=== PATIENT | female | born 1955 | race Caucasian/White ===

== ENCOUNTER → 2016-07-07 | Outpatient (CLI) | payer BC ==
[~2016-07-07] MED LIST: ASCO10003 PO; BENZ2TAB6 PO; CALC600T9 PO; CHOL100010 PO; CLR10 PO; DENO60SO SC; FLUT0.15 NAE; LEVO75TA PO
--- NOTE | 2016-07-08 13:19 | MAMMOGRAPHY REPORT ---
BILATERAL DIGITAL SCREENING MAMMOGRAM TOMOSYNTHESIS WITH CAD: 07/07/2016 CLINICAL HISTORY: Routine screening. TECHNIQUE: Breast tomosynthesis in addition to standard 2D mammography was performed. Current study was also evaluated with a Computer Aided Detection (CAD) system. COMPARISON: Comparison is made to exams dated: 07/05/2015 mammogram, 07/03/2014 mammogram, 07/01/2013 mammogram, 06/29/2012 mammogram, 06/26/2011 mammogram, and 06/24/2010 mammogram - [facility] nter. BREAST COMPOSITION: There are scattered areas of fibroglandular density in both breasts. FINDINGS: There are mild vascular calcifications in the breasts. No suspicious mass, architectural distortion or cluster of suspicious microcalcifications is seen. IMPRESSION: ACR BI-RADS CATEGORY 1: NEGATIVE There is no mammographic evidence of malignancy. A 1 year screening mammogram is recommended. The p atient will receive written notification of the results. Approximately 10% of breast cancers are not detected with mammography. A negative mammographic repor t should not delay biopsy if a clinically suggestive mass is present. Salima Mack M.D. ay/:07/07/2016 17:17:55 Business Professor: Jesus LINN(Jose)(M), [facility] letter sent: Normal 1/2 BI-RADS Code: ACR BI-RADS Category 1: Negative
== END | disposition home or self-care (01) ==
LOC: C.MAMM 11:41
PROVIDERS: ATTEND Family Medicine
DX: Z12.31 Encounter for screening mammogram for malignant neoplasm of breast (principal)

== ENCOUNTER → 2017-07-08 | Outpatient (CLI) | payer BC ==
--- NOTE | 2017-07-08 15:13 | MAMMOGRAPHY REPORT ---
BILATERAL DIGITAL SCREENING MAMMOGRAM TOMOSYNTHESIS WITH CAD: 07/08/2017 CLINICAL HISTORY: Routine screening. Patient has no complaints. TECHNIQUE: Breast tomosynthesis in addition to standard 2D mammography was performed. Current study was also evaluated with a Computer Aided Detection (CAD) system. COMPARISON: Comparison is made to exams dated: 07/07/2016 mammogram, 07/05/2015 mammogram, 07/03/2014 m ammogram, 07/01/2013 mammogram, 06/29/2012 mammogram, and 06/26/2011 mammogram - [facility]. BREAST COMPOSITION: There are scattered areas of fibroglandular density in both breasts. FINDINGS: No suspicious masses, calcifications, or areas of architectural distortion are noted in ei ther breast. There has been no significant interval change compared to prior exams. IMPRESSION: ACR BI-RADS CATEGORY 1: NEGATIVE There is no mammographic evidence of malignancy. A 1 year screening mammogram is recommended. The pa tient will receive written notification of the results. Approximately 10% of breast cancers are not detected with mammography. A negative mammographic report should not delay biopsy if a clinically suggestive mass is present. Maricel Chen M.D. ah/:07/08/2017 12:38:16 Civil Designer: Jannie LINN(Jose)(Colleen), [facility] letter sent: Normal 1/2 BI-RADS Code: ACR BI-RADS Category 1: Negative
== END | disposition home or self-care (01) ==
LOC: C.MAMM 11:28
PROVIDERS: ATTEND Family Medicine
DX: Z12.31 Encounter for screening mammogram for malignant neoplasm of breast (principal)

== ENCOUNTER 2019-01-12 22:10 | Inpatient (IN) ==
[2019-01-12] MEDS ORDERED: METOPROLOL TARTRATE 1 MG/ML VIAL IV STA ×3 (22:36→23:32)
[2019-01-12] MEDS ORDERED: SODIUM CHLORIDE 0.9% 500 ML IV SCH (22:45)
--- NOTE | 2019-01-12 22:47 | XRay Report ---
XR chest 1V portable CLINICAL HISTORY: 63 years-old Female presenting with Chest Pain, tachycardia. TECHNIQUE: Portable upright AP view of the chest was obtained. COMPARISON: None. FINDINGS: Hilar prominence noted bilaterally. Cardiac silhouette normal in size. Diffusely coarsened lung donato ngs with prominence of interstitium. No focal opacity. No large effusion or pneumothorax. Extensive s urgical clips at the base of the neck. Degenerative changes of the thoracic spine. Osteopenia may be present. Several overlying external leads to grating image quality. Upper abdomen normal. IMPRESSION: 1. Prominence of the bilateral chiki. Underlying lymphadenopathy is not excluded though this could be vascular in etiology. Consider contrast-enhanced chest CT for further evaluation. 2. No other evidence of acute cardiopulmonary disease. Electronically signed by: Krishna Faust M.D. 01/12/2019 10:46 PM
[2019-01-12 22:51] LABS: Basophils # (auto) 0.01 K/uL (0-0.2); Basophils % (auto) 0.2 %; Eosinophils # (auto) 0.12 K/uL (0-0.5); Eosinophils % (auto) 1.9 %; Hemoglobin 13.8 g/dL (12.0-16.0); Immature Granulocytes # (auto) 0.01 K/uL (0.00-0.02); Immature Granulocytes % (auto) 0.2 %; Lymphocytes # (auto) 2.69 K/uL (1.2-3.4); Lymphocytes % (auto) 42.6 %; Mean Corpuscular Hemoglobin 30.7 pg (25-34); Mean Corpuscular Hgb Conc 34.5 g/dL (32-36); Mean Corpuscular Volume 88.9 fL (80-100); Mean Platelet Volume 9.6 fL (7.4-10.4); Monocytes # (auto) 0.46 K/uL (0.11-0.59); Monocytes % (auto) 7.3 %; Neutrophils # (auto) 3.02 K/uL (1.4-6.5); Neutrophils % (auto) 47.8 %; Platelet Count 207 K/uL (130-400); RDW Coefficient of Variation 12.7 % (11.5-14.5); RDW Standard Deviation 40.3 fL (36.4-46.3); White Blood Count 6.31 K/uL (4.8-10.8)
[2019-01-12 23:00] LABS: Partial Thromboplastin Ratio 0.9; Partial Thromboplastin Time 24.5 Seconds (21.0-31.0); Prothrombin Time 10.3 Seconds (9.0-12.0)
[2019-01-12 23:04] LABS: Alanine Aminotransferase 24 U/L (12-78); Albumin Level 4.1 gm/dl (3.4-5.0); Aspartate Aminotransferase 15 U/L (15-37); BUN Creatinine Ratio 16.6 (10-20); Blood Urea Nitrogen 10 mg/dl (7-18); Calcium 8.4 mg/dl (8.5-10.1); Carbon Dioxide 22 mmol/L (21-32); Chloride 101 mmol/L (98-107); Creatinine Clr Calc Pharmacy 80.7 ml/min; Est GFR (African American) 113.1; Est GFR (Non-African American) 97.5; Glucose 153 mg/dl (70-99); Lipase 126 U/L (73-393); Magnesium 1.9 mg/dl (1.8-2.4); Potassium 3.2 mmol/L (3.5-5.1); Sodium 133 mmol/L (136-145)
[2019-01-12 23:14] LABS: Albumin Globulin Ratio 1.3 (0.9-2); Alkaline Phosphatase 67 U/L (45-117); Bilirubin,Total 0.4 mg/dl (0.2-1); Globulin 3.2 gm/dl (2.5-4.0); Total Protein 7.3 gm/dl (6.4-8.2); Troponin I < 0.015 ng/ml (0-0.045)
[2019-01-12] MEDS ORDERED: POTASSIUM CHLORIDE 20 MEQ TABCR PO STA (23:42)
[2019-01-12] MEDS ORDERED: MAGNESIUM SULFATE / D5W 1 GM/100 ML BAG IV ONE (23:43)
[2019-01-13] MEDS ORDERED: SODIUM CHLORIDE 0.9% 250 ML IV ONE
[2019-01-13] MEDS ORDERED: METOPROLOL TARTRATE 1 MG/ML VIAL IV STA ×2 (00:35→00:47)
[2019-01-13] MEDS ORDERED: POTASSIUM CHLORIDE 20 MEQ TABCR PO STA (00:47)
[2019-01-13] MEDS ORDERED: POTASSIUM CHLORIDE 40 MEQ in SODIUM CHLORIDE 0.9% 1000ML 1,000 ML IV STA (00:48)
[2019-01-13] MEDS ORDERED: Heparin IV Standard *NO* Bolus STA (00:49)
--- NOTE | 2019-01-13 00:49 | History & Physical Report ---
Date of Service January 13, 2019 Assessment & Plan (1) Atrial fibrillation, rapid: New onset Rule out PE as precipitating factor given shortness of breath symptoms and sudden onset Hypokalemia, hypomagnesemia valvular heart disease as per records (mild [place], [place], [place], TR from 2015 PATRICE) postsurgical hypothyroidism, euthyroid as of today's TSH hx osteoporosis idiopathic torticollis on Cogentin Hyperglycemia rule out DM PCU Beta-hortencia for rate control IV Amiodarone if heart rate still uncontrolled and BP continues to drop with beta-hortencia rx IV heparin for thromboembolic prophylaxis CT chest PE study RE S OB, palpitations TTE, Cardiology consult RE new onset A. fib Replace electrolytes Check hemoglobin A1c DVT prophylaxis. Heparin Full code History of Present Illness Chief Complaint: Shortness of breath, palpitations Primary Care Provider: Iban Whaley, History obtained from patient, family, and records. Medical history significant for valvular heart disease (mild [place], [place], [place], TR from 2015 PATRICE), postsurgical hypothyroidism, osteoporosis, idiopathic torticollis on Cogentin. Last night, patient was getting ready for bed when she experienced sudden onset palpitations with shortness of breath, no actual chest pain. Denies unusual stress. Just tired the last few days, fair appetite. Patient had usual glass of wine last night. Denies unusual caffeine intake/decongestant use. No unusual fluid retention. Patient noted to be in rapid A. fib upon arrival at the ER. Cardiac rate 120-180s IV Lopressor doses given at the ER. No prior episodes of A. fib in the past. Medical History as above Surgical History : D&C, thyroidectomy, tonsillectomy, cataract surgery Family History : Atrial fibrillation, diabetes, heart disease, bipolar disorder, colon cancer Personal/Social history : Non-smoker, occasional EtOH intake, retired [employer] Allergies Allergy/AdvReac Type Severity Reaction Status Date / Time latex Allergy Unknown RASH Verified 01/12/19 23:31 erythromycin base AdvReac Unknown UPSET Verified 01/12/19 23:31 STOMACH Home Medications Home Medications Medication Instructions Recorded Confirmed Type ascorbic acid (vitamin C) 500 mg 500 mg PO DAILY tab 11/18/18 01/12/19 History tablet benztropine 1 mg tablet 0.5 - 1 mg PO DAILY tab 11/18/18 01/12/19 History calcium carbonate 600 mg calcium 600 mg PO BID tab 11/18/18 01/12/19 History (1,500 mg) tablet cholecalciferol (vitamin D3) 1,000 1,000 units PO DAILY 11/18/18 01/12/19 History unit (25 mcg) tablet levothyroxine 75 mcg tablet 75 mcg PO DAILY tab 11/18/18 01/12/19 History multivitamin 1 tab PO DAILY 11/18/18 01/12/19 History naproxen 500 mg tablet 500 mg PO BID PRN tab 11/18/18 01/12/19 History tramadol 50 mg tablet 50 mg PO Q6 PRN tab 11/18/18 01/12/19 History denosumab 60 mg/mL subcutaneous 60 mg SQ UD ml 12/13/18 01/12/19 History syringe Past Med/Surg History Medical History History of chicken pox History of colonic polyps History of osteoarthritis History of osteoporosis Surgical History S/P dilation and curettage S/P eye surgery laser surgery of right eye- lens replacement 05/1991 S/P sinus surgery 07/2015 S/P thyroidectomy 07/2008 S/P tonsillectomy 1961 S/P wisdom tooth extraction Family History Family/Other Osteoarthritis Diabetes Heart disease Hypertension Dyslipidemia Osteoporosis Thyroid disorder Colorectal cancer Social History Preferred Language: Dominican Communication Ability: Effective Form Setter/Driver Required: No Beliefs That Will Affect Care: None Current Living Situation: Spouse Other Information That Helps Us Care for You: No Feels Safe at Home: Yes Safety Concerns: Feels Safe At This Time Smoking Status: Never smoker Do You Dip or Chew Tobacco: No ; Second Hand E xposure: No ; Tobacco Cessation Education Requested by Patient: No Hx Alcohol Use: Yes Alcohol type: wine Alcohol Intake Frequency Comment: 1 drink 3-5 times a week Hx Substance Use: No Physical Activity Frequency: 3-4 Times per Week Physical Activity Frequency Comment: 30 minutes Review of Systems Review of Systems: As per HPI, all 10 systems reviewed, all other ROS negative Physical Exam Physical Exam: GENERAL: Slightly uncomfortable, slightly anxious, no respiratory distress SKIN: Normal color, warm HEENT: [place] palpebral conjunctivae, no ptosis, dry buccal mucosa NECK : Supple, no tenderness CHEST : CTA, no tenderness HEART : Irregular, systolic murmur ABDOMEN: Some distention, nontender EXTREMITIES : No LE swelling/tenderness, no other conspicuous deformities noted NEUROLOGIC : Coherent, no facial asymmetry, no other gross focality Results & Data Vital Signs (Past 12 Hours) Vital Signs Temp Pulse Resp BP Pulse Ox 01/12/19 23:39 144 H 100/66 01/12/19 23:31 153 H 19 94 01/12/19 23:30 147 H 18 100/66 94 01/12/19 23:16 151 H 22 93 01/12/19 23:15 142 H 21 107/88 94 01/12/19 23:10 152 H 105/85 01/12/19 23:00 161 H 19 105/85 95 01/12/19 22:52 155 H 19 156/138 H 96 01/12/19 22:46 132 H 17 95 01/12/19 22:45 160 H 19 96 01/12/19 22:44 96 01/12/19 22:43 152 H 140/125 H 01/12/19 22:32 185 H 19 140/125 H 95 01/12/19 22:31 189 H 18 152/126 H 95 01/12/19 22:30 180 H 17 95 01/12/19 22:26 179 H 14 01/12/19 22:21 164 H 16 112/69 96 01/12/19 22:12 36.6 C 119 H 18 136/87 96 Laboratory Results Laboratory Results WBC 6.31 K/uL (4.8-10.8) 01/12/19 22:30 RBC 4.50 M/uL (4.2-5.4) 01/12/19 22:30 Hgb 13.8 g/dL (12.0-16.0) 01/12/19 22:30 Hct 40.0 % (37-47) 01/12/19 22:30 MCV 88.9 fL (80-100) 01/12/19 22:30 MCH 30.7 pg (25-34) 01/12/19 22:30 MCHC 34.5 g/dL (32-36) 01/12/19 22:30 RDW Std Deviation 40.3 fL (36.4-46.3) 01/12/19 22: RDW Coeff of Tiffanie 12.7 % (11.5-14.5) 01/12/19: Plt Count 207 K/uL (130-400) 01/12/19 22:30 MPV 9.6 fL (7.4-10.4) 01/12/19 22: Immature Gran % (Auto) 0.2 % 01/12/19 22: Neut % (Auto) 47.8 % 01/12/19 22: Lymph % (Auto) 42.6 % 01/12/19 22:30 [place] % (Auto) 7.3 % 01/12/19: Eos % (Auto) 1.9 % 01/12/19: Baso % (Auto) 0.2 % 01/12/19: Immature Gran # (Auto) 0.01 K/uL (0.00-0.02) 01/12/19 22: Neut # (Auto) 3.02 K/uL (1.4-6.5) 01/12/19 22:30 Lymph # (Auto) 2.69 K/uL (1.2-3.4) 01/12/19 22:30 [place] # (Auto) 0.46 K/uL (0.11-0.59) 01/12/19 22:30 Eos # (Auto) 0.12 K/uL (0-0.5) 01/12/19 22: Baso # (Auto) 0.01 K/uL (0-0.2) 01/12/19 22:30 PT 10.3 Seconds (9.0-12.0) 01/12/19 22:30 INR 1.0 (0.9-1.1) 01/12/19 22:30 APTT 24.5 Seconds (21.0-31.0) 01/12/19 22: PTT Ratio 0.9 01/12/19 22:30 Sodium 133 mmol/L (136-145) L 01/12/19 22:30 Potassium 3.2 mmol/L (3.5-5.1) L 01/12/19:30 Chloride 101 mmol/L (98-107) 01/12/19 22:30 Carbon Dioxide 22 mmol/L (21-32) 01/12/19 22:30 Anion Gap 10.0 (3-11) 01/12/19 22:30 BUN 10 mg/dl (7-18) 01/12/19 22:30 Creatinine 0.59 mg/dl (0.6-1.2) L 01/12/19 22:30 Est Cr Clr Drug Dosing 80.7 ml/min 01/12/19 22:30 Est GFR ( Amer) 113.1 01/12/19 22:30 Est GFR (Non-Af Amer) 97.5 01/12/19 22:30 BUN/Creatinine Ratio 16.6 (10-20) 01/12/19 22: Glucose 153 mg/dl (70-99) H 01/12/19 22:30 Calcium 8.4 mg/dl (8.5-10.1) L 01/12/19 22: Magnesium 1.9 mg/dl (1.8-2.4) 01/12/19: Total Bilirubin 0.4 mg/dl (0.2-1) 01/12/19 22:30 AST 15 U/L (15-37) 01/12/19 22:30 ALT 24 U/L (12-78) 01/12/19 22:30 Alkaline Phosphatase 67 U/L (45-117) 01/12/19 22:30 Troponin I < 0.015 ng/ml (0-0.045) 01/12/19 22:30 Total Protein 7.3 gm/dl (6.4-8.2) 01/12/19 22: Albumin 4.1 gm/dl (3.4-5.0) 01/12/19 22:30 Globulin 3.2 gm/dl (2.5-4.0) 01/12/19 22: Albumin/Globulin Ratio 1.3 (0.9-2) 01/12/19 22: Lipase 126 U/L (73-393) 01/12/19 22:30 TSH 1.020 uIu/ml (0.300-4.500) 01/12/19 22:30 Diagnostic Findings Chest x-ray : 1. Prominence of the bilateral chiki. Underlying lymphadenopathy is not excluded though this could be vascular in etiology. Consider contrast-enhanced chest CT for further evaluation. 2. No other evidence of acute cardiopulmonary disease. EKG as per my interpretation :Rate 140, A. fib, normal axis, ST depression in inferior leads, upsloping ST depression anterolateral leads
[2019-01-13] MEDS ORDERED: CALCIUM GLUCONATE 10% 1,000 MG in SODIUM CHLORIDE 0.9% 50 ML IV STA (00:55)
[2019-01-13] MEDS ORDERED: HEPARIN SODIUM/DEXTROSE 25,000 UNITS/500 ML BAG IV SCH (01:00)
[2019-01-13] MEDS ORDERED: HEPARIN 25000 UNIT/500 ML D5W IV ONE (01:03)
[2019-01-13] MEDS ORDERED: CALCIUM GLUCONATE 10% 10 ML VIAL IV ONE (01:03)
--- NOTE | 2019-01-13 01:24 | Emergency Department Note ---
Entered by Symone Ibarra acting as a scribe for History of Present Illness General Chief complaint: Tachycardia Stated complaint: RAPID HEART BEAT, PT HAS A HEART MURMER Time Seen by Provider: 01/12/19 22:28 History of Present Illness Onset (ago): hour(s) 1 Location: chest Pain Consistency: + other (constant) Quality: + other (tachycardia) Associated symptoms: + shortness of breath; no chest pain The patient is a 63 year old female who presents to the Emergency Room with co mplaints of constant tachycardia that began 1 hour ago. She complains of a "racing heart," and shortness of breath. The patient denies any chest pain. She notes that she got her second Prolia shot 2 days ago. The patient denies any change in thyroid medication. She denies any history of A-fib. 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 Home Medications Home Medications Medication Instructions Recorded Confirmed Type ascorbic acid (vitamin C) 500 mg 500 mg PO DAILY tab 11/18/18 01/12/19 History tablet benztropine 1 mg tablet 0.5 - 1 mg PO DAILY tab 11/18/18 01/12/19 History calcium carbonate 600 mg calcium 600 mg PO BID tab 11/18/18 01/12/19 History (1,500 mg) tablet cholecalciferol (vitamin D3) 1,000 1,000 units PO DAILY 11/18/18 01/12/19 Hist ory unit (25 mcg) tablet levothyroxine 75 mcg tablet 75 mcg PO DAILY tab 11/18/18 01/12/19 History multivitamin 1 tab PO DAILY 11/18/18 01/12/19 History naproxen 500 mg tablet 500 mg PO BID PRN tab 11/18/18 01/12/19 History tramadol 50 mg tablet 50 mg PO Q6 PRN tab 11/18/18 01/12/19 History denosumab 60 mg/mL subcutaneous 60 mg SQ UD ml 12/13/18 01/12/19 History syringe Allergies Allergy/AdvReac Type Severity Reaction Status Date / Time latex Allergy Unknown RASH Verified 01/12/19 23:31 erythromycin base AdvReac Unknown UPSET Verified 01/12/19 23:31 STOMACH Past Med/Surg History Medical History History of chicken pox History of colonic polyps History of osteoarthritis History of osteoporosis Surgical History S/P dilation and curettage S/P eye surgery laser surgery of right eye- lens replacement 05/1991 S/P sinus surgery 07/2015 S/P thyroidectomy 07/2008 S/P tonsillectomy 1962 S/P wisdom tooth extraction Family History Family/Other Osteoarthritis Diabetes Heart disease Hypertension Dyslipidemia Osteoporosis Thyroid disorder Colorectal cancer Social History Preferred Language: British Communication Ability: Effective Pcb Designer Required: No Beliefs That Will Affect Care: None Current Living Situation: Spouse Other Information That Helps Us Care for You: No Feels Safe at Home: Yes Safety Concerns: Feels Safe At This Time Smoking Status: Never smoker Do You Dip or Chew Tobacco: No ; Second Hand Exposure: No ; Tobacco Cessation Education Requested by Patient: No Hx Alcohol Use: Yes Alcohol type: wine Alcohol Intake Frequency Comment: 1 drink 3-5 times a week Hx Substance Use: No Physical Activity Frequency: 3-4 Times per Week Physical Activity Frequency Comment: 30 minutes Review of Systems See HPI for pertinent positives & negatives. and A total of 10 systems reviewed and were otherwise negative Physical Exam Vital Signs Vital Signs - 24 hr 01/12/19 22:12 01/12/19 22:21 01/12/19 22:26 Temperature 36.6 C Temperature Source Oral Sepsis Recent Fever Within 48 Hours No Sepsis Action Taken by Nursing No Action Required Pulse Rate 119 H 164 H 179 H Pulse Rate from SpO2 Sensor 130 H Respiratory Rate 18 16 14 Respiratory Effort / Characteristics Non-Labored Respiratory Depth Normal Respiratory Pattern Blood Pressure 136/87 112/69 Blood Pressure Mean 103 83 Pulse Oximetry 96 96 Oxygen Delivery Method Room Air 01/12/19 22:30 01/12/19 22:31 01/12/19 22:32 Temperature Temperature Source Sepsis Recent Fever Within 48 Hours Sepsis Action Taken by Nursing Pulse Rate 180 H 189 H 185 H Pulse Rate from SpO2 Sensor 104 H 118 H 151 H Respiratory Rate 17 18 19 Respiratory Effort / Characteristics Respiratory Depth Respiratory Pattern Blood Pressure 152/126 H 140/125 H Blood Pressure Mean 134 130 Pulse Oximetry 95 95 95 Oxygen Delivery Method 01/12/19 22:37 01/12/19 22:43 01/12/19 22:44 Temperature Temperature Source Sepsis Recent Fever Within 48 Hours Sepsis Action Taken by Nursing Pulse Rate 152 H Pulse Rate from SpO2 Sensor Respiratory Rate Respiratory Effort / Characteristics Short of Breath Respiratory Depth Normal Respiratory Pattern Regular Blood Pressure 140/125 H Blood Pressure Mean Pulse Oximetry 96 Oxygen Delivery Method Room Air 01/12/19 22:45 01/12/19 22:46 01/12/19 22:52 Temperature Temperature Source Sepsis Recent Fever Within 48 Hours Sepsis Action Taken by Nursing Pulse Rate 160 H 132 H 155 H Pulse Rate from SpO2 Sensor 130 H 95 H 153 H Respiratory Rate 19 17 19 Respiratory Effort / Characteristics Respiratory Depth Respiratory Pattern Blood Pressure 156/138 H Blood Pressure Mean 82 144 Pulse Oximetry 96 95 96 Oxygen Delivery Method 01/12/19 23:00 01/12/19 23:10 01/12/19 23:15 Temperature Temperature Source Sepsis Recent Fever Within 48 Hours Sepsis Action Taken by Nursing Pulse Rate 161 H 152 H 142 H Pulse Rate from SpO2 Sensor 133 H 133 H Respiratory Rate 19 21 Respiratory Effort / Characteristics Respiratory Depth Respiratory Pattern Blood Pressure 105/85 105/85 107/88 Blood Pressure Mean 91 94 Pulse Oximetry 95 94 Oxygen Delivery Method 01/12/19 23:16 01/12/19 23:30 01/12/19 23:31 Temperature Temperature Source Sepsis Recent Fever Within 48 Hours Sepsis Action Taken by Nursing Pulse Rate 151 H 147 H 153 H Pulse Rate from SpO2 Sensor 111 H 142 H 148 H Respiratory Rate 22 18 19 Respiratory Effort / Characteristics Respiratory Depth Respiratory Pattern Blood Pressure 100/66 Blood Pressure Mean 77 Pulse Oximetry 93 94 94 Oxygen Delivery Method 01/12/19 23:39 01/12/19 23:45 01/13/19 00:00 Temperature Temperature Source Sepsis Recent Fever Within 48 Hours Sepsis Action Taken by Nursing Pulse Rate 144 H 141 H 158 H Pulse Rate from SpO2 Sensor 134 H 138 H Respiratory Rate 22 21 Respiratory Effort / Characteristics Respiratory Depth Respiratory Pattern Blood Pressure 100/66 91/70 L 113/94 Blood Pressure Mean 77 100 Pulse Oximetry 94 93 Oxygen Delivery Method 01/13/19 00:15 01/13/19 00:31 01/13/19 00:32 Temperature Temperature Source Sepsis Recent Fever Within 48 Hours Sepsis Action Taken by Nursing Pulse Rate 141 H 153 H 164 H Pulse Rate from SpO2 Sensor 134 H 123 H 133 H Respiratory Rate 19 24 20 Respiratory Effort / Characteristics Respiratory Depth Respiratory Pattern Blood Pressure 106/82 89/68 L 116/83 Blood Pressure Mean 90 75 94 Pulse Oximetry 95 94 94 Oxygen Delivery Method 01/13/19 00:45 Temperature Temperature Source Sepsis Recent Fever Within 48 Hours Sepsis Action Taken by Nursing Pulse Rate 152 H Pulse Rate from SpO2 Sensor 136 H Respiratory Rate 25 H Respiratory Effort / Characteristics Respiratory Depth Respiratory Pattern Blood Pressure 111/75 Blood Pressure Mean 87 Pulse Oximetry 93 Oxygen Delivery Method General: Non-ill appearing, slender, middle aged female in no acute distress. HEENT: Normal cephalic atraumatic. Pupils are equal round and reactive to light. Extraocular movements are intact. Oropharynx is pink with moist mucous membranes. No swelling of the mouth lips or tongue. Neck: Supple with a midline trachea. No meningeal signs or stiffness, no JVD or bruits. No Stridor. Chest: Clear to auscultation bilaterally. No wheezes or rhonchi. No increased work of breathing. Heart: Irregularly irregular rate with an atrial complex. Tachycardia consistent with A-fib. Abdomen: Soft nontender, nondistended without rebound guarding or rigidity. Extremities: No cyanosis clubbing or edema. No calf tenderness or asymmetry Spine/Back. Non tender to palpation. No CVA tenderness Skin: Good turgor without rashes. Neurologic exam: Cranial nerves two through 12 are intact. Motor and sensation are intact and symmetrical throughout. Course 2232: The patient was evaluated in room B07. A complete history and physical exam was performed. 2258: I reevaluated the patient. 2339: I reassessed the patient, and she stated that she was feeling alright. 0032: I spoke with Dr. Calvo about the patients case. He will further evaluate the patient. 0035: I reassessed the patient, and her heart rate was in the 140-150s. Administered Medications Calcium Carbonate (Os-Kenny 500) 1,250 mg PO DAILY ИВАН Stop: 02/12/19 08:59 Last Admin: 01/13/19 08:29 Dose: 1,250 mg Documented by: [id number] Heparin Sodium/Dextrose (Heparin Sodium/Dextrose) 25,000 units in 500 mls @ 20 mls/hr IV .Q24H ИВАН; Protocol Stop: 02/12/19 00:59 Last Titration: 01/13/19 08:45 Dose: 1,000 units/hr, 20 mls/hr Documented by: [id number] Cosigned by: [id number] Titration: 01/13/19 07:23 Dose: 1,000 units/hr, 20 mls/hr Documented by: [id number] Cosigned by: [id number] Admin: 01/13/19 01:19 Dose: 1,000 units/hr, 20 mls/hr Documented by: [id number] Cosigned by: [id number] Amiodarone HCl/Dextrose (Nexterone / D5w) 360 mg in 200 mls @ 16.667 mls/hr IV .Q12H ИВАН Stop: 02/12/19 09:29 Last Admin: 01/13/19 09:18 Dose: 0.5 mg/min, 16.7 mls/hr Documented by: [id number] Cosigned by: [id number] Ioversol (Optiray 320 125ml) 125 ml IV ONCE PRN PRN Reason: Interaction Checking Stop: 01/17/19 02:03 Last Admin: 01/13/19 02:05 Dose: 115 ml Documented by: [id number] Levothyroxine Sodium (Synthroid) 75 mcg PO DAILYBB ИВАН Stop: 02/12/19 06:29 Last Admin: 01/13/19 06:36 Dose: 75 mcg Documented by: [id number] Multivitamins (Multivitamin Tab) 1 tab PO DAILY ИВАН Stop: 02/12/19 08:59 Last Admin: 01/13/19 08:29 Dose: 1 tab Documented by: [id number] Vitamin D (Vitamin D3) 1,000 units PO DAILY ИВАН Stop: 02/12/19 08:59 Last Admin: 01/13/19 08:29 Dose: 1,000 units Documented by: [id number] Discontinued Medications Diltiazem HCl (Cardizem) 20 mg IV NOW STA Stop: 01/13/19 02:29 Last Admin: 01/13/19 02:43 Dose: 20 mg Documented by: [id number] Cosigned by: [id number] Diltiazem HCl (Cardizem) Confirm Administered Dose 25 mg IV .STK-MED ONE Stop: 01/13/19 02:40 Last Admin: 01/13/19 03:15 Dose: Not Given Documented by: [id number] Sodium Chloride (Nss) 500 mls @ 999 mls/hr IV .Q31M ИВАН Stop: 01/12/19 23:15 Last Infusion: 01/12/19 23:35 Dose: 0 mls/hr Documented by: [id number] Admin: 01/12/19 22:43 Dose: 999 mls/hr Documented by: [id number] Magnesium Sulfate/Dextrose (Magnesium Sulfate / D5w) 1 gm in 100 mls @ 100 mls/hr IV ONE ONE Stop: 01/13/19 00:42 Last Infusion: 01/13/19 01:05 Dose: 0 mls/hr Documented by: [id number] Admin: 01/13/19 00:03 Dose: 100 mls/hr Documented by: [id number] Sodium Chloride (Nss) 250 mls @ 999 mls/hr IV .Q16M ONE Stop: 01/13/19 00:15 Last Infusion: 01/13/19 00:20 Dose: 0 mls/hr Documented by: [id number] Admin: 01/13/19 00:03 Dose: 999 mls/hr Documented by: [id number] Potassium Chloride 40 meq/ (Sodium Chloride) 1,020 mls @ 200 mls/hr IV .Q5H6M STA Stop: 01/13/19 05:53 Last Infusion: 01/13/19 06:38 Dose: 0 mls/hr Documented by: [id number] Admin: 01/13/19 01:12 Dose: 200 mls/hr Documented by: [id number] Calcium Gluconate 1,000 mg/ (Sodium Chloride) 60 mls @ 240 mls/hr IV NOW STA Stop: 01/13/19 01:09 Last Infusion: 01/13/19 02:23 Dose: 0 mls/hr Documented by: [id number] Admin: 01/13/19 01:19 Dose: 240 mls/hr Documented by: [id number] Amiodarone HCl/Dextrose (Nexterone / D5w) 150 mg in 100 mls @ 600 mls/hr IV ONE STA Stop: 01/13/19 03:26 Last Infusion: 01/13/19 04:29 Dose: 0 mls/hr Documented by: [id number] Cosigned by: [id number] Admin: 01/13/19 03:44 Dose: 600 mls/hr Documented by: [id number] Cosigned by: [id number] Amiodarone HCl/Dextrose (Nexterone / D5w) 360 mg in 200 mls @ 33.333 mls/hr IV .Q6H ИВАН Stop: 01/13/19 09:29 Last Infusion: 01/13/19 10:03 Dose: 0 mg/min, 0 mls/hr Documented by: [id number] Cosigned by: [id number] Infusion: 01/13/19 07:23 Dose: 1 mg/min, 33.3 mls/hr Documented by: [id number] Cosigned by: [id number] Admin: 01/13/19 04:02 Dose: 1 mg/min, 33.3 mls/hr Documented by: [id number] Cosigned by: [id number] Metoprolol Tartrate (Lopressor) 3 mg IV NOW STA Stop: 01/12/19 22:37 Last Admin: 01/12/19 22:43 Dose: 3 mg Documented by: [id number] Metoprolol Tartrate (Lopressor) 3 mg IV NOW STA Stop: 01/12/19 23:02 Last Admin: 01/12/19 23:10 Dose: 3 mg Documented by: [id number] Metoprolol Tartrate (Lopressor) 3 mg IV NOW STA Stop: 01/12/19 23:33 Last Admin: 01/12/19 23:39 Dose: 3 mg Documented by: [id number] Metoprolol Tartrate (Lopressor) 3 mg IV NOW STA Stop: 01/13/19 00:36 Last Admin: 01/13/19 01:12 Dose: Not Given Documented by: [id number] Metoprolol Tartrate (Lopressor) 5 mg IV NOW STA Stop: 01/13/19 00:48 Last Admin: 01/13/19 01:09 Dose: 5 mg Documented by: [id number] Metoprolol Tartrate (Lopressor) 25 mg PO BID ИВАН Stop: 02/12/19 02:44 Last Admin: 01/13/19 08:31 Dose: Not Given Documented by: [id number] Metoprolol Tartrate (Lopressor) 25 mg PO TID ИВАН Stop: 02/12/19 02:59 Last Admin: 01/13/19 03:16 Dose: Not Given Documented by: [id number] Potassium Chloride (Klor-Con M20) 40 meq PO NOW STA Stop: 01/12/19 23:43 Last Admin: 01/13/19 00:03 Dose: 40 meq Documented by: [id number] Potassium Chloride (Klor-Con M20) 40 meq PO NOW STA Stop: 01/13/19 00:48 Last Admin: 01/13/19 01:11 Dose: 40 meq Documented by: [id number] Medical Decision Making Differential Diagnosis The differential diagnosis includes: Rapid A-fib, acute coronary syndrome, electrolyte or metabolic imbalance, thyroid disease, and infection Medical Records Attestation: I reviewed the patient's medical records. Home Medications Current Medication List: was personally reviewed by me Laboratory Data Attestation: I reviewed the patient's lab results. Result diagrams: 01/13/19 07:48 01/13/19 07:48 Lab Results 01/12/19 01/12/19 01/12/19 Range/Units 22:30 22:30 22:30 WBC 6.31 (4.8-10.8) K/uL RBC 4.50 (4.2-5.4) M/uL Hgb 13.8 (12.0-16.0) g/dL Hct 40.0 (37-47) % MCV 88.9 (80-100) fL MCH 30.7 (25-34) pg MCHC 34.5 (32-36) g/dL RDW Std Deviation 40.3 (36.4-46.3) fL RDW Coeff of Tiffanie 12.7 (11.5-14.5) % Plt Count 207 (130-400) K/uL MPV 9.6 (7.4-10.4) fL Immature Gran % (Auto) 0.2 % Neut % (Auto) 47.8 % Lymph % (Auto) 42.6 % Whitley % (Auto) 7.3 % Eos % (Auto) 1.9 % Baso % (Auto) 0.2 % Immature Gran # (Auto) 0.01 (0.00-0.02) K/uL Neut # (Auto) 3.02 (1.4-6.5) K/uL Lymph # (Auto) 2.69 (1.2-3.4) K/uL Whitley # (Auto) 0.46 (0.11-0.59) K/uL Eos # (Auto) 0.12 (0-0.5) K/uL Baso # (Auto) 0.01 (0-0.2) K/uL PT 10.3 (9.0-12.0) Seconds INR 1.0 (0.9-1.1) APTT 24.5 (21.0-31.0) Seconds PTT Ratio 0.9 Sodium 133 L (136-145) mmol/L Potassium 3.2 L (3.5-5.1) mmol/L Chloride 101 (98-107) mmol/L Carbon Dioxide 22 (21-32) mmol/L Anion Gap 10.0 (3-11) BUN 10 (7-18) mg/dl Creatinine 0.59 L (0.6-1.2) mg/dl Est Cr Clr Drug Dosing 80.7 ml/min Est GFR ( Amer) 113.1 Est GFR (Non-Af Amer) 97.5 BUN/Creatinine Ratio 16.6 (10-20) Glucose 153 H (70-99) mg/dl Calcium 8.4 L (8.5-10.1) mg/dl Magnesium 1.9 (1.8-2.4) mg/dl Total Bilirubin 0.4 (0.2-1) mg/dl AST 15 (15-37) U/L ALT 24 (12-78) U/L Alkaline Phosphatase 67 (45-117) U/L Troponin I < 0.015 (0-0.045) ng/ml Total Protein 7.3 (6.4-8.2) gm/dl Albumin 4.1 (3.4-5.0) gm/dl Globulin 3.2 (2.5-4.0) gm/dl Albumin/Globulin Ratio 1.3 (0.9-2) Lipase 126 (73-393) U/L TSH 1.020 (0.300-4.500) uIu/ml Imaging Data Radiologist's Impression: Radiology results as stated below per my review and the radiologist's interpretation: XR chest 1V portable CLINICAL HISTORY: 63 years-old Female presenting with Chest Pain, tachycardia. TECHNIQUE: Portable upright AP view of the chest was obtained. COMPARISON: None. FINDINGS: Hilar prominence noted bilaterally. Cardiac silhouette normal in size. Diffusely coarsened lung markings with prominence of interstitium. No focal opacity. No large effusion or pneumothorax. Extensive surgical clips at the base of the neck. Degenerative changes of the thoracic spine. Osteopenia may be present. Several overlying external leads to grating image quality. Upper abdomen normal. IMPRESSION: 1. Prominence of the bilateral chiki. Underlying lymphadenopathy is not excluded though this could be vascular in etiology. Consider contrast-enhanced chest CT for further evaluation. 2. No other evidence of acute cardiopulmonary disease. Electronically signed by: Krishna Faust M.D. 01/12/2019 10:46 PM ECG Data Attestation: I personally reviewed and interpreted this ECG as follows: Indication: other (tachycardia) Rate (beats per minute): 163 Rhythm: atrial fibrillation Findings: + other (ST abnormalities) Comparison ECG Date: from (08/06/16) Change: the following changes noted (A-fib has replaced normal sinus rhythm) Blood Pressure Blood Pressure Findings: Elevated blood pressure Blood Pressure Disposition: further management by hospitalist JOSEFINA Narrative This patient comes in complaining of palpitations. She the nurse came and got me to see her promptly as she was in new onset rapid A. fib. The patient was hemodynamically stable with her blood pressure. she is petite and weighs about 60 kg and normally runs a low blood pressure she says. She has no chest pain or shortness of breath. No history of similar. IV access established and she was given an IV fluid bolus. Given her size and blood pressure on the lower side, she was given Lopressor and 3 mg IV increments rather than 5 mg. She tolerated this well. Her initial pulse was very high up in the 180s and came down with Lopressor. she did very require 4 doses while in the ER for a total of 12 mg IV. Potassium is mildly low and this was repleted magnesium was also mildly low and this was repleted no elevation of her troponin she does not appear to be in heart failure. She is baseline hypothyroid due to the thyroid surgery. Despite the medication she still is on the tachycardic side in the 130s to 140s and will need to be admitted for further treatment and evaluation. Dr. Sears was consulted and saw her in the ER for these measures Impression & Plan Atrial fibrillation, rapid, Palpitations, Hypokalemia, Hypomagnesemia Critical Care Time Critical Care Time: Yes Total Critical Care Time: 45 I have personally spent greater than 45 minutes of critical care time in the direct management of this patient. This includes bedside care, interpretation of diagnostic studies, and testing, discussion with consultants, patient, and family members, and other required patient management activities. This 45 minutes is in excess of all separately billable procedures. Discharge Plan Visit Data *Final* Discharge Date/Time: 01/13/19 01:41 Chief Complaint: Tachycardia Stated Complaint: RAPID HEART BEAT, PT HAS A HEART MURMER ED Provider: Umberto Downing Discharge Problem: Atrial fibrillation, rapid, Palpitations, Hypokalemia, Hypomagnesemia Patient Disposition: Admitted As Inpatient Discharge Instructions Interventions: ED Discharge Assessment Last Done: 01/13/19 01:41 The scribe's documentation has been prepared under my direction and personally reviewed by me in its entirety. I confirm that the note above accurately reflects all work, treatment, procedures, and medical decision making performed by me.
[2019-01-13] MEDS ORDERED: OPTIRAY 320 125ml IV PRN (02:04)
[2019-01-13] MEDS ORDERED: ACETAMINOPHEN 325 MG TAB PO PRN (02:21)
[2019-01-13] MEDS ORDERED: LORazepam 0.25 MG/0.5 ML VIAL IV PRN (02:21)
[2019-01-13] MEDS ORDERED: NITROGLYCERIN SL 0.4 MG/TAB TAB SL PRN (02:21)
[2019-01-13] MEDS ORDERED: PROMETHAZINE HCL 12.5 MG in SODIUM CHLORIDE 0.9% 50 ML IV PRN (02:21)
[2019-01-13] MEDS ORDERED: TRAMADOL HCL 50 MG TABLET PO PRN (02:21)
[2019-01-13] MEDS ORDERED: dilTIAZem HCl 5 MG/ML 5 ML VIAL IV STA (02:28)
[2019-01-13] MEDS ORDERED: dilTIAZem HCl 5 MG/ML 5 ML VIAL IV ONE (02:39)
[2019-01-13] MEDS ORDERED: METOPROLOL TARTRATE 25 MG TAB PO SCH ×3 (02:45→09:00)
[2019-01-13] MEDS ORDERED: AMIODARONE IV BOLUS / DRIP IV STA (03:17)
[2019-01-13] MEDS ORDERED: AMIODARONE / D5W 150 MG/100 ML BAG IV STA (03:17)
[2019-01-13] MEDS ORDERED: AMIODARONE / D5W 360 MG/200 ML BAG IV SCH (03:30)
[2019-01-13] MEDS: LEVOTHYROXINE SODIUM 75 MCG TABLET PO SCH (06:36)
--- NOTE | 2019-01-13 07:26 | CT Scan Report ---
CT ANGIOGRAM OF THE CHEST CLINICAL HISTORY: Atypical chest pain. Dyspnea. COMPARISON STUDY: Chest x-ray dated 01/12/2019. TECHNIQUE: Following the IV administration of 115 cc of Optiray 320, CT angiogram of the chest was pe rformed from the upper abdomen to the thoracic inlet utilizing the pulmonary embolus protocol. Images are reviewed in the axial, sagittal, and coronal planes. 3-D MIPS images are created and assessed. I V contrast was administered without complication. A dose lowering technique was utilized adhering to the principles of ALARA. CT DOSE: 203.51 mGy.cm FINDINGS: Thyroid: Surgically absent. Thoracic aorta: The thoracic aorta is normal in caliber and demonstrates standard 3-vessel arch anato my. The thoracic aorta is not well opacified. Pulmonary vasculature: The pulmonary trunk is dilated, measuring up to 3.2 cm in diameter. This sugge sts pulmonary artery hypertension. There are no filling defects identified in main, lobar, or segment al pulmonary branches to suggest pulmonary embolus. Heart: The heart is enlarged and without pericardial effusion. The mitral annulus is densely calcifie d. Lungs and pleural spaces: Evaluation of the lung parenchyma is degraded by motion artifact. Biapical scarring is observed. Mild diffuse peribronchial thickening and intralobular septal thickening sugges ts congestive failure. There are trace pleural effusions with bibasilar atelectasis. There is a 5 mm right lower lobe pulmonary nodule seen on image #104. Mediastinum: There is no mediastinal lymphadenopathy. Elle: Clear. Axillae: There is no axillary lymphadenopathy. Upper abdomen: Partially visualized upper abdominal viscera is within normal limits. Skeletal structures: The skeletal structures are osteopenic. There are numerous compression deformiti es identified. These are seen involving T4, T7, T8, T10, T11, T12, and L1. No lytic or blastic bony l esions are seen. IMPRESSION: 1. There is no evidence of pulmonary embolus in the main, lobar, or segmental pulmonary arteries. 2. Cardiomegaly with evidence of congestive failure. 3. Trace pleural effusions. 4. No airspace consolidation is identified typical for pneumonia. 5. There is a 5 mm right lower lobe pulmonary nodule. This can be followed as per the Fleischner crit eria. See below. 6. There are numerous age indeterminant thoracic compression deformities as above. Please refer to below summary of Fleischner criteria recommendations for follow-up of incidental CT n odules (Shashi Denny, Guidelines for management of small pulmonary nodules detected on CT scans: A sta tement from the Fleischner Society, Radiology 237: [id number].) SOLID NODULES Solitary nodule size: <6 mm * low risk patients: no follow-up needed * high risk patients: optional CT at 12 months Solitary nodule size: 6-8 mm * low risk patients: follow-up at 6-12 months, then consider further follow-up at 18-24 months * high risk patients: initial follow-up CT at 6-12 months and then at 18-24 months if no change Solitary nodule size: >8 mm * either low or high risk patients - consider follow-up CT at 3 months, and/or CT-PET, and/or biopsy Multiple nodules size: <6 mm * low risk patients: no routine follow-up * high risk patients: optional CT at 12 months Multiple nodules size: 6-8 mm * low risk patients: follow-up at 3-6 months, then consider further follow-up at 18-24 months * high risk patients: follow-up at 3-6 months, then at 18-24 months if no change Multiple nodules size: >8 mm * low risk patients: follow-up at 3-6 months, then consider further follow-up at 18-24 months * high risk patients: follow-up at 3-6 months, then at 18-24 months if no change Note: newly detected indeterminate nodule in persons 35 years of age or older. * low risk patients: minimal or absent history of smoking and/or other known risk factors * high risk patients: history of smoking or of other known risk factors (e.g. first degree relative with lung cancer, or exposure to asbestos, radon, uranium) * if a nodule up to 8 mm is partly solid or is ground glass further follow-up is required after 24 m onths to exclude possible slow growing adenocarcinoma (MICHELE) SUBSOLID NODULES Solitary pure ground-glass nodule * nodule size <6 mm - no CT follow-up required * nodule size >=6 mm - follow-up CT at 6-12 months, then every 2 years until 5 years Solitary part-solid nodule * nodule size <6 mm - no CT follow-up required * nodule size >=6 mm - follow-up CT at 3-6 months. If unchanged, and solid component remains <6 mm, then annual follow-up for 5 years Multiple subsolid nodules * nodule size <6 mm - follow-up CT at 3-6 months, consider further follow-up at 2 and 4 years if sta ble * nodule size >=6 mm - follow-up CT at 3-6 months, subsequent management based on the most suspiciou s nodule(s) Electronically signed by: Donell Garg M.D. 01/13/2019 7:24 AM
[2019-01-13 08:03] LABS: Basophils # (auto) 0.01 K/uL (0-0.2); Basophils % (auto) 0.2 %; Eosinophils # (auto) 0.07 K/uL (0-0.5); Eosinophils % (auto) 1.4 %; Hematocrit (blood only) 38.4 % (37-47); Hemoglobin 13.2 g/dL (12.0-16.0); Lymphocytes # (auto) 2.04 K/uL (1.2-3.4); Mean Corpuscular Hemoglobin 30.8 pg (25-34); Mean Corpuscular Hgb Conc 34.4 g/dL (32-36); Mean Corpuscular Volume 89.5 fL (80-100); Mean Platelet Volume 9.5 fL (7.4-10.4); Monocytes # (auto) 0.36 K/uL (0.11-0.59); Monocytes % (auto) 7.1 %; Neutrophils # (auto) 2.62 K/uL (1.4-6.5); Neutrophils % (auto) 51.3 %; Platelet Count 209 K/uL (130-400); RDW Standard Deviation 42.9 fL (36.4-46.3); Red Blood Count 4.29 M/uL (4.2-5.4)
[2019-01-13 08:24] LABS: Partial Thromboplastin Ratio 1.7
[2019-01-13] MEDS: CHOLECALCIFEROL 1,000 UNITS TAB PO SCH (08:29)
[2019-01-13] MEDS: CALCIUM CARBONATE 1250MG TAB PO SCH (08:29)
[2019-01-13] MEDS: MULTIVITAMIN TAB PO SCH (08:29)
[2019-01-13 08:32] LABS: Partial Thromboplastin Time 46.4 Seconds (21.0-31.0)
[2019-01-13 08:38] LABS: BUN Creatinine Ratio 11.6 (10-20); Creatinine Clr Calc Pharmacy 94.9 ml/min; Est GFR (Non-African American) 104.4; Potassium 4.7 mmol/L (3.5-5.1)
[2019-01-13 08:43] LABS: Estimated Average Glucose 117 mg/dl; Hemoglobin A1C 5.7 % (4.5-5.6)
[2019-01-13] MEDS ORDERED: BENZTROPINE MESYLATE 1 MG TAB PO SCH (09:00)
[2019-01-13 09:08] LABS: T4 Free Thyroxine 1.11 ng/dl (0.8-1.6); Thyroid Stimulating Hormone 1.03 uIu/ml (0.300-4.500)
[2019-01-13] MEDS: AMIODARONE / D5W 360 MG/200 ML BAG IV SCH ×2 (09:18→21:25)
[2019-01-13] MEDS ORDERED: METOPROLOL TARTRATE 25 MG TAB PO STA (13:03)
--- NOTE | 2019-01-13 13:13 | Cardiology Consultation ---
Date of Consultation January 13, 2019 Assessment & Plan (1) Atrial fibrillation, rapid: As mentioned the patient had been in normal sinus rhythm since this morning but when she got up to walk in the halls she developed a rapid heart rate with several seconds of atrial fibrillation that was asymptomatic. At this point I will continue the amiodarone infusion and add a low-dose of metoprolol. I think the plan should be to eventually transition her to oral amiodarone. I am also going to switch her to Eliquis from heparin. She will have an echocardiogram completed this admission. History of Present Illness Attending Physician: Jet Butler MD History of Present Illness This is a pleasant 63-year-old female with a history of osteoporosis and several compression fractures of her spine. No significant cardiac history except that she had a heart murmur as a child however, multiple echocardiograms failed to show any significant valvular disease. She has no prior history of hypertension or diabetes. She is treated for hypothyroidism. Patient is a never smoked. No significant family history of heart disease or cholesterol. She was getting ready for bed last evening and had a sudden onset of rapid heart rate. She presented to the emergency department where she was found to be in atrial fibrillation with RVR. She was given multiple doses of diltiazem and metoprolol without success in controlling her heart rates. She was then started on an amiodarone infusion and early this morning she converted to normal sinus rhythm. She has been on heparin since admission. She denies chest pain or shortness of breath. She is had no dizziness or lightheadedness. She has been maintaining sinus rhythm with adequate heart rates however, she was up walking the halls and was noted on the telemetry to have had a burst of atrial fibrillation with RVR which was asymptomatic. She has no prior history of strokes or kidney disease. Allergies Allergy/AdvReac Type Severity Reaction Status Date / Time latex Allergy Unknown RASH Verified 01/12/19 23:31 erythromycin base AdvReac Unknown UPSET Verified 01/12/19 23:31 STOMACH Home Medications Home Medications Medication Instructions Recorded Confirmed Type ascorbic acid (vitamin C) 500 mg 500 mg PO DAILY tab 11/18/18 01/12/19 History tablet benztropine 1 mg tablet 0.5 - 1 mg PO DAILY tab 11/18/18 01/12/19 History calcium carbonate 600 mg calcium 600 mg PO BID tab 11/18/18 01/12/19 History (1,500 mg) tablet cholecalciferol (vitamin D3) 1,000 1,000 units PO DAILY 11/18/18 01/12/19 History unit (25 mcg) tablet levothyroxine 75 mcg tablet 75 mcg PO DAILY tab 11/18/18 01/12/19 History multivitamin 1 tab PO DAILY 11/18/18 01/12/19 History naproxen 500 mg tablet 500 mg PO BID PRN tab 11/18/18 01/12/19 History tramadol 50 mg tablet 50 mg PO Q6 PRN tab 11/18/18 01/12/19 History denosumab 60 mg/mL subcutaneous 60 mg SQ UD ml 12/13/18 01/12/19 History syringe Patient History Medical History History of chicken pox History of colonic polyps History of osteoarthritis History of osteoporosis Surgical History S/P dilation and curettage S/P eye surgery laser surgery of right eye- lens replacement 05/1991 S/P sinus surgery 07/2015 S/P thyroidectomy 07/2008 S/P tonsillectomy 1961 S/P wisdom tooth extraction Family History Family/Other Osteoarthritis Diabetes Heart disease Hypertension Dyslipidemia Osteoporosis Thyroid disorder Colorectal cancer Social History Preferred Language: Taiwanese Communication Ability: Effective Clinical Analyst Required: No Beliefs That Will Affect Care: None Current Living Situation: Spouse Other Information That Helps Us Care for You: No Feels Safe at Home: Yes Safety Concerns: Feels Safe At This Time Smoking Status: Never smoker Do You Dip or Chew Tobacco: No ; Second Hand Exposure: No ; Tobacco Cessation Education Requested by Patient: No Hx Alcohol Use: Yes Alcohol type: wine Alcohol Intake Frequency Comment: 1 drink 3-5 times a week Hx Substance Use: No Physical Activity Frequency: 3-4 Times per Week Physical Activity Frequency Comment: 30 minutes Review of Systems Review of Systems: All systems reviewed & are unremarkable except as noted in HPI & below Nothing additional. Physical Exam Physical Exam: General: no acute distress and stated age Head: normocephalic, no masses, lesions, tenderness or abnormalities Eyes: conjunctiva are pink and non-injected, sclera clear Neck: supple, no adenopathy, no bruits, normal jugular venous pulse, no hepatojugular reflux Chest: normal shape and normal respiratory effort Lungs: clear to auscultation and percussion Cardiac Exam: - regular rate & rhythm, no murmurs gallops or rubs - normal S1, normal S2 Pulses: 2(+) throughout Abdomen: abdomen soft, non-tender, no abnormal masses and no hepatosplenomegaly Musculoskeletal: no gait disturbance, no joint inflammation, no deforming arthritis Extremities: no edema and no cyanosis Neuro: grossly normal exam Results & Data Vital Signs (Past 12 Hours) Vital Signs Temp Pulse Pulse Resp BP BP Pulse Ox 01/13/19 12:31 139 H 01/13/19 12:28 144 H 01/13/19 11:05 36.8 C 125 H 18 106/87 95 01/13/19 08:16 36.9 C 115 H 20 112/86 95 01/13/19 08:00 94 H 01/13/19 05:34 103/78 01/13/19 03:47 82/62 L 01/13/19 03:13 84/54 L 01/13/19 02:02 36.8 C 132 H 20 122/80 96 01/13/19 01:30 145 H 17 100/82 01/13/19 01:15 149 H 22 84/74 L 94 01/13/19 01:09 140 H 101/69 Laboratory Results Laboratory Results - last 24 hr 01/12/19 01/12/19 01/12/19 22:30 22:30 22:30 WBC 6.31 RBC 4.50 Hgb 13.8 Hct 40.0 MCV 88.9 MCH 30.7 MCHC 34.5 RDW Std Deviation 40.3 RDW Coeff of Tiffanie 12.7 Plt Count 207 MPV 9.6 Immature Gran % (Auto) 0.2 Neut % (Auto) 47.8 Lymph % (Auto) 42.6 [place] % (Auto) 7.3 Eos % (Auto) 1.9 Baso % (Auto) 0.2 Immature Gran # (Auto) 0.01 Neut # (Auto) 3.02 Lymph # (Auto) 2.69 [place] # (Auto) 0.46 Eos # (Auto) 0.12 Baso # (Auto) 0.01 PT 10.3 INR 1.0 APTT 24.5 PTT Ratio 0.9 Sodium 133 L Potassium 3.2 L Chloride 101 Carbon Dioxide 22 Anion Gap 10.0 BUN 10 Creatinine 0.59 L Est Cr Clr Drug Dosing 80.7 Est GFR ( Amer) 113.1 Est GFR (Non-Af Amer) 97.5 BUN/Creatinine Ratio 16.6 Glucose 153 H Estimat Average Glucose Hemoglobin A1c Calcium 8.4 L Magnesium 1.9 Total Bilirubin 0.4 AST 15 ALT 24 Alkaline Phosphatase 67 Troponin I < 0.015 Total Protein 7.3 Albumin 4.1 Globulin 3.2 Albumin/Globulin Ratio 1.3 Lipase 126 TSH 1.020 Free T4 01/13/19 01/13/19 01/13/19 07:48 07:48 07:48 WBC 5.10 RBC 4.29 Hgb 13.2 Hct 38.4 MCV 89.5 MCH 30.8 MCHC 34.4 RDW Std Deviation 42.9 RDW Coeff of Tiffanie 13.0 Plt Count 209 MPV 9.5 Immature Gran % (Auto) 0.0 Neut % (Auto) 51.3 Lymph % (Auto) 40.0 [place] % (Auto) 7.1 Eos % (Auto) 1.4 Baso % (Auto) 0.2 Immature Gran # (Auto) 0.00 Neut # (Auto) 2.62 Lymph # (Auto) 2.04 [place] # (Auto) 0.36 Eos # (Auto) 0.07 Baso # (Auto) 0.01 PT INR APTT PTT Ratio Sodium 136 Potassium 4.7 D Chloride 108 H Carbon Dioxide 23 Anion Gap 5.0 BUN 6 L Creatinine 0.48 L Est Cr Clr Drug Dosing 94.9 Est GFR ( Amer) 121.0 Est GFR (Non-Af Amer) 104.4 BUN/Creatinine Ratio 11.6 Glucose 113 H Estimat Average Glucose 117 Hemoglobin A1c 5.7 H Calcium 8.0 L Magnesium Total Bilirubin AST ALT Alkaline Phosphatase Troponin I Total Protein Albumin Globulin Albumin/Globulin Ratio Lipase TSH Free T4 01/13/19 01/13/19 07:48 07:48 WBC RBC Hgb Hct MCV MCH MCHC RDW Std Deviation RDW Coeff of Tiffanie Plt Count MPV Immature Gran % (Auto) Neut % (Auto) Lymph % (Auto) [place] % (Auto) Eos % (Auto) Baso % (Auto) Immature Gran # (Auto) Neut # (Auto) Lymph # (Auto) [place] # (Auto) Eos # (Auto) Baso # (Auto) PT INR APTT 46.4 H* PTT Ratio 1.7 Sodium Potassium Chloride Carbon Dioxide Anion Gap BUN Creatinine Est Cr Clr Drug Dosing Est GFR ( Amer) Est GFR (Non-Af Amer) BUN/Creatinine Ratio Glucose Estimat Average Glucose Hemoglobin A1c Calcium Magnesium Total Bilirubin AST ALT Alkaline Phosphatase Troponin I Total Protein Albumin Globulin Albumin/Globulin Ratio Lipase TSH 1.030 Free T4 1.11 Medications Administered Current Inpatient Medications Acetaminophen (Tylenol) 650 mg PO Q4H PRN PRN Reason: Pain or Fever Stop: 02/12/19 02:20 Apixaban (Eliquis) 5 mg PO BID ИВАН Stop: 02/12/19 20:59 Ascorbic Acid (Vitamin C) 1,000 mg PO Q24H ИВАН Stop: 02/12/19 12:59 Benztropine Mesylate (Cogentin) 0.5 mg PO HS ИВАН Stop: 02/12/19 20:59 Calcium Carbonate (Os-Kenny 500) 1,250 mg PO DAILY ИВАН Stop: 02/12/19 08:59 Last Admin: 01/13/19 08:29 Dose: 1,250 mg Documented by: Lorazepam (Ativan) 0.25 mg in 0.5 mls @ 0.5 mls/min IV Q4H PRN PRN Reason: Anxiety Stop: 02/12/19 02:20 Promethazine HCl 12.5 mg/ (Sodium Chloride) 50.5 mls @ 202 mls/hr IV Q6H PRN PRN Reason: Nausea And Vomiting Stop: 02/12/19 02:20 Amiodarone HCl/Dextrose (Nexterone / D5w) 360 mg in 200 mls @ 16.667 mls/hr IV .Q12H ИВАН Stop: 02/12/19 09:29 Last Admin: 01/13/19 09:18 Dose: 0.5 mg/min, 16.7 mls/hr Documented by: Ioversol (Optiray 320 125ml) 125 ml IV ONCE PRN PRN Reason: Interaction Checking Stop: 01/17/19 02:03 Last Admin: 01/13/19 02:05 Dose: 115 ml Documented by: Levothyroxine Sodium (Synthroid) 75 mcg PO DAILYBB ИВАН Stop: 02/12/19 06:29 Last Admin: 01/13/19 06:36 Dose: 75 mcg Documented by: Metoprolol Tartrate (Lopressor) 12.5 mg PO BID ИВАН Stop: 02/12/19 20:59 Metoprolol Tartrate (Lopressor) 12.5 mg PO NOW STA Stop: 01/13/19 13:04 Multivitamins (Multivitamin Tab) 1 tab PO DAILY ИВАН Stop: 02/12/19 08:59 Last Admin: 01/13/19 08:29 Dose: 1 tab Documented by: Nitroglycerin (Nitrostat) 0.4 mg SL UD PRN PRN Reason: Chest Pain Stop: 02/12/19 02:20 Tramadol HCl (Ultram) 50 mg PO Q6 PRN PRN Reason: Pain Stop: 02/12/19 02:20 Vitamin D (Vitamin D3) 1,000 units PO DAILY ИВАН Stop: 02/12/19 08:59 Last Admin: 01/13/19 08:29 Dose: 1,000 units Documented by:
[2019-01-13] MEDS: APIXABAN 5 MG TABLET PO SCH ×2 (14:16→20:18)
[2019-01-13] MEDS: ASCORBIC ACID 500 MG TAB PO SCH (14:39)
--- NOTE | 2019-01-13 20:07 | Hospitalist Progress Note ---
Date of Service January 13, 2019 Assessment & Plan (1) Atrial fibrillation, rapid: Ct chest: no PE converted to SR continue Amiodarone drip, plan to transition to PO tomorrow Metoprolol 12.5mg po BID started Heparin converted to Eliquis appreciate Dr. 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 on Eliquis Full code Disposition anticipate d/c home when cleared by Cardiology SVC, medically stable Subjective ff up for atrial fibrillation seen resting in bed, comfortable in good spirits denies chest pain, palpitations, dyspnea, dizziness converted to SR, HR increased to 130s per Telemetry monitoring while ambulating in the room- asymptomatic no other symptoms Review of Systems Review of Systems: All systems reviewed & are unremarkable except as noted in HPI & below Physical Exam Physical Exam: General- oriented x 3, not in distress, speaks in sentences with no effort or accessory muscle use Head- atraumatic Eyes- PERRL, EOMI, anicteric ENT- oropharynx clear Neck- supple, no JVD, no adenopathy, no thyromegaly; carotids +2/2, no bruits appreciated Lungs- clear to auscultation bilaterally, no rales/wheezes Heart- normal rate, regular rhythm; no murmur, no gallop, no rub appreciated Abdomen- normal bowel sounds, nondistended, soft, nontender, no masses or hepatosplenomegaly Extremities- no pretibial edema, no calf tenderness; peripheral pulses intact Neuro- alert, oriented x 3; CN 2-12 grossly intact; motor 5/5 bilaterally;sensation 100% on all extremities; no other gross focal neurologic deficits Skin- warm & dry Results & Data Vital Signs (Past 12 Hours) Vital Signs Temp Pulse Pulse Resp BP Pulse Ox 01/13/19 16:00 57 L 01/13/19 15:39 36.5 C 62 17 111/64 96 01/13/19 12:31 139 H 01/13/19 12:28 144 H 01/13/19 11:05 36.8 C 125 H 18 106/87 95 01/13/19 08:16 36.9 C 115 H 20 112/86 95 Laboratory Results Laboratory Results - last 24 hr 01/12/19 01/12/19 01/12/19 22:30 22:30 22:30 WBC 6.31 RBC 4.50 Hgb 13.8 Hct 40.0 MCV 88.9 MCH 30.7 MCHC 34.5 RDW Std Deviation 40.3 RDW Coeff of Tiffanie 12.7 Plt Count 207 MPV 9.6 Immature Gran % (Auto) 0.2 Neut % (Auto) 47.8 Lymph % (Auto) 42.6 [place] % (Auto) 7.3 Eos % (Auto) 1.9 Baso % (Auto) 0.2 Immature Gran # (Auto) 0.01 Neut # (Auto) 3.02 Lymph # (Auto) 2.69 [place] # (Auto) 0.46 Eos # (Auto) 0.12 Baso # (Auto) 0.01 PT 10.3 INR 1.0 APTT 24.5 PTT Ratio 0.9 Sodium 133 L Potassium 3.2 L Chloride 101 Carbon Dioxide 22 Anion Gap 10.0 BUN 10 Creatinine 0.59 L Est Cr Clr Drug Dosing 80.7 Est GFR ( Amer) 113.1 Est GFR (Non-Af Amer) 97.5 BUN/Creatinine Ratio 16.6 Glucose 153 H Estimat Average Glucose Hemoglobin A1c Calcium 8.4 L Magnesium 1.9 Total Bilirubin 0.4 AST 15 ALT 24 Alkaline Phosphatase 67 Troponin I < 0.015 Total Protein 7.3 Albumin 4.1 Globulin 3.2 Albumin/Globulin Ratio 1.3 Lipase 126 TSH 1.020 Free T4 01/13/19 01/13/19 01/13/19 07:48 07:48 07:48 WBC 5.10 RBC 4.29 Hgb 13.2 Hct 38.4 MCV 89.5 MCH 30.8 MCHC 34.4 RDW Std Deviation 42.9 RDW Coeff of Tiffanie 13.0 Plt Count 209 MPV 9.5 Immature Gran % (Auto) 0.0 Neut % (Auto) 51.3 Lymph % (Auto) 40.0 [place] % (Auto) 7.1 Eos % (Auto) 1.4 Baso % (Auto) 0.2 Immature Gran # (Auto) 0.00 Neut # (Auto) 2.62 Lymph # (Auto) 2.04 [place] # (Auto) 0.36 Eos # (Auto) 0.07 Baso # (Auto) 0.01 PT INR APTT PTT Ratio Sodium 136 Potassium 4.7 D Chloride 108 H Carbon Dioxide 23 Anion Gap 5.0 BUN 6 L Creatinine 0.48 L Est Cr Clr Drug Dosing 94.9 Est GFR ( Amer) 121.0 Est GFR (Non-Af Amer) 104.4 BUN/Creatinine Ratio 11.6 Glucose 113 H Estimat Average Glucose 117 Hemoglobin A1c 5.7 H Calcium 8.0 L Magnesium Total Bilirubin AST ALT Alkaline Phosphatase Troponin I Total Protein Albumin Globulin Albumin/Globulin Ratio Lipase TSH Free T4 01/13/19 01/13/19 07:48 07:48 WBC RBC Hgb Hct MCV MCH MCHC RDW Std Deviation RDW Coeff of Tiffanie Plt Count MPV Immature Gran % (Auto) Neut % (Auto) Lymph % (Auto) [place] % (Auto) Eos % (Auto) Baso % (Auto) Immature Gran # (Auto) Neut # (Auto) Lymph # (Auto) [place] # (Auto) Eos # (Auto) Baso # (Auto) PT INR APTT 46.4 H* PTT Ratio 1.7 Sodium Potassium Chloride Carbon Dioxide Anion Gap BUN Creatinine Est Cr Clr Drug Dosing Est GFR ( Amer) Est GFR (Non-Af Amer) BUN/Creatinine Ratio Glucose Estimat Average Glucose Hemoglobin A1c Calcium Magnesium Total Bilirubin AST ALT Alkaline Phosphatase Troponin I Total Protein Albumin Globulin Albumin/Globulin Ratio Lipase TSH 1.030 Free T4 1.11
[2019-01-13] MEDS: BENZTROPINE MESYLATE 0.5 MG TAB PO SCH (20:16)
[2019-01-13] MEDS: METOPROLOL TARTRATE 25 MG TAB PO SCH (20:18)
[2019-01-14 05:47] LABS: Hematocrit (blood only) 35.7 % (37-47); Hemoglobin 12.1 g/dL (12.0-16.0); Mean Corpuscular Hgb Conc 33.9 g/dL (32-36); Mean Corpuscular Volume 88.6 fL (80-100); Mean Platelet Volume 9.3 fL (7.4-10.4); Platelet Count 183 K/uL (130-400); RDW Coefficient of Variation 12.9 % (11.5-14.5); Red Blood Count 4.03 M/uL (4.2-5.4); White Blood Count 4.74 K/uL (4.8-10.8)
[2019-01-14] MEDS: LEVOTHYROXINE SODIUM 75 MCG TABLET PO SCH (05:55)
[2019-01-14 05:57] LABS: Partial Thromboplastin Ratio 0.9; Partial Thromboplastin Time 25.1 Seconds (21.0-31.0)
[2019-01-14 06:25] LABS: Basophils # (auto) 0.01 K/uL (0-0.2); Basophils % (auto) 0.2 %; Eosinophils # (auto) 0.14 K/uL (0-0.5); Lymphocytes % (auto) 50.6 %; Monocytes # (auto) 0.32 K/uL (0.11-0.59); Monocytes % (auto) 6.8 %; Neutrophils # (auto) 1.87 K/uL (1.4-6.5); Neutrophils % (auto) 39.4 %
[2019-01-14 07:16] LABS: INR 1.1 (0.9-1.1)
[2019-01-14] MEDS: APIXABAN 5 MG TABLET PO SCH ×2 (08:21→21:14)
[2019-01-14] MEDS: METOPROLOL TARTRATE 25 MG TAB PO SCH ×2 (08:22→21:14)
[2019-01-14] MEDS: CHOLECALCIFEROL 1,000 UNITS TAB PO SCH (08:23)
[2019-01-14] MEDS: AMIODARONE 200 MG TAB PO SCH ×3 (09:02→17:00)
[2019-01-14] MEDS: CALCIUM CARBONATE 1250MG TAB PO SCH (09:59)
[2019-01-14] MEDS: MULTIVITAMIN TAB PO SCH (09:59)
[2019-01-14] MEDS: ASCORBIC ACID 500 MG TAB PO SCH (12:35)
--- NOTE | 2019-01-14 13:22 | Cardiology Progress Note ---
Date of Service January 14, 2019 Assessment & Plan (1) Atrial fibrillation, rapid: The patient is maintaining sinus rhythm with no breakthrough arrhythmias. I just started her on oral amiodarone this morning along with metoprolol. I feel she should remain on a heart monitor for an additional 24 hours and if things are well tomorrow and we can discharge her to outpatient follow-up. Subjective The patient is maintaining sinus rhythm. No breakthrough arrhythmias or no other arrhythmias on the telemetry. Review of Systems Review of Systems: All systems reviewed & are unremarkable except as noted in HPI & below Nothing additional to add. Physical Exam Physical Exam: General: no acute distress and stated age Head: normocephalic, no masses, lesions, tenderness or abnormalities Eyes: conjunctiva are pink and non-injected, sclera clear Neck: supple, no adenopathy, no bruits, normal jugular venous pulse, no hepatojugular reflux Chest: normal shape and normal respiratory effort Lungs: clear to auscultation and percussion Cardiac Exam: - regular rate & rhythm, no murmurs gallops or rubs - normal S1, normal S2 Pulses: 2(+) throughout Abdomen: abdomen soft, non-tender, no abnormal masses and no hepatosplenomegaly Musculoskeletal: no gait disturbance, no joint inflammation, no deforming arthritis Extremities: no edema and no cyanosis Neuro: grossly normal exam Results & Data Vital Signs (Past 12 Hours) Vital Signs Temp Pulse Pulse Resp BP Pulse Ox 01/14/19 11:24 36.4 C L 51 L 16 125/76 97 01/14/19 08:19 36.5 C 68 16 121/81 96 01/14/19 08:00 58 L 01/14/19 03:25 36.9 C 58 L 20 121/66 98 Laboratory Results Laboratory Results - last 24 hr 01/14/19 01/14/19 05:18 05:18 WBC 4.74 L RBC 4.03 L Hgb 12.1 Hct 35.7 L MCV 88.6 MCH 30.0 MCHC 33.9 RDW Std Deviation 42.0 RDW Coeff of Tiffanie 12.9 Plt Count 183 MPV 9.3 Immature Gran % (Auto) 0.0 Neut % (Auto) 39.4 Lymph % (Auto) 50.6 [place] % (Auto) 6.8 Eos % (Auto) 3.0 Baso % (Auto) 0.2 Immature Gran # (Auto) 0.00 Neut # (Auto) 1.87 Lymph # (Auto) 2.40 [place] # (Auto) 0.32 Eos # (Auto) 0.14 Baso # (Auto) 0.01 PT 11.0 INR 1.1 APTT 25.1 PTT Ratio 0.9 Medications Administered Current Inpatient Medications Acetaminophen (Tylenol) 650 mg PO Q4H PRN PRN Reason: Pain or Fever Stop: 02/12/19 02:20 Amiodarone HCl (Cordarone) 200 mg PO TIDM ИВАН Stop: 02/13/19 08:19 Last Admin: 01/14/19 12:34 Dose: 200 mg Documented by: Apixaban (Eliquis) 5 mg PO BID ИВАН Stop: 02/12/19 13:59 Last Admin: 01/14/19 08:21 Dose: 5 mg Documented by: Ascorbic Acid (Vitamin C) 1,000 mg PO Q24H ИВАН Stop: 02/12/19 12:59 Last Admin: 01/14/19 12:35 Dose: 1,000 mg Documented by: Benztropine Mesylate (Cogentin) 0.5 mg PO HS ИВАН Stop: 02/12/19 20:59 Last Admin: 01/13/19 20:16 Dose: 0.5 mg Documented by: Calcium Carbonate (Os-Kenny 500) 1,250 mg PO DAILY ИВАН Stop: 02/12/19 08:59 Last Admin: 01/14/19 09:59 Dose: 1,250 mg Documented by: Lorazepam (Ativan) 0.25 mg in 0.5 mls @ 0.5 mls/min IV Q4H PRN PRN Reason: Anxiety Stop: 02/12/19 02:20 Promethazine HCl 12.5 mg/ (Sodium Chloride) 50.5 mls @ 202 mls/hr IV Q6H PRN PRN Reason: Nausea And Vomiting Stop: 02/12/19 02:20 Ioversol (Optiray 320 125ml) 125 ml IV ONCE PRN PRN Reason: Interaction Checking Stop: 01/17/19 02:03 Last Admin: 01/13/19 02:05 Dose: 115 ml Documented by: Levothyroxine Sodium (Synthroid) 75 mcg PO DAILYBB [facility] Stop: 02/12/19 06:29 Last Admin: 01/14/19 05:55 Dose: 75 mcg Documented by: Metoprolol Tartrate (Lopressor) 12.5 mg PO BID [facility] Stop: 02/12/19 20:59 Last Admin: 01/14/19 08:22 Dose: 12.5 mg Documented by: Multivitamins (Multivitamin Tab) 1 tab PO DAILY ИВАН Stop: 02/12/19 08:59 Last Admin: 01/14/19 09:59 Dose: 1 tab Documented by: Nitroglycerin (Nitrostat) 0.4 mg SL UD PRN PRN Reason: Chest Pain Stop: 02/12/19 02:20 Tramadol HCl (Ultram) 50 mg PO Q6 PRN PRN Reason: Pain Stop: 02/12/19 02:20 Vitamin D (Vitamin D3) 1,000 units PO DAILY [facility] Stop: 02/12/19 08:59 Last Admin: 01/14/19 08:23 Dose: 1,000 units Documented by:
--- NOTE | 2019-01-14 17:09 | Hospitalist Progress Note ---
Date of Service January 14, 2019 Assessment & Plan (1) Atrial fibrillation, rapid: Ct chest: no PE converted to SR Transition from IV amiodarone to p.o. amiodarone 200 mg 3 times daily, tolerating so far Continued on metoprolol 12.5mg po BID Heparin converted to Eliquis, no bleeding appreciate Dr. 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 on Eliquis Full code Disposition anticipate d/c home when cleared by Cardiology SVC, medically stable Subjective Follow-up for atrial fibrillation Remains in sinus rhythm Seen resting in bed, comfortable, not in distress She feels fine overall Denies chest pain, shortness of breath, palpitations, dizziness She ambulated in the hallways today with no problems Denies bleeding No other symptoms Review of Systems Review of Systems: All systems reviewed & are unremarkable except as noted in HPI & below Physical Exam Physical Exam: General- oriented x 3, not in distress, speaks in sentences with no effort or accessory muscle use Eyes- anicteric Neck- no JVD Lungs- clear breath sounds, no crackles, no wheezing bilaterally Heart- normal rate, regular rhythm; no murmurs Abdomen- normal bowel sounds, nondistended, soft, nontender Extremities- no pretibial edema, no calf tenderness Neuro- alert, oriented x 3; no gross focal neurologic deficits Skin- warm & dry Results & Data Vital Signs (Past 12 Hours) Vital Signs Temp Pulse Pulse Resp BP Pulse Ox 01/14/19 15:12 36.5 C 70 19 129/78 98 01/14/19 14:26 61 01/14/19 11:24 36.4 C L 51 L 16 125/76 97 01/14/19 08:19 36.5 C 68 16 121/81 96 01/14/19 08:00 58 L Laboratory Results Laboratory Results - last 24 hr 01/14/19 01/14/19 05:18 05:18 WBC 4.74 L RBC 4.03 L Hgb 12.1 Hct 35.7 L MCV 88.6 MCH 30.0 MCHC 33.9 RDW Std Deviation 42.0 RDW Coeff of Tiffanie 12.9 Plt Count 183 MPV 9.3 Immature Gran % (Auto) 0.0 Neut % (Auto) 39.4 Lymph % (Auto) 50.6 [place] % (Auto) 6.8 Eos % (Auto) 3.0 Baso % (Auto) 0.2 Immature Gran # (Auto) 0.00 Neut # (Auto) 1.87 Lymph # (Auto) 2.40 [place] # (Auto) 0.32 Eos # (Auto) 0.14 Baso # (Auto) 0.01 PT 11.0 INR 1.1 APTT 25.1 PTT Ratio 0.9
[2019-01-14] MEDS: BENZTROPINE MESYLATE 0.5 MG TAB PO SCH (21:14)
[2019-01-15] MEDS: LEVOTHYROXINE SODIUM 75 MCG TABLET PO SCH (06:12)
[2019-01-15 06:46] LABS: Basophils # (auto) 0.01 K/uL (0-0.2); Basophils % (auto) 0.2 %; Eosinophils # (auto) 0.16 K/uL (0-0.5); Hematocrit (blood only) 39.6 % (37-47); Hemoglobin 13.4 g/dL (12.0-16.0); Immature Granulocytes # (auto) 0.01 K/uL (0.00-0.02); Immature Granulocytes % (auto) 0.2 %; Lymphocytes # (auto) 2.21 K/uL (1.2-3.4); Lymphocytes % (auto) 41.9 %; Mean Corpuscular Hemoglobin 29.9 pg (25-34); Mean Corpuscular Hgb Conc 33.8 g/dL (32-36); Mean Corpuscular Volume 88.4 fL (80-100); Mean Platelet Volume 9.6 fL (7.4-10.4); Monocytes # (auto) 0.43 K/uL (0.11-0.59); Monocytes % (auto) 8.1 %; Neutrophils # (auto) 2.46 K/uL (1.4-6.5); Neutrophils % (auto) 46.6 %; Platelet Count 201 K/uL (130-400); RDW Coefficient of Variation 12.7 % (11.5-14.5); RDW Standard Deviation 40.7 fL (36.4-46.3); Red Blood Count 4.48 M/uL (4.2-5.4); White Blood Count 5.28 K/uL (4.8-10.8)
[2019-01-15 06:54] LABS: Partial Thromboplastin Ratio 0.9; Partial Thromboplastin Time 25.7 Seconds (21.0-31.0)
[2019-01-15 07:24] LABS: BUN Creatinine Ratio 15.6 (10-20); Calcium 8.3 mg/dl (8.5-10.1); Creatinine Clr Calc Pharmacy 57.6 ml/min; Est GFR (African American) 92.3; Est GFR (Non-African American) 79.7; Potassium 4.4 mmol/L (3.5-5.1)
[2019-01-15] MEDS: APIXABAN 5 MG TABLET PO SCH (07:33)
[2019-01-15] MEDS: AMIODARONE 200 MG TAB PO SCH (07:33)
[2019-01-15] MEDS: CHOLECALCIFEROL 1,000 UNITS TAB PO SCH (07:33)
[2019-01-15] MEDS: METOPROLOL TARTRATE 25 MG TAB PO SCH (08:43)
--- NOTE | 2019-01-15 09:13 | Cardiology Progress Note ---
Date of Service January 15, 2019 Assessment & Plan (1) Atrial fibrillation, rapid: The patient has maintained sinus rhythm and I believe that she may be discharged home today. I decreased her amiodarone to 200 mg twice daily and she will continue that dose until she has follow-up with myself in about a week. She will also continue the metoprolol at 12.5 mg twice daily. Her heart rates have been adequate in the 50s and 60s along with an adequate blood pressure. She should continue the Eliquis. I will arrange follow-up with after discharge. Subjective The patient had an uneventful night. She has no new cardiac complaints. She is maintaining sinus rhythm. Review of Systems Review of Systems: All systems reviewed & are unremarkable except as noted in HPI & below Nothing additional Physical Exam Physical Exam: General: no acute distress and stated age Head: normocephalic, no masses, lesions, tenderness or abnormalities Eyes: conjunctiva are pink and non-injected, sclera clear Neck: supple, no adenopathy, no bruits, normal jugular venous pulse, no hepatojugular reflux Chest: normal shape and normal respiratory effort Lungs: clear to auscultation and percussion Cardiac Exam: - regular rate & rhythm, no murmurs gallops or rubs - normal S1, normal S2 Pulses: 2(+) throughout Abdomen: abdomen soft, non-tender, no abnormal masses and no hepatosplenomegaly Musculoskeletal: no gait disturbance, no joint inflammation, no deforming arthritis Extremities: no edema and no cyanosis Neuro: grossly normal exam Results & Data Vital Signs (Past 12 Hours) Vital Signs Temp Pulse Resp BP Pulse Ox 01/15/19 07:30 36.8 C 59 L 19 118/70 96 01/15/19 04:16 36.9 C 58 L 15 119/71 96 01/14/19 23:22 36.9 C 60 16 126/78 97 Laboratory Results Laboratory Results - last 24 hr 01/15/19 01/15/19 01/15/19 06:09 06:09 06:09 WBC 5.28 RBC 4.48 Hgb 13.4 Hct 39.6 MCV 88.4 MCH 29.9 MCHC 33.8 RDW Std Deviation 40.7 RDW Coeff of Tiffanie 12.7 Plt Count 201 MPV 9.6 Immature Gran % (Auto) 0.2 Neut % (Auto) 46.6 Lymph % (Auto) 41.9 Emmet % (Auto) 8.1 Eos % (Auto) 3.0 Baso % (Auto) 0.2 Immature Gran # (Auto) 0.01 Neut # (Auto) 2.46 Lymph # (Auto) 2.21 Emmet # (Auto) 0.43 Eos # (Auto) 0.16 Baso # (Auto) 0.01 APTT 25.7 PTT Ratio 0.9 Sodium 138 Potassium 4.4 Chloride 104 Carbon Dioxide 28 Anion Gap 6.0 BUN 12 D Creatinine 0.79 D Est Cr Clr Drug Dosing 57.6 Est GFR ( Amer) 92.3 Est GFR (Non-Af Amer) 79.7 BUN/Creatinine Ratio 15.6 Glucose 92 Calcium 8.3 L Medications Administered Current Inpatient Medications Acetaminophen (Tylenol) 650 mg PO Q4H PRN PRN Reason: Pain or Fever Stop: 02/12/19 02:20 Amiodarone HCl (Cordarone) 200 mg PO BIDM [facility] Stop: 02/14/19 16:59 Apixaban (Eliquis) 5 mg PO BID [facility] Stop: 02/12/19 13:59 Last Admin: 01/15/19 07:33 Dose: 5 mg Documented by: Ascorbic Acid (Vitamin C) 1,000 mg PO Q24H [facility] Stop: 02/12/19 12:59 Last Admin: 01/14/19 12:35 Dose: 1,000 mg Documented by: Benztropine Mesylate (Cogentin) 0.5 mg PO HS [facility] Stop: 02/12/19 20:59 Last Admin: 01/14/19 21:14 Dose: 0.5 mg Documented by: Calcium Carbonate (Os-Kenny 500) 1,250 mg PO DAILY [facility] Stop: 02/12/19 08:59 Last Admin: 01/14/19 09:59 Dose: 1,250 mg Documented by: Lorazepam (Ativan) 0.25 mg in 0.5 mls @ 0.5 mls/min IV Q4H PRN PRN Reason: Anxiety Stop: 02/12/19 02:20 Promethazine HCl 12.5 mg/ (Sodium Chloride) 50.5 mls @ 202 mls/hr IV Q6H PRN PRN Reason: Nausea And Vomiting Stop: 02/12/19 02:20 Ioversol (Optiray 320 125ml) 125 ml IV ONCE PRN PRN Reason: Interaction Checking Stop: 01/17/19 02:03 Last Admin: 01/13/19 02:05 Dose: 115 ml Documented by: Levothyroxine Sodium (Synthroid) 75 mcg PO DAILYBB [facility] Stop: 02/12/19 06:29 Last Admin: 01/15/19 06:12 Dose: 75 mcg Documented by: Metoprolol Tartrate (Lopressor) 12.5 mg PO BID [facility] Stop: 02/12/19 20:59 Last Admin: 01/15/19 08:43 Dose: 12.5 mg Documented by: Multivitamins (Multivitamin Tab) 1 tab PO DAILY ИВАН Stop: 02/12/19 08:59 Last Admin: 01/14/19 09:59 Dose: 1 tab Documented by: Nitroglycerin (Nitrostat) 0.4 mg SL UD PRN PRN Reason: Chest Pain Stop: 02/12/19 02:20 Tramadol HCl (Ultram) 50 mg PO Q6 PRN PRN Reason: Pain Stop: 02/12/19 02:20 Vitamin D (Vitamin D3) 1,000 units PO DAILY ИВАН Stop: 02/12/19 08:59 Last Admin: 01/15/19 07:33 Dose: 1,000 units Documented by:
[2019-01-15] MEDS: MULTIVITAMIN TAB PO SCH (09:58)
[2019-01-15] MEDS: CALCIUM CARBONATE 1250MG TAB PO SCH (09:59)
[2019-01-15] MEDS: ASCORBIC ACID 500 MG TAB PO SCH (12:45)
[2019-01-15] MEDS ORDERED: AMIODARONE 200 MG TAB PO SCH (17:00)
--- NOTE | 2019-01-16 16:59 | Hospitalist Progress Note ---
Date of Service Late entry Date of service 01/15/2019 January 16, 2019 Assessment & Plan (1) Atrial fibrillation, rapid: Ct chest: no PE converted to SR Transitioned from IV amiodarone to p.o. amiodarone 200 mg 3 times daily, tolerating well Continued on metoprolol 12.5mg po BID Heparin converted to Eliquis, no bleeding appreciate Dr. Cano's recommendations Discharge plan: Amiodarone 200 mg p.o. twice daily Toprol 12.5 mg p.o. twice daily Eliquis daily --Follow-up up with cardiology clinic as scheduled Postsurgical hypothyroidism TSH, Free T4 normal Abnormal CT Chest Findings There is a 5 mm right lower lobe pulmonary nodule. This can be followed as per the Fleischner criteria. Please refer to full CT report for Fleischner criteria. outpatient ff up hx osteoporosis on Prolia idiopathic torticollis on Cogentin Disposition DC home, follow-up with PCP as outlined in discharge instructions, follow-up with curatorial specialist as scheduled Plan of care discussed with patient and her Questions answered They are comfortable, understanding, agreeable with plan of care Subjective Follow-up for atrial fibrillation Resting in bedside chair, comfortable, not in distress in good spirits She feels fine overall Denies chest pain, palpitations, dyspnea Ambulating with no problems No bleeding States she is ready like to be discharged Review of Systems Review of Systems: All systems reviewed & are unremarkable except as noted in HPI & below Physical Exam Physical Exam: General- oriented x 3, not in distress, speaks in sentences with no effort or accessory muscle use Eyes- anicteric Neck- no JVD Lungs- clear breath sounds bilaterally Heart- normal rate, regular rhythm; no murmurs Abdomen- normal bowel sounds, nondistended, soft, no tenderness Extremities- no pretibial edema, no calf tenderness Neuro- alert, oriented x 3; no gross focal neurologic deficits Skin- warm & dry Results & Data Laboratory Results All noted and reviewed
--- NOTE | 2019-01-16 17:04 | Discharge Summary ---
Date of Service January 16, 2019 Admission HPI Per Admitting Provider History obtained from patient, family, and records. Medical history significant for valvular heart disease (mild AR, MR, MD, TR from 2015 PATRICE), postsurgical hypothyroidism, osteoporosis, idiopathic torticollis on Cogentin. Last night, patient was getting ready for bed when she experienced sudden onset palpitations with shortness of breath, no actual chest pain. Denies unusual stress. Just tired the last few days, fair appetite. Patient had usual glass of wine last night. Denies unusual caffeine intake/decongestant use. No unusual fluid retention. Patient noted to be in rapid A. fib upon arrival at the ER. Cardiac rate 120-180s IV Lopressor doses given at the ER. No prior episodes of A. fib in the past. 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 Admission Exam Per Admitting Provider GENERAL: Slightly uncomfortable, slightly anxious, no respiratory distress SKIN: Normal color, warm HEENT: Woodman palpebral conjunctivae, no ptosis, dry buccal mucosa NECK : Supple, no tenderness CHEST : CTA, no tenderness HEART : Irregular, systolic murmur ABDOMEN: Some distention, nontender EXTREMITIES : No LE swelling/tenderness, no other conspicuous deformities noted NEUROLOGIC : Coherent, no facial asymmetry, no other gross focality Principal Diagnosis Atrial fibrillation and rapid ventricular response Discharge Exam General- oriented x 3, not in distress, speaks in sentences with no effort or accessory muscle use Eyes- anicteric Neck- no JVD Lungs- clear breath sounds, no crackles, no wheezing bilaterally Heart- normal rate, regular rhythm; no murmurs Abdomen- normal bowel sounds, nondistended, soft, nontender Extremities- no pretibial edema, no calf tenderness Neuro- alert, oriented x 3; no gross focal neurologic deficits Skin- warm & dry Discharge Data Allergies Allergy/AdvReac Type Severity Reaction Status Date / Time latex Allergy Unknown RASH Verified 01/12/19 23:31 erythromycin base AdvReac Unknown UPSET Verified 01/12/19 23:31 STOMACH Consultations 01/12/19 23:36 ED Decision to Admit Stat 01/13/19 02:21 Consult Cardiology Routine Ordered Studies 01/13/19 00:48 CT angio chest PE protocol Urgent CT ANGIOGRAM OF THE CHEST CLINICAL HISTORY: Atypical chest pain. Dyspnea. COMPARISON STUDY: Chest x-ray dated 01/12/2019. TECHNIQUE: Following the IV administration of 115 cc of Optiray 320, CT angiogram of the chest was performed from the upper abdomen to the thoracic inlet utilizing the pulmonary embolus protocol. Images are reviewed in the axial, sagittal, and coronal planes. 3-D MIPS images are created and assessed. IV contrast was administered without complication. A dose lowering technique was utilized adhering to the principles of ALARA. CT DOSE: 203.51 mGy.cm FINDINGS: Thyroid: Surgically absent. Thoracic aorta: The thoracic aorta is normal in caliber and demonstrates standard 3-vessel arch anatomy. The thoracic aorta is not well opacified. Pulmonary vasculature: The pulmonary trunk is dilated, measuring up to 3.2 cm in diameter. This suggests pulmonary artery hypertension. There are no filling defects identified in main, lobar, or segmental pulmonary branches to suggest pulmonary embolus. Heart: The heart is enlarged and without pericardial effusion. The mitral annulus is densely calcified. Lungs and pleural spaces: Evaluation of the lung parenchyma is degraded by motion artifact. Biapical scarring is observed. Mild diffuse peribronchial thickening and intralobular septal thickening suggests congestive failure. There are trace pleural effusions with bibasilar atelectasis. There is a 5 mm right lower lobe pulmonary nodule seen on image #104. Mediastinum: There is no mediastinal lymphadenopathy. Elle: Clear. Axillae: There is no axillary lymphadenopathy. Upper abdomen: Partially visualized upper abdominal viscera is within normal limits. Skeletal structures: The skeletal structures are osteopenic. There are numerous compression deformities identified. These are seen involving T4, T7, T8, T10, T11, T12, and L1. No lytic or blastic bony lesions are seen. IMPRESSION: 1. There is no evidence of pulmonary embolus in the main, lobar, or segmental pulmonary arteries. 2. Cardiomegaly with evidence of congestive failure. 3. Trace pleural effusions. 4. No airspace consolidation is identified typical for pneumonia. 5. There is a 5 mm right lower lobe pulmonary nodule. This can be followed as per the Fleischner criteria. See below. 6. There are numerous age indeterminant thoracic compression deformities as above. Please refer to below summary of Fleischner criteria recommendations for follow- up of incidental CT nodules (Shashi Denny, Guidelines for management of small pulmonary nodules detected on CT scans: A statement from the Fleischner Society, Radiology 237: [phone].) SOLID NODULES Solitary nodule size: <6 mm * low risk patients: no follow-up needed * high risk patients: optional CT at 12 months Solitary nodule size: 6-8 mm * low risk patients: follow-up at 6-12 months, then consider further follow-up at 18-24 months * high risk patients: initial follow-up CT at 6-12 months and then at 18-24 months if no change Solitary nodule size: >8 mm * either low or high risk patients - consider follow-up CT at 3 months, and/or CT-PET, and/or biopsy Multiple nodules size: <6 mm * low risk patients: no routine follow-up * high risk patients: optional CT at 12 months Multiple nodules size: 6-8 mm * low risk patients: follow-up at 3-6 months, then consider further follow-up at 18-24 months * high risk patients: follow-up at 3-6 months, then at 18-24 months if no change Multiple nodules size: >8 mm * low risk patients: follow-up at 3-6 months, then consider further follow-up at 18-24 months * high risk patients: follow-up at 3-6 months, then at 18-24 months if no change Note: newly detected indeterminate nodule in persons 35 years of age or older. * low risk patients: minimal or absent history of smoking and/or other known risk factors * high risk patients: history of smoking or of other known risk factors (e.g. first degree relative with lung cancer, or exposure to asbestos, radon, uranium) * if a nodule up to 8 mm is partly solid or is ground glass further follow-up is required after 24 months to exclude possible slow growing adenocarcinoma (MICHELE) SUBSOLID NODULES Solitary pure ground-glass nodule * nodule size <6 mm - no CT follow-up required * nodule size >=6 mm - follow-up CT at 6-12 months, then every 2 years until 5 years Solitary part-solid nodule * nodule size <6 mm - no CT follow-up required * nodule size >=6 mm - follow-up CT at 3-6 months. If unchanged, and solid component remains <6 mm, then annual follow-up for 5 years Multiple subsolid nodules * nodule size <6 mm - follow-up CT at 3-6 months, consider further follow-up at 2 and 4 years if stable * nodule size >=6 mm - follow-up CT at 3-6 months, subsequent management based on the most suspicious nodule(s) Hospital Course (1) Atrial fibrillation, rapid: Echo: EF 60 to 65%, moderate mitral regurgitation, mild tricuspid regurgitation Ct chest: no PE Terminal Gauger consulted, Dr. Cano converted to SR , Transitioned from IV amiodarone to p.o. amiodarone 200 mg 3 times daily, tolerating well Continued on metoprolol 12.5mg po BID Heparin converted to Eliquis, no bleeding Discharge plan: Amiodarone 200 mg p.o. twice daily Toprol 12.5 mg p.o. twice daily Eliquis twice daily --Follow-up up with cardiology clinic as scheduled Postsurgical hypothyroidism TSH, Free T4 normal Abnormal CT Chest Findings There is a 5 mm right lower lobe pulmonary nodule. This can be followed as per the Fleischner criteria. Please refer to full CT report for Fleischner criteria. outpatient further work-up and management hx osteoporosis on Prolia idiopathic torticollis on Cogentin Disposition DC home, follow-up with PCP as outlined in discharge instructions, follow-up with radio artist as scheduled Plan of care discussed with patient and her Questions answered They are comfortable, understanding, agreeable with plan of care Total Time Total Time Spent Total Time Spent (In Minutes): 45 minutes Discharge Plan Discharge Items Patient Disposition: Home - Self-Care Reason For Visit: AFIB Discharge Diagnosis: ATRIAL FIBRILLATION Activity: Resume your previous activity Lifting: Wait until after follow-up appointment Exercise/Sports: Wait until after follow-up appointment Driving/Machine Use: NO DRIVING UNTIL RE-EVALUATED BY PRIMARY CARE PHYSICIAN Non-emergency contact: Primary Care Provider Call non-emergency contact if: you have any medication questions and you have a fever Follow-up/Referrals: Iban Whaley, [Primary Care Provider] - Diet: Heart Healthy Addtl Attending Provider Instructions: PLEASE REVIEW YOUR NEW MEDICATIONS AND FOLLOW INSTRUCTIONS CAREFULLY. BE CAREFUL WITH AMBULATING. IF YOU HAVE ANY HEAD TRAUMA, PROCEED TO THE ER IMMEDIATELY FOR URGENT EVALUATION. Follow-up with primary care physician in 1 week. The clinic will be calling you for the appointment soon. Follow-up with radio artist Dr. Cano. Their clinic will be calling you for the appointment. Pending Studies at Discharge: No Stand-Alone Forms: My [facility], Smoking Cessation Medications and DC Order Prescriptions: New Eliquis 5 mg Tablet 5 mg PO BID 30 Days Qty: 60 RF: 2 amiodarone 200 mg Tablet 200 mg PO BIDM 30 Days Qty: 60 RF: 2 metoprolol tartrate 25 mg Tablet 12.5 mg PO BID 30 Days Qty: 30 RF: 2 Continued benztropine 1 mg tablet 0.5 - 1 mg PO DAILY RF: 0 calcium carbonate 600 mg calcium (1,500 mg) tablet 600 mg PO BID RF: 0 levothyroxine 75 mcg tablet 75 mcg PO DAILY RF: 0 multivitamin 1 tab PO DAILY RF: 0 tramadol 50 mg tablet 50 mg PO Q6 PRN (Reason: Pain) RF: 0 ascorbic acid (vitamin C) 500 mg tablet 500 mg PO DAILY RF: 0 cholecalciferol (vitamin D3) 1,000 unit (25 mcg) tablet 1,000 units PO DAILY RF: 0 Prolia 60 mg/mL syringe 60 mg SQ UD RF: 0 Discontinued naproxen 500 mg tablet 500 mg PO BID PRN (Reason: Pain) RF: 0 Discharge Orders: Discharge Order (Routine); Ordered 01/15/19 Ordered By: Jet Butler Admission Data Admit Date/Time: 01/13/19 00:55 Attending Provider: Jet Butler Admit Provider: Donaldo Calvo Primary Care Provider: Iban Whaley Other Providers: Donaldo Calvo ; Janes Brannon Other Interventions: Discharge Summary Assessment (RN) Last Done: 01/15/19 12:30 DC Date/Time DO NOT enter until pt leaves facility: 01/15/19 12:52
== END 2019-01-15 12:52 | disposition home or self-care (01) | DRG 310 ==
LOC: ED 22:10 → 2E 01-13 00:55

== ENCOUNTER 2019-07-23 20:50 | Inpatient (IN) ==
[2019-07-23] MEDS ORDERED: dilTIAZem HCl 5 MG/ML 5 ML VIAL IV ONE (21:06)
[2019-07-23] MEDS ORDERED: dilTIAZem HCl 5 MG/ML 5 ML VIAL IV STA ×2 (21:06→21:11)
[2019-07-23] MEDS ORDERED: STAT IV Infusion **Titration per Protocol STA (21:07)
[2019-07-23] MEDS ORDERED: dilTIAZem HCL 125 MG in DEXTROSE 5% 100 ML IV SCH (21:15)
[2019-07-23] MEDS ORDERED: SODIUM CHLORIDE 0.9% 1000ML 1,000 ML IV SCH (21:15)
[2019-07-23] MEDS ORDERED: LORazepam 0.5 MG/1 ML VIAL IV STA (21:21)
[2019-07-23 21:26] LABS: Basophils # (auto) 0.02 K/uL (0-0.2); Basophils % (auto) 0.3 %; Eosinophils # (auto) 0.09 K/uL (0-0.5); Eosinophils % (auto) 1.3 %; Hematocrit (blood only) 42.5 % (37-47); Hemoglobin 14.7 g/dL (12.0-16.0); Immature Granulocytes # (auto) 0.01 K/uL (0.00-0.02); Immature Granulocytes % (auto) 0.1 %; Lymphocytes # (auto) 1.96 K/uL (1.2-3.4); Lymphocytes % (auto) 27.6 %; Mean Corpuscular Hemoglobin 30.3 pg (25-34); Mean Corpuscular Hgb Conc 34.6 g/dL (32-36); Mean Corpuscular Volume 87.6 fL (80-100); Mean Platelet Volume 9.9 fL (7.4-10.4); Monocytes # (auto) 0.63 K/uL (0.11-0.59); Monocytes % (auto) 8.9 %; Neutrophils # (auto) 4.39 K/uL (1.4-6.5); Neutrophils % (auto) 61.8 %; Platelet Count 235 K/uL (130-400); RDW Coefficient of Variation 12.4 % (11.5-14.5); RDW Standard Deviation 39.8 fL (36.4-46.3); Red Blood Count 4.85 M/uL (4.2-5.4)
--- NOTE | 2019-07-23 21:32 | XRay Report ---
XR chest 1V portable CLINICAL HISTORY: Atypical chest pain COMPARISON STUDY: 01/12/2019 FINDINGS: There is a persistent thoracic scoliosis. Surgical clips project over the base the neck. Th e heart is normal in size. There is no lobar consolidation. There is persistent mild interstitial thi ckening.[There are no significant pleural effusions IMPRESSION: Mild interstitial thickening, similar to the prior study. No evidence of focal pulmonary consolidation ACT 112: Negative or not required by law. Electronically signed by: Basilio Bianchi M.D. 07/23/2019 9:30 PM
[2019-07-23 21:38] LABS: Partial Thromboplastin Ratio 0.9; Partial Thromboplastin Time 25.9 Seconds (21.0-31.0); Prothrombin Time 10.9 Seconds (9.0-12.0)
[2019-07-23 21:38] LABS: iSTAT Creatinine 0.7 mg/dl (0.6-1.3); iSTAT Ionized Calcium 1.22 mmol/l (1.12-1.32); iSTAT Potassium 3.4 mmol/L (3.3-5.0)
--- NOTE | 2019-07-23 21:41 | Emergency Department Note ---
History of Present Illness General Chief complaint: Tachycardia Stated complaint: TACHYCARDIA Time Seen by Provider: 07/23/19 21:02 History of Present Illness Provider complaint: Palpitations Onset (ago): hour(s) 1 Location: chest Current Pain Intensity: 0 Associated symptoms: no chest pain, no fever/chills, no nausea/vomiting and no shortness of breath 63-year-old female presents to the emergency department for palpitations. Patient states last hour she was sitting on a deck drinking a glass of wine when she started to have severe palpitations. She denies any chest pain difficulty breathing. No syncopal episodes. Patient does states she has a history of A. fib and this feels similar. She does states she is compliant with her home dose of metoprolol extended release. She doses states that she took the metoprolol this morning as she usually does. She denies any recent travel, fevers, hemoptysis. She is not on any anticoagulation except for aspirin. Patient states in December 2018 she had to be admitted for A. fib RVR. She states they tried multiple medications on her to control her ventricular rate however none of them worked in the emergency department until she was placed on amiodarone. Home Medications Home Medications Medication Instructions Recorded Confirmed Type ascorbic acid (vitamin C) 500 mg 500 mg PO DAILY tab 11/18/18 05/18/19 History tablet benztropine 1 mg tablet 0.5 - 1 mg PO DAILY tab 11/18/18 05/18/19 History calcium carbonate 600 mg calcium 600 mg PO BID tab 11/18/18 05/18/19 History (1,500 mg) tablet cholecalciferol (vitamin D3) 25 1,000 units PO DAILY 11/18/18 05/18/19 History mcg (1,000 unit) tablet levothyroxine 75 mcg tablet 75 mcg PO DAILY tab 11/18/18 05/18/19 History multivitamin 1 tab PO DAILY 11/18/18 05/18/19 History tramadol 50 mg tablet 50 mg PO Q6 PRN tab 11/18/18 05/18/19 History denosumab 60 mg/mL subcutaneous 60 mg SQ UD ml 12/13/18 05/18/19 History syringe aspirin 81 mg tablet,delayed 81 mg PO DAILY 05/05/19 05/18/19 History release metoprolol succinate 25 mg 25 mg PO DAILY 05/05/19 05/18/19 History tablet,extended release 24 hr Allergies Allergy/AdvReac Type Severity Reaction Status Date / Time latex Allergy Unknown RASH Verified 05/18/19 08:52 erythromycin base AdvReac Unknown UPSET Verified 05/18/19 08:52 STOMACH Past Med/Surg History Social History Preferred Language: Ghanaian Communication Ability: Effective White Work Cleaner Required: No Beliefs That Will Affect Care: None Current Living Situation: Spouse Feels Safe at Home: Yes Smoking Status: Never smoker Second Hand Exposure: No ; Hx Alcohol Use: Yes Alcohol type: wine Alcohol Intake Frequency Comment: 1 drink 3-5 times a week Hx Substance Use: No Physical Activity Frequency: 3-4 Times per Week Physical Activity Frequency Comment: 30 minutes Review of Systems A total of 10 systems reviewed and were otherwise negative Physical Exam Vital Signs Vital Signs - 24 hr 07/23/19 20:59 07/23/19 21:24 07/23/19 21:27 Temperature 36.6 C Temperature Source Oral Pulse Rate 163 H Pulse Rate [Bilateral Apical] 145 H Respiratory Rate 18 20 Blood Pressure 131/84 Blood Pressure [Right Arm] 111/84 Blood Pressure Mean 99 Blood Pressure Mean [Right Arm] 93 Pulse Oximetry 96 96 96 Oxygen Delivery Method Room Air Room Air Room Air Sepsis Recent Fever Within 48 Hours No Sepsis New/Unexplained Change in Mental Status No Sepsis Action Taken by Nursing No Action Required 07/23/19 21:31 07/23/19 21:50 07/23/19 22:04 Temperature Temperature Source Pulse Rate Pulse Rate [Bilateral Apical] 126 H 121 H 130 H Respiratory Rate 20 20 20 Blood Pressure Blood Pressure [Right Arm] 117/90 90/69 L 103/75 Blood Pressure Mean Blood Pressure Mean [Right Arm] 99 76 84 Pulse Oximetry 96 96 96 Oxygen Delivery Method Room Air Room Air Sepsis Recent Fever Within 48 Hours Sepsis New/Unexplained Change in Mental Status Sepsis Action Taken by Nursing Physical Exam GENERAL: She is oriented to person, place, and time. She appears well-developed and well-nourished. She does not appear distressed. HENT: Exam performed. -Head: Normocephalic and atraumatic. -Right Ear: External ear normal. No mastoid tenderness. -Left Ear: External ear normal. No mastoid tenderness. -Mouth/Throat: The oropharynx is clear and moist. No trismus in the jaw. No dental abscesses or uvula swelling. No oropharyngeal exudate or tonsillar abscesses. EYES: Conjunctivae and EOM are normal. Pupils are equal, round, and reactive to light. Right eye exhibits no discharge. Left eye exhibits no discharge. No scleral icterus. NECK: Normal range of motion. Neck supple. No JVD present. No spinous process tenderness present. No carotid bruit present. No rigidity. No tracheal deviation and normal range of motion present. No Brudzinski's sign and no Kernig's sign noted. CV: Tachycardic rate, irregular rhythm, normal heart sounds and intact distal pulses. There is no peripheral edema. Palpable radial pulses bue. PULM/CHEST: Effort normal and breath sounds normal. No respiratory distress. No stridor. She has no wheezes. She has no rales. -Chest Wall: She exhibits no tenderness. ABD: The abdomen is soft. Bowel sounds are normal. She has no distension. No mass is present. There is no tenderness. There is no rebound, no guarding, no Granados's sign and no tenderness at McBurney's point. Rovsig negative MUSC/SKEL: Normal range of motion. There is no peripheral edema, tenderness or deformity. LYMPH: No cervical adenopathy. NEURO: She is alert and oriented to person, place, and time. She has normal strength. No cranial nerve deficit or sensory deficit. Coordination and gait normal. GCS eye subscore is 4. GCS verbal subscore is 5. GCS motor subscore is 6. Cerebellar tests wnl. SKIN: Skin is warm and dry. She is not diaphoretic. PSYCH: She has a normal mood and affect. Behavior is normal. Judgment and thought content normal. Course Course 2100: The patient was evaluated in room A10. A complete history and physical exam was performed. Patient was placed on campus monitor. Found to be in A. fib with rapid ventricular rate anywhere from 140-17s0 on the campus monitor. Patient was given 10 mg of Cardizem IV push. This decreased her rate to 140- 150s. Patient was given repeat bolus of Cardizem 15 mg which decreased her rate to 90-1 10. Patient was placed on Cardizem drip. Cardiac monitoring: An order was placed for continuous cardiac monitoring. The monitor shows a rate of 170 with atrial fibrillation rhythm EKG #1 @ 2105: Atrial fibrillation with a rate of 161. QRS [address] elevation. ST depression in lead II, aVF, V2, V3 V4 V5 V6. EMR reviewed. This is similar findings to when the patient was admitted for A. fib RVR January 12, 2018. EKG#2 @2117 status post 2 boluses of Cardizem: Atrial fib relation with rate of 103. QRS and QTc intervals within normal limits. No ST elevation. Improved ST depression of 2 aVF V2 V3 V4 V5 V6. 2142: Patient continues to be in atrial fibrillation with a stable ventricular rate on the Cardizem drip of 7.5. Heart rate currently is anywhere from 90-110 on the campus monitor. She reports no chest pain or difficulty breathing at this time. POC troponin negative. Posterior EKG done at [address] elevation ST depressions. Patient be taken for CTA of the chest rule out PE. [facility]: Patient's heart rate back up to the 130s. Patient continues to report no chest pain or difficulty breathing. Cardizem drip increased to 10. Labs and imaging within normal limits. [facility]. Administered Medications Diltiazem HCl 125 mg/ Dextrose 125 mls @ 5 mls/hr IV .Q24H [facility]; Protocol Stop: 08/22/19 21:14 Last Admin: 07/23/19 21:18 Dose: 5 mg/hr, 5 mls/hr Documented by: [id number] Cosigned by: [id number] Ioversol (Optiray 320 125ml) 89 ml IV ONCE PRN PRN Reason: Interaction Checking Stop: 07/27/19 21:57 Last Admin: 07/23/19 21:58 Dose: 89 ml Documented by: [id number] Discontinued Medications Diltiazem HCl (Cardizem) 10 mg IV NOW STA Stop: 07/23/19 21:07 Last Admin: 07/23/19 21:10 Dose: 10 mg Documented by: [id number] Cosigned by: [id number] Diltiazem HCl (Cardizem) Confirm Administered Dose 25 mg IV .STK-MED ONE Stop: 07/23/19 21:07 Last Admin: 07/23/19 21:28 Dose: Not Given Documented by: [id number] Diltiazem HCl (Cardizem) 15 mg IV NOW STA Stop: 07/23/19 21:12 Last Admin: 07/23/19 21:18 Dose: 15 mg Documented by: [id number] Cosigned by: [id number] Sodium Chloride (Nss 1000ml) 1,000 mls @ 999 mls/hr IV .Q1H1M ИВАН Stop: 07/23/19 22:15 Last Admin: 07/23/19 21:18 Dose: 999 mls/hr Documented by: [id number] Lorazepam (Ativan) 0.5 mg in 1 mls @ 1 mls/min IV NOW STA Stop: 07/23/19 21:22 Last Admin: 07/23/19 21:29 Dose: 1 mls/min Documented by: [id number] Miscellaneous () 1 ea N/A NOW STA Stop: 07/23/19 21:08 Last Admin: 07/23/19 21:23 Dose: 1 ea Documented by: [id number] Critical Care Time Critical Care Time: Yes Total Critical Care Time: 78 I have personally spent greater than 78 minutes of critical care time in the direct management of this patient. This includes bedside care, interpretation of diagnostic studies, and testing, discussion with consultants, patient, and family members, and other required patient management activities. This 78 min utes is in excess of all separately billable procedures. Medical Decision Making Laboratory Data Result diagrams: 07/23/19 21:10 07/23/19 21:10 Lab Results 07/23/19 07/23/19 07/23/19 Range/Units 21:10 21:10 21:10 WBC 7.10 (4.8-10.8) K/uL RBC 4.85 (4.2-5.4) M/uL Hgb 14.7 (12.0-16.0) g/dL POC Hgb (12.0-16.0) g/dl Hct 42.5 (37-47) % POC Hct (37-47) % MCV 87.6 (80-100) fL MCH 30.3 (25-34) pg MCHC 34.6 (32-36) g/dL RDW Std Deviation 39.8 (36.4-46.3) fL RDW Coeff of Tiffanie 12.4 (11.5-14.5) % Plt Count 235 (130-400) K/uL MPV 9.9 (7.4-10.4) fL Immature Gran % (Auto) 0.1 % Neut % (Auto) 61.8 % Lymph % (Auto) 27.6 % Darke % (Auto) 8.9 % Eos % (Auto) 1.3 % Baso % (Auto) 0.3 % Immature Gran # (Auto) 0.01 (0.00-0.02) K/uL Neut # (Auto) 4.39 (1.4-6.5) K/uL Lymph # (Auto) 1.96 (1.2-3.4) K/uL Darke # (Auto) 0.63 H (0.11-0.59) K/uL Eos # (Auto) 0.09 (0-0.5) K/uL Baso # (Auto) 0.02 (0-0.2) K/uL PT 10.9 (9.0-12.0) Seconds INR 1.0 (0.9-1.1) APTT 25.9 (21.0-31.0) Seconds PTT Ratio 0.9 POC Sodium (135-144) mmol/L Sodium 134 L (136-145) mmol/L POC Potassium (3.3-5.0) mmol/L Potassium 3.4 L (3.5-5.1) mmol/L POC Chloride (101-112) mmol/L Chloride 100 (98-107) mmol/L Carbon Dioxide 24 (21-32) mmol/L POC Total CO2 (24-31) mEq/l Anion Gap 9.0 (3-11) POC Anion Gap (16-25) mmol/L POC BUN (7-18) mg/dl BUN 19 H (7-18) mg/dl Creatinine 0.68 (0.6-1.2) mg/dl POC Creatinine (0.6-1.3) mg/dl Est Cr Clr Drug Dosing 67.0 ml/min Est GFR ( Amer) 107.9 Est GFR (Non-Af Amer) 93.1 BUN/Creatinine Ratio 28.5 H (10-20) Glucose 122 H (70-99) mg/dl POC Glucose (other) (70-99) mg/dl Calcium 9.2 (8.5-10.1) mg/dl POC Ioniz Calcium Chase (1.12-1.32) mmol/l Magnesium 1.8 (1.8-2.4) mg/dl POC Troponin I (0-0.045) ng/ml Troponin I < 0.015 (0-0.045) ng/ml Lipase 134 (73-393) U/L 07/23/19 07/23/19 Range/Units 21:23 21:25 WBC (4.8-10.8) K/uL RBC (4.2-5.4) M/uL Hgb (12.0-16.0) g/dL POC Hgb 15.0 (12.0-16.0) g/dl Hct (37-47) % POC Hct 44 (37-47) % MCV (80-100) fL MCH (25-34) pg MCHC (32-36) g/dL RDW Std Deviation (36.4-46.3) fL RDW Coeff of Tiffanie (11.5-14.5) % Plt Count (130-400) K/uL MPV (7.4-10.4) fL Immature Gran % (Auto) % Neut % (Auto) % Lymph % (Auto) % Darke % (Auto) % Eos % (Auto) % Baso % (Auto) % Immature Gran # (Auto) (0.00-0.02) K/uL Neut # (Auto) (1.4-6.5) K/uL Lymph # (Auto) (1.2-3.4) K/uL Darke # (Auto) (0.11-0.59) K/uL Eos # (Auto) (0-0.5) K/uL Baso # (Auto) (0-0.2) K/uL PT (9.0-12.0) Seconds INR (0.9-1.1) APTT (21.0-31.0) Seconds PTT Ratio POC Sodium 136 (135-144) mmol/L Sodium (136-145) mmol/L POC Potassium 3.4 (3.3-5.0) mmol/L Potassium (3.5-5.1) mmol/L POC Chloride 98 L (101-112) mmol/L Chloride (98-107) mmol/L Carbon Dioxide (21-32) mmol/L POC Total CO2 24 (24-31) mEq/l Anion Gap (3-11) POC Anion Gap 18.0 (16-25) mmol/L POC BUN 20 H (7-18) mg/dl BUN (7-18) mg/dl Creatinine (0.6-1.2) mg/dl POC Creatinine 0.7 (0.6-1.3) mg/dl Est Cr Clr Drug Dosing ml/min Est GFR ( Amer) Est GFR (Non-Af Amer) BUN/Creatinine Ratio (10-20) Glucose (70-99) mg/dl POC Glucose (other) 122 H (70-99) mg/dl Calcium (8.5-10.1) mg/dl POC Ioniz Calcium Chase 1.22 (1.12-1.32) mmol/l Magnesium (1.8-2.4) mg/dl POC Troponin I < 0.03 (0-0.045) ng/ml Troponin I (0-0.045) ng/ml Lipase (73-393) U/L Imaging Data Radiologist's Impression: XR chest 1V portable CLINICAL HISTORY: Atypical chest pain COMPARISON STUDY: 01/12/2019 FINDINGS: There is a persistent thoracic scoliosis. Surgical clips project over the base the neck. The heart is normal in size. There is no lobar consolidation. There is persistent mild interstitial thickening.[There are no significant pleural effusions IMPRESSION: Mild interstitial thickening, similar to the prior study. No evidence of focal pulmonary consolidation ACT 112: Negative or not required by law. Electronically signed by: Basilio Bianchi M.D. 07/23/2019 9:30 PM Dictated: 07/23/[id number] Transcribed: 07/23/192128 CT ANGIOGRAM OF THE CHEST CLINICAL HISTORY: Atypical chest pain. Suspected pulmonary embolism. COMPARISON STUDY: Chest x-ray dated 08/10/2019, CT scan dated 01/13/2019 TECHNIQUE: Following the IV administration of 89 mL of Optiray-320, CT angiogram of the thorax was performed from the thoracic inlet to the lung bases utilizing the pulmonary embolus protocol. Images are reviewed in the axial, sagittal, and coronal planes. IV contrast was administered without complication. MIP imaging was performed. A dose lowering technique was utilized adhering to the principles of ALARA. CT DOSE: 543.58 mGy.cm FINDINGS: No pathologically enlarged axillary mediastinal or hilar lymph nodes were visualized. The ascending thoracic aorta measures 29 mm There is persistent dilatation of the main pulmonary artery segment suggesting underlying pulmonary arterial hypertension. There are no pulmonary artery filling defects to indicate acute pulmonary embolism. No pleural effusions are visualized. There are dependent airspace opacities, likely atelectatic. There is biapical fibronodular scarring. There is mild subpleural reticulation most pronounced within the upper lobes. There is a stable solid 5 mm right lower lobe pulmonary nodule There are multiple thoracic compression fractures, similar to the preceding study IMPRESSION: 1. No evidence of acute pulmonary embolism 2. Stable solid 5 mm right lower lobe pulmonary nodule. 3. Multiple vertebral body compression fractures unchanged from the prior study 4. Stable dilatation of the main pulmonary artery consistent with pulmonary arterial hypertension 5. Stable fibronodular apical scarring 6. Dependent basilar opacities, statistically atelectatic ACT 112: Negative or not required by law. Electronically signed by: Basilio Bianchi M.D. 07/23/2019 10:09 PM Dictated: 07/23/[id number] Transcribed: 07/23/192203 ECG Data Additional Comments: EKG #1 @ 2106: Atrial fibrillation with a rate of 161. QRS [address] elevation. ST depression in lead II, aVF, V2, V3 V4 V5 V6. EMR reviewed. This is similar findings to when the patient was admitted for A. fib RVR January 12, 2018. EKG#2 @7 status post 2 boluses of Cardizem: Atrial fib relation with rate of 103. QRS and QTc intervals within normal limits. No ST elevation. Improved ST depression of 2 aVF V2 V3 V4 V5 V6. EKG#3 @ 2131 (posterior EKG): A. fib with a rate of 115. QRS and QTc intervals within normal limits. No ST elevation or ST depression. [facility] Narrative 2100: The patient was evaluated in room A10. A complete history and physical exam was performed. Patient was placed on campus monitor. Found to be in A. fib with rapid ventricular rate anywhere from 140-17s0 on the campus monitor. Patient was given 10 mg of Cardizem IV push. This decreased her rate to 140- 150s. Patient was given repeat bolus of Cardizem 15 mg which decreased her rate to 90-1 10. Patient was placed on Cardizem drip. Cardiac monitoring: An order was placed for continuous cardiac monitoring. The monitor shows a rate of 170 with atrial fibrillation rhythm EKG #1 @ 2105: Atrial fibrillation with a rate of 161. QRS [address] elevation. ST depression in lead II, aVF, V2, V3 V4 V5 V6. EMR reviewed. This is similar findings to when the patient was admitted for A. fib RVR January 12, 2018. EKG#2 @2117 status post 2 boluses of Cardizem: Atrial fib relation with rate of 103. QRS and QTc intervals within normal limits. No ST elevation. Improved ST depression of 2 aVF V2 V3 V4 V5 V6. 2142: Patient continues to be in atrial fibrillation with a stable ventricular rate on the Cardizem drip of 7.5. Heart rate currently is anywhere from 90-110 on the campus monitor. She reports no chest pain or difficulty breathing at this time. POC troponin negative. Posterior EKG done at [address] elevation ST depressions. Patient be taken for CTA of the chest rule out PE. We will plan on admitting the patient to the [facility] hospitalist team. 2217: Patient's heart rate back up to the 130s. Patient continues to report no chest pain or difficulty breathing. Cardizem drip increased to 10. Labs and imaging within normal limits. Patient will be admitted to the [facility] hospitalist team. Dr. Callahan notified. Impression & Plan Atrial fibrillation, rapid Discharge Plan Visit Data Chief Complaint: Tachycardia Stated Complaint: TACHYCARDIA ED Provider: Nathan Metcalf Discharge Problem: Atrial fibrillation, rapid Patient Disposition: Admitted As Inpatient Forms Stand Alone Forms: [facility] Prescriptions Prescriptions: No Action benztropine 1 mg tablet 0.5 - 1 mg PO DAILY RF: 0 calcium carbonate 600 mg calcium (1,500 mg) tablet 600 mg PO BID RF: 0 levothyroxine 75 mcg tablet 75 mcg PO DAILY RF: 0 multivitamin 1 tab PO DAILY RF: 0 tramadol 50 mg tablet 50 mg PO Q6 PRN (Reason: Pain) RF: 0 ascorbic acid (vitamin C) 500 mg tablet 500 mg PO DAILY RF: 0 cholecalciferol (vitamin D3) 1,000 unit (25 mcg) tablet 1,000 units PO DAILY RF: 0 Prolia 60 mg/mL syringe 60 mg SQ UD RF: 0 metoprolol succinate 25 mg tablet extended release 24 hr 25 mg PO DAILY RF: 0 aspirin [Adult Low Dose Aspirin] 81 mg tablet,delayed release (DR/EC) 81 mg PO DAILY RF: 0 Referrals Referrals: Iban Whaley DO [Primary Care Provider] -
[2019-07-23 21:44] LABS: BUN Creatinine Ratio 28.5 (10-20); Blood Urea Nitrogen 19 mg/dl (7-18); Calcium 9.2 mg/dl (8.5-10.1); Carbon Dioxide 24 mmol/L (21-32); Chloride 100 mmol/L (98-107); Est GFR (African American) 107.9; Est GFR (Non-African American) 93.1; Glucose 122 mg/dl (70-99); Lipase 134 U/L (73-393); Magnesium 1.8 mg/dl (1.8-2.4); Potassium 3.4 mmol/L (3.5-5.1); Sodium 134 mmol/L (136-145)
[2019-07-23 21:49] LABS: Troponin I < 0.015 ng/ml (0-0.045)
[2019-07-23] MEDS ORDERED: OPTIRAY 320 125ml IV PRN (21:58)
--- NOTE | 2019-07-23 22:11 | CT Scan Report ---
CT ANGIOGRAM OF THE CHEST CLINICAL HISTORY: Atypical chest pain. Suspected pulmonary embolism. COMPARISON STUDY: Chest x-ray dated 08/10/2019, CT scan dated 01/13/2019 TECHNIQUE: Following the IV administration of 89 mL of Optiray-320, CT angiogram of the thorax was pe rformed from the thoracic inlet to the lung bases utilizing the pulmonary embolus protocol. Images ar e reviewed in the axial, sagittal, and coronal planes. IV contrast was administered without complicat ion. MIP imaging was performed. A dose lowering technique was utilized adhering to the principles of ALARA. CT DOSE: 543.58 mGy.cm FINDINGS: No pathologically enlarged axillary mediastinal or hilar lymph nodes were visualized. The ascending thoracic aorta measures 29 mm There is persistent dilatation of the main pulmonary artery segment suggesting underlying pulmonary a rterial hypertension. There are no pulmonary artery filling defects to indicate acute pulmonary embol ism. No pleural effusions are visualized. There are dependent airspace opacities, likely atelectatic. There is biapical fibronodular scarring. There is mild subpleural reticulation most pronounced within the upper lobes. There is a stable solid 5 mm right lower lobe pulmonary nodule There are multiple thoracic compression fractures, similar to the preceding study IMPRESSION: 1. No evidence of acute pulmonary embolism 2. Stable solid 5 mm right lower lobe pulmonary nodule. 3. Multiple vertebral body compression fractures unchanged from the prior study 4. Stable dilatation of the main pulmonary artery consistent with pulmonary arterial hypertension 5. Stable fibronodular apical scarring 6. Dependent basilar opacities, statistically atelectatic ACT 112: Negative or not required by law. Electronically signed by: Basilio Bianchi M.D. 07/23/2019 10:09 PM
[2019-07-23] MEDS ORDERED: ASPIRIN CHEW 324 MG PO STA (22:14)
[2019-07-23] MEDS ORDERED: SODIUM CHLORIDE 0.9% 1000ML 500 ML IV ONE (23:36)
[2019-07-23] MEDS ORDERED: SODIUM CHLORIDE 0.9% 500 ML IV SCH (23:45)
[2019-07-24] MEDS ORDERED: HEPARIN 25000 UNIT/500 ML D5W IV ONE (00:56)
[2019-07-24] MEDS: HEPARIN SODIUM/DEXTROSE 25,000 UNITS/500 ML BAG IV SCH ×2 (02:30→04:05)
--- NOTE | 2019-07-24 02:36 | History and Physical Report ---
DATE OF ADMISSION: 07/23/2019 CHIEF COMPLAINT: Palpitations. HISTORY OF PRESENT ILLNESS: This 63-year-old female with past medical history significant for nontoxic multinodular goiter, postsurgical hypothyroidism, atrial fibrillation, history of mitral regurgitation, compressed thoracic vertebrae, history of torticollis, generalized osteoarthrosis, osteoporosis, depression, presents with palpitations, found to be in rapid AFib. The patient was sitting in the porch and drinking wine when she noticed palpitations and pulse seems to be irregular, and in 130s, it was not getting better and she came to the ER and found to be in rapid AFib, received couple doses of boluses of Cardizem and started on Cardizem drip and heart rate is still in 120s to 130s. Denies any chest pain. Denies shortness of breath. No nausea, no sweating, no headache, no dizziness, no cough, no fever, no chills, resting comfortably and hemodynamically stable. Denies any blurred vision, earache, no runny nose. No dysphagia, no sore throat, no abdominal pain. Normal bowel and bladder movements. Denies any hematuria or black stools or hematochezia. No swelling in the legs. No rash. No orthopnea. She ambulates and climbs steps okay. The patient was in the hospital in December with rapid AFib. At that time, she was treated with amiodarone for couple of months and Eliquis for 1 month. Eliquis was changed to aspirin as outpatient because of [id number] of 1 and also amiodarone was stopped on March 23 week because of concern of side effects and currently on Toprol-XL 25 mg daily. ALLERGIES: ERYTHROMYCIN, LATEX. PAST MEDICAL HISTORY: As mentioned above. PAST SURGICAL HISTORY: induced by D&C, colonoscopy, spinal surgery, eye surgery, thyroidectomy,complete, tonsillectomy. MEDICATIONS: The patient is on vitamin C 1000 mg p.o. daily, aspirin 81 mg p.o. daily, benztropine 0.5-1 mg p.o. at bedtime, calcium carbonate 600 mg p.o. daily, vitamin D 1000 units p.o. daily, levothyroxine 75 mcg p.o. daily, loratadine pseudoephedrine 1 tablet a.m., Toprol-XL 25 mg p.r.n., multivitamin 1 tablet p.o. at bedtime. FAMILY HISTORY: Significant for mother has arthritis, diabetes, heart disorder, hypertension, primary progressive aphasia, thyroid disorder. Father has heart disorder, colon cancer and has asthma. SOCIAL HISTORY: , lives with her . No smoking, alcohol, glass of wine few times a week. No drug use. REVIEW OF SYMPTOMS: As per HPI. Rest of review of symptoms negative. PHYSICAL EXAMINATION: GENERAL: The patient is of moderate built, not in acute distress. VITAL SIGNS: Temperature 36.6, pulse when she came in was 160s, currently in 118, blood pressure 107/65, oxygen 95% on room air. HEENT: No pallor, no icterus. Pupils equal, round, reactive to light. NECK: No neck masses. Supple. CARDIOVASCULAR: S1, S2 heard. Tachycardia, irregular rhythm. No murmurs. RESPIRATORY SYSTEM: Normal AP diameter. No accessory muscle use. No wheezing, no crackles. ABDOMEN: Soft, bowel sounds present, nontender, nondistended. CENTRAL NERVOUS SYSTEM: Alert and oriented. Extraocular movements intact. Moves extremities. Obeys commands. EXTREMITIES: No edema, no erythema. LABORATORY DATA: WBC 7.1, hemoglobin 14.7, hematocrit 42.5, platelets 235. PT 10.9, INR 1, APTT 25.9. Sodium 134, potassium 3.4, chloride 100, bicarbonate 24, BUN 19, creatinine 0.6, serum glucose 102, calcium 9.2, magnesium 1.8. Troponin I less than 0.015. Lipase 134. Chest x-ray, mild interstitial thickening, no evidence of focal pulmonary consolidation. CT of the chest, no evidence of acute pulmonary embolism, stable solid 5 mm right lower lobe pulmonary nodule, multiple vertebral body compression fractures, unchanged from the prior studies, stable dilatation of the main pulmonary artery consistent with pulmonary arterial hypertension, stable fibronodular apical scarring. EKG: AFib with rate of 161. ASSESSMENT AND PLAN: This is a 63-year-old female who presents with rapid atrial fibrillation. 1. Rapid atrial fibrillation: At home on , Toprol-XL 25 mg and aspirin 81 mg p.o. daily.Started on Cardizem drip in ER Which will be continued for now. Monitor in tele floor. Serial enzymes, echo and consult cardiology for further recommendations. Patient is ok for iv heparin for now. The patient is taking pseudoephedrine, which will be held. 2. Hypothyroidism. Continue Synthroid. 3. Lung nodule. Needs Followup. 4. Deep venous thrombosis prophylaxis, on IV heparin. 5. Disposition. Closely monitor in tele floor. Level 1 full code. MTDD
[2019-07-24] MEDS ORDERED: ONDANSETRON INJ 2 MG/ML 2 ML VIAL IV PRN (02:42)
[2019-07-24] MEDS ORDERED: Heparin IV Standard *NO* Bolus ONE (02:42)
[2019-07-24] MEDS ORDERED: ACETAMINOPHEN 325 MG TAB PO PRN (02:42)
[2019-07-24] MEDS ORDERED: NITROGLYCERIN SL 0.4 MG/TAB TAB SL PRN (02:42)
[2019-07-24] MEDS ORDERED: SODIUM CHLORIDE 0.9% 500 ML IV SCH (03:30)
[2019-07-24] MEDS ORDERED: SODIUM CHLORIDE 0.9% 500 ML IV ONE (06:56)
--- NOTE | 2019-07-24 06:56 | Hospitalist Progress Note ---
Date of Service July 24, 2019 Assessment & Plan (1) Atrial fibrillation, rapid: (2) Palpitations: (3) Hypokalemia: (4) Hypomagnesemia: Labs Checked Currently in NSR, On IV Heparin, DC later today if Cards w/u Complete ROS-No Headache, No Visual Changes, No Nausea, No Vomiting, No Fever, No Chills, No Neck Pain or Stiffness, No Chest Pain, No Palpitations, No SOB, No LARA, No Cough, No Sputum, No Wheezing, No Abdominal Pain, No Diarrhea, No Hematemesis, No Hemoptysis, No Unexpected Weight Loss, No Flank pain, No Melena, No Hematochezia, No Frequency, No Urgency, No Burning, No Hematuria, No Rashes, No Diaphoresis. Appetite is Normal Physical Exam Gen-AAO x 3, NAD, Afebrile Head-NCAT, EOMI, PERRLA, Anicteric Sclera, No Posterior Pharyngeal Erythema Neck-Supple, No JVD, No Thyromegaly, No Masses, No LAD, No Bruits Lungs-Clear to Auscultation Bilaterally, No Rales, No Rhonchi, No Wheezing, No Crepitus Chest-No S4, +S1, +S2, No S3, No Murmurs, No Rubs, No Gallops, No Ectopy Abdomen-Soft, Bowel Sounds Present, Non Tender, Non Distended, No Hepatomegaly, No Splenomegaly, No Palpable Masses, No Rebound, No Rigidity, No Guarding Musculoskeletal-Full Range of Motion Bilaterally, No CVAT Extremities-No Cyanosis, No Clubbing, No Edema Nuero-Cranial Nerves II-XII grossly intact, Motor WNL, DTRs WNL, Strength WNL, Non Focal Psych-Normal Mood Admission and Anticipated Discharge Date Admission Date: July 24, 2019 Results & Data Results & Data ([facility]) Vital Signs (Past 12 Hours) Vital Signs Temp Pulse Pulse Resp BP BP Pulse Ox 07/24/19 04:21 82/55 L 07/24/19 03:27 36.8 C 72 18 105/71 94 07/24/19 02:42 71 07/24/19 02:06 127 H 20 86/66 L 94 07/24/19 01:31 120 H 18 88/56 L 95 07/24/19 01:04 102 H 20 103/43 L 96 07/24/19 00:25 132 H 18 99/46 L 94 07/23/19 23:51 123 H 20 84/58 L 94 07/23/19 23:15 118 H 20 107/65 95 07/23/19 22:54 121 H 20 111/73 95 07/23/19 22:42 94 H 20 114/71 96 07/23/19 22:23 132 H 20 105/84 95 07/23/19 22:04 130 H 20 103/75 96 07/23/19 21:50 121 H 20 90/69 L 96 07/23/19 21:31 126 H 20 117/90 96 07/23/19 21:27 96 07/23/19 21:24 145 H 20 111/84 96 07/23/19 20:59 36.6 C 163 H 18 131/84 96
[2019-07-24] MEDS ORDERED: SODIUM CHLORIDE 0.9% 1000ML 1,000 ML IV SCH (07:00)
[2019-07-24 07:43] LABS: Partial Thromboplastin Ratio 2.1
[2019-07-24 07:46] LABS: Partial Thromboplastin Time 57.2 Seconds (21.0-31.0)
[2019-07-24] MEDS: ASCORBIC ACID 500 MG TAB PO SCH (08:27)
[2019-07-24] MEDS: CHOLECALCIFEROL 1,000 UNITS 25 MCG TAB PO SCH (08:27)
[2019-07-24 08:28] LABS: Basophils # (auto) 0.01 K/uL (0-0.2); Basophils % (auto) 0.2 %; Eosinophils # (auto) 0.12 K/uL (0-0.5); Eosinophils % (auto) 2.3 %; Hematocrit (blood only) 34.4 % (37-47); Hemoglobin 11.7 g/dL (12.0-16.0); Lymphocytes # (auto) 2.26 K/uL (1.2-3.4); Lymphocytes % (auto) 43.6 %; Mean Corpuscular Hemoglobin 30.2 pg (25-34); Mean Corpuscular Volume 88.9 fL (80-100); Mean Platelet Volume 9.5 fL (7.4-10.4); Monocytes # (auto) 0.46 K/uL (0.11-0.59); Monocytes % (auto) 8.9 %; Neutrophils # (auto) 2.33 K/uL (1.4-6.5); Platelet Count 202 K/uL (130-400); RDW Coefficient of Variation 12.8 % (11.5-14.5); RDW Standard Deviation 41.1 fL (36.4-46.3); Red Blood Count 3.87 M/uL (4.2-5.4); White Blood Count 5.18 K/uL (4.8-10.8)
[2019-07-24] MEDS: ASPIRIN 81 MG ECTAB PO SCH (08:28)
[2019-07-24] MEDS: CALCIUM 600MG + VIT D 400 IU TAB PO SCH (08:28)
[2019-07-24 08:57] LABS: BUN Creatinine Ratio 23.8 (10-20); Calcium 7.5 mg/dl (8.5-10.1); Creatinine Clr Calc Pharmacy 96.9 ml/min; Est GFR (African American) 118.6; Est GFR (Non-African American) 102.3; Magnesium 1.8 mg/dl (1.8-2.4); Potassium 3.8 mmol/L (3.5-5.1)
[2019-07-24] MEDS ORDERED: METOPROLOL SUCC 25MG EXT REL TAB PO SCH (09:00)
[2019-07-24] MEDS ORDERED: LEVOTHYROXINE SODIUM 75 MCG TABLET PO SCH (09:00)
--- NOTE | 2019-07-24 09:50 | Electrocardiogram Report ---
Test Reason : Blood Pressure : / mmHG Vent. Rate : 161 BPM Atrial Rate : 174 BPM P-R Int : 000 ms QRS Dur : 100 ms QT Int : 294 ms P-R-T Axes : 000 009 062 degrees QTc Int : 481 ms Atrial fibrillation with rapid ventricular response Incomplete right bundle branch block Abnormal ECG When compared with ECG of 14-JAN-2019 06:55, Atrial fibrillation has replaced Sinus rhythm Vent. rate has increased BY 105 BPM Confirmed by Partha Altman ([id number]) on 07/24/2019 9:50:00 AM Referred By: REFERRED SELF Confirmed By:Partha Altman
--- NOTE | 2019-07-24 09:50 | Electrocardiogram Report ---
Test Reason : Blood Pressure : / mmHG Vent. Rate : 103 BPM Atrial Rate : 100 BPM P-R Int : 000 ms QRS Dur : 094 ms QT Int : 328 ms P-R-T Axes : 000 017 047 degrees QTc Int : 429 ms Atrial fibrillation with rapid ventricular response Nonspecific ST abnormality Abnormal ECG When compared with ECG of 23-JUL-2019 21:07, (unconfirmed) Vent. rate has decreased BY 58 BPM Confirmed by Partha Altman ([id number]) on 07/24/2019 9:50:18 AM Referred By: REFERRED SELF Confirmed By:Partha Altman
--- NOTE | 2019-07-24 09:51 | Electrocardiogram Report ---
Test Reason : Blood Pressure : / mmHG Vent. Rate : 115 BPM Atrial Rate : 174 BPM P-R Int : 000 ms QRS Dur : 074 ms QT Int : 326 ms P-R-T Axes : 000 058 078 degrees QTc Int : 450 ms Atrial fibrillation with rapid ventricular response Septal infarct , age undetermined Abnormal ECG When compared with ECG of 23-JUL-2019 21:18, (unconfirmed) Septal infarct is now Present ST no longer depressed in Anterolateral leads Nonspecific T wave abnormality now evident in Anterior leads Confirmed by Partha Altman ([id number]) on 07/24/2019 9:50:54 AM Referred By: REFERRED SELF Confirmed By:Partha Altman
--- NOTE | 2019-07-24 09:53 | Electrocardiogram Report ---
Test Reason : Blood Pressure : / mmHG Vent. Rate : 058 BPM Atrial Rate : 058 BPM P-R Int : 204 ms QRS Dur : 080 ms QT Int : 468 ms P-R-T Axes : 065 050 054 degrees QTc Int : 459 ms Sinus bradycardia Otherwise normal ECG When compared with ECG of 23-JUL-2019 21:32, (unconfirmed) Sinus rhythm has replaced Atrial fibrillation Vent. rate has decreased BY 57 BPM Criteria for Septal infarct are no longer Present Nonspecific T wave abnormality no longer evident in Anterolateral leads Confirmed by Partha Altman ([id number]) on 07/24/2019 9:52:53 AM Referred By: REFERRED SELF Confirmed By:Partha Altman
--- NOTE | 2019-07-24 12:08 | Cardiology Consultation ---
Date of Consultation July 24, 2019 Assessment & Plan (1) Paroxysmal atrial fibrillation with rapid ventricular response: Patient is a 63-year-old female with paroxysmal atrial fibrillation with second episode in approximately 6-month interval. Previously been on amiodarone for antiarrhythmic therapy but discontinued due to concerns regarding side effects. Most recently has had increasing palpitations and presented to the ER this admission with atrial fibrillation with rapid response. Relatively low chads vas 2 score of 1 Discussed options of management would recommend trial of sotalol while in hospital. We will discontinue metoprolol, diltiazem, heparin, Cogentin, Zofran from medica l regimen Initiate sotalol at 40 mg twice daily with EKG to follow initial dose and in a.m. Change anticoagulation to Eliquis Maintain telemetry anticipated stay 48 to 72 hours Treatment plan discussed in detail with the patient,is agreeable History of Present Illness Reason for Consultation: Paroxysmal atrial fibrillation Requesting Physician: Dr. Iban Whaley Attending Physician: Alvarado Chavarria DO History of Present Illness Patient is a 63-year-old female referred after presenting to the emergency room in atrial fibrillation with rapid response. Her underlying cardiac issues and medical issues include 1. Paroxysmal atrial fibrillation with hospitalization December 2018 treated transiently with antiarrhythmic therapy/amiodarone 2. Chads vas 2 score of 1 3. Hypothyroidism on replacement 4. Osteoporosis. Patient notes recent symptoms of intermittent palpitations and just completed a ZIO Patch monitor assess concerns. Yesterday after a long day bicycled work outdoors drink a glass of wine noted symptoms of palpitations followed by tachypalpitations resulting in ER presentation. Patient was treated with IV diltiazem for atrial fibrillation with rapid response with conversion to sinus rhythm. Patient denies history of TIA or stroke, diabetes mellitus, cardiovascular or peripheral vascular disease. No recent fevers chills or sweats. No cough hoarseness wheeze or hemoptysis. Appetite and weight have been stable. Generally feeling well and tolerated bicycle ride without difficulty yesterday. No history of syncope or near syncope. Appetite and weight have been stable. No difficulty taking medications. No bleeding difficulties Allergies Allergy/AdvReac Type Severity Reaction Status Date / Time latex Allergy Unknown RASH Verified 07/23/19 22:32 erythromycin base AdvReac Unknown UPSET Verified 07/23/19 22:32 STOMACH Home Medications Home Medications Medication Instructions Recorded Confirmed Type benztropine 1 mg tablet 0.5 - 1 mg PO HS tab 11/18/18 07/23/19 History calcium carbonate 600 mg calcium 600 mg PO DAILY tab 11/18/18 07/23/19 History (1,500 mg) tablet cholecalciferol (vitamin D3) 25 1,000 units PO QAM 11/18/18 07/23/19 History mcg (1,000 unit) tablet aspirin 81 mg tablet,delayed 81 mg PO QAM 05/05/19 07/23/19 History release metoprolol succinate 25 mg 25 mg PO QAM 05/05/19 07/23/19 History tablet,extended release 24 hr ascorbic acid (vitamin C) [Vitamin 1,000 mg PO DAILY 07/23/19 07/23/19 History C] levothyroxine [Levoxyl] 75 mcg PO QAM 07/23/19 07/23/19 History loratadine-pseudoephedrine 1 tab PO QAM 07/23/19 07/23/19 History [Claritin-D 24 Hour] multivitamin 1 tab PO HS 07/23/19 07/23/19 History Patient History Medical History Atrial fibrillation, rapid (Acute) History of chicken pox History of colonic polyps History of osteoarthritis History of osteoporosis Hypokalemia (Acute) Hypomagnesemia (Acute) Surgical History S/P dilation and curettage S/P eye surgery laser surgery of right eye- lens replacement 05/1991 S/P sinus surgery 07/2015 S/P thyroidectomy 07/2008 S/P tonsillectomy 1961 S/P wisdom tooth extraction Family History Family/Other Osteoarthritis Diabetes Heart disease Hypertension Dyslipidemia Osteoporosis Thyroid disorder Colorectal cancer Social History Preferred Language: Vietnamese Communication Ability: Effective Auto Washer Required: No Beliefs That Will Affect Care: None Current Living Situation: Spouse Other Information That Helps Us Care for You: No Feels Safe at Home: Yes Safety Concerns: Feels Safe At This Time Smoking Status: Never smoker Do You Dip or Chew Tobacco: No ; Second Hand Expos ure: No ; Tobacco Cessation Education Requested by Patient: No Hx Alcohol Use: Yes Alcohol type: wine Alcohol Intake Frequency Comment: 1 drink 3-5 times a week Hx Substance Use: No Physical Activity Frequency: 3-4 Times per Week Physical Activity Frequency Comment: 30 minutes Review of Systems Review of Systems: All systems reviewed & are unremarkable except as noted in HPI & below Physical Exam Constitutional: WD/WN, vitals as above Eyes: PERRL, conjunctivae normal, anicteric sclerae ENMT: external ear and nose normal, oropharynx normal Neck: trachea midline, no thyromegaly Respiratory: normal respiratory effort, lungs clear to auscultation Cardiovascular: Rate/Rhythm: regular rate and regular rhythm Heart Sounds: normal S1, normal S2 and + murmur (Grade 1/6 systolic murmur at right upper [place] border); no gallop Palpation: normal PMI Vessels: normal carotid upstroke and radial pulses present; no JVD and no carotid bruit Extremities: no edema Gastrointestinal (Abdomen): normal bowel sounds, soft, nontender, no hepatosplenomegaly Musculoskeletal: no cyanosis or clubbing, extremities motor strength 5/5 Skin: no rashes, warm and dry Neurologic: PERRL, EOMI, accommodation nl, no face palsy, no dysarthria Psychiatric: A+Ox3, euthymic affect Results & Data ([facility]) Vital Signs (Past 12 Hours) Vital Signs Temp Pulse Pulse Pulse Resp BP Pulse Ox 07/24/19 11:14 36.6 C 67 19 99/65 L 95 07/24/19 08:00 62 07/24/19 07:55 36.8 C 71 19 103/68 96 07/24/19 04:21 82/55 L 07/24/19 03:27 36.8 C 72 18 105/71 94 07/24/19 02:42 71 07/24/19 02:06 127 H 20 86/66 L 94 07/24/19 01:31 120 H 18 88/56 L 95 07/24/19 01:04 102 H 20 103/43 L 96 07/24/19 00:25 132 H 18 99/46 L 94 Laboratory Results Laboratory Results - last 24 hr 07/23/19 07/23/19 07/23/19 21:10 21:10 21:10 WBC 7.10 RBC 4.85 Hgb 14.7 POC Hgb Hct 42.5 POC Hct MCV 87.6 MCH 30.3 MCHC 34.6 RDW Std Deviation 39.8 RDW Coeff of Tiffanie 12.4 Plt Count 235 MPV 9.9 Immature Gran % (Auto) 0.1 Neut % (Auto) 61.8 Lymph % (Auto) 27.6 Woods % (Auto) 8.9 Eos % (Auto) 1.3 Baso % (Auto) 0.3 Immature Gran # (Auto) 0.01 Neut # (Auto) 4.39 Lymph # (Auto) 1.96 Woods # (Auto) 0.63 H Eos # (Auto) 0.09 Baso # (Auto) 0.02 PT 10.9 INR 1.0 APTT 25.9 PTT Ratio 0.9 POC Sodium Sodium 134 L POC Potassium Potassium 3.4 L POC Chloride Chloride 100 Carbon Dioxide 24 POC Total CO2 Anion Gap 9.0 POC Anion Gap POC BUN BUN 19 H Creatinine 0.68 POC Creatinine Est Cr Clr Drug Dosing 67.0 Est GFR ( Amer) 107.9 Est GFR (Non-Af Amer) 93.1 BUN/Creatinine Ratio 28.5 H Glucose 122 H POC Glucose POC Glucose (other) Calcium 9.2 POC Ioniz Calcium Chase Magnesium 1.8 POC Troponin I Troponin I < 0.015 Lipase 134 07/23/19 07/23/19 07/24/19 21:23 21:25 02:49 WBC RBC Hgb POC Hgb 15.0 Hct POC Hct 44 MCV MCH MCHC RDW Std Deviation RDW Coeff of Tiffanie Plt Count MPV Immature Gran % (Auto) Neut % (Auto) Lymph % (Auto) Woods % (Auto) Eos % (Auto) Baso % (Auto) Immature Gran # (Auto) Neut # (Auto) Lymph # (Auto) Woods # (Auto) Eos # (Auto) Baso # (Auto) PT INR APTT PTT Ratio POC Sodium 136 Sodium POC Potassium 3.4 Potassium POC Chloride 98 L Chloride Carbon Dioxide POC Total CO2 24 Anion Gap POC Anion Gap 18.0 POC BUN 20 H BUN Creatinine POC Creatinine 0.7 Est Cr Clr Drug Dosing Est GFR ( Amer) Est GFR (Non-Af Amer) BUN/Creatinine Ratio Glucose POC Glucose POC Glucose (other) 122 H Calcium POC Ioniz Calcium Chase 1.22 Magnesium POC Troponin I < 0.03 Troponin I Cancelled Lipase 07/24/19 07/24/19 07/24/19 07:09 07:09 07:09 WBC 5.18 RBC 3.87 L Hgb 11.7 L D POC Hgb Hct 34.4 L POC Hct MCV 88.9 MCH 30.2 MCHC 34.0 RDW Std Deviation 41.1 RDW Coeff of Tiffanie 12.8 Plt Count 202 MPV 9.5 Immature Gran % (Auto) 0.0 Neut % (Auto) 45.0 Lymph % (Auto) 43.6 Woods % (Auto) 8.9 Eos % (Auto) 2.3 Baso % (Auto) 0.2 Immature Gran # (Auto) 0.00 Neut # (Auto) 2.33 Lymph # (Auto) 2.26 Woods # (Auto) 0.46 Eos # (Auto) 0.12 Baso # (Auto) 0.01 PT INR APTT 57.2 H* PTT Ratio 2.1 POC Sodium Sodium 140 POC Potassium Potassium 3.8 POC Chloride Chloride 110 H Carbon Dioxide 24 POC Total CO2 Anion Gap 6.0 POC Anion Gap POC BUN BUN 12 Creatinine 0.51 L POC Creatinine Est Cr Clr Drug Dosing 96.9 Est GFR ( Amer) 118.6 Est GFR (Non-Af Amer) 102.3 BUN/Creatinine Ratio 23.8 H Glucose 97 POC Glucose POC Glucose (other) Calcium 7.5 L D POC Ioniz Calcium Chase Magnesium 1.8 POC Troponin I Troponin I Lipase 07/24/19 07/24/19 07:37 08:26 WBC RBC Hgb POC Hgb Hct POC Hct MCV MCH MCHC RDW Std Deviation RDW Coeff of Tiffanie Plt Count MPV Immature Gran % (Auto) Neut % (Auto) Lymph % (Auto) Woods % (Auto) Eos % (Auto) Baso % (Auto) Immature Gran # (Auto) Neut # (Auto) Lymph # (Auto) Woods # (Auto) Eos # (Auto) Baso # (Auto) PT INR APTT PTT Ratio POC Sodium Sodium POC Potassium Potassium POC Chloride Chloride Carbon Dioxide POC Total CO2 Anion Gap POC Anion Gap POC BUN BUN Creatinine POC Creatinine Est Cr Clr Drug Dosing Est GFR ( Amer) Est GFR (Non-Af Amer) BUN/Creatinine Ratio Glucose POC Glucose 99 POC Glucose (other) Calcium POC Ioniz Calcium Chase Magnesium POC Troponin I Troponin I < 0.015 Lipase
[2019-07-24] MEDS: POTASSIUM CHLORIDE 10 MEQ TABCR PO SCH (13:41)
[2019-07-24] MEDS: APIXABAN 5 MG TABLET PO SCH ×2 (13:41→21:21)
[2019-07-24] MEDS: SOTALOL HCL 80 MG TAB PO SCH ×2 (13:42→21:22)
[2019-07-24] MEDS ORDERED: BENZTROPINE MESYLATE 1 MG TAB PO SCH (21:00)
[2019-07-24] MEDS: MULTIVITAMIN TAB PO SCH (21:35)
[2019-07-24] MEDS ORDERED: Nursing to Pharmacy Communication ONE (22:43)
[2019-07-25] MEDS: LEVOTHYROXINE SODIUM 75 MCG TABLET PO SCH (06:04)
[2019-07-25] MEDS: SOTALOL HCL 80 MG TAB PO SCH ×2 (07:33→21:18)
[2019-07-25] MEDS: CALCIUM 600MG + VIT D 400 IU TAB PO SCH (07:34)
[2019-07-25] MEDS: POTASSIUM CHLORIDE 10 MEQ TABCR PO SCH (07:35)
[2019-07-25] MEDS: CHOLECALCIFEROL 1,000 UNITS 25 MCG TAB PO SCH (07:35)
[2019-07-25] MEDS: ASCORBIC ACID 500 MG TAB PO SCH (07:36)
[2019-07-25] MEDS: ASPIRIN 81 MG ECTAB PO SCH (07:36)
[2019-07-25] MEDS: APIXABAN 5 MG TABLET PO SCH ×2 (07:37→21:19)
--- NOTE | 2019-07-25 08:25 | Hospitalist Progress Note ---
Date of Service July 25, 2019 Assessment & Plan (1) Atrial fibrillation, rapid: (2) Palpitations: (3) Hypokalemia: (4) Hypomagnesemia: Labs Checked Currently in NSR, Off IV Heparin, On Sotalol Load and Monitor Day 2 of 3 ROS-No Headache, No Visual Changes, No Nausea, No Vomiting, No Fever, No Chills, No Neck Pain or Stiffness, No Chest Pain, No Palpitations, No SOB, No LARA, No Cough, No Sputum, No Wheezing, No Abdominal Pain, No Diarrhea, No Hematemesis, No Hemoptysis, No Unexpected Weight Loss, No Flank pain, No Melena, No Hematochezia, No Frequency, No Urgency, No Burning, No Hematuria, No Rashes, No Diaphoresis. Appetite is Normal Physical Exam Gen-AAO x 3, NAD, Afebrile Head-NCAT, EOMI, PERRLA, Anicteric Sclera, No Posterior Pharyngeal Erythema Neck-Supple, No JVD, No Thyromegaly, No Masses, No LAD, No Bruits Lungs-Clear to Auscultation Bilaterally, No Rales, No Rhonchi, No Wheezing, No Crepitus Chest-No S4, +S1, +S2, No S3, No Murmurs, No Rubs, No Gallops, No Ectopy Abdomen-Soft, Bowel Sounds Present, Non Tender, Non Distended, No Hepatomegaly, No Splenomegaly, No Palpable Masses, No Rebound, No Rigidity, No Guarding Musculoskeletal-Full Range of Motion Bilaterally, No CVAT Extremities-No Cyanosis, No Clubbing, No Edema Nuero-Cranial Nerves II-XII grossly intact, Motor WNL, DTRs WNL, Strength WNL, Non Focal Psych-Normal Mood Admission and Anticipated Discharge Date Admission Date: July 23, 2019 Results & Data Results & Data ([facility]) Vital Signs (Past 12 Hours) Vital Signs Temp Pulse Pulse Pulse Resp BP Pulse Ox 07/25/19 07:21 36.3 C L 56 L 18 116/77 97 07/25/19 04:39 36.4 C L 54 L 18 115/76 95 07/25/19 00:00 60 07/24/19 23:27 36.5 C 55 L 17 118/78 96
--- NOTE | 2019-07-25 09:42 | Electrocardiogram Report ---
Test Reason : Blood Pressure : / mmHG Vent. Rate : 058 BPM Atrial Rate : 058 BPM P-R Int : 194 ms QRS Dur : 078 ms QT Int : 478 ms P-R-T Axes : 057 015 047 degrees QTc Int : 469 ms Sinus bradycardia Otherwise normal ECG When compared with ECG of 24-JUL-2019 06:27, No significant change was found Confirmed by Augie Webber ([id number]) on 07/25/2019 9:42:34 AM Referred By: REFERRED SELF Confirmed By:Augie Webber
--- NOTE | 2019-07-25 14:21 | Cardiology Progress Note ---
Date of Service July 25, 2019 Assessment & Plan (1) Paroxysmal atrial fibrillation with rapid ventricular response: Patient is a 63-year-old female with paroxysmal atrial fibrillation with second episode in approximately 6-month interval. Previously been on amiodarone for antiarrhythmic therapy but discontinued due to concerns regarding side effects. Most recently has had increasing palpitations and presented to the ER this admission with atrial fibrillation with rapid response. Relatively low chads vas 2 score of 1 Patient tolerating sotalol well to date. We will continue current dosing at 40 mg p.o. twice daily, anticoagulation with Eliquis. Discontinue aspirin. We will resume Cogentin at patient request 1/2 mg nightly Anticipated addtional 24 hours on telemetry Subjective Met with patient, all chart medications laboratory studies and telemetry reviewed. Patient denies any complaints overnight notes no dizziness or lightheadedness notes no tachypalpitations syncope or near syncope Tolerating sotalol to date without arrhythmia. No recurrence of atrial fibrillation EKG without QT prolongation No bleeding issues on anticoagulation with Eliquis Results & Data Vital Signs (Past 12 Hours) Vital Signs Temp Pulse Pulse Pulse Resp BP Pulse Ox 07/25/19 11:00 36.3 C L 61 16 103/70 96 07/25/19 08:00 67 07/25/19 07:21 36.3 C L 56 L 18 116/77 97 07/25/19 04:39 36.4 C L 54 L 18 115/76 95 Laboratory Results Laboratory Results - last 24 hr 07/24/19 14:57 Troponin I < 0.015 ECG Additional Comments: Vent. Rate : 058 BPM Atrial Rate : 058 BPM P-R Int : 194 ms QRS Dur : 078 ms QT Int : 478 ms P-R-T Axes : 057 015 047 degrees QTc Int : 469 ms Sinus bradycardia Otherwise normal ECG When compared with ECG of 24-JUL-2019 06:27, No significant change was found
[2019-07-25] MEDS ORDERED: BENZTROPINE MESYLATE 0.5 MG TAB PO SCH (21:00)
[2019-07-25] MEDS: MULTIVITAMIN TAB PO SCH (21:20)
[2019-07-26 04:56] VITALS: TEMP 97.3; O2SAT 96
[2019-07-26] MEDS: LEVOTHYROXINE SODIUM 75 MCG TABLET PO SCH (06:17)
[2019-07-26 06:41] LABS: Hematocrit (blood only) 37.9 % (37-47); Hemoglobin 12.8 g/dL (12.0-16.0); Mean Corpuscular Hemoglobin 30.5 pg (25-34); Mean Corpuscular Hgb Conc 33.8 g/dL (32-36); Mean Corpuscular Volume 90.5 fL (80-100); Mean Platelet Volume 9.5 fL (7.4-10.4); Platelet Count 201 K/uL (130-400); RDW Coefficient of Variation 12.5 % (11.5-14.5); RDW Standard Deviation 41.6 fL (36.4-46.3); Red Blood Count 4.19 M/uL (4.2-5.4); White Blood Count 4.19 K/uL (4.8-10.8)
--- NOTE | 2019-07-26 06:50 | Hospitalist Progress Note ---
Date of Service July 26, 2019 Assessment & Plan (1) Atrial fibrillation, rapid: (2) Palpitations: (3) Hypokalemia: (4) Hypomagnesemia: Labs Checked Currently in NSR, Some bouts of ST, Off IV Heparin, On Sotalol Load and Monitor Day 2 of 3, DC possibly today or tomorrow ROS-No Headache, No Visual Changes, No Nausea, No Vomiting, No Fever, No Chills, No Neck Pain or Stiffness, No Chest Pain, No Palpitations, No SOB, No LARA, No Cough, No Sputum, No Wheezing, No Abdominal Pain, No Diarrhea, No Hematemesis, No Hemoptysis, No Unexpected Weight Loss, No Flank pain, No Melena, No Hematochezia, No Frequency, No Urgency, No Burning, No Hematuria, No Rashes, No Diaphoresis. Appetite is Normal Physical Exam Gen-AAO x 3, NAD, Afebrile Head-NCAT, EOMI, PERRLA, Anicteric Sclera, No Posterior Pharyngeal Erythema Neck-Supple, No JVD, No Thyromegaly, No Masses, No LAD, No Bruits Lungs-Clear to Auscultation Bilaterally, No Rales, No Rhonchi, No Wheezing, No Crepitus Chest-No S4, +S1, +S2, No S3, No Murmurs, No Rubs, No Gallops, No Ectopy Abdomen-Soft, Bowel Sounds Present, Non Tender, Non Distended, No Hepatomegaly, No Splenomegaly, No Palpable Masses, No Rebound, No Rigidity, No Guarding Musculoskeletal-Full Range of Motion Bilaterally, No CVAT Extremities-No Cyanosis, No Clubbing, No Edema Nuero-Cranial Nerves II-XII grossly intact, Motor WNL, DTRs WNL, Strength WNL, Non Focal Psych-Normal Mood Admission and Anticipated Discharge Date Admission Date: July 23, 2019 Results & Data Results & Data ([facility]) Vital Signs (Past 12 Hours) Vital Signs Temp Pulse Pulse Pulse Resp BP Pulse Ox 07/26/19 04:20 36.3 C L 51 L 18 107/71 96 07/26/19 00:00 60 07/25/19 23:35 36.6 C 58 L 17 119/78 97 07/25/19 19:11 36.4 C L 69 19 120/81 99
--- NOTE | 2019-07-26 06:52 | Discharge Summary ---
Date of Service July 26, 2019 Admission HPI Per Admitting Provider 63-year-old female with past medical history significant for nontoxic multinodular goiter, postsurgical hypothyroidism, atrial fibrillation, history of mitral regurgitation, compressed thoracic vertebrae, history of torticollis, generalized osteoarthrosis, osteoporosis, depression, presents with palpitations, found to be in rapid AFib. The patient was sitting in the porch and drinking wine when she noticed palpitations and pulse seems to be irregular, and in 130s, it was not getting better and she came to the ER and found to be in rapid AFib, received couple doses of boluses of Cardizem and started on Cardizem drip and heart rate is still in 120s to 130s. Denies any chest pain. Denies shortness of breath. No nausea, no sweating, no headache, no dizziness, no cough, no fever, no chills, resting comfortably and hemodynamically stable. Denies any blurred vision, earache, no runny nose. No dysphagia, no sore throat, no abdominal pain. Normal bowel and bladder movements. Denies any hematuria or black stools or hematochezia. No swelling in the legs. No rash. No orthopnea. She ambulates and climbs steps okay. The patient was in the hospital in December with rapid AFib. At that time, she was treated with amiodarone for couple of months and Eliquis for 1 month. Eliquis was changed to aspirin as outpatient because of [id number] of 1 and also amiodarone was stopped on March 23 week because of concern of side effects and currently on Toprol-XL 25 mg daily. Admission Exam Per Admitting Provider GENERAL: The patient is of moderate built, not in acute distress. VITAL SIGNS: Temperature 36.6, pulse when she came in was 160s, currently in 118, blood pressure 107/65, oxygen 95% on room air. HEENT: No pallor, no icterus. Pupils equal, round, reactive to light. NECK: No neck masses. Supple. CARDIOVASCULAR: S1, S2 heard. Tachycardia, irregular rhythm. No murmurs. RESPIRATORY SYSTEM: Normal AP diameter. No accessory muscle use. No wheezing, no crackles. ABDOMEN: Soft, bowel sounds present, nontender, nondistended. CENTRAL NERVOUS SYSTEM: Alert and oriented. Extraocular movements intact. Moves extremities. Obeys commands. EXTREMITIES: No edema, no erythema. Principal Diagnosis (1) Atrial fibrillation, rapid: (2) Palpitations: (3) Hypokalemia: (4) Hypomagnesemia: Discharge Exam ROS-No Headache, No Visual Changes, No Nausea, No Vomiting, No Fever, No Chills, No Neck Pain or Stiffness, No Chest Pain, No Palpitations, No SOB, No LARA, No Cough, No Sputum, No Wheezing, No Abdominal Pain, No Diarrhea, No Hematemesis, No Hemoptysis, No Unexpected Weight Loss, No Flank pain, No Melena, No Hematochezia, No Frequency, No Urgency, No Burning, No Hematuria, No Rashes, No Diaphoresis. Appetite is Normal Physical Exam Gen-AAO x 3, NAD, Afebrile Head-NCAT, EOMI, PERRLA, Anicteric Sclera, No Posterior Pharyngeal Erythema Neck-Supple, No JVD, No Thyromegaly, No Masses, No LAD, No Bruits Lungs-Clear to Auscultation Bilaterally, No Rales, No Rhonchi, No Wheezing, No Crepitus Chest-No S4, +S1, +S2, No S3, No Murmurs, No Rubs, No Gallops, No Ectopy Abdomen-Soft, Bowel Sounds Present, Non Tender, Non Distended, No Hepatomegaly, No Splenomegaly, No Palpable Masses, No Rebound, No Rigidity, No Guarding Musculoskeletal-Full Range of Motion Bilaterally, No CVAT Extremities-No Cyanosis, No Clubbing, No Edema Nuero-Cranial Nerves II-XII grossly intact, Motor WNL, DTRs WNL, Strength WNL, Non Focal Psych-Normal Mood Discharge Data Allergies Allergy/AdvReac Type Severity Reaction Status Date / Time latex Allergy Unknown RASH Verified 07/23/19 22:32 erythromycin base AdvReac Unknown UPSET Verified 07/23/19 22:32 STOMACH Consultations 07/23/19 22:14 ED Decision to Admit Stat 07/24/19 02:42 Consult Case Management - Discharge Planning Routine 07/24/19 08:00 Consult Cardiology Routine Ordered Studies 07/23/19 21:11 CT angio chest PE protocol Stat Current Diagnoses Hypomagnesemia (07/23/19) Hypokalemia (07/23/19) Paroxysmal atrial fibrillation (07/23/19) Unspecified atrial fibrillation (07/23/19) Palpitations (07/23/19) Allergies latex Allergy (Unknown, Verified 07/23/19 22:32) RASH erythromycin base Adverse Reaction (Unknown, Verified 07/23/19 22:32) UPSET STOMACH Height/Weight/Isolation Height 5 ft 2 in Weight 61.6 kg Chemistry 07/24/19 07:09 Sodium 140 Potassium 3.8 Chloride 110 H Carbon Dioxide 24 Anion Gap 6.0 BUN 12 Creatinine 0.51 L Glucose 97 Hospital Course (1) Atrial fibrillation, rapid: (2) Palpitations: (3) Hypokalemia: (4) Hypomagnesemia: Labs Checked Currently in NSR, On Eliquis, On Sotalol Load and Monitor Day 2 of 3, DC possibly today or tomorrow Total Time Total Time Spent Total Time Spent (In Minutes): 45 mins Total Time Includes: Examination of the Patient, Discharge Planning, Medication Reconciliation and Communication With Other Providers Discharge Plan Discharge Items Patient Disposition: Home - Self-Care Reason For Visit: RAPID A-FIB Discharge Diagnosis: (1) Atrial fibrillation, rapid: (2) Palpitations: (3) Hypokalemia: (4) Hypomagnesemia: Condition on Discharge: Good Activity: Resume your previous activity Lifting: Gradually increase as tolerated Bathing: No limitations Sexual Activity: When tolerated Exercise/Sports: Gradually increase as tolerated Driving/Machine Use: No limitations Weightbearing: Full weightbearing Non-emergency contact: Primary Care Provider and Environmental Health Specialist Call non-emergency contact if: you have any medication questions Follow-up/Referrals: Dorian Osorio MD [Physician] - Iban Whaley DO [Primary Care Provider] - Diet: Regular Addtl Attending Provider Instructions: None Pending Studies at Discharge: No Stand-Alone Forms: My [employer], Work/School Release (Inpt), Smoking Cessation Medications and DC Order Prescriptions: New Eliquis 5 mg Tablet 5 mg PO BID Qty: 60 RF: 0 sotalol 80 mg Tablet 40 mg PO BID Qty: 60 RF: 0 potassium chloride [Klor-Con M10] 10 mEq Tablet,Er Particles/Crystals 10 meq PO DAILY Qty: 30 RF: 0 Continued benztropine 1 mg tablet 0.5 - 1 mg PO HS RF: 0 calcium carbonate 600 mg calcium (1,500 mg) tablet 600 mg PO DAILY RF: 0 cholecalciferol (vitamin D3) 1,000 unit (25 mcg) tablet 1,000 units PO QAM RF: 0 multivitamin Tablet 1 tab PO HS RF: 0 ascorbic acid (vitamin C) [Vitamin C] 1,000 mg Tablet 1,000 mg PO DAILY RF: 0 levothyroxine [Levoxyl] 75 mcg tablet 75 mcg PO QAM RF: 0 Discontinued metoprolol succinate 25 mg tablet extended release 24 hr 25 mg PO QAM RF: 0 aspirin [Adult Low Dose Aspirin] 81 mg tablet,delayed release (DR/EC) 81 mg PO QAM RF: 0 loratadine-pseudoephedrine [Claritin-D 24 Hour] 10-240 mg Tablet Extended Release 24 Hr 1 tab PO QAM RF: 0 Discharge Orders: Discharge Order (Routine); Ordered 07/26/19 Ordered By: Alvarado Romo/Other Patient Handouts: AFib Admission Data Admit Date/Time: 07/23/19 23:22 Attending Provider: Alvarado Chavarria Admit Provider: Justen Callahan Primary Care Provider: Iban Whaley Other Providers: Justen Callahan ; Pb Winslow ; Janes Brannon ; Dorian Osorio ; Moshe Lucio ; Sid Cano ; Urban Fields ; Christi Lovelace ; Becca Valdez ; Darren Vital
[2019-07-26 07:15] LABS: BUN Creatinine Ratio 21.1 (10-20); Calcium 8.3 mg/dl (8.5-10.1); Creatinine Clr Calc Pharmacy 74.2 ml/min; Est GFR (African American) 108.4; Est GFR (Non-African American) 93.5; Potassium 4.3 mmol/L (3.5-5.1)
[2019-07-26 07:34] VITALS: BP 109/62
[2019-07-26] MEDS: CALCIUM 600MG + VIT D 400 IU TAB PO SCH (08:52)
[2019-07-26] MEDS: ASCORBIC ACID 500 MG TAB PO SCH (08:52)
[2019-07-26] MEDS: SOTALOL HCL 80 MG TAB PO SCH (08:53)
[2019-07-26] MEDS: POTASSIUM CHLORIDE 10 MEQ TABCR PO SCH (08:53)
[2019-07-26] MEDS: APIXABAN 5 MG TABLET PO SCH (08:53)
[2019-07-26] MEDS: CHOLECALCIFEROL 1,000 UNITS 25 MCG TAB PO SCH (08:53)
--- NOTE | 2019-07-26 12:12 | Cardiology Progress Note ---
Date of Service July 26, 2019 Assessment & Plan (1) Paroxysmal atrial fibrillation: Patient doing well. Telemetry revealed only a short run of atrial tachycardia 3-4 beats in duration. No further atrial fibrillation with good tolerance of sotalol. No QT prolongation with sinus bradycardia at rest Discussed management in detail with the patient. Patient will be discharged on Eliquis for anticoagulation and sotalol 40 mg twice per day. Follow-up with cardiology in 2 weeks time Discussed seeking medical care should atrial fibrillation return. Other options of treatment discussed including pacemaker insertion for tachybradycardia if develops as well as referral for A. fib ablation as future considerations. All questions answered. Patient ambulatory and stable for discharge today Subjective Met with patient, all chart medications laboratory studies and telemetry reviewed. Patient denies any complaints overnight notes no dizziness or lightheadedness notes no tachypalpitations syncope or near syncope Tolerating sotalol to date without arrhythmia. No recurrence of atrial fibrillation EKG without QT prolongation No bleeding issues on anticoagulation with Eliquis Patient ambulatory in room multiple questions answered Physical Exam Constitutional: General overall appearance good Cardiovascular: Vessels: no carotid bruit Psychiatric: A+Ox3, euthymic affect Results & Data Vital Signs (Past 12 Hours) Vital Signs Temp Pulse Pulse Pulse Resp BP Pulse Ox 07/26/19 07:33 36.3 C L 60 18 109/62 96 07/26/19 07:30 59 L 07/26/19 04:20 36.3 C L 51 L 18 107/71 96
--- NOTE | 2019-07-26 12:28 | Electrocardiogram Report ---
Test Reason : Blood Pressure : / mmHG Vent. Rate : 056 BPM Atrial Rate : 056 BPM P-R Int : 174 ms QRS Dur : 090 ms QT Int : 464 ms P-R-T Axes : 054 048 061 degrees QTc Int : 447 ms Sinus bradycardia Left atrial enlargement RSR' or QR pattern in V1 suggests right ventricular conduction delay Borderline ECG When compared with ECG of 25-JUL-2019 06:34, No significant change Confirmed by Augie Webber ([id number]) on 07/26/2019 12:27:49 PM Referred By: REFERRED SELF Confirmed By:Augie Webber
[2019-07-26 12:44] VITALS: PULSE 51
== END 2019-07-26 13:36 | disposition home or self-care (01) | DRG 310 ==
LOC: ED 20:50 → 2S 07-24

== ENCOUNTER 2019-11-10 09:48 | Inpatient (IN) ==
[2019-11-10] MEDS ORDERED: PIPERACILLIN/TAZOBACTAM 4.5 GM/120 ML BAG IV ONE (10:07)
[2019-11-10] MEDS ORDERED: PIPERACILL/TAZOBAC CONSULT ACTIVE PRN ×2 (10:07→13:16)
[2019-11-10] MEDS ORDERED: SODIUM CHLORIDE 0.9% 1000ML 1,000 ML IV ONE (10:07)
--- NOTE | 2019-11-10 10:34 | Emergency Department Note ---
Impression & Plan Colonic diverticular abscess, Abdominal pain, Hyponatremia ED Provider Note NAME: JAG SALAZAR AGE: 63 SEX: F : 1955 ARRIVES VIA: Walk-In INFORMANT: Patient, ED PROVIDER(S): Marcell Marks MD Chief Complaint: DrRick referral, abnormal CAT scan HPI: Patient does reduce presents at the behest of her primary care physician and kayaking instructor Dr. Kraft and Donnie respectively after an abnormal CAT scan of the abdomen and pelvis. The patient has had some symptoms of some rectal and anal pain with associated scant bloody stools since Thursday. They had been camping. Patient was also noted to have some outpatient hyponatremia and hypochloremia. Patient denies any tick bites. The patient was started on antibiotics Cipro and Flagyl on Thursday but did have a CAT scan completed yesterday. Results today do show findings consistent with acute diverticulitis of the distal sigmoid colon with a small associated intramural abscess measuring 1.4 x 1.3 cm. No drainable abscess collections. No pneumoperitoneum. Patient does have some mild occasional discomfort in the left abdomen. Patient denies any fevers or chills, chest pains, shortness of breath or cough. Patient denies loss of taste or smell. ROS: See HPI for pertinent positives and negatives. A total of 10 systems were reviewed and otherwise negative. Past medical history: See below Surgical history: See below Social history: See below Physical Exam: GENERAL: Wearing glasses and a mask. NAD, non-toxic. EYE EXAM: Normal conjunctiva. PERRL, no anisocoria and EOM's grossly intact w/o pain. NECK: Supple, no nuchal rigidity, no adenopathy, non-tender. No signs of meningismus. LUNGS: Clear to auscultation. Normal chest wall mechanics. HEART: NSR, no MRG. ABDOMEN: Abdomen soft, mild left-sided and lower abdominal pain without peritonitis, normo-active bowel sounds, no masses, no rebound or guarding. BACK: No CVA TTP. SKIN: No rashes and no bruising. UPPER EXTREMITIES: Upper extremities are grossly normal. LOWER EXTREMITIES: Grossly normal, no edema. NEURO EXAM: A&O x3, cranial nerves II-XII grossly intact, normal speech, moves all 4 extremities on command w/o issue. Differential diagnoses: Appendicitis, ovarian cyst, ovarian torsion, ectopic , TOA, PID, infections, diverticulitis, UTI, obstruction, mesenteric ischemia, aortic pathology, inflammatory bowel disease, renal colic, PUD, pancreatitis, biliary pathology, hernia, volvulus, constipation, as well as other pathologies. Course: Patient was seen and evaluated the bedside. Full history physical exam was performed. EKG: None Imaging Studies: CT report from 11/09/2019 at 4:50 PM. Impression: Findings consistent with acute diverticulitis of distal sigmoid colon. Small adjacent free fluid. A small associated intramural abscess measuring 1.4 x 1.3 cm. No drainable abscess collections. No pneumoperitoneum. Other incidental findings as detailed above. Cardiac monitoring: An order was placed for continuous cardiac monitoring. The monitor shows a rate of 60 with sinus rhythm. MDM: Patient was seen due to concern for the possibility of diverticular abscess. Blood work was obtained along with blood cultures and IV Zosyn. Patient's blood counts reassuring. The patient does have very mild hyponatremia. Given the location and size likely not amenable to drainage and do not believe she requires a surgical consult as the patient is not peritonitic there is no evidence of abscess or pneumoperitoneum. Did speak with the on-call hospitalist service and the patient was admitted under Dr. Alvares with [facility]. Past Med/Surg History Medical History Atrial fibrillation, rapid History of chicken pox History of colonic polyps History of osteoarthritis History of osteoporosis Hypokalemia Hypomagnesemia Surgical History S/P dilation and curettage S/P eye surgery laser surgery of right eye- lens replacement 05/1991 S/P sinus surgery 07/2015 S/P thyroidectomy 07/2008 S/P tonsillectomy 1961 S/P wisdom tooth extraction Family History Family/Other Osteoarthritis Diabetes Heart disease Hypertension Dyslipidemia Osteoporosis Thyroid disorder Colorectal cancer Social History Smoking Status: Never smoker Second Hand Exposure: No; Hx Alcohol Use: Yes Alcohol type: wine Alcohol Intake Frequency Comment: 1 drink 3-5 times a week Hx Substance Use: No Preferred Language: Belarusian Communication Ability: Effective Dock Operator Required: No Beliefs That Will Affect Care: None Current Living Situation: Spouse Feels Safe at Home: Yes Physical Activity Frequency: 3-4 Times per Week Physical Activity Frequency Comment: 30 minutes Allergies Allergies Allergy/AdvReac Type Severity Reaction Status Date / Time latex Allergy Unknown RASH Verified 11/10/19 11:00 erythromycin base AdvReac Unknown UPSET Verified 11/10/19 11:00 STOMACH Home Meds Home Medications Medication Instructions Recorded Confirmed calcium carbonate 600 mg calcium 600 mg PO QDD tab 11/18/18 11/10/19 (1,500 mg) tablet cholecalciferol (vitamin D3) 25 1,000 units PO QAM 11/18/18 11/10/19 mcg (1,000 unit) tablet ascorbic acid (vitamin C) [Vitamin 1,000 mg PO QAM 07/23/19 11/10/19 C] levothyroxine [Levoxyl] 75 mcg PO QAM 07/23/19 11/10/19 multivitamin 1 tab PO HS 07/23/19 11/10/19 denosumab 60 mg/mL subcutaneous 60 mg SQ .Every 6 months ml 09/19/19 11/10/19 syringe amoxicillin-pot clavulanate 1 tab PO BID 11/10/19 11/10/19 potassium chloride [Klor-Con M10] 10 meq PO Q2D 11/10/19 11/10/19 Previous Rx's Medication Instructions Recorded apixaban [Eliquis] 5 mg PO BID #60 tab 07/26/19 sotalol 40 mg PO BID #60 tab 07/26/19 Results & Data (ED) Vital Signs Vital Signs - 24 hr 11/10/19 09:59 11/10/19 11:44 Temperature 37.1 C Temperature Source Oral Pulse Rate 72 Pulse Rate [Finger] 60 Pulse Rhythm Regular Pulse Rhythm [Finger] Regular Pulse Strength Normal Pulse Strength [Finger] Normal Respiratory Rate 16 16 Respiratory Effort / Characteristics Non-Labored Spontaneous Respiratory Depth Normal Normal Respiratory Pattern Regular Regular Blood Pressure 130/68 Blood Pressure [Right Arm] 110/54 L Blood Pressure Mean 88 Blood Pressure Mean [Right Arm] 72 Blood Pressure Position Sitting Blood Pressure Position [Right Arm] Lying Pulse Oximetry 98 97 Oxygen Delivery Method Room Air Room Air Sepsis Recent Fever Within 48 Hours No Sepsis New/Unexplained Change in Mental Status N/A Sepsis Action Taken by Nursing No Action Required Home Medications Current Medication List: was personally reviewed by me Laboratory Data Attestation: I reviewed the patient's lab results. Result diagrams: 11/10/19 10:37 11/10/19 10:37 Lab Results 11/10/19 11/10/19 11/10/19 Range/Units 10:37 10:37 10:37 WBC 6.55 (4.8-10.8) K/uL RBC 4.14 L (4.2-5.4) M/uL Hgb 12.6 (12.0-16.0) g/dL Hct 36.8 L (37-47) % MCV 88.9 (80-100) fL MCH 30.4 (25-34) pg MCHC 34.2 (32-36) g/dL RDW Std Deviation 41.6 (36.4-46.3) fL RDW Coeff of Tiffanie 12.8 (11.5-14.5) % Plt Count 235 (130-400) K/uL MPV 9.3 (7.4-10.4) fL Immature Gran % (Auto) 0.3 % Neut % (Auto) 71.0 % Lymph % (Auto) 20.8 % [place] % (Auto) 6.3 % Eos % (Auto) 1.4 % Baso % (Auto) 0.2 % Neut # (Auto) 4.66 (1.4-6.5) K/uL Lymph # (Auto) 1.36 (1.2-3.4) K/uL [place] # (Auto) 0.41 (0.11-0.59) K/uL Eos # (Auto) 0.09 (0-0.5) K/uL Baso # (Auto) 0.01 (0-0.2) K/uL Immature Gran # (Auto) 0.02 (0.00-0.02) K/uL Sodium 132 L (136-145) mmol/L Potassium 4.2 (3.5-5.1) mmol/L Chloride 99 (98-107) mmol/L Carbon Dioxide 27 (21-32) mmol/L Anion Gap 6.0 (3-11) BUN 7 (7-18) mg/dl Creatinine 0.63 (0.6-1.2) mg/dl Est Cr Clr Drug Dosing 72.3 ml/min Est GFR ( Amer) 110.6 Est GFR (Non-Af Amer) 95.5 BUN/Creatinine Ratio 11.2 (10-20) Glucose 93 (70-99) mg/dl Lactate 1.2 (0.4-2.0) mmol/L Calcium 9.3 (8.5-10.1) mg/dl Total Bilirubin 0.6 (0.2-1) mg/dl AST 13 L (15-37) U/L ALT 19 (12-78) U/L Alkaline Phosphatase 70 (45-117) U/L Total Protein 7.3 (6.4-8.2) gm/dl Albumin 3.3 L (3.4-5.0) gm/dl Globulin 4.0 (2.5-4.0) gm/dl Albumin/Globulin Ratio 0.8 L (0.9-2) Lipase 96 (73-393) U/L Administered Medications Discontinued Medications Sodium Chloride (Nss 1000ml) 1,000 mls @ 999 mls/hr IV .Q1H1M ONE Stop: 11/10/19 11:07 Last Admin: 11/10/19 11:30 Dose: 999 mls/hr Documented by: [id number] Piperacillin Sod/Tazobactam Sod (Zosyn) 4.5 gm in 120 mls @ 240 mls/hr IV NOW ONE Stop: 11/10/19 10:36 Last Admin: 11/10/19 11:42 Dose: 240 mls/hr Documented by: [id number] Discharge Plan Visit Data Chief Complaint: Abnormal Labs/Diagnostic Testing Stated Complaint: DIVERTICULTIUS, LOW SODIUM, ABD CRAMPING, ED Provider: Marcell Marks Discharge Problem: Colonic diverticular abscess, Abdominal pain, Hyponatremia Forms Stand Alone Forms: My [employer] Prescriptions Prescriptions: No Action calcium carbonate 600 mg calcium (1,500 mg) tablet 600 mg PO QDD RF: 0 cholecalciferol (vitamin D3) 1,000 unit (25 mcg) tablet 1,000 units PO QAM RF: 0 Prolia 60 mg/mL syringe 60 mg SQ .Every 6 months RF: 0 multivitamin Tablet 1 tab PO HS RF: 0 ascorbic acid (vitamin C) [Vitamin C] 1,000 mg Tablet 1,000 mg PO QAM RF: 0 levothyroxine [Levoxyl] 75 mcg tablet 75 mcg PO QAM RF: 0 Eliquis 5 mg Tablet 5 mg PO BID Qty: 60 RF: 0 sotalol 80 mg Tablet 40 mg PO BID Qty: 60 RF: 0 amoxicillin-pot clavulanate 875-125 mg tablet 1 tab PO BID RF: 0 potassium chloride [Klor-Con M10] 10 mEq tablet,ER particles/crystals 10 meq PO Q2D RF: 0 Discharge Problem: Abdominal pain Qualifiers: Abdominal location: left lower quadrant Qualified Code(s): R10.32 - Left lower quadrant pain
[2019-11-10 10:48] LABS: Basophils # (auto) 0.01 K/uL (0-0.2); Basophils % (auto) 0.2 %; Eosinophils # (auto) 0.09 K/uL (0-0.5); Eosinophils % (auto) 1.4 %; Hematocrit (blood only) 36.8 % (37-47); Hemoglobin 12.6 g/dL (12.0-16.0); Immature Granulocytes # (auto) 0.02 K/uL (0.00-0.02); Immature Granulocytes % (auto) 0.3 %; Lymphocytes # (auto) 1.36 K/uL (1.2-3.4); Lymphocytes % (auto) 20.8 %; Mean Corpuscular Hemoglobin 30.4 pg (25-34); Mean Corpuscular Hgb Conc 34.2 g/dL (32-36); Mean Corpuscular Volume 88.9 fL (80-100); Mean Platelet Volume 9.3 fL (7.4-10.4); Monocytes # (auto) 0.41 K/uL (0.11-0.59); Monocytes % (auto) 6.3 %; Neutrophils # (auto) 4.66 K/uL (1.4-6.5); Platelet Count 235 K/uL (130-400); RDW Coefficient of Variation 12.8 % (11.5-14.5); RDW Standard Deviation 41.6 fL (36.4-46.3); Red Blood Count 4.14 M/uL (4.2-5.4); White Blood Count 6.55 K/uL (4.8-10.8)
[2019-11-10 11:07] LABS: Albumin Level 3.3 gm/dl (3.4-5.0); BUN Creatinine Ratio 11.2 (10-20); Calcium 9.3 mg/dl (8.5-10.1); Creatinine Clr Calc Pharmacy 72.3 ml/min; Est GFR (African American) 110.6; Est GFR (Non-African American) 95.5; Potassium 4.2 mmol/L (3.5-5.1)
[2019-11-10 11:10] LABS: Albumin Globulin Ratio 0.8 (0.9-2); Bilirubin,Total 0.6 mg/dl (0.2-1); Total Protein 7.3 gm/dl (6.4-8.2)
[2019-11-10] MEDS ORDERED: ONDANSETRON INJ 2 MG/ML 2 ML VIAL IV PRN (13:16)
[2019-11-10] MEDS ORDERED: ACETAMINOPHEN 325 MG TAB PO PRN (13:16)
--- NOTE | 2019-11-10 13:26 | History & Physical Report ---
Date of Service November 10, 2019 Assessment & Plan (1) Colonic diverticular abscess: (2) Acute diverticulitis of intestine: This is a 63-year-old female with significant past medical history of PAF anticoagulated on Eliquis, postsurgical hypothyroidism, osteoporosis, history of compression fracture who presents to ED after being referred by PCP secondary to acute episode of diverticulitis failing outpatient oral antibiotics. CT scan of abdomen pelvis revealed acute diverticulitis of distal sigmoid colon. Small associated intramural abscess measuring 1.4 x 1.3 cm noted. Pt does not meet sepsis criteria and failed outpatient antibiotics. admit to med/surg continue IV antibiotics with Zosyn consult general surgery conservative management for now NPO w/ sips/chips and meds IVF 100 cc/hr antiemetics, APAP for mild/mod pain and IV morphine severe pain (3) Hyponatremia: Acute Hyponatremia 11/08 Na 129, today 132 Pt states she adheres to low Na diet along with excessive free water intake and has been having diarrhea Pt receiving IVF @ 100cc/hr repeat Na at 1630 (4) Paroxysmal atrial fibrillation: Rate and rhythm controlled on sotalol Continue apixaban, monitor closely for any signs of bleeding (5) Hypothyroidism: continue levothyroxine (6) DVT prophylaxis: continue eliquis disposition: admit to med/surg follow up: PCP Dr. Whaley upon discharge Pt was seen and examined in collaboration with Dr. Alvares, please see addendum History of Present Illness Chief Complaint: Referred by PCP due to Acute Diverticulitis. Primary Care Provider: Iban Whaley, This is a 63-year-old female with significant past medical history of PAF anticoagulated on Eliquis, postsurgical hypothyroidism, osteoporosis, history of compression fracture who presents to ED after being referred by PCP secondary to acute episode of diverticulitis failing outpatient oral antibiotics. Symptoms started approximately 5 days ago when she developed left lower quadrant abdominal pain. She was camping with her . Symptoms progressed to diarrhea, frequent, yellow and pink in nature and rectal pain. She states that she was having difficulty cycling due to anal pain. He has a known history of diverticulosis documented via colonoscopy but no prior history of diverticulitis. She has been tolerating oral diet but otherwise decreased appetite. Last evening she ate chicken and this morning a blueberry muffin. She denies any nausea or vomiting. She did have mild elevation in temperature at 99.2 days ago. She was seen and evaluated in clinic and underwent lab studies along with CT scan of abdomen pelvis. He was started on oral Augmentin. She has had 4 doses. Lab work revealed hyponatremia at [address] scan of abdomen pelvis revealed acute diverticulitis of distal sigmoid colon. Small associated intramural abscess measuring 1.4 x 1.3 cm noted. She was referred to ED secondary to abscess formation. She is currently comfortable and complains of left lower quadrant pain 3/10. Pain is worse with palpation or movement. Severity waxes and wanes and describes as a dull ache. She has been trying [id number] acetaminophen with mild relief. Does have history of PAF and has been compliant with her apixaban as well as sotalol. She denies any chills, sweats, lightheadedness, dizziness, chest pain, shortness of breath, cough, dysuria, increased urgency or frequency with urination, melena, hematochezia. In ED patient remained hemodynamically stable. She did not meet criteria for sepsis per current CMS guidelines. Lab work notable for sodium 132, BUN 7, creatinine 0.63, LFTs WNL, lactate 1.2, CBC generally unremarkable. She received IV Zosyn along with IVF. Allergies Allergy/AdvReac Type Severity Reaction Status Date / Time latex Allergy Unknown RASH Verified 11/10/19 11:00 erythromycin base AdvReac Unknown UPSET Verified 11/10/19 11:00 STOMACH Home Medications Home Medications Medication Instructions Recorded Confirmed Type calcium carbonate 600 mg calcium 600 mg PO QDD tab 11/18/18 11/10/19 History (1,500 mg) tablet cholecalciferol (vitamin D3) 25 1,000 units PO QAM 11/18/18 11/10/19 History mcg (1,000 unit) tablet ascorbic acid (vitamin C) [Vitamin 1,000 mg PO QAM 07/23/19 11/10/19 History C] levothyroxine [Levoxyl] 75 mcg PO QAM 07/23/19 11/10/19 History multivitamin 1 tab PO HS 07/23/19 11/10/19 History apixaban [Eliquis] 5 mg PO BID #60 tab 07/26/19 11/10/19 Rx sotalol 40 mg PO BID #60 tab 07/26/19 11/10/19 Rx denosumab 60 mg/mL subcutaneous 60 mg SQ .Every 6 months ml 09/19/19 11/10/19 History syringe amoxicillin-pot clavulanate 1 tab PO BID 11/10/19 11/10/19 History potassium chloride [Klor-Con M10] 10 meq PO Q2D 11/10/19 11/10/19 History Past Med/Surg History Medical History (Updated 11/10/19 @ 13:41 by Nubia Buckner PA-C) History of chicken pox History of colonic polyps History of osteoarthritis History of osteoporosis Hypomagnesemia Hypothyroidism Surgical History S/P dilation and curettage S/P eye surgery laser surgery of right eye- lens replacement 05/1991 S/P sinus surgery 07/2015 S/P thyroidectomy 07/2008 S/P tonsillectomy 1961 S/P wisdom tooth extraction Family History Family/Other Osteoarthritis Diabetes Heart disease Hypertension Dyslipidemia Osteoporosis Thyroid disorder Colorectal cancer Social History Smoking Status: Never smoker Second Hand Exposure: No; Hx Alcohol Use: Yes Alcohol type: wine Alcohol Intake Frequency Comment: 1 drink 3-5 times a week Hx Substance Use: No Preferred Language: Polish Communication Ability: Effective Ultrasound Specialist Required: No Beliefs That Will Affect Care: None Current Living Situation: Spouse Other Information That Helps Us Care for You: No Feels Safe at Home: Yes Safety Concerns: Feels Safe At This Time Physical Activity Frequency: 3-4 Times per Week Physical Activity Frequency Comment: 30 minutes Review of Systems Review of Systems: All systems reviewed & are unremarkable except as noted in HPI & below Physical Exam Physical Exam: Constitutional: WD/WN, F, vitals as above, NAD, sitting up in bed, pleasant, conversing easily Head: Normocephalic, Atraumatic Eyes: PERRL, conjunctivae normal, anicteric sclerae ENMT: external ear and nose normal, oropharynx normal Neck: trachea midline, no thyromegaly normal visual inspection Respiratory: normal respiratory effort, lungs clear to auscultation, no wheeze, rales, rhonchi. Normal insp/exp effort, no accessory muscle use Cardiovascular: RRR, no murmur, no edema Vessels: no JVD or carotid bruit Chest: normal inspection of chest Abdomen: normal bowel sounds, soft, + pain to palpation LLQ and suprapubic region, no guarding, rigidity, rebound, no hepatosplenomegaly Musculoskeletal: no cyanosis or clubbing, extremities motor strength 5/5 Skin: no rashes, warm and dry normal turgor Neurologic: PERRL, EOMI, accommodation nl, no face palsy, no dysarthria CN's II-XI intact bilaterally and moves all extremities Psychiatric: A+Ox3, euthymic affect Lymphatic: no cervical or axillary lymphadenopathy : deferred Results & Data Results & Data ([facility]) Vital Signs (Past 12 Hours) Vital Signs Temp Pulse Pulse Resp BP BP Pulse Ox 11/10/19 11:44 60 16 110/54 L 97 11/10/19 09:59 37.1 C 72 16 130/68 98 Laboratory Results Short CBC 11/10/19 11/10/19 Range/Units 10:37 10:37 WBC 6.55 (4.8-10.8) K/uL Hgb 12.6 (12.0-16.0) g/dL Hct 36.8 L (37-47) % Plt Count 235 (130-400) K/uL Sodium 132 L (136-145) mmol/L BMP 11/10/19 10:37 Sodium 132 L Potassium 4.2 Chloride 99 Carbon Dioxide 27 BUN 7 Creatinine 0.63 Glucose 93 Calcium 9.3 Liver Function 11/10/19 Range/Units 10:37 Total Bilirubin 0.6 (0.2-1) mg/dl AST 13 L (15-37) U/L ALT 19 (12-78) U/L Alkaline Phosphatase 70 (45-117) U/L Albumin 3.3 L (3.4-5.0) gm/dl Diagnostic Findings CT ABD/Pelvis outpt 11/08: EXAM CT ABD/PELVIS W IV AND W ORAL CONTRAST-11/09/2019 4:50 pm HISTORY Abd pain, diverticulitis suspected COMPARISON None TECHNIQUE CT abdomen and pelvis with IV and oral contrast. FINDINGS Lung bases: The heart is normal in size. There is trace pericardial effusion. There is mild bibasilar atelectasis. There are trace bilateral pleural effusions. Abdomen/pelvis: The liver is normal in size and contour. There are foci of fat sparing adjacent to the cell so form ligament. There are no liver lesions. There are no radiopaque gallstones or gallbladder wall thickening. The common bile duct is mildly dilated measuring up to 9.4 mm and tapers distally, nonspecific. The pancreas is unremarkable. There is no pancreatic ductal dilation. The spleen is normal in size. The adrenal glands are unremarkable. The kidneys enhance symmetrically. There is a small calculus in the midpole of the right kidney measuring 0.3 cm. There is mild bilateral pelvicaliectasis. 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 The bladder a is partially distended, otherwise unremarkable. There is a pessary in the vagina. Multiple periuterine collateral vessels are noted. The evaluation of the uterus is otherwise limited on this exam. The stomach is unremarkable. There is no evidence of small bowel obstruction. The appendix is unremarkable. There is scattered fluid in the colon. There are wall thickening and inflammatory changes of the distal sigmoid colon favoring acute diverticulitis. Small adjacent free fluid is noted. There is a small associated intramural abscess measuring 1.4 x 1.3 cm. There are no drainable abscess collections. There is no pneumoperitoneum. The abdominal aorta is normal in size. There are mild atherosclerotic calcifications of the abdominal aorta. There are no enlarged retroperitoneal lymph nodes. Bones: There are compression deformities of multiple thoracic and lumbar vertebral bodies, age indeterminate. The bones are mildly osteopenic. IMPRESSION IMPRESSION 1. Findings consistent with acute diverticulitis of distal sigmoid colon. Small adjacent free fluid. A small associated intramural abscess measuring 1.4 x 1.3 cm. No drainable abscess collections. No pneumoperitoneum. 2. Other incidental findings as detailed above. Medications Administered Discontinued Medications Sodium Chloride (Nss 1000ml) 1,000 mls @ 999 mls/hr IV .Q1H1M ONE Stop: 11/10/19 11:07 Last Infusion: 11/10/19 12:23 Dose: 0 mls/hr Documented by: [id number] Admin: 11/10/19 11:30 Dose: 999 mls/hr Documented by: [id number] Piperacillin Sod/Tazobactam Sod (Zosyn) 4.5 gm in 120 mls @ 240 mls/hr IV NOW ONE Stop: 11/10/19 10:36 Last Infusion: 11/10/19 12:15 Dose: 0 mls/hr Documented by: [id number] Admin: 11/10/19 11:42 Dose: 240 mls/hr Documented by: [id number] Code Status & VTE Plan Code Status Full Code VTE Prophylaxis Plan VTE Prophylaxis will be ordered: No Supervising Physician Co-Signing Physician Notes Patient seen and examined by me, care coordinated with Nubia Buckner PA-C, please refer to her note above for further detail. Pt is a 63 y/o female with history of PAF anticoagulated on Eliquis, postsurgical hypothyroidism, osteoporosis, history of compression fracture who presents to ED after being referred by PCP secondary to acute episode of diverticulitis failing outpatient oral antibiotics and hyponatremia. CT scan of abdomen pelvis revealed acute diverticulitis of distal sigmoid colon. Small associated intramural abscess measuring 1.4 x 1.3 cm noted. Patient was treated with PO antibiotics as outpatient. In addition she was currently seen in cardiology office, and it was noted that her sodium was low. Her sodium today is 132. Likely secondary to poor oral intake. In ED she received normal saline and started on IV Zosyn. Currently patient is lying in bed, in no acute distress. She is alert and oriented and answering questions appropriately. Lung sounds are clear to auscultation bilaterally without any wheezing rhonchi or crackles. Heart sounds are regular. Abdomen is soft, there is no guarding, positive bowel sounds. There is tenderness to palpation at lower abdominal quadrant more on left than right. She is able to move all 4 extremities spontaneously without difficulty. Skin is warm dry, without any rashes or lesions, there is no lower extremity yuli ma either. General surgery was notified. Patient will be admitted to the medicine service, continue IV antibiotics with Zosyn, sodium will be rechecked in 6 hours and closely monitored thereafter. At this time patient will be n.p.o. and will further discuss with general surgery. Of note patient also has pessary placed, this was exchanged in August. Per general surgery, this does not have to be removed however if this changes, gynecology needs to be contacted. Irish Alvares MD
[2019-11-10] MEDS ORDERED: MoRPHine SULFATE 4 MG/ML 1 ML CARP\\VIAL IV PRN (13:49)
[2019-11-10] MEDS: SODIUM CHLORIDE 0.9% 1000ML 1,000 ML IV SCH ×2 (13:53→23:25)
--- NOTE | 2019-11-10 13:54 | Surgery Consultation ---
Date of Consultation November 10, 2019 Assessment & Plan (1) Acute diverticulitis of intestine: pt is 63 year-old female who was admitted to hospital for acute diverticulitis, IMP: acute diverticulitis, with small abscess, Plan, no emergent surgery indication now, I agrees with conservative treatment now, NPO, IV antibiotic, Iv fluid, control pain repeat labs in am, pt agrees with the plan, i answered all questions, will F/U, thanks, Present on Admission?: Yes History of Present Illness Attending Physician: Messi Alvares MD History of Present Illness Chief Complaint: Referred by PCP due to Acute Diverticulitis. Primary Care Provider: Iban Whaley DO This is a 63-year-old female with significant past medical history of PAF anticoagulated on Eliquis, postsurgical hypothyroidism, osteoporosis, history of compression fracture who presents to ED after being referred by PCP secondary to acute episode of diverticulitis failing outpatient oral antibiotics. Symptoms started approximately 5 days ago when she developed left lower quadrant abdominal pain. She was camping with her . Symptoms progressed to diarrhea, frequent, yellow and pink in nature and rectal pain. She states that she was having difficulty cycling due to anal pain. He has a known history of diverticulosis documented via colonoscopy but no prior history of diverticulitis. She has been tolerating oral diet but otherwise decreased appetite. Last evening she ate chicken and this morning a blueberry muffin. She denies any nausea or vomiting. She did have mild elevation in temperature at 99.2 days ago. She was seen and evaluated in clinic and underwent lab studies along with CT scan of abdomen pelvis. He was started on oral Augmentin. She has had 4 doses. Lab work revealed hyponatremia at [address] scan of abdomen pelvis revealed acute diverticulitis of distal sigmoid colon. Small associated intramural abscess measuring 1.4 x 1.3 cm noted. She was referred to ED secondary to abscess formation. She is currently comfortable and complains of left lower quadrant pain 3/10. Pain is worse with palpation or movement. Severity waxes and wanes and describes as a dull ache. She has been trying [id number] acetaminophen with mild relief. Does have history of PAF and has been compliant with her apixaban as well as sotalol. She denies any chills, sweats, lightheadedness, dizziness, chest pain, shortness of breath, cough, dysuria, increased urgency or frequency with urination, melena, hematochezia. In ED patient remained hemodynamically stable. She did not meet criteria for sepsis per current CMS guidelines. Lab work notable for sodium 132, BUN 7, creatinine 0.63, LFTs WNL, lactate 1.2, CBC generally unremarkable. She received IV Zosyn along with IVF. I ( Shivam haney MD ) got a call for consult this pt, I reviewed pt's H/P , labs, and CT scan report with pt, pt has mild LLQ pain, no nausea, no vomiting, no diarrhea. Allergies Allergy/AdvReac Type Severity Reaction Status Date / Time latex Allergy Unknown RASH Verified 11/10/19 11:00 erythromycin base AdvReac Unknown UPSET Verified 11/10/19 11:00 STOMACH Home Medications Home Medications Medication Instructions Recorded Confirmed Type calcium carbonate 600 mg calcium 600 mg PO QDD tab 11/18/18 11/10/19 History (1,500 mg) tablet cholecalciferol (vitamin D3) 25 1,000 units PO QAM 11/18/18 11/10/19 History mcg (1,000 unit) tablet ascorbic acid (vitamin C) [Vitamin 1,000 mg PO QAM 07/23/19 11/10/19 History C] levothyroxine [Levoxyl] 75 mcg PO QAM 07/23/19 11/10/19 History multivitamin 1 tab PO HS 07/23/19 11/10/19 History apixaban [Eliquis] 5 mg PO BID #60 tab 07/26/19 11/10/19 Rx sotalol 40 mg PO BID #60 tab 07/26/19 11/10/19 Rx denosumab 60 mg/mL subcutaneous 60 mg SQ .Every 6 months ml 09/19/19 11/10/19 History syringe amoxicillin-pot clavulanate 1 tab PO BID 11/10/19 11/10/19 History potassium chloride [Klor-Con M10] 10 meq PO Q2D 11/10/19 11/10/19 History Past Med/Surg History Medical History (Updated 11/10/19 @ 13:35 by Nubia Buckner PA-C) History of chicken pox History of colonic polyps History of osteoarthritis History of osteoporosis Hypomagnesemia Hypothyroidism Surgical History S/P dilation and curettage S/P eye surgery laser surgery of right eye- lens replacement 05/1991 S/P sinus surgery 07/2015 S/P thyroidectomy 07/2008 S/P tonsillectomy 196 S/P wisdom tooth extraction Family History Family/Other Osteoarthritis Diabetes Heart disease Hypertension Dyslipidemia Osteoporosis Thyroid disorder Colorectal cancer Social History Smoking Status: Never smoker Second Hand Exposure: No; Hx Alcohol Use: Yes Alcohol type: wine Alcohol Intake Frequency Comment: 1 drink 3-5 times a week Hx Substance Use: No Preferred Language: Singaporean 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 Beliefs That Will Affect Care: None Current Living Situation: Spouse Other Information That Helps Us Care for You: No Feels Safe at Home: Yes Safety Concerns: Feels Safe At This Time Physical Activity Frequency: 3-4 Times per Week Physical Activity Frequency Comment: 30 minutes Review of Systems Review of Systems: All systems reviewed & are unremarkable except as noted in HPI & below Allergies Allergy/AdvReac Type Severity Reaction Status Date / Time latex Allergy Unknown RASH Verified 11/10/19 11:00 erythromycin base AdvReac Unknown UPSET Verified 11/10/19 11:00 STOMACH Home Medications Home Medications Medication Instructions Recorded Confirmed Type calcium carbonate 600 mg calcium 600 mg PO QDD tab 11/18/18 11/10/19 History (1,500 mg) tablet cholecalciferol (vitamin D3) 25 1,000 units PO QAM 11/18/18 11/10/19 History mcg (1,000 unit) tablet ascorbic acid (vitamin C) [Vitamin 1,000 mg PO QAM 07/23/19 11/10/19 History C] levothyroxine [Levoxyl] 75 mcg PO QAM 07/23/19 11/10/19 History multivitamin 1 tab PO HS 07/23/19 11/10/19 History apixaban [Eliquis] 5 mg PO BID #60 tab 07/26/19 11/10/19 Rx sotalol 40 mg PO BID #60 tab 07/26/19 11/10/19 Rx denosumab 60 mg/mL subcutaneous 60 mg SQ .Every 6 months ml 09/19/19 11/10/19 History syringe amoxicillin-pot clavulanate 1 tab PO BID 11/10/19 11/10/19 History potassium chloride [Klor-Con M10] 10 meq PO Q2D 11/10/19 11/10/19 History Patient History Medical History (Updated 11/10/19 @ 13:41 by Nubia Buckner PA-C) History of chicken pox History of colonic polyps History of osteoarthritis History of osteoporosis Hypomagnesemia Hypothyroidism Surgical History S/P dilation and curettage S/P eye surgery laser surgery of right eye- lens replacement 05/1991 S/P sinus surgery 07/2015 S/P thyroidectomy 07/2008 S/P tonsillectomy 196 S/P wisdom tooth extraction Family History Family/Other Osteoarthritis Diabetes Heart disease Hypertension Dyslipidemia Osteoporosis Thyroid disorder Colorectal cancer Social History Smoking Status: Never smoker Second Hand Exposure: No; Hx Alcohol Use: Yes Alcohol type: wine Alcohol Intake Frequency Comment: 1 drink 3-5 times a week Hx Substance Use: No Preferred Language: Singaporean 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 Beliefs That Will Affect Care: None Current Living Situation: Spouse Other Information That Helps Us Care for You: No Feels Safe at Home: Yes Safety Concerns: Feels Safe At This Time Physical Activity Frequency: 3-4 Times per Week Physical Activity Frequency Comment: 30 minutes Review of Systems Review of Systems: All systems reviewed & are unremarkable except as noted in HPI & below Constitutional: as per Subjective / HPI Eyes: as per Subjective / HPI Ear, Nose, Mouth, Throat: as per Subjective / HPI Respiratory: as per Subjective / HPI Cardiovascular: as per Subjective / HPI Additional Comments: P A-fib Gastrointestinal: as per Subjective / HPI abdominal pain Genitourinary: as per Subjective / HPI Musculoskeletal: as per Subjective / HPI Integumentary: as per Subjective / HPI Psychiatric: as per Subjective / HPI Endocrine: as per Subjective / HPI Hematologic / Lymphatic: as per Subjective / HPI Allergy / Immunological: as per Subjective / HPI Physical Exam Constitutional: WD/WN, vitals as above well developed and well nourished Eyes: PERRL, conjunctivae normal, anicteric sclerae ENMT: external ear and nose normal, oropharynx normal Neck: trachea midline, no thyromegaly Respiratory: normal respiratory effort, lungs clear to auscultation Cardiovascular: Heart Sounds: normal S1 and normal S2 Gastrointestinal (Abdomen): Percussion/Palpation: abdomen soft soft, mild tenderness at LLQ, no rebound pain, no distend, BS + Musculoskeletal: no cyanosis or clubbing, extremities motor strength 5/5 Skin: no rashes, warm and dry Neurologic: patellar DTR's 2+ bilat, sensation intact Psychiatric: Orientation: alert and oriented x 3 Results & Data ([facility]) Vital Signs (Past 12 Hours) Vital Signs Temp Pulse Pulse Resp BP BP Pulse Ox 11/10/19 13:15 36.7 C 59 L 16 106/71 98 11/10/19 11:44 60 16 110/54 L 97 11/10/19 09:59 37.1 C 72 16 130/68 98 Laboratory Results Abnormal lab results 11/10/19 11/10/19 Range/Units 10:37 10:37 RBC 4.14 L (4.2-5.4) M/uL Hct 36.8 L (37-47) % Sodium 132 L (136-145) mmol/L AST 13 L (15-37) U/L Albumin 3.3 L (3.4-5.0) gm/dl Albumin/Globulin Ratio 0.8 L (0.9-2)
[2019-11-10] MEDS: CALCIUM CARBONATE 1250MG TAB PO SCH (16:18)
[2019-11-10 17:25] LABS: BUN Creatinine Ratio 9.2 (10-20); Calcium 9.2 mg/dl (8.5-10.1); Potassium 4.1 mmol/L (3.5-5.1)
[2019-11-10] MEDS: PIPERACILLIN/TAZOBACTAM 3.375 GM in DEXTROSE 5% 100 ML IV SCH (17:55)
[2019-11-10] MEDS: APIXABAN 5 MG TABLET PO SCH (21:27)
[2019-11-10] MEDS: SOTALOL HCL 80 MG TAB PO SCH (21:27)
[2019-11-10] MEDS: MULTIVITAMIN TAB PO SCH (21:27)
[2019-11-11] MEDS: PIPERACILLIN/TAZOBACTAM 3.375 GM in DEXTROSE 5% 100 ML IV SCH ×3 (01:29→17:29)
[2019-11-11] MEDS: LEVOTHYROXINE SODIUM 75 MCG TABLET PO SCH (05:17)
[2019-11-11 06:26] LABS: Basophils # (auto) 0.01 K/uL (0-0.2); Basophils % (auto) 0.2 %; Eosinophils # (auto) 0.12 K/uL (0-0.5); Eosinophils % (auto) 2.8 %; Hematocrit (blood only) 33.4 % (37-47); Hemoglobin 11.1 g/dL (12.0-16.0); Immature Granulocytes # (auto) 0.01 K/uL (0.00-0.02); Immature Granulocytes % (auto) 0.2 %; Lymphocytes # (auto) 1.79 K/uL (1.2-3.4); Lymphocytes % (auto) 42.4 %; Mean Corpuscular Hemoglobin 30.2 pg (25-34); Mean Corpuscular Hgb Conc 33.2 g/dL (32-36); Mean Corpuscular Volume 90.8 fL (80-100); Mean Platelet Volume 8.9 fL (7.4-10.4); Monocytes # (auto) 0.34 K/uL (0.11-0.59); Monocytes % (auto) 8.1 %; Neutrophils # (auto) 1.95 K/uL (1.4-6.5); Neutrophils % (auto) 46.3 %; Platelet Count 235 K/uL (130-400); RDW Coefficient of Variation 12.9 % (11.5-14.5); Red Blood Count 3.68 M/uL (4.2-5.4); White Blood Count 4.22 K/uL (4.8-10.8)
[2019-11-11 06:58] LABS: BUN Creatinine Ratio 8.1 (10-20); Calcium 8.1 mg/dl (8.5-10.1); Creatinine Clr Calc Pharmacy 78.5 ml/min; Est GFR (African American) 113.7; Est GFR (Non-African American) 98.1; Potassium 3.7 mmol/L (3.5-5.1)
[2019-11-11] MEDS ORDERED: ACETAMINOPHEN 325 MG TAB PO PRN (07:30)
--- NOTE | 2019-11-11 07:59 | Hospitalist Progress Note ---
Date of Service November 11, 2019 Assessment & Plan (1) Colonic diverticular abscess: (2) Acute diverticulitis of intestine: -This is a 63-year-old female with significant past medical history of PAF anticoagulated on Eliquis, postsurgical hypothyroidism, osteoporosis, history of compression fracture who presents to ED after being referred by PCP secondary to acute episode of diverticulitis failing outpatient oral antibiotics. CT scan of abdomen pelvis revealed acute diverticulitis of distal sigmoid colon. Small associated intramural abscess measuring 1.4 x 1.3 cm noted. Pt does not meet sepsis criteria -admitted on 11/10/2019 -no emergent surgery indication as per general surgery consultation on 11/10/2019; also as per admitting hospitalist " Of note patient also has pessary placed, this was exchanged in August. Per general surgery, this does not have to be removed however if this changes, gynecology needs to be contacted." -empirically on Zosyn, continue -11/11/2019 continue Zosyn, IV fluids stopped in the AM, advance diet to clear liquids (3) Hyponatremia: -outpatient labs on 11/09/2019 with serum sodium of 129 -serum sodium on admission was 132 on 11/10/2019 -patient received IV fluids and Zosyn and subsequent serum sodium 136 normalized on 11/11/2019 (4) Paroxysmal atrial fibrillation: -on sotalol, apixaban (5) Hypothyroidism: -on levothyroxine (6) DVT prophylaxis: -on apixaban Admission and Anticipated Discharge Date Admission Date: November 10, 2019 Subjective Patient reports less abdominal pain today. She has been able to ambulate to bathroom and make loose bowel movements. no nausea. no vomiting. no chest pain. no shortness of breath. breathing on room air Review of Systems Review of Systems: All systems reviewed & are unremarkable except as noted in Subjective Physical Exam Constitutional: comfortable Eyes: PERRL, conjunctivae normal, anicteric sclerae EOM intact bilaterally ENMT: external ear and nose normal, oropharynx normal Neck: trachea midline, no thyromegaly normal visual inspection Respiratory: normal respiratory effort, lungs clear to auscultation Cardiovascular: Rate/Rhythm: regular rate and regular rhythm Gastrointestinal (Abdomen): normal bowel sounds, soft, nontender, no hepatosplenomegaly Musculoskeletal: Head/Neck/Chest: normocephalic and head atraumatic Neurologic: PERRL, EOMI, accommodation nl, no face palsy, no dysarthria CN's II-XI intact bilaterally Psychiatric: A+Ox3, euthymic affect Results & Data Results & Data ([facility]) Vital Signs (Past 12 Hours) Vital Signs Temp Pulse Resp BP Pulse Ox 11/11/19 07:16 36.8 C 59 L 16 135/84 97 11/10/19 23:53 36.7 C 60 16 112/68 96 11/10/19 21:25 63 120/80
[2019-11-11] MEDS: APIXABAN 5 MG TABLET PO SCH ×2 (09:16→20:19)
[2019-11-11] MEDS: ASCORBIC ACID 500 MG TAB PO SCH (09:16)
[2019-11-11] MEDS: CHOLECALCIFEROL 1,000 UNITS 25 MCG TAB PO SCH (09:16)
[2019-11-11] MEDS: SOTALOL HCL 80 MG TAB PO SCH ×2 (09:17→20:19)
--- NOTE | 2019-11-11 11:50 | Surgery Progress Note ---
Date of Service November 11, 2019 Assessment & Plan (1) Acute diverticulitis of intestine: with small 1.4 x 1.3 cm intramural abscess vitals stable, afebrile, no leukocytosis no abdominal pain tolerated clears Plan: May advance diet to low fiber diet for dinner continue IV Zosyn ambulate Will need a colonoscopy in 6-8 weeks (follows with DR. fabian) Low fiber diet for 2-4 weeks and then high fiber diet 10-14 day total course of antibiotics recommended Dr. Morrison covering over weekend Dr. Trinidad has seen patient, agrees with above. Admission and Anticipated Discharge Date Admission Date: November 10, 2019 Subjective feeling okay this morning, had rough night sleeping no nausea or vomiting no abdominal pain tolerated clear liquids Physical Exam Constitutional: WD/WN, vitals as above no acute distress and not ill appearing Respiratory: normal respiratory effort; no respiratory distress Gastrointestinal (Abdomen): Inspection/Auscultation: abdomen normal to inspection; abdomen not distended Percussion/Palpation: abdomen soft; abdomen nontender, no guarding and abdomen not rigid Skin: no rashes, warm and dry Psychiatric: A+Ox3, euthymic affect Results & Data ([facility]) Vital Signs (Past 12 Hours) Vital Signs Temp Pulse Resp BP Pulse Ox 11/11/19 07:16 36.8 C 59 L 16 135/84 97 11/10/19 23:53 36.7 C 60 16 112/68 96 Laboratory Results 11/11/19 11/11/19 11/10/19 Range/Units 06:00 06:00 22:44 WBC 4.22 L (4.8-10.8) K/uL RBC 3.68 L (4.2-5.4) M/uL Hgb 11.1 L (12.0-16.0) g/dL Hct 33.4 L (37-47) % MCV 90.8 (80-100) fL MCH 30.2 (25-34) pg MCHC 33.2 (32-36) g/dL RDW Std Deviation 43.0 (36.4-46.3) fL RDW Coeff of Tiffanie 12.9 (11.5-14.5) % Plt Count 235 (130-400) K/uL MPV 8.9 (7.4-10.4) fL Immature Gran % (Auto) 0.2 % Neut % (Auto) 46.3 % Lymph % (Auto) 42.4 % Marinette % (Auto) 8.1 % Eos % (Auto) 2.8 % Baso % (Auto) 0.2 % Neut # (Auto) 1.95 (1.4-6.5) K/uL Lymph # (Auto) 1.79 (1.2-3.4) K/uL Marinette # (Auto) 0.34 (0.11-0.59) K/uL Eos # (Auto) 0.12 (0-0.5) K/uL Baso # (Auto) 0.01 (0-0.2) K/uL Immature Gran # (Auto) 0.01 (0.00-0.02) K/uL Sodium 136 134 L (136-145) mmol/L Potassium 3.7 (3.5-5.1) mmol/L Chloride 106 (98-107) mmol/L Carbon Dioxide 24 (21-32) mmol/L Anion Gap 7.0 (3-11) BUN 5 L (7-18) mg/dl Creatinine 0.58 L (0.6-1.2) mg/dl Est Cr Clr Drug Dosing 78.5 ml/min Est GFR ( Amer) 113.7 Est GFR (Non-Af Amer) 98.1 BUN/Creatinine Ratio 8.1 L (10-20) Glucose 80 (70-99) mg/dl Calcium 8.1 L (8.5-10.1) mg/dl Magnesium (1.8-2.4) mg/dl 11/10/19 11/10/19 Range/Units 16:29 10:37 WBC (4.8-10.8) K/uL RBC (4.2-5.4) M/uL Hgb (12.0-16.0) g/dL Hct (37-47) % MCV (80-100) fL MCH (25-34) pg MCHC (32-36) g/dL RDW Std Deviation (36.4-46.3) fL RDW Coeff of Tiffanie (11.5-14.5) % Plt Count (130-400) K/uL MPV (7.4-10.4) fL Immature Gran % (Auto) % Neut % (Auto) % Lymph % (Auto) % Marinette % (Auto) % Eos % (Auto) % Baso % (Auto) % Neut # (Auto) (1.4-6.5) K/uL Lymph # (Auto) (1.2-3.4) K/uL Marinette # (Auto) (0.11-0.59) K/uL Eos # (Auto) (0-0.5) K/uL Baso # (Auto) (0-0.2) K/uL Immature Gran # (Auto) (0.00-0.02) K/uL Sodium 135 L (136-145) mmol/L Potassium 4.1 (3.5-5.1) mmol/L Chloride 102 (98-107) mmol/L Carbon Dioxide 26 (21-32) mmol/L Anion Gap 7.0 (3-11) BUN 6 L (7-18) mg/dl Creatinine 0.66 (0.6-1.2) mg/dl Est Cr Clr Drug Dosing 69.0 ml/min Est GFR ( Amer) 109.0 Est GFR (Non-Af Amer) 94.0 BUN/Creatinine Ratio 9.2 L (10-20) Glucose 86 (70-99) mg/dl Calcium 9.2 (8.5-10.1) mg/dl Magnesium 2.0 (1.8-2.4) mg/dl
[2019-11-11] MEDS: CALCIUM CARBONATE 1250MG TAB PO SCH (17:26)
[2019-11-11] MEDS: MULTIVITAMIN TAB PO SCH (20:19)
[2019-11-12] MEDS: PIPERACILLIN/TAZOBACTAM 3.375 GM in DEXTROSE 5% 100 ML IV SCH (02:16)
[2019-11-12] MEDS: LEVOTHYROXINE SODIUM 75 MCG TABLET PO SCH (06:34)
--- NOTE | 2019-11-12 07:56 | Surgery Progress Note ---
Date of Service November 12, 2019 Assessment & Plan (1) Acute diverticulitis of intestine: -pt. doing well -no need for surgical intervention at this time -plans outlined for completion of 14 days course of antibiotics and C-scope in future -ok for d/c from surgical standpoint Admission and Anticipated Discharge Date Admission Date: November 10, 2019 Subjective Pt. doing well. She tolerated advance in diet yesterday without N/V or worsening abdominal pain. She is having BMs that are loose. Physical Exam Constitutional: well developed and well nourished; no acute distress Respiratory: normal respiratory effort; no respiratory distress and no labored breathing Gastrointestinal (Abdomen): Inspection/Auscultation: normal bowel sounds Percussion/Palpation: abdomen soft; abdomen nontender no pain with palpation Results & Data ([facility]) Vital Signs (Past 12 Hours) Vital Signs Temp Pulse Resp BP Pulse Ox 11/11/19 23:55 37 C 65 14 123/83 97 PG Care Time/CCT Total # of Minutes Spent Total Time Spent with Patient: Total time spent is greater than 50% in coordination of care (as documented) at patient's floor/unit and/or counseling patient: Coding Level of Care Code 27064 Subseq Hosp Care Lvl 1 Diagnoses Acute diverticulitis of intestine K57.92
[2019-11-12 08:14] LABS: Basophils # (auto) 0.01 K/uL (0-0.2); Basophils % (auto) 0.2 %; Eosinophils # (auto) 0.15 K/uL (0-0.5); Eosinophils % (auto) 3.4 %; Hematocrit (blood only) 38.1 % (37-47); Hemoglobin 12.7 g/dL (12.0-16.0); Immature Granulocytes # (auto) 0.01 K/uL (0.00-0.02); Immature Granulocytes % (auto) 0.2 %; Lymphocytes # (auto) 1.87 K/uL (1.2-3.4); Lymphocytes % (auto) 42.1 %; Mean Corpuscular Hemoglobin 30.4 pg (25-34); Mean Corpuscular Hgb Conc 33.3 g/dL (32-36); Mean Corpuscular Volume 91.1 fL (80-100); Monocytes # (auto) 0.39 K/uL (0.11-0.59); Monocytes % (auto) 8.8 %; Neutrophils # (auto) 2.01 K/uL (1.4-6.5); Neutrophils % (auto) 45.3 %; Platelet Count 295 K/uL (130-400); RDW Coefficient of Variation 12.8 % (11.5-14.5); RDW Standard Deviation 42.8 fL (36.4-46.3); Red Blood Count 4.18 M/uL (4.2-5.4); White Blood Count 4.44 K/uL (4.8-10.8)
[2019-11-12 08:37] LABS: Calcium 8.8 mg/dl (8.5-10.1); Est GFR (African American) 107.9; Est GFR (Non-African American) 93.1; Magnesium 2.2 mg/dl (1.8-2.4); Phosphorus 2.7 mg/dl (2.5-4.9)
[2019-11-12] MEDS: ASCORBIC ACID 500 MG TAB PO SCH (08:47)
[2019-11-12] MEDS: APIXABAN 5 MG TABLET PO SCH (08:47)
[2019-11-12] MEDS: CHOLECALCIFEROL 1,000 UNITS 25 MCG TAB PO SCH ×2 (08:47→09:05)
[2019-11-12] MEDS: SOTALOL HCL 80 MG TAB PO SCH (08:47)
[2019-11-12] MEDS ORDERED: POTASSIUM CHLORIDE 10 MEQ TABCR PO SCH (09:00)
--- NOTE | 2019-11-12 09:48 | Hospitalist Progress Note ---
Date of Service November 12, 2019 Assessment & Plan (1) Colonic diverticular abscess: (2) Acute diverticulitis of intestine: -This is a 63-year-old female with significant past medical history of PAF anticoagulated on Eliquis, postsurgical hypothyroidism, osteoporosis, history of compression fracture who presents to ED after being referred by PCP secondary to acute episode of diverticulitis failing outpatient oral antibiotics. CT scan of abdomen pelvis revealed acute diverticulitis of distal sigmoid colon. Small associated intramural abscess measuring 1.4 x 1.3 cm noted. Pt does not meet sepsis criteria -admitted on 11/10/2019 -no emergent surgery indication as per general surgery consultation on 11/10/2019; also as per admitting hospitalist " Of note patient also has pessary placed, this was exchanged in August. Per general surgery, this does not have to be removed however if this changes, gynecology needs to be contacted." -was empirically started on Zosyn -11/11/2019 continue Zosyn, IV fluids stopped in the AM, diet was advanced -11/12/2019: patient remains afebrile, blood cultures no growth to date. she has been ambulating in the hallway and feeling well to go home. General Surgery seen patient with hospitalist and agrees with the plan. Patient is asymptomatic - no abdomen pain, no chest pain, no shortness of breath, breathing on room air, no dizziness, no headache discharge on [facility] [address], [place] [address] discharge medication of metronidazole 500 mg every 8 hours for 12 more days patient has own supply of Augmentin for 8 day supply, patient to finish own supply and in addition complete the discharge medication with 4 more days worth of Augmentin twice a day (8 pills) general surgery team Dr. Trinidad recommended that patient will need a colonoscopy in 6 to 8 weeks with [facility] affiliated gastroenterology scheduled appointments 12/14/2019 10:40 AM Provider Iban Whaley DO Department Family [facility] 01/06/2020 10:00 AM Provider Urban Fields PA-C Department Cardiology, [facility] 02/08/2020 10:00 AM Provider Teresita Hall PA-C Department Rheumatology [facility] (3) Hyponatremia: acute Hyponatremia (resolved) -patient will need to make appointment with primary care doctor and complete antibiotic course. Patient should have serum sodium labs and CBC drawn by primary care doctor (-outpatient labs on 11/09/2019 with serum sodium of 129 -serum sodium on admission was 132 on 11/10/2019 -patient received IV fluids and Zosyn and subsequent serum sodium 136 normalized on 11/11/2019. serum sodium 138 on 11/12/2019) (4) Paroxysmal atrial fibrillation: -on sotalol, apixaban (5) Hypothyroidism: -on levothyroxine (6) DVT prophylaxis: -on apixaban Admission and Anticipated Discharge Date Admission Date: November 10, 2019 Subjective patient remains afebrile, blood cultures no growth to date. she has been ambulating in the hallway and feeling well to go home. General Surgery seen patient with hospitalist and agrees with the plan. Patient is asymptomatic - no abdomen pain, no chest pain, no shortness of breath, breathing on room air, no dizziness, no headache Review of Systems Review of Systems: All systems reviewed & are unremarkable except as noted in Subjective Physical Exam Constitutional: comfortable Eyes: PERRL, conjunctivae normal, anicteric sclerae EOM intact bilaterally ENMT: external ear and nose normal, oropharynx normal Neck: trachea midline, no thyromegaly normal visual inspection Respiratory: normal respiratory effort, lungs clear to auscultation Cardiovascular: Rate/Rhythm: regular rate and regular rhythm Gastrointestinal (Abdomen): normal bowel sounds, soft, nontender, no hepatosplenomegaly Musculoskeletal: Head/Neck/Chest: normocephalic and head atraumatic Neurologic: PERRL, EOMI, accommodation nl, no face palsy, no dysarthria CN's II-XI intact bilaterally Psychiatric: A+Ox3, euthymic affect Results & Data Results & Data ([facility]) Vital Signs (Past 12 Hours) Vital Signs Temp Pulse Pulse Resp BP Pulse Ox 11/12/19 08:00 36.5 C 67 18 110/72 97 11/11/19 23:55 37 C 65 14 123/83 97
--- NOTE | 2019-11-12 09:53 | Discharge Summary ---
Date of Service November 12, 2019 Admission HPI Per Admitting Provider This is a 63-year-old female with significant past medical history of PAF anticoagulated on Eliquis, postsurgical hypothyroidism, osteoporosis, history of compression fracture who presents to ED after being referred by PCP secondary to acute episode of diverticulitis failing outpatient oral antibiotics. Symptoms started approximately 5 days ago when she developed left lower quadrant abdominal pain. She was camping with her . Symptoms progressed to diarrhea, frequent, yellow and pink in nature and rectal pain. She states that she was having difficulty cycling due to anal pain. He has a known history of diverticulosis documented via colonoscopy but no prior history of diverticulitis. She has been tolerating oral diet but otherwise decreased appetite. Last evening she ate chicken and this morning a blueberry muffin. She denies any nausea or vomiting. She did have mild elevation in temperature at 99.2 days ago. She was seen and evaluated in clinic and underwent lab studies along with CT scan of abdomen pelvis. He was started on oral Augmentin. She has had 4 doses. Lab work revealed hyponatremia at [address] scan of abdomen pelvis revealed acute diverticulitis of distal sigmoid colon. Small associated intramural abscess measuring 1.4 x 1.3 cm noted. She was referred to ED secondary to abscess formation. She is currently comfortable and complains of left lower quadrant pain 3/10. Pain is worse with palpation or movement. Severity waxes and wanes and describes as a dull ache. She has been trying [id number] acetaminophen with mild relief. Does have history of PAF and has been compliant with her apixaban as well as sotalol. She denies any chills, sweats, lightheadedness, dizziness, chest pain, shortness of breath, cough, dysuria, increased urgency or frequency with urination, melena, hematochezia. In ED patient remained hemodynamically stable. She did not meet criteria for sepsis per current CMS guidelines. Lab work notable for sodium 132, BUN 7, creatinine 0.63, LFTs WNL, lactate 1.2, CBC generally unremarkable. She received IV Zosyn along with IVF. Principal Diagnosis Colonic diverticular abscess Acute diverticulitis of intestine acute Hyponatremia (resolved) Paroxysmal Atrial Fibrillation Discharge Exam Constitutional comfortable Eyes PERRL, conjunctivae normal, anicteric sclerae EOM intact bilaterally ENMT external ear and nose normal, oropharynx normal Neck trachea midline, no thyromegaly normal visual inspection Respiratory normal respiratory effort, lungs clear to auscultation Cardiovascular Rate/Rhythm: regular rate and regular rhythm Gastrointestinal (Abdomen) normal bowel sounds, soft, nontender, no hepatosplenomegaly Musculoskeletal Head/Neck/Chest: normocephalic and head atraumatic Neurologic PERRL, EOMI, accommodation nl, no face palsy, no dysarthria CN's II-XI intact bilaterally Psychiatric A+Ox3, euthymic affect Discharge Data Allergies Allergy/AdvReac Type Severity Reaction Status Date / Time latex Allergy Unknown RASH Verified 11/10/19 11:00 erythromycin base AdvReac Unknown UPSET Verified 11/10/19 11:00 STOMACH Consultations 11/10/19 11:41 ED Decision to Admit Stat 11/10/19 13:16 Consult General Surgery Routine Hospital Course (1) Colonic diverticular abscess: (2) Acute diverticulitis of intestine: -This is a 63-year-old female with significant past medical history of PAF anticoagulated on Eliquis, postsurgical hypothyroidism, osteoporosis, history of compression fracture who presents to ED after being referred by PCP secondary to acute episode of diverticulitis failing outpatient oral antibiotics. CT scan of abdomen pelvis revealed acute diverticulitis of distal sigmoid colon. Small associated intramural abscess measuring 1.4 x 1.3 cm noted. Pt does not meet sepsis criteria -admitted on 11/10/2019 -no emergent surgery indication as per general surgery consultation on 11/10/2019; also as per admitting hospitalist " Of note patient also has pessary placed, this was exchanged in August. Per general surgery, this does not have to be removed however if this changes, gynecology needs to be contacted." -was empirically started on Zosyn -11/11/2019 continue Zosyn, IV fluids stopped in the AM, diet was advanced -11/12/2019: patient remains afebrile, blood cultures no growth to date. she has been ambulating in the hallway and feeling well to go home. General Surgery seen patient with hospitalist and agrees with the plan. Patient is asymptomatic - no abdomen pain, no chest pain, no shortness of breath, breathing on room air, no dizziness, no headache discharge on [facility] [address] , [place] [address] discharge medication of metronidazole 500 mg every 8 hours for 12 more days patient has own supply of Augmentin for 8 day supply, patient to finish own supply and in addition complete the discharge medication with 4 more days worth of Augmentin twice a day (8 pills) general surgery team Dr. Trinidad recommended that patient will need a colonoscopy in 6 to [address] [facility] gastroenterology scheduled appointments 12/14/2019 10:40 AM Provider Iban Whaley DO Department Family [facility] 01/06/2020 10:00 AM Provider Urban Fields PA-C Department Cardiology, [facility] 02/08/2020 10:00 AM Provider Teresita Hall PA-C Department Rheumatology [facility] (3) Hyponatremia: acute Hyponatremia (resolved) -patient will need to make appointment with primary care doctor and complete antibiotic course. Patient should have serum sodium labs and CBC drawn by primary care doctor (-outpatient labs on 11/09/2019 with serum sodium of 129 -serum sodium on admission was 132 on 11/10/2019 -patient received IV fluids and Zosyn and subsequent serum sodium 136 normalized on 11/11/2019. serum sodium 138 on 11/12/2019) (4) Paroxysmal atrial fibrillation: -on sotalol, apixaban (5) Hypothyroidism: -on levothyroxine (6) DVT prophylaxis: -on apixaban Total Time Total Time Spent Total Time Spent (In Minutes): 40 minutes Total Time Includes: Examination of the Patient, Discharge Planning, Medication Reconciliation and Communication With Other Providers Discharge Plan Discharge Items Patient Disposition: Home - Self-Care Reason For Visit: ACUTE DIVERTICULITIS WITH INTRAMURAL ABSCESS Discharge Diagnosis: Colonic diverticular abscess Acute diverticulitis of intestine acute Hyponatremia (resolved) Paroxysmal Atrial Fibrillation Condition on Discharge: Good Activity: Resume your previous activity Non-emergency contact: Primary Care Provider Call non-emergency contact if: you have any medication questions Follow-up/Referrals: Iban Whaley DO [Primary Care Provider] - Diet: Low Fiber Addtl Attending Provider Instructions: discharge on [facility] [address] , [place] [address] discharge medication of metronidazole 500 mg every 8 hours for 12 more days patient has own supply of Augmentin for 8 day supply, patient to finish own supply and in addition complete the discharge medication with 4 more days worth of Augmentin twice a day (8 pills) patient will need to make appointment with primary care doctor and complete antibiotic course. Patient should have serum sodium labs and CBC drawn by primary care doctor (-outpatient labs on 11/09/2019 with serum sodium of 129 -serum sodium on admission was 132 on 11/10/2019 -patient received IV fluids and Zosyn and subsequent serum sodium 136 normalized on 11/11/2019. serum sodium 138 on 11/12/2019) general surgery team Dr. Trinidad recommended that patient will need a colonoscopy in 6 to [address] [facility] gastroenterology scheduled appointments 12/14/2019 10:40 AM Provider Iban Whaley DO Department Family [facility] 01/06/2020 10:00 AM Provider Urban Fields PA-C Department Cardiology, [facility] 02/08/2020 10:00 AM Provider Teresita Hall PA-C Department Rheumatology [facility] Pending Studies at Discharge: No Stand-Alone Forms: [facility], Smoking Cessation Medications and DC Order Prescriptions: New metronidazole 500 mg Tablet 500 mg PO Q8H 12 Days Qty: 36 RF: 0 amoxicillin-pot clavulanate [Augmentin] 875-125 mg Tablet 1 tab PO BIDM 4 Days Qty: 8 RF: 0 Continued calcium carbonate 600 mg calcium (1,500 mg) tablet 600 mg PO QDD RF: 0 cholecalciferol (vitamin D3) 1,000 unit (25 mcg) tablet 1,000 units PO QAM RF: 0 Prolia 60 mg/mL syringe 60 mg SQ .Every 6 months RF: 0 multivitamin Tablet 1 tab PO HS RF: 0 ascorbic acid (vitamin C) [Vitamin C] 1,000 mg Tablet 1,000 mg PO QAM RF: 0 levothyroxine [Levoxyl] 75 mcg tablet 75 mcg PO QAM RF: 0 Eliquis 5 mg Tablet 5 mg PO BID Qty: 60 RF: 0 sotalol 80 mg Tablet 40 mg PO BID Qty: 60 RF: 0 amoxicillin-pot clavulanate 875-125 mg tablet 1 tab PO BID RF: 0 potassium chloride [Klor-Con M10] 10 mEq tablet,ER particles/crystals 10 meq PO Q2D RF: 0 Discharge Orders: Discharge Order (Routine); Ordered 11/12/19 Ordered By: Alvarado James Admission Data Admit Date/Time: 11/10/19 11:55 Attending Provider: Alvarado James Admit Provider: Messi Alvares Primary Care Provider: Iban Whaley Other Providers: Messi Alvares ; Shivam Trinidad
[2019-11-12] MEDS ORDERED: metroNIDAZOLE 500 MG TAB PO SCH (10:00)
[2019-11-12] MEDS ORDERED: AMOXICILLIN/CLAVULANATE 875 MG TAB PO SCH (10:00)
== END 2019-11-12 10:51 | disposition home or self-care (01) | DRG 392 ==
LOC: ED 09:48 → SUATTDRO 11:55 → 3W 11:55

== ENCOUNTER 2021-06-30 09:34 | Inpatient (IN) ==
[2021-06-30] MEDS ORDERED: ONDANSETRON INJ 2 MG/ML 2 ML VIAL IV STA (09:55)
[2021-06-30] MEDS ORDERED: MoRPHine SULFATE 4 MG/ML 1 ML CARP\\VIAL IV STA (09:55)
--- NOTE | 2021-06-30 10:00 | Emergency Department Note ---
History of Present Illness General Chief complaint: Abdominal Pain Stated complaint: LOWER ABD PAIN Time Seen by Provider: 06/30/21 09:47 Source: patient History of Present Illness Provider complaint: Lower abdominal pain Onset (ago): week(s) Location: abdomen and left Radiation: other (Rectum) Pain Consistency: + constant Maximum Pain Intensity: 6 Quality: + other (Cramping) Relieved By: + other (Brat diet) Exacerbated By: + other (Walking) Associated symptoms: no chest pain, no cough, no fever/chills, no nausea/vomiting or no shortness of breath This is a 65-year-old female with a history of diverticulitis presenting with lower abdominal pain rating to her rectum. It started about 10 days ago. She went to see a doctor who did blood work. She was tender in the epigastric region at that time and so they were concerned about pancreatitis or gallbladder disease. Blood work was ordered which was unremarkable. She had an ultrasound scheduled but she was told to be on a brat diet and started to feel better. The pain did not completely go away but she felt much better and when she followed up with her regular physician they canceled the ultrasound. Her pain worsened 2 days ago. It is in the lower abdomen radiating into her rectum. She states is worse when she walks. It is accompanied by bloating in her abdomen. She has been taking stool softener so her stool has been loose. She denies any hematochezia. She has had no fever or vomiting. She states her symptoms feel similar to when she had diverticulitis. She denies any cough or cold symptoms, chest pain, shortness of breath or urinary symptoms. Home Medications Medication Instructions Recorded Confirmed Type calcium carbonate 600 mg calcium 600 mg PO QDD tab 11/18/18 06/30/21 History (1,500 mg) tablet cholecalciferol (vitamin D3) 25 1,000 units PO QAM 11/18/18 06/30/21 History mcg (1,000 unit) tablet ascorbic acid (vitamin C) 1,000 mg 1,000 mg PO QAM 07/23/19 06/30/21 History tablet (Vitamin C) levothyroxine 75 mcg tablet 75 mcg PO DAILYBB 07/23/19 06/30/21 History (Levoxyl) multivitamin 1 tab PO HS 07/23/19 06/30/21 History potassium chloride 10 mEq 10 meq PO Q2D 11/10/19 06/30/21 History tablet,extended release(part/cryst) (Klor-Con M) aspirin 81 mg tablet,delayed 81 mg PO QAM 06/30/21 06/30/21 History release Allergies Allergy/AdvReac Type Severity Reaction Status Date / Time latex Allergy Unknown RASH Verified 06/30/21 12:47 erythromycin base AdvReac Unknown UPSET Verified 06/30/21 12:47 STOMACH Past Med/Surg History Medical History History of chicken pox History of colonic polyps History of osteoarthritis History of osteoporosis Hypomagnesemia Hypothyroidism Surgical History S/P dilation and curettage S/P eye surgery laser surgery of right eye- lens replacement 05/1991 S/P sinus surgery 07/2015 S/P thyroidectomy 07/2008 S/P tonsillectomy 1961 S/P wisdom tooth extraction Family History Family/Other Osteoarthritis Diabetes Heart disease Hypertension Dyslipidemia Osteoporosis Thyroid disorder Colorectal cancer Social History Smoking Status: Never smoker Second Hand Exposure: No; Hx Alcohol Use: Yes Alcohol type: wine Alcohol Intake Frequency Comment: 1 drink 3-5 times a week Hx Substance Use: No Preferred Language: Australian Communication Ability: Effective Shop Lead Required: No Beliefs That Will Affect Care: None Current Living Situation: Spouse Feels Safe at Home: Yes Physical Activity Frequency: 3-4 Times per Week Physical Activity Frequency Comment: 30 minutes Assistive Devices: Glasses Review of Systems See HPI for pertinent positives & negatives. and A total of 10 systems reviewed and were otherwise negative Physical Exam Vital Signs Vital Signs - 24 hr 06/30/21 09:43 06/30/21 10:33 06/30/21 11:25 Temperature 36.7 C Temperature Source Temporal Artery Scan Pulse Rate 88 Pulse Rate [Finger] 71 Pulse Rhythm [Finger] Regular Pulse Strength [Finger] Normal Respiratory Rate 18 16 Respiratory Effort / Characteristics Non-Labored Spontaneous Respiratory Depth Normal Respiratory Pattern Regular Blood Pressure 130/84 Blood Pressure [Right Arm] 121/79 Blood Pressure Mean 99 Blood Pressure Mean [Right Arm] 93 Blood Pressure Position [Right Arm] Sitting Pulse Oximetry 98 96 95 Oxygen Delivery Method Room Air Room Air Room Air Sepsis Recent Fever Within 48 Hours No Sepsis New/Unexplained Change in Mental Status No Sepsis Action Taken by Nursing No Action Required 06/30/21 12:45 06/30/21 13:44 Temperature Temperature Source Pulse Rate 74 Pulse Rate [Finger] 74 Pulse Rhythm [Finger] Regular Pulse Strength [Finger] Normal Respiratory Rate 17 17 Respiratory Effort / Characteristics Non-Labored Spontaneous Respiratory Depth Normal Respiratory Pattern Regular Blood Pressure 125/84 Blood Pressure [Right Arm] 118/75 Blood Pressure Mean Blood Pressure Mean [Right Arm] 89 Blood Pressure Position [Right Arm] Sitting Pulse Oximetry 96 97 Oxygen Delivery Method Room Air Room Air Sepsis Recent Fever Within 48 Hours Sepsis New/Unexplained Change in Mental Status Sepsis Action Taken by Nursing Constitutional: Vital signs reviewed. Eyes: Pupils are equal round reactive to light. Conjunctiva are noninjected. ENT: Pharynx is clear without erythema or exudate. Mucous membranes are moist. Neck supple without meningeal signs. Respiratory: Clear to auscultation bilaterally. Breath sounds are equal bilaterally. Cardiovascular: Regular rate and rhythm. No rubs or gallops. GI: Soft, nondistended with tenderness in the left lower quadrant and suprapubic region. No guarding. Bowel sounds are present. Musculoskeletal: No peripheral edema. No lower extremity tenderness. Integumentary: No cyanosis. or jaundice. Neurological: The patient is awake and alert. No focal deficits. Psychiatric: Slightly anxious. Course Administered Medications Discontinued Medications Piperacillin Sod/Tazobactam Sod (Zosyn) 4.5 gm in 120 mls @ 240 mls/hr IV NOW ONE Stop: 06/30/21 12:28 Last Infusion: 06/30/21 13:09 Dose: 0 mls/hr Documented by: [id number] Admin: 06/30/21 12:39 Dose: 240 mls/hr Documented by: [id number] Ioversol (Optiray 320 100ml) 94 ml IV ONCE ONE Stop: 06/30/21 11:11 Last Admin: 06/30/21 11:10 Dose: 94 ml Documented by: [id number] Morphine Sulfate (Morphine Sulfate 4 Mg/Ml 1 Ml Carp\Vial) 4 mg IV NOW STA Stop: 06/30/21 09:56 Last Admin: 06/30/21 10:20 Dose: 4 mg Documented by: [id number] Ondansetron HCl (Ondansetron Inj 2 Mg/Ml 2 Ml Vial) 4 mg IV NOW STA Stop: 06/30/21 09:56 Last Admin: 06/30/21 10:19 Dose: 4 mg Documented by: [id number] Medical Decision Making Differential Diagnosis Diverticulitis, perforation, abscess, colitis, IBS Medical Records Attestation: I reviewed the patient's medical records. I did perform a limited focused review of portions of the patient's old chart on the electronic medical record. The patient has had no recent pertinent visits to this hospital. The patient did see her life insurance sales agent on the fifth of this month for pessary maintenance. Home Medications Current Medication List: was personally reviewed by me Laboratory Data Attestation: I reviewed the patient's lab results. Result diagrams: 06/30/21 10:10 06/30/21 10:10 Lab Results 06/30/21 06/30/21 06/30/21 Range/Units 10:10 10:10 10:10 WBC 10.08 (4.8-10.8) K/uL RBC 4.37 (4.2-5.4) M/uL Hgb 13.1 (12.0-16.0) g/dL Hct 38.4 (37-47) % MCV 87.9 (80-100) fL MCH 30.0 (25-34) pg MCHC 34.1 (32-36) g/dL RDW Std Deviation 41.2 (36.4-46.3) fL RDW Coeff of Tiffanie 12.8 (11.5-14.5) % Plt Count 208 (130-400) K/uL MPV 9.5 (7.4-10.4) fL Immature Gran % (Auto) 0.2 % Neut % (Auto) 76.4 % Lymph % (Auto) 11.3 % Cata[place] % (Auto) 11.4 % Eos % (Auto) 0.6 % Baso % (Auto) 0.1 % Neut # (Auto) 7.70 H (1.4-6.5) K/uL Lymph # (Auto) 1.14 L (1.2-3.4) K/uL C[place] # (Auto) 1.15 H (0.11-0.59) K/uL Eos # (Auto) 0.06 (0-0.5) K/uL Baso # (Auto) 0.01 (0-0.2) K/uL Immature Gran # (Auto) 0.02 (0.00-0.02) K/uL Sodium 131 L (136-145) mmol/L Potassium 4.0 (3.5-5.1) mmol/L Chloride 98 (98-107) mmol/L Carbon Dioxide 27 (21-32) mmol/L Anion Gap 6 (3-11) BUN 10 (6-23) mg/dl Creatinine 0.55 L (0.6-1.2) mg/dl Est Cr Clr Drug Dosing 87.4 ml/min Est GFR ( Amer) 114.1 ml/min Est GFR (Non-Af Amer) 98.4 ml/min BUN/Creatinine Ratio 18.2 (10-20) Glucose 107 H (70-99(Fasting)) mg/dl Calcium 8.9 (8.5-10.1) mg/dl Total Bilirubin 0.9 (0.2-1.0) mg/dl AST 13 (13-39) U/L ALT 10 (7-52) U/L Alkaline Phosphatase 51 (34-104) U/L Total Protein 6.8 (6.0-8.3) gm/dl Albumin 4.1 (3.4-5.0) gm/dl Globulin 2.7 (2.5-4.0) gm/dl Albumin/Globulin Ratio 1.5 (0.9-2) Lipase 7 L (11-82) U/L Urine Color Yellow Urine Appearance Cloudy A (Clear) Urine pH 6.5 (4.5-7.5) Ur Specific [place] 1.018 (1.000-1.030) Urine Protein Negative (Negative) Urine Glucose (UA) Negative (Negative) Urine Ketones Trace H (Negative) Urine Blood 1+ H (Negative) Urine Nitrite Negative (Negative) Urine Bilirubin Negative (Negative) Urine Urobilinogen Negative (Negative) Ur Leukocyte Esterase 2+ H (Negative) Urine WBC (Auto) 10-30 H (0-5) /hpf Urine RBC (Auto) 5-10 H (0-4) /hpf U Hyaline Cast (Auto) 1-5 (0-5) /lpf U Epithel Cells (Auto) >30 H (0-5) /lpf Urine Bacteria (Auto) Negative (Negative) Urine RBC (0-4) /hpf Urine WBC (0-5) /hpf Ur Epithelial Cells (0-5) /lpf Urine Bacteria (Negative) SARS-CoV-2, RNA, NAAT (NEGATIVE) 06/30/21 06/30/21 Range/Units 12:09 12:45 WBC (4.8-10.8) K/uL RBC (4.2-5.4) M/uL Hgb (12.0-16.0) g/dL Hct (37-47) % MCV (80-100) fL MCH (25-34) pg MCHC (32-36) g/dL RDW Std Deviation (36.4-46.3) fL RDW Coeff of Tiffanie (11.5-14.5) % Plt Count (130-400) K/uL MPV (7.4-10.4) fL Immature Gran % (Auto) % Neut % (Auto) % Lymph % (Auto) % [place] % (Auto) % Eos % (Auto) % Baso % (Auto) % Neut # (Auto) (1.4-6.5) K/uL Lymph # (Auto) (1.2-3.4) K/uL [place] # (Auto) (0.11-0.59) K/uL Eos # (Auto) (0-0.5) K/uL Baso # (Auto) (0-0.2) K/uL Immature Gran # (Auto) (0.00-0.02) K/uL Sodium (136-145) mmol/L Potassium (3.5-5.1) mmol/L Chloride (98-107) mmol/L Carbon Dioxide (21-32) mmol/L Anion Gap (3-11) BUN (6-23) mg/dl Creatinine (0.6-1.2) mg/dl Est Cr Clr Drug Dosing ml/min Est GFR ( Amer) ml/min Est GFR (Non-Af Amer) ml/min BUN/Creatinine Ratio (10-20) Glucose (70-99(Fasting)) mg/dl Calcium (8.5-10.1) mg/dl Total Bilirubin (0.2-1.0) mg/dl AST (13-39) U/L ALT (7-52) U/L Alkaline Phosphatase (34-104) U/L Total Protein (6.0-8.3) gm/dl Albumin (3.4-5.0) gm/dl Globulin (2.5-4.0) gm/dl Albumin/Globulin Ratio (0.9-2) Lipase (11-82) U/L Urine Color Yellow Urine Appearance Clear (Clear) Urine pH 7.0 (4.5-7.5) Ur Specific [place] 1.022 (1.000-1.030) Urine Protein Negative (Negative) Urine Glucose (UA) Negative (Negative) Urine Ketones Negative (Negative) Urine Blood Trace H (Negative) Urine Nitrite Negative (Negative) Urine Bilirubin Negative (Negative) Urine Urobilinogen Negative (Negative) Ur Leukocyte Esterase Negative (Negative) Urine WBC (Auto) (0-5) /hpf Urine RBC (Auto) (0-4) /hpf U Hyaline Cast (Auto) (0-5) /lpf U Epithel Cells (Auto) (0-5) /lpf Urine Bacteria (Auto) (Negative) Urine RBC 0-4 (0-4) /hpf Urine WBC 0-5 (0-5) /hpf Ur Epithelial Cells 0-5 (0-5) /lpf Urine Bacteria Negative (Negative) SARS-CoV-2, RNA, NAAT NEGATIVE (NEGATIVE) Imaging Data Radiologist's Impression: Abdomen/Pelvis CT 06/30/21 09:55 CT SCAN OF THE ABDOMEN AND PELVIS WITH IV CONTRAST CLINICAL HISTORY: Lower abdominal pain. COMPARISON STUDY: Pelvic ultrasound dated 06/05/2020. TECHNIQUE: Following the IV administration of 94 cc of Optiray 320, CT scan of the abdomen and pelvis is performed from the lung bases to the proximal femora. Images are reviewed in the axial, sagittal, and coronal planes. IV contrast was administered without complication. A dose lowering technique was utilized adhering to the principles of ALARA. CT DOSE: 270.73 mGy.cm FINDINGS: Lung bases: The heart is normal in size and without pericardial effusion. Segmental atelectasis is noted at the lung bases. No airspace consolidation or pleural effusion is identified. Liver: The contrast-enhanced liver is normal in size, contour, and attenuation. Fatty infiltration is noted adjacent to the falciform ligament. There is no intrahepatic biliary ductal dilatation. The hepatic veins and portal veins are patent. Gallbladder: Unremarkable. Spleen: Normal in size and attenuation. Pancreas: Unremarkable. Adrenal glands: Unremarkable. Kidneys: The contrast enhanced kidneys. There is mild bilateral hydroureteronephrosis, left greater than right. Urothelial thickening and enhancement is suggested in both ureters. A 4 mm nonobstructing calculus is noted on the right. The kidneys enhance symmetrically. An 8 mm angiomyolipoma is noted in the interpolar left kidney. Abdominal vasculature: The abdominal aorta is normal in course and caliber noting mild atherosclerotic calcification. Bowel: There is moderate to advanced colonic diverticulosis. There is significant wall thickening with pericolonic inflammation and fluid involving the sigmoid colon consistent with severe acute diverticulitis. No organized fluid collection is clearly identified to indicate abscess. No bowel obstruction is identified. Mild fecal retention is seen throughout the colon. The appendix is well-visualized and normal. Peritoneum: No intraperitoneal free air is identified. There is a small amount of free fluid in the pelvis. Lymphadenopathy: None. Pelvic viscera: The bladder is distended but otherwise normal in appearance. The uterus and adnexa are normal as visualized. A vaginal pessary is in place. Skeletal structures: The skeletal structures are heterogeneously osteopenic. There are chronic-appearing compression deformities of T11, T12, L1, L2, L3, and L4. There are healed left-sided rib fractures. No lytic or blastic lesions are seen. IMPRESSION: 1. There is moderate to advanced colonic diverticulosis with evidence of severe acute sigmoid diverticulitis. 2. No intraperitoneal free air is identified and no organized/drainable fluid collection is clearly seen to indicate abscess. 3. There is mild bilateral hydroureteronephrosis, left greater than right. This could related to bladder distention and the inflammatory process in the left pelvis. 4. Mild urothelial thickening and enhancement is suggested involving both ureters. Correlate with clinical findings and urinalysis. 5. No bowel obstruction. 6. Free fluid in the pelvis is likely reactive. 7. Right-sided nephrolithiasis. 8. Additional findings as above. ACT 112: Negative or not required by law. Electronically signed by: Donell Garg M.D. 06/30/2021 11:24 AM MDM Narrative I did evaluate the patient as noted above. She is presenting with about 10 days of lower abdominal pain. She does have a prior history of diverticulitis. IV access was established. I did treat her with IV morphine and Zofran. I did order a urine analysis. She had leukocyte esterase and WBCs but also greater than 30 epithelial cells. I did order and review the patient's blood work as noted in the electronic medical record. Her white count is elevated 10.08 with a left shift. She is not anemic. Sodium is 131. LFTs and lipase are unremarkable. I did order a CT of the abdomen and pelvis. I did review the images myself as well as the radiology report as described above. She has severe sigmoid diverticulitis without perforation or abscess. She also appears to have bilateral hydroureteronephrosis which may be due to bladder distention. Given the findings of obstructive uropathy I did recommend we do a urine cath specimen which she agreed to. Repeat urine analysis shows no evidence of infection. Due to her severe diverticulitis I did treat her with Zosyn 4.5 g IV. She did not feel well enough to go home and I did feel hospitalization was reasonable given her findings and pain. I did order a Covid screening test which was negative. I did discuss case with the hospitalist and case management specialist. Impression & Plan Sigmoid diverticulitis, Acute hyponatremia, Hydroureteronephrosis Discharge Plan Visit Data Chief Complaint: Abdominal Pain Stated Complaint: LOWER ABD PAIN ED Provider: Moshe Navarro Discharge Problem: Sigmoid diverticulitis, Acute hyponatremia, Hydroureteronephrosis Patient Disposition: Being Evaluated by Hospitalist Discharge Instructions Interventions: ED Discharge Assessment Last Done: 06/30/21 13:44 Forms Stand Alone Forms: My [facility] Prescriptions Prescriptions: No Action calcium carbonate 600 mg calcium (1,500 mg) tablet 600 mg PO QDD RF: 0 cholecalciferol (vitamin D3) 1,000 unit (25 mcg) tablet 1,000 units PO QAM RF: 0 multivitamin Tablet 1 tab PO HS RF: 0 ascorbic acid (vitamin C) [Vitamin C] 1,000 mg Tablet 1,000 mg PO QAM RF: 0 levothyroxine [Levoxyl] 75 mcg tablet 75 mcg PO DAILYBB RF: 0 potassium chloride [Klor-Con M10] 10 mEq tablet,ER particles/crystals 10 meq PO Q2D RF: 0 aspirin [Aspir-81] 81 mg Tablet,Delayed Release (Dr/Ec) 81 mg PO QAM RF: 0 Referrals Referrals: Iban Whaley, [Primary Care Provider] -
[2021-06-30 10:29] LABS: Basophils # (auto) 0.01 K/uL (0-0.2); Basophils % (auto) 0.1 %; Eosinophils # (auto) 0.06 K/uL (0-0.5); Eosinophils % (auto) 0.6 %; Hematocrit (blood only) 38.4 % (37-47); Hemoglobin 13.1 g/dL (12.0-16.0); Immature Granulocytes # (auto) 0.02 K/uL (0.00-0.02); Immature Granulocytes % (auto) 0.2 %; Lymphocytes # (auto) 1.14 K/uL (1.2-3.4); Lymphocytes % (auto) 11.3 %; Mean Corpuscular Hgb Conc 34.1 g/dL (32-36); Mean Corpuscular Volume 87.9 fL (80-100); Mean Platelet Volume 9.5 fL (7.4-10.4); Monocytes # (auto) 1.15 K/uL (0.11-0.59); Monocytes % (auto) 11.4 %; Neutrophils % (auto) 76.4 %; Platelet Count 208 K/uL (130-400); RDW Coefficient of Variation 12.8 % (11.5-14.5); RDW Standard Deviation 41.2 fL (36.4-46.3); Red Blood Count 4.37 M/uL (4.2-5.4); White Blood Count 10.08 K/uL (4.8-10.8)
[2021-06-30 10:43] LABS: Appearance Urine Cloudy (Clear); Bacteria Urine Automated Negative (Negative); Bilirubin Urine Negative (Negative); Blood Urine 1+ (Negative); Color Urine Yellow; Epithelial Cell Urine Auto >30 /lpf (0-5); Glucose Urine UA Negative (Negative); Ketones Urine Trace (Negative); Leukocyte Esterase Urine 2+ (Negative); Nitrite Urine Negative (Negative); Protein Urine Negative (Negative); Specific Gravity Urine 1.018 (1.000-1.030); Urobilinogen Urine Negative (Negative); pH Urine 6.5 (4.5-7.5)
[2021-06-30 10:56] LABS: Albumin Globulin Ratio 1.5 (0.9-2); Albumin Level 4.1 gm/dl (3.4-5.0); BUN Creatinine Ratio 18.2 (10-20); Bilirubin,Total 0.9 mg/dl (0.2-1.0); Calcium 8.9 mg/dl (8.5-10.1); Creatinine Clr Calc Pharmacy 87.4 ml/min; Est GFR (African American) 114.1 ml/min; Est GFR (Non-African American) 98.4 ml/min; Globulin 2.7 gm/dl (2.5-4.0); Total Protein 6.8 gm/dl (6.0-8.3)
[2021-06-30] MEDS ORDERED: OPTIRAY 320 100ml IV ONE (11:10)
--- NOTE | 2021-06-30 11:26 | CT Scan Report ---
CT SCAN OF THE ABDOMEN AND PELVIS WITH IV CONTRAST CLINICAL HISTORY: Lower abdominal pain. COMPARISON STUDY: Pelvic ultrasound dated 06/05/2020. TECHNIQUE: Following the IV administration of 94 cc of Optiray 320, CT scan of the abdomen and pelvi s is performed from the lung bases to the proximal femora. Images are reviewed in the axial, sagittal , and coronal planes. IV contrast was administered without complication. A dose lowering technique wa s utilized adhering to the principles of ALARA. CT DOSE: 270.73 mGy.cm FINDINGS: Lung bases: The heart is normal in size and without pericardial effusion. Segmental atelectasis is no jeane at the lung bases. No airspace consolidation or pleural effusion is identified. Liver: The contrast-enhanced liver is normal in size, contour, and attenuation. Fatty infiltration is noted adjacent to the falciform ligament. There is no intrahepatic biliary ductal dilatation. The he patic veins and portal veins are patent. Gallbladder: Unremarkable. Spleen: Normal in size and attenuation. Pancreas: Unremarkable. Adrenal glands: Unremarkable. Kidneys: The contrast enhanced kidneys. There is mild bilateral hydroureteronephrosis, left greater t zelaya right. Urothelial thickening and enhancement is suggested in both ureters. A 4 mm nonobstructing calculus is noted on the right. The kidneys enhance symmetrically. An 8 mm angiomyolipoma is noted in the interpolar left kidney. Abdominal vasculature: The abdominal aorta is normal in course and caliber noting mild atheroscleroti c calcification. Bowel: There is moderate to advanced colonic diverticulosis. There is significant wall thickening wit h pericolonic inflammation and fluid involving the sigmoid colon consistent with severe acute diverti culitis. No organized fluid collection is clearly identified to indicate abscess. No bowel obstructio n is identified. Mild fecal retention is seen throughout the colon. The appendix is well-visualized and normal. Peritoneum: No intraperitoneal free air is identified. There is a small amount of free fluid in the p michael. Lymphadenopathy: None. Pelvic viscera: The bladder is distended but otherwise normal in appearance. The uterus and adnexa ar e normal as visualized. A vaginal pessary is in place. Skeletal structures: The skeletal structures are heterogeneously osteopenic. There are chronic-appear ing compression deformities of T11, T12, L1, L2, L3, and L4. There are healed left-sided rib fracture s. No lytic or blastic lesions are seen. IMPRESSION: 1. There is moderate to advanced colonic diverticulosis with evidence of severe acute sigmoid diverti culitis. 2. No intraperitoneal free air is identified and no organized/drainable fluid collection is clearly s een to indicate abscess. 3. There is mild bilateral hydroureteronephrosis, left greater than right. This could related to blad kavita distention and the inflammatory process in the left pelvis. 4. Mild urothelial thickening and enhancement is suggested involving both ureters. Correlate with cli nical findings and urinalysis. 5. No bowel obstruction. 6. Free fluid in the pelvis is likely reactive. 7. Right-sided nephrolithiasis. 8. Additional findings as above. ACT 112: Negative or not required by law. Electronically signed by: Donell Garg M.D. 06/30/2021 11:24 AM
[2021-06-30] MEDS ORDERED: PIPERACILL/TAZOBAC CONSULT ACTIVE PRN (11:59)
[2021-06-30] MEDS ORDERED: PIPERACILLIN/TAZOBACTAM 4.5 GM/120 ML BAG IV ONE (11:59)
--- NOTE | 2021-06-30 12:10 | History & Physical Report ---
Date of Service June 30, 2021 Assessment & Plan (1) Sigmoid diverticulitis: (2) Acute diverticulitis of intestine: (3) Paroxysmal atrial fibrillation: (4) Hypothyroidism: Plan: Severe acute sigmoid diverticulitis without complication- 2nd episode, last one was in 10/2019. CT A/P reviewed- shows severe acute sigmoid diverticulitis without perforation or abscess. Continue zosyn, npo, analgesics prn. Slowly advance diet as tolerated, back off if pain recurs. Consider surgery evaluation if worsening pain or fever/chills or if complications suspected. Will need repeat colonoscopy in about 6 weeks. Mild bilateral HDN Left >right- states voiding without issues. Likely related to inflammation from above. Monitor bladder scan. If retaining, decompress with mitchell but currently not indicated. Recommend repeat renal US in the next few days to ensure stability or improving. PAF s/p ablation- now off of anticoagulation, follows with cardio. Continue sotalol Hypothyroidism- continue synthroid Hyponatremia- mild, getting IVF, recheck in am. DVT prophylaxis- sc lovenox Code status- Full code Dispo- Medsurg. Admit to inpatient Update- Updated at bedside. Answered all questions. History of Present Illness Chief Complaint: Abdominal pain Primary Care Provider: Iban Whaley DO 65 year old female with h/o PAF s/p ablation and now off of anticoagulation, h/o sigmoid diverticulitis with abscess 10/2019, osteoporosis on prolia, hypothyroidism who presented to the ED with severe lower abdominal pain. Started 9 days back on Thursday with mild abdominal pain and was seen by her physician on Thursday and was put on BRAT diet with improvement. She then advanced her diet and was doing okay until 2 days back when she had severe lower abdominal pain which continued all day yesterday and today for which she came to the ED. No fever, chills, nausea, vomiting. Voiding without issues. She denies constipation but not having good bowel movement over the past week. In the ED, she was afebrile hemodynamically stable. Found to have severe acute sigmoid diverticulitis with no abscess or perforation. Given IVF, zosyn and morphine. Pain is currently controlled with morphine. Allergies Allergy/AdvReac Type Severity Reaction Status Date / Time latex Allergy Unknown RASH Verified 06/30/21 12:47 erythromycin base AdvReac Unknown UPSET Verified 06/30/21 12:47 STOMACH Home Medications Medication Instructions Recorded Confirmed Type calcium carbonate 600 mg calcium 600 mg PO QDD tab 11/18/18 06/25/21 History (1,500 mg) tablet cholecalciferol (vitamin D3) 25 1,000 units PO QAM 11/18/18 06/25/21 History mcg (1,000 unit) tablet ascorbic acid (vitamin C) 1,000 mg 1,000 mg PO QAM 07/23/19 06/25/21 History tablet (Vitamin C) levothyroxine 75 mcg tablet 75 mcg PO QAM 07/23/19 06/25/21 History (Levoxyl) multivitamin 1 tab PO HS 07/23/19 06/25/21 History potassium chloride 10 mEq 10 meq PO Q2D 11/10/19 06/25/21 History tablet,extended release(part/cryst) (Klor-Con M) aspirin 81 mg tablet,delayed 81 mg PO QAM 06/30/21 06/30/21 History release Past Med/Surg History Medical History History of chicken pox History of colonic polyps History of osteoarthritis History of osteoporosis Hypomagnesemia Hypothyroidism Surgical History S/P dilation and curettage S/P eye surgery laser surgery of right eye- lens replacement 05/1991 S/P sinus surgery 07/2015 S/P thyroidectomy 07/2008 S/P tonsillectomy 196 S/P wisdom tooth extraction Family History Family/Other Osteoarthritis Diabetes Heart disease Hypertension Dyslipidemia Osteoporosis Thyroid disorder Colorectal cancer Social History Smoking Status: Never smoker Second Hand Exposure: No; Hx Alcohol Use: Yes Alcohol type: wine Alcohol Intake Frequency Comment: 1 drink 3-5 times a week Hx Substance Use: No Preferred Language: Citizen Of [place] Communication Ability: Effective Net Ui Developer Required: No Beliefs That Will Affect Care: None Current Living Situation: Spouse Feels Safe at Home: Yes Physical Activity Frequency: 3-4 Times per Week Physical Activity Frequency Comment: 30 minutes Assistive Devices: Glasses Review of Systems Review of Systems: All systems reviewed & are unremarkable except as noted in Subjective Physical Exam Physical Exam: General: Lying comfortably in bed, not in acute distress, on room air HEENT: EOMI, [place], MMM Chest: Clear breath sounds bilaterally, no wheezes or crackles CVS: Regular rate and rhythm, normal heart sounds, no murmur Abdomen: Soft, tender LLQ, not distended, normal bowel sounds Neuro: Awake, alert, oriented, conversing well, non focal Extremities: No cyanosis, clubbing or edema Results & Data Results & Data ([facility]) Vital Signs (Past 12 Hours) Vital Signs Temp Pulse Pulse Resp BP BP Pulse Ox 06/30/21 11:25 71 16 121/79 95 06/30/21 10:33 96 06/30/21 09:43 36.7 C 88 18 130/84 98 Laboratory Results Short CBC 06/30/21 Range/Units 10:10 WBC 10.08 (4.8-10.8) K/uL Hgb 13.1 (12.0-16.0) g/dL Hct 38.4 (37-47) % Plt Count 208 (130-400) K/uL BMP 06/30/21 10:10 Sodium 131 L Potassium 4.0 Chloride 98 Carbon Dioxide 27 BUN 10 Creatinine 0.55 L Glucose 107 H Calcium 8.9 Liver Function 06/30/21 Range/Units 10:10 Total Bilirubin 0.9 (0.2-1.0) mg/dl AST 13 (13-39) U/L ALT 10 (7-52) U/L Alkaline Phosphatase 51 (34-104) U/L Albumin 4.1 (3.4-5.0) gm/dl Urine 06/30/21 06/30/21 Range/Units 10:10 12:09 Urine Color Yellow Yellow Urine Appearance Cloudy A Clear (Clear) Urine pH 6.5 7.0 (4.5-7.5) Ur Specific Cle[place] 1.018 1.022 (1.000-1.030) Urine Protein Negative Negative (Negative) Urine Glucose (UA) Negative Negative (Negative) Diagnostic Findings Abdomen/Pelvis CT 06/30/21 09:55 CT SCAN OF THE ABDOMEN AND PELVIS WITH IV CONTRAST CLINICAL HISTORY: Lower abdominal pain. COMPARISON STUDY: Pelvic ultrasound dated 06/05/2020. TECHNIQUE: Following the IV administration of 94 cc of Optiray 320, CT scan of the abdomen and pelvis is performed from the lung bases to the proximal femora. Images are reviewed in the axial, sagittal, and coronal planes. IV contrast was administered without complication. A dose lowering technique was utilized adhering to the principles of ALARA. CT DOSE: 270.73 mGy.cm FINDINGS: Lung bases: The heart is normal in size and without pericardial effusion. Segmental atelectasis is noted at the lung bases. No airspace consolidation or pleural effusion is identified. Liver: The contrast-enhanced liver is normal in size, contour, and attenuation. Fatty infiltration is noted adjacent to the falciform ligament. There is no intrahepatic biliary ductal dilatation. The hepatic veins and portal veins are patent. Gallbladder: Unremarkable. Spleen: Normal in size and attenuation. Pancreas: Unremarkable. Adrenal glands: Unremarkable. Kidneys: The contrast enhanced kidneys. There is mild bilateral hydroureteronephrosis, left greater than right. Urothelial thickening and enhancement is suggested in both ureters. A 4 mm nonobstructing calculus is noted on the right. The kidneys enhance symmetrically. An 8 mm angiomyolipoma is noted in the interpolar left kidney. Abdominal vasculature: The abdominal aorta is normal in course and caliber noting mild atherosclerotic calcification. Bowel: There is moderate to advanced colonic diverticulosis. There is significant wall thickening with pericolonic inflammation and fluid involving the sigmoid colon consistent with severe acute diverticulitis. No organized fluid collection is clearly identified to indicate abscess. No bowel obstruction is identified. Mild fecal retention is seen throughout the colon. The appendix is well-visualized and normal. Peritoneum: No intraperitoneal free air is identified. There is a small amount of free fluid in the pelvis. Lymphadenopathy: None. Pelvic viscera: The bladder is distended but otherwise normal in appearance. The uterus and adnexa are normal as visualized. A vaginal pessary is in place. Skeletal structures: The skeletal structures are heterogeneously osteopenic. There are chronic-appearing compression deformities of T11, T12, L1, L2, L3, and L4. There are healed left-sided rib fractures. No lytic or blastic lesions are seen. IMPRESSION: 1. There is moderate to advanced colonic diverticulosis with evidence of severe acute sigmoid diverticulitis. 2. No intraperitoneal free air is identified and no organized/drainable fluid collection is clearly seen to indicate abscess. 3. There is mild bilateral hydroureteronephrosis, left greater than right. This could related to bladder distention and the inflammatory process in the left pelvis. 4. Mild urothelial thickening and enhancement is suggested involving both ureters. Correlate with clinical findings and urinalysis. 5. No bowel obstruction. 6. Free fluid in the pelvis is likely reactive. 7. Right-sided nephrolithiasis. 8. Additional findings as above. ACT 112: Negative or not required by law. Electronically signed by: Donell Garg M.D. 06/30/2021 11:24 AM
[2021-06-30 12:23] LABS: Appearance Urine Clear (Clear); Bilirubin Urine Negative (Negative); Blood Urine Trace (Negative); Color Urine Yellow; Glucose Urine UA Negative (Negative); Ketones Urine Negative (Negative); Leukocyte Esterase Urine Negative (Negative); Nitrite Urine Negative (Negative); Protein Urine Negative (Negative); Specific Gravity Urine 1.022 (1.000-1.030); Urobilinogen Urine Negative (Negative)
[2021-06-30 12:31] LABS: Bacteria Urine Negative (Negative); Epithelial Cell Urine 0-5 /lpf (0-5); RBC Urine 0-4 /hpf (0-4); WBC Urine 0-5 /hpf (0-5)
[2021-06-30] MEDS ORDERED: SODIUM CHLORIDE 0.9% 500 ML IV SCH (15:03)
[2021-06-30] MEDS: MoRPHine SULFATE 2 MG/ML CARP IV PRN ×2 (15:06→22:19)
[2021-06-30] MEDS: SODIUM CHLORIDE 0.9% 1000ML 1,000 ML IV SCH (16:13)
[2021-06-30] MEDS: PIPERACILLIN/TAZOBACTAM 3.375 GM in DEXTROSE 5% 100 ML IV SCH (17:42)
[2021-06-30] MEDS: ENOXAPARIN INJ 40 MG/0.4 ML SYR SQ SCH (17:42)
[2021-06-30] MEDS: SOTALOL HCL 80 MG TAB PO SCH (20:37)
[2021-07-01] MEDS: PIPERACILLIN/TAZOBACTAM 3.375 GM in DEXTROSE 5% 100 ML IV SCH ×2 (01:50→10:24)
[2021-07-01] MEDS: SODIUM CHLORIDE 0.9% 1000ML 1,000 ML IV SCH ×2 (01:50→13:59)
[2021-07-01] MEDS: LEVOTHYROXINE SODIUM 75 MCG TABLET PO SCH (07:13)
[2021-07-01] MEDS: SOTALOL HCL 80 MG TAB PO SCH (07:35)
[2021-07-01 08:13] LABS: Basophils # (auto) 0.02 K/uL (0-0.2); Basophils % (auto) 0.3 %; Eosinophils # (auto) 0.14 K/uL (0-0.5); Eosinophils % (auto) 1.8 %; Hematocrit (blood only) 35.2 % (37-47); Immature Granulocytes # (auto) 0.01 K/uL (0.00-0.02); Immature Granulocytes % (auto) 0.1 %; Lymphocytes # (auto) 1.46 K/uL (1.2-3.4); Lymphocytes % (auto) 18.8 %; Mean Corpuscular Hemoglobin 30.2 pg (25-34); Mean Corpuscular Hgb Conc 34.1 g/dL (32-36); Mean Corpuscular Volume 88.4 fL (80-100); Mean Platelet Volume 9.6 fL (7.4-10.4); Monocytes # (auto) 0.74 K/uL (0.11-0.59); Monocytes % (auto) 9.5 %; Neutrophils # (auto) 5.41 K/uL (1.4-6.5); Neutrophils % (auto) 69.5 %; Platelet Count 199 K/uL (130-400); RDW Standard Deviation 42.4 fL (36.4-46.3); Red Blood Count 3.98 M/uL (4.2-5.4); White Blood Count 7.78 K/uL (4.8-10.8)
[2021-07-01 08:44] LABS: BUN Creatinine Ratio 16.7 (10-20); Creatinine Clr Calc Pharmacy 80.1 ml/min; Est GFR (African American) 110.9 ml/min; Est GFR (Non-African American) 95.7 ml/min; Potassium 3.9 mmol/L (3.5-5.1)
[2021-07-01] MEDS: MoRPHine SULFATE 2 MG/ML CARP IV PRN (10:24)
[2021-07-01] MEDS: ENOXAPARIN INJ 40 MG/0.4 ML SYR SQ SCH (14:07)
[2021-07-01] MEDS: cefTRIAXone SODIUM 1,000 MG in DEXTROSE 5% 50 ML IV SCH (16:14)
[2021-07-01] MEDS: POTASSIUM CHLORIDE 10 MEQ TABCR PO SCH (16:26)
[2021-07-01] MEDS: metroNIDAZOLE 500 MG/100 ML BAG IV SCH (17:22)
[2021-07-01] MEDS: MULTIVITAMIN TAB PO SCH (20:51)
[2021-07-01] MEDS: ASPIRIN 81 MG ECTAB PO SCH (20:51)
--- NOTE | 2021-07-01 23:30 | Hospitalist Progress Note ---
Date of Service July 01, 2021 Assessment & Plan (1) Sigmoid diverticulitis: (2) Acute diverticulitis of intestine: (3) Paroxysmal atrial fibrillation: (4) Hypothyroidism: Plan: Present on admission with worsening abdominal pain CT abd/pelvis showedmoderate to advanced colonic diverticulosis with evidence of severe acute sigmoid diverticulitis perforation or abscess. Continue conservative management with IV Zosyn, IVF and pain control Consider surgery evaluation if pain worsening or fever/chills or if complications suspected. Will need outpatient colonoscopy iin 8 weeks. Will keep NPO, but ok with ice and chips Clinically improves Mild bilateral Hydronephrosis CT showed mild bilateral hydroureteronephrosis, left greater than right. This could related to bladder distention and the inflammatory process in the left pelvis. creatinine stable PAF s/p ablation- now off of anticoagulation Pt said that she is no longer on sotalol that it was discontinued. Will d/c it Hypothyroidism- continue synthroid Hyponatremia Na 136 Stable DVT prophylaxis- sc lovenox Code status- Full code Disposition Will discharge once medically stable Admission and Anticipated Discharge Date Admission Date: June 30, 2021 Subjective Patient was seen and examined for follow-up of abdominal She has been walking in the hallway with no acute distress She said abdominal pain slightly improved Denies chest pain, palpitation dizziness and shortness of breath Review of Systems Review of Systems: All systems reviewed & are unremarkable except as noted in Subjective Physical Exam Physical Exam: General- No acute distress Head- atraumatic Eyes- PERRL, EOMI, ENT- oropharynx clear Neck- supple, no JVD Lungs- clear to auscultation Heart- regular rhythm; no murmur Abdomen- normal bowel sounds, +tenderness in mid abdomen Extremities- no calf tenderness Neuro- alert, oriented x 3; PERRL, EOMI; no facial palsy; no dysarthria Skin- warm & dry Results & Data Results & Data ([facility]) Vital Signs (Past 12 Hours) Vital Signs Temp Pulse Resp BP Pulse Ox 07/01/21 15:06 36.8 C 74 16 107/62 96
[2021-07-02] MEDS: metroNIDAZOLE 500 MG/100 ML BAG IV SCH ×3 (01:39→17:50)
[2021-07-02] MEDS: SODIUM CHLORIDE 0.9% 1000ML 1,000 ML IV SCH ×2 (01:39→13:32)
[2021-07-02] MEDS: LEVOTHYROXINE SODIUM 75 MCG TABLET PO SCH (07:09)
[2021-07-02] MEDS: ASCORBIC ACID 500 MG TAB PO SCH (07:49)
[2021-07-02] MEDS: CHOLECALCIFEROL 1,000 UNITS 25 MCG TAB PO SCH (07:50)
[2021-07-02] MEDS: ASPIRIN 81 MG ECTAB PO SCH (09:01)
[2021-07-02 10:23] LABS: BUN Creatinine Ratio 18.4 (10-20); Calcium 7.5 mg/dl (8.5-10.1); Creatinine Clr Calc Pharmacy 98.1 ml/min; Est GFR (African American) 118.5 ml/min; Est GFR (Non-African American) 102.2 ml/min; Magnesium 1.9 mg/dl (1.7-2.4); Phosphorus 2.2 mg/dl (2.5-4.9); Potassium 3.6 mmol/L (3.5-5.1)
[2021-07-02] MEDS ORDERED: POTASSIUM PHOS 3 MMOL/1 ML INFUSION IV STA (12:37)
[2021-07-02] MEDS ORDERED: POTASSIUM PHOSPHATE 9 MMOL in SODIUM CHLORIDE 0.9% 250 ML IV ONE (12:45)
[2021-07-02] MEDS ORDERED: SODIUM CHLORIDE 0.9% 1000ML 1,000 ML IV SCH (14:00)
[2021-07-02] MEDS: ENOXAPARIN INJ 40 MG/0.4 ML SYR SQ SCH (15:34)
[2021-07-02] MEDS: cefTRIAXone SODIUM 1,000 MG in DEXTROSE 5% 50 ML IV SCH (16:15)
[2021-07-02] MEDS ORDERED: CALCIUM CARBONATE 1250MG TAB PO SCH (16:30)
--- NOTE | 2021-07-02 17:05 | Hospitalist Progress Note ---
Date of Service July 02, 2021 Assessment & Plan (1) Sigmoid diverticulitis: (2) Acute diverticulitis of intestine: (3) Paroxysmal atrial fibrillation: (4) Hypothyroidism: Plan: Present on admission with worsening abdominal pain CT abd/pelvis showedmoderate to advanced colonic diverticulosis with evidence of severe acute sigmoid diverticulitis perforation or abscess. Continue conservative management with IV Zosyn, IVF and pain control Consider surgery evaluation if pain worsening or fever/chills or if complications suspected. Tolerated clear liquid diet, will advance to full liquid diet Abx was changed to Ceftriaxone and Flagyl Will transition to PO abx on discharge Will need outpatient colonoscopy in 6-8 weeks. Clinically improves significantly Plan to discharge tomorrow if tolerates diet Mild bilateral Hydronephrosis CT showed mild bilateral hydroureteronephrosis, left greater than right. This could related to bladder distention and the inflammatory process in the left pelvis. Creatinine stable Will need outpatient follow up Hypophosphatemia Phosphate 2.2 today Phosphate replaced Continue monitor electrolytes Abnormal Urine Urine cx grew group B strep Asymptomatic, but already on ceftriaxone for the diverticulitis PAF s/p ablation- now off of anticoagulation Pt said that she is no longer on sotalol that it was discontinued. Sotalol discontinued since pt has no longer on it Hypothyroidism- continue Synthroid Hyponatremia Na 134 Stable DVT prophylaxis- sc Lovenox Code status- Full code Disposition Possible discharge home tomorrow Admission and Anticipated Discharge Date Admission Date: June 30, 2021 Subjective Patient was seen and examined for follow-up of diverticulitis sitting in bed with family at bedside ( and daughter) She has been walking in the hallway with no acute distress She said that she feels a lot better She was able to tolerate clear liquid diet Denies chest pain, palpitation dizziness and shortness of breath Review of Systems Review of Systems: All systems reviewed & are unremarkable except as noted in Subjective Physical Exam Physical Exam: General- No acute distress Head- atraumatic Eyes- PERRL, EOMI, ENT- oropharynx clear Neck- supple, no JVD Lungs- clear to auscultation Heart- regular rhythm; no murmur Abdomen- normal bowel sounds, +tenderness in mid abdomen Extremities- no calf tenderness Neuro- alert, oriented x 3; PERRL, EOMI; no facial palsy; no dysarthria Skin- warm & dry Results & Data Results & Data ([facility]) Vital Signs (Past 12 Hours) Vital Signs Temp Pulse Resp BP BP Pulse Ox 07/02/21 15:24 36.4 C L 66 16 112/71 98 07/02/21 07:42 37.2 C 70 16 102/70 98
[2021-07-02] MEDS: MULTIVITAMIN TAB PO SCH (20:57)
[2021-07-03] MEDS: metroNIDAZOLE 500 MG/100 ML BAG IV SCH (02:08)
[2021-07-03 07:04] LABS: BUN Creatinine Ratio 6.7 (10-20); Calcium 7.8 mg/dl (8.5-10.1); Creatinine Clr Calc Pharmacy 106.8 ml/min; Est GFR (African American) 121.9 ml/min; Est GFR (Non-African American) 105.1 ml/min; Potassium 3.6 mmol/L (3.5-5.1)
[2021-07-03] MEDS: LEVOTHYROXINE SODIUM 75 MCG TABLET PO SCH (07:16)
[2021-07-03] MEDS: ASPIRIN 81 MG ECTAB PO SCH (09:56)
[2021-07-03] MEDS: ASCORBIC ACID 500 MG TAB PO SCH (09:56)
[2021-07-03] MEDS: CHOLECALCIFEROL 1,000 UNITS 25 MCG TAB PO SCH (09:56)
[2021-07-03] MEDS: metroNIDAZOLE 500 MG TAB PO SCH ×2 (11:51→15:47)
[2021-07-03] MEDS ORDERED: POT PHOSPHATE MONOBASIC W/ SOD TAB PO SCH (13:00)
--- NOTE | 2021-07-03 14:01 | Discharge Summary ---
Date of Service July 03, 2021 Admission HPI Per Admitting Provider 65 year old female with h/o PAF s/p ablation and now off of anticoagulation, h/o sigmoid diverticulitis with abscess 10/2019, osteoporosis on prolia, hypothyroidism who presented to the ED with severe lower abdominal pain. Started 9 days back on Thursday with mild abdominal pain and was seen by her physician on Thursday and was put on BRAT diet with improvement. She then advanced her diet and was doing okay until 2 days back when she had severe lower abdominal pain which continued all day yesterday and today for which she came to the ED. No fever, chills, nausea, vomiting. Voiding without issues. She denies constipation but not having good bowel movement over the past week. In the ED, she was afebrile hemodynamically stable. Found to have severe acute sigmoid diverticulitis with no abscess or perforation. Given IVF, zosyn and morphine. Pain is currently controlled with morphine. Admission Exam Per Admitting Provider General: Lying comfortably in bed, not in acute distress, on room air HEENT: EOMI, [place], MMM Chest: Clear breath sounds bilaterally, no wheezes or crackles CVS: Regular rate and rhythm, normal heart sounds, no murmur Abdomen: Soft, tender LLQ, not distended, normal bowel sounds Neuro: Awake, alert, oriented, conversing well, non focal Extremities: No cyanosis, clubbing or edema Principal Diagnosis Acute sigmoid diverticulitis without complication Discharge Exam General: Sitting comfortably in chair, not in acute distress, on room air HEENT: EOMI, [place], MMM Chest: Clear breath sounds bilaterally, no wheezes or crackles CVS: Regular rate and rhythm, normal heart sounds, no murmur Abdomen: Soft,non tender, not distended, normal bowel sounds Neuro: Awake, alert, oriented, conversing well, non focal Extremities: No cyanosis, clubbing or edema Discharge Data Allergies Allergy/AdvReac Type Severity Reaction Status Date / Time latex Allergy Unknown RASH Verified 06/30/21 12:47 erythromycin base AdvReac Unknown UPSET Verified 06/30/21 12:47 STOMACH Consultations 06/30/21 12:11 ED Decision to Admit Stat Ordered Studies 06/30/21 09:55 CT abd pelvis IV con only Stat Hospital Course (1) Sigmoid diverticulitis: (2) Acute diverticulitis of intestine: (3) Paroxysmal atrial fibrillation: (4) Hypothyroidism: Acute sigmoid diverticulitis without complications presented with worsening abdominal pain which is now resolved and tolerating low fiber diet well, which she will continue. Ambulating well. CT abd/pelvis showedmoderate to advanced colonic diverticulosis with evidence of severe acute sigmoid diverticulitis without perforation or abscess. S/p IV zosyn and being changed to augmentin at discharge for 10 more days. Diverticulitis discharge instructions provided and reviewed, Recommended return to ED if worsening pain or fever or bleeding. Recommend outpatient colonoscopy in 6-8 weeks. Seen by dietitian prior to discharge Mild bilateral Hydronephrosis CT showed mild bilateral hydroureteronephrosis, left greater than right. This could related to bladder distention and the inflammatory process in the left pelvis. Creatinine stable, voiding without issues Recommend OP renal ultrasound in a week or two for follow up Hypophosphatemia- repleted and being discharged on some oral supplementation UTI d/t Group B strep- s/p 3 day of ceftriaxone. Now on augmentin for diverti culitis. Now asymptomatic. PAF- s/p ablation- now off of anticoagulation, not on sotalol anymore Hypothyroidism- continue Synthroid Total Time Total Time Spent Total Time Spent (In Minutes): 35 Discharge Plan Discharge Items Patient Disposition: Home - Self-Care Reason For Visit: ABD PAIN Discharge Diagnosis: Acute sigmoid diverticulitis without complication Activity: Per Instructions section Non-emergency contact: Primary Care Provider Call non-emergency contact if: you have any medication questions, your symptoms worsen and your pain is concerning for you Follow-up/Referrals: [facility] [Other] (The gastroenterology office will call you with a follow up appointment. [address], [place] [id number]) Iban Whaley DO [Primary Care Provider] - (Date & Time 07/10/2021 1:40 PM Provider Iban Whaley DO Department [facility] ) Diet: Low Fiber Addtl Attending Provider Instructions: Continue augmentin twice daily for 10 days Low fiber diet for about 3 weeks and can then resume regular diet See GI doctors for colonoscopy in about 6 weeks Recommend ultrasound kidneys in a week to ensure the hydronephrosis (swelling) has resolved. Follow up with your family doctor for the same. If worsening symptoms or fever or bleediing, please come to the emergency as discussed. Please review the discharge instructions for diverticulitis as below Pending Studies at Discharge: No Stand-Alone Forms: My [facility], Smoking Cessation Medications and DC Order Prescriptions: New Phospha 250 Neutral 250 mg Tablet 1 tab PO QID 1 Days Qty: 4 RF: 0 amoxicillin-pot clavulanate 875-125 mg tablet 1 tab PO Q12H Qty: 20 RF: 0 Continued calcium carbonate 600 mg calcium (1,500 mg) tablet 600 mg PO QDD RF: 0 cholecalciferol (vitamin D3) 1,000 unit (25 mcg) tablet 1,000 units PO QAM RF: 0 multivitamin Tablet 1 tab PO HS RF: 0 ascorbic acid (vitamin C) [Vitamin C] 1,000 mg Tablet 1,000 mg PO QAM RF: 0 levothyroxine [Levoxyl] 75 mcg tablet 75 mcg PO DAILYBB RF: 0 potassium chloride [Klor-Con M10] 10 mEq tablet,ER particles/crystals 10 meq PO Q2D RF: 0 aspirin [Aspir-81] 81 mg Tablet,Delayed Release (Dr/Ec) 81 mg PO QAM RF: 0 Discharge Orders: Discharge Order (Routine); Ordered 07/03/21 Ordered By: Salvador Romo/Other Patient Handouts: Diverticulitis Dc Admission Data Admit Date/Time: 06/30/21 12:52 Attending Provider: Salvador Valdivia Admit Provider: Salvador Valdivia Primary Care Provider: Iban Whaley Other Providers: Salvador Valdivia
[2021-07-03] MEDS: cefTRIAXone SODIUM 1,000 MG in DEXTROSE 5% 50 ML IV SCH (15:45)
[2021-07-03] MEDS: POTASSIUM CHLORIDE 10 MEQ TABCR PO SCH (16:27)
[2021-07-03] MEDS: ENOXAPARIN INJ 40 MG/0.4 ML SYR SQ SCH (16:27)
== END 2021-07-03 16:45 | disposition home or self-care (01) | DRG 392 ==
LOC: ED 09:34 → 3W 12:52 → SUATTDRO 12:52 → 3W 13:44
DX: N39.0 Urinary tract infection, site not specified; Z79.890 Hormone replacement therapy; K57.32 Diverticulitis of large intestine without perforation or abscess without bleeding; E87.1 Hypo-osmolality and hyponatremia; Z88.1 Allergy status to other antibiotic agents; Z91.040 Latex allergy status; E83.42 Hypomagnesemia; N13.6 Pyonephrosis; M19.90 Unspecified osteoarthritis, unspecified site; Z90.09 Acquired absence of other part of head and neck; E03.9 Hypothyroidism, unspecified; M81.0 Age-related osteoporosis without current pathological fracture; Z79.82 Long term (current) use of aspirin; I48.0 Paroxysmal atrial fibrillation

== ENCOUNTER 2022-09-10 16:56 | Inpatient (IN) ==
--- NOTE | 2022-09-10 17:27 | Emergency Department Note ---
Impression & Plan Near syncope, Abnormal EKG, LARA (dyspnea on exertion) ED Provider Note NAME: JAG SALAZAR AGE: 66 SEX: F : 1955 ARRIVES VIA: Walk-In INFORMANT: Patient, ED PROVIDER(S): Popeye Hutchison DO CHIEF COMPLAINT: Near syncope HPI: The patient is a 66-year-old female who presented to the emergency department for an evaluation of near syncope. The patient relates at least 2-3 times that she felt dizzy lightheaded and felt as though she may pass out. She recently went to visit family in [place]. She states this was approximately a 6-hour car ride. She denies having any lower extremity swelling or pain. She denies having any chest pain but she has noted some shortness of breath with exertion as well as exercise intolerance. The patient denies having any fever or cough. She did have a recent URI in July which she states she recovered from but at times will still notice some congestion and sore throat. She denies having any recent trauma. 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 She was unable to get in with these physicians and was advised to come the emergency department for further evaluation. ROS: See above HPI for pertinent positives & negatives. A total of 10 systems reviewed and were otherwise negative. PAST MEDICAL HISTORY: See Below PAST SURGICAL HISTORY: See Below FAMILY HISTORY: See Below SOCIAL HISTORY: See Below HOME MEDICATIONS: See Below ALLERGIES: See Below VITALS: See Below PHYSICAL EXAMINATION: GENERAL: Patient is awake alert in no acute distress patient is resting comfortably and showing no signs of anxiety EYES: The conjunctivae are clear. The pupils are round and reactive. EARS, NOSE, MOUTH AND THROAT: The nose is without any evidence of any deformity. NECK: The neck is nontender and supple. RESPIRATORY: Normal respiratory effort is noted there is no evidence of wheezing rhonchi or rales CARDIOVASCULAR: Regular rate and rhythm noted there no murmurs rubs or gallops normal S1 normal S2. GASTROINTESTINAL: The abdomen is soft. Abdomen is nontender. MUSCULOSKELETAL/EXTREMITIES: There is no evidence of gross deformity full range of motion is noted in the hips and shoulders. SKIN: There is no obvious evidence of any rash. There are no petechiae, pallor or cyanosis noted. NEUROLOGIC: Patient is awake alert and oriented x3 strength is symmetric patellar reflexes are 2+ bilaterally MEDICAL DECISION MAKING: The patient is a 66-year-old female who presented to the emergency department for an evaluation of just not feeling well as well as dyspnea on exertion and exercise intolerance. The patient did have some abnormalities on her EKG which could be ischemic in nature. Her initial troponin was normal. I discussed the patient's laboratory and radiographic studies with her. Given her complaints and her EKG I did feel this could be consistent with an ischemic process. For this reason I discussed her condition with the on-call [facility]. They have agreed to evaluate the patient in the emergency department for further management and disposition. Triage Nursing notes reviewed. Prior medical records reviewed Vital Signs: reviewed and remarkable for elevated blood pressure. Differential diagnosis: Vasovagal event, dehydration, infection, hypoglycemia, electrolyte abnormalities, cardiac sources, intracerebral event, pulmonary embolism, seizure, toxicologic, neurologic, as well as other pathologies. ER treatment provided: See below Diagnostics interpreted by me: ECG: EKG was obtained in the emergency department. My interpretation is normal sinus rhythm at 86 bpm. There is no ectopy. Incomplete right bundle branch block pattern was noted. Nonspecific ST segment depressions were noted in the apical and low lateral leads. This was compared to a tracing from July 26, 2019. The ST segment abnormalities are new compared to previous tracing. Cardiac Monitoring: An order was placed for continuous cardiac monitoring. The monitor shows a rate of 82 bpm with sinus rhythm. Laboratory studies: As stated above and show below. Imaging studies: See below. Radiographic imaging was reviewed by myself Consultation(s): I discussed this case with Nubia who is on-call for the [facility] group. Past Med/Surg History Medical History (Updated 09/10/22 @ 20:54 by Popeye Hutchison DO) History of chicken pox History of colonic polyps History of osteoarthritis History of osteoporosis Hx of Clostridium difficile infection Hypomagnesemia Hypothyroidism Surgical History S/P dilation and curettage S/P eye surgery laser surgery of right eye- lens replacement 05/1991 S/P sinus surgery 07/2015 S/P thyroidectomy 07/2008 S/P tonsillectomy 1961 S/P wisdom tooth extraction Family History Family/Other Osteoarthritis Diabetes Heart disease Hypertension Dyslipidemia Osteoporosis Thyroid disorder Colorectal cancer Social History Smoking Status: Never smoker Second Hand Exposure: No; Do You Dip or Chew Tobacco: No; Hx Alcohol Use: Yes Alcohol type: wine Alcohol Intake Frequency Comment: 1 drink 3-5 times a week Hx Substance Use: No Preferred Language: Scottish Communication Ability: Effective Elementary Reading Tutor Required: No Beliefs That Will Affect Care: Jehovah'S Witness Jehovah'S Witness Beliefs: JUDAISM Current Living Situation: Spouse Feels Safe at Home: Yes Physical Activity Frequency: 3-4 Times per Week Physical Activity Frequency Comment: 30 minutes Assistive Devices: None Allergies Allergies Allergy/AdvReac Type Severity Reaction Status Date / Time latex Allergy Unknown RASH Verified 09/10/22 19:21 erythromycin base AdvReac Unknown UPSET Verified 09/10/22 19:21 STOMACH Home Meds Home Medications Medication Instructions Recorded Confirmed ascorbic acid (vitamin C) 500 mg 1,000 mg PO DAILY 09/10/22 09/10/22 capsule aspirin 81 mg tablet,delayed 81 mg PO DAILY 09/10/22 09/10/22 release calcium carbonate 600 mg calcium 600 mg PO DAILY 09/10/22 09/10/22 (1,500 mg) tablet cholecalciferol (vitamin D3) 25 25 mcg PO DAILY 09/10/22 09/10/22 mcg (1,000 unit) tablet levothyroxine 75 mcg tablet 75 mcg PO DAILY@0630 09/10/22 09/10/22 loratadine 10 mg tablet 10 mg PO DAILY PRN allergies 09/10/22 09/10/22 multivitamin 1 tab PO DAILY 09/10/22 09/10/22 potassium chloride 10 mEq 10 meq PO MOWEFR 09/10/22 09/10/22 tablet,extended release(part/cryst) (Klor-Con M) Results & Data (ED) Vital Signs Vital Signs - 24 hr 09/10/22 17:05 09/10/22 17:22 09/10/22 17:39 Temperature 36.5 C Temperature Source Temporal Artery Scan Pulse Rate 88 84 79 Pulse Rate [Apical] Pulse Rate from SpO2 Sensor Respiratory Rate 20 14 Respiratory Effort / Characteristics Respiratory Depth Respiratory Pattern Blood Pressure 144/75 H 151/94 H Blood Pressure [Right Arm] Blood Pressure Mean 98 113 Blood Pressure Mean [Right Arm] Pulse Oximetry 98 97 Oxygen Delivery Method Room Air Room Air Sepsis Recent Fever Within 48 Hours No Sepsis New/Unexplained Change in Mental Status No Sepsis Action Taken by Nursing No Action Required 09/10/22 17:39 09/10/22 17:39 09/10/22 17:21 Temperature Temperature Source Pulse Rate Pulse Rate [Apical] 79 Pulse Rate from SpO2 Sensor Respiratory Rate 14 Respiratory Effort / Characteristics Non-Labored Normal for Patient Respiratory Depth Respiratory Pattern Regular Blood Pressure 151/94 H Blood Pressure [Right Arm] Blood Pressure Mean 113 Blood Pressure Mean [Right Arm] Pulse Oximetry 97 Oxygen Delivery Method Room Air Room Air Sepsis Recent Fever Within 48 Hours Sepsis New/Unexplained Change in Mental Status Sepsis Action Taken by Nursing 09/10/22 17:21 09/10/22 17:30 09/10/22 17:40 Temperature Temperature Source Pulse Rate 86 83 80 Pulse Rate [Apical] Pulse Rate from SpO2 Sensor 87 81 81 Respiratory Rate 21 13 17 Respiratory Effort / Characteristics Respiratory Depth Respiratory Pattern Blood Pressure Blood Pressure [Right Arm] Blood Pressure Mean Blood Pressure Mean [Right Arm] Pulse Oximetry 100 98 98 Oxygen Delivery Method Sepsis Recent Fever Within 48 Hours Sepsis New/Unexplained Change in Mental Status Sepsis Action Taken by Nursing 09/10/22 17:50 09/10/22 18:00 09/10/22 18:10 Temperature Temperature Source Pulse Rate 78 77 77 Pulse Rate [Apical] Pulse Rate from SpO2 Sensor 77 77 77 Respiratory Rate 12 17 12 Respiratory Effort / Characteristics Respiratory Depth Respiratory Pattern Blood Pressure Blood Pressure [Right Arm] Blood Pressure Mean Blood Pressure Mean [Right Arm] Pulse Oximetry 98 98 98 Oxygen Delivery Method Sepsis Recent Fever Within 48 Hours Sepsis New/Unexplained Change in Mental Status Sepsis Action Taken by Nursing 09/10/22 18:20 09/10/22 19:13 09/10/22 18:30 Temperature Temperature Source Pulse Rate 77 79 Pulse Rate [Apical] 78 Pulse Rate from SpO2 Sensor 78 79 Respiratory Rate 14 18 16 Respiratory Effort / Characteristics Non-Labored Spontaneous Respiratory Depth Normal Respiratory Pattern Blood Pressure Blood Pressure [Right Arm] 134/90 Blood Pressure Mean Blood Pressure Mean [Right Arm] 104 Pulse Oximetry 98 97 97 Oxygen Delivery Method Room Air Sepsis Recent Fever Within 48 Hours Sepsis New/Unexplained Change in Mental Status Sepsis Action Taken by Nursing 09/10/22 18:40 09/10/22 18:50 09/10/22 19:12 Temperature Temperature Source Pulse Rate 80 80 81 Pulse Rate [Apical] Pulse Rate from SpO2 Sensor 79 80 80 Respiratory Rate 20 15 24 Respiratory Effort / Characteristics Respiratory Depth Respiratory Pattern Blood Pressure 134/90 Blood Pressure [Right Arm] Blood Pressure Mean 104 Blood Pressure Mean [Right Arm] Pulse Oximetry 97 97 96 Oxygen Delivery Method Sepsis Recent Fever Within 48 Hours Sepsis New/Unexplained Change in Mental Status Sepsis Action Taken by Nursing 09/10/22 19:20 09/10/22 19:30 09/10/22 19:40 Temperature Temperature Source Pulse Rate 84 82 84 Pulse Rate [Apical] Pulse Rate from SpO2 Sensor 84 82 83 Respiratory Rate 13 18 20 Respiratory Effort / Characteristics Respiratory Depth Respiratory Pattern Blood Pressure Blood Pressure [Right Arm] Blood Pressure Mean Blood Pressure Mean [Right Arm] Pulse Oximetry 97 97 98 Oxygen Delivery Method Sepsis Recent Fever Within 48 Hours Sepsis New/Unexplained Change in Mental Status Sepsis Action Taken by Nursing 09/10/22 19:50 09/10/22 20:00 09/10/22 20:10 Temperature Temperature Source Pulse Rate 83 86 83 Pulse Rate [Apical] Pulse Rate from SpO2 Sensor 83 86 83 Respiratory Rate 15 16 16 Respiratory Effort / Characteristics Respiratory Depth Respiratory Pattern Blood Pressure 142/87 H Blood Pressure [Right Arm] Blood Pressure Mean 105 Blood Pressure Mean [Right Arm] Pulse Oximetry 97 96 97 Oxygen Delivery Method Sepsis Recent Fever Within 48 Hours Sepsis New/Unexplained Change in Mental Status Sepsis Action Taken by Nursing 09/10/22 20:20 Temperature Temperature Source Pulse Rate 82 Pulse Rate [Apical] Pulse Rate from SpO2 Sensor 83 Respiratory Rate 22 Respiratory Effort / Characteristics Respiratory Depth Respiratory Pattern Blood Pressure Blood Pressure [Right Arm] Blood Pressure Mean Blood Pressure Mean [Right Arm] Pulse Oximetry 96 Oxygen Delivery Method Sepsis Recent Fever Within 48 Hours Sepsis New/Unexplained Change in Mental Status Sepsis Action Taken by [facility] Medications Current Medication List: was personally reviewed by me Laboratory Data Attestation: I reviewed the patient's lab results. 09/10/22 17:30 09/10/22 17:30 Lab Results 09/10/22 09/10/22 09/10/22 Range/Units 17:21 17:27 17:30 WBC 8.98 (4.8-10.8) K/ul RBC 4.45 (4.20-5.40) M/uL Hgb 13.4 (12.0-16.0) g/dl Hct 38.1 (37.0-47.0) % MCV 85.6 (80.0-100.0) fL MCH 30.1 (25.0-34.0) pg MCHC 35.2 (32.0-36.0) g/dL RDW Std Deviation 38.7 (36.4-46.3) fL RDW Coeff of Tiffanie 12.4 (11.5-14.5) % Plt Count 219 (130-400) K/uL MPV 9.8 (9.4-12.4) fL Immature Gran % (Auto) 0.3 % Neut % (Auto) 69.3 % Lymph % (Auto) 21.6 % Oliver % (Auto) 6.8 % Eos % (Auto) 1.7 % Baso % (Auto) 0.3 % Neut # (Auto) 6.22 (1.40-6.50) K/uL Lymph # (Auto) 1.94 (1.2-3.4) K/uL Oliver # (Auto) 0.61 H (0.11-0.59) K/uL Eos # (Auto) 0.15 (0-0.50) K/uL Baso # (Auto) 0.03 (0-0.2) K/uL Immature Gran # (Auto) 0.03 (0.01-0.20) K/uL PT (9.0-12.0) Seconds INR (0.9-1.1) APTT (21.0-31.0) Seconds PTT Ratio D-Dimer (0-500) ug/L FEU Sodium (136-145) mmol/L Potassium (3.5-5.1) mmol/L Chloride (98-107) mmol/L Carbon Dioxide (21-32) mmol/L Anion Gap (3-11) BUN (6-23) mg/dl Creatinine (0.6-1.2) mg/dl Est Cr Clr Drug Dosing Est GFR ( Amer) ml/min Est GFR (Non-Af Amer) ml/min BUN/Creatinine Ratio (10-20) Glucose (70-99(Fasting)) mg/dl POC Glucose 109 H (70-99) mg/dl Calcium (8.6-10.3) mg/dl Magnesium (1.7-2.4) mg/dl Total Bilirubin (0.2-1.0) mg/dl AST (13-39) U/L ALT (7-52) U/L Alkaline Phosphatase (34-104) U/L Troponin I High Sens (0-14) pg/ml Total Protein (6.0-8.3) gm/dl Albumin (3.4-5.0) gm/dl Globulin (2.5-4.0) gm/dl Albumin/Globulin Ratio (0.9-2) TSH (0.300-4.500) uIu/ml Urine Color Yellow Urine Appearance Clear (Clear) Urine pH 6.0 (4.5-7.5) Ur Specific Falcon 1.007 (1.000-1.030) Urine Protein Negative (Negative) Urine Glucose (UA) Negative (Negative) Urine Ketones Negative (Negative) Urine Blood Trace H (Negative) Urine Nitrite Negative (Negative) Urine Bilirubin Negative (Negative) Urine Urobilinogen Negative (Negative) Ur Leukocyte Esterase 1+ H (Negative) Urine WBC (Auto) 1-5 (0-5) /hpf Urine RBC (Auto) 0-4 (0-4) /hpf U Hyaline Cast (Auto) 0 (0-5) /lpf U Epithel Cells (Auto) 0-5 (0-5) /lpf Urine Bacteria (Auto) Negative (Negative) SARS-CoV-2, RNA, NAAT (NEGATIVE) 09/10/22 09/10/22 09/10/22 Range/Units 17:30 17:30 17:30 WBC (4.8-10.8) K/ul RBC (4.20-5.40) M/uL Hgb (12.0-16.0) g/dl Hct (37.0-47.0) % MCV (80.0-100.0) fL MCH (25.0-34.0) pg MCHC (32.0-36.0) g/dL RDW Std Deviation (36.4-46.3) fL RDW Coeff of Tiffanie (11.5-14.5) % Plt Count (130-400) K/uL MPV (9.4-12.4) fL Immature Gran % (Auto) % Neut % (Auto) % Lymph % (Auto) % Oliver % (Auto) % Eos % (Auto) % Baso % (Auto) % Neut # (Auto) (1.40-6.50) K/uL Lymph # (Auto) (1.2-3.4) K/uL Oliver # (Auto) (0.11-0.59) K/uL Eos # (Auto) (0-0.50) K/uL Baso # (Auto) (0-0.2) K/uL Immature Gran # (Auto) (0.01-0.20) K/uL PT 10.8 (9.0-12.0) Seconds INR 1.0 (0.9-1.1) APTT 26.5 (21.0-31.0) Seconds PTT Ratio 0.9 D-Dimer 200 (0-500) ug/L FEU Sodium 131 L (136-145) mmol/L Potassium 3.8 (3.5-5.1) mmol/L Chloride 97 L (98-107) mmol/L Carbon Dioxide 27 (21-32) mmol/L Anion Gap 7 (3-11) BUN 11 (6-23) mg/dl Creatinine 0.56 L (0.6-1.2) mg/dl Est Cr Clr Drug Dosing Not Reportable Est GFR ( Amer) 112.6 ml/min Est GFR (Non-Af Amer) 97.2 ml/min BUN/Creatinine Ratio 19.6 (10-20) Glucose 99 (70-99(Fasting)) mg/dl POC Glucose (70-99) mg/dl Calcium 9.5 (8.6-10.3) mg/dl Magnesium 1.8 (1.7-2.4) mg/dl Total Bilirubin 0.5 (0.2-1.0) mg/dl AST 21 (13-39) U/L ALT 18 (7-52) U/L Alkaline Phosphatase 60 (34-104) U/L Troponin I High Sens 2.9 (0-14) pg/ml Total Protein 7.5 (6.0-8.3) gm/dl Albumin 4.6 (3.4-5.0) gm/dl Globulin 2.9 (2.5-4.0) gm/dl Albumin/Globulin Ratio 1.6 (0.9-2) TSH 0.435 (0.300-4.500) uIu/ml Urine Color Urine Appearance (Clear) Urine pH (4.5-7.5) Ur Specific Falcon (1.000-1.030) Urine Protein (Negative) Urine Glucose (UA) (Negative) Urine Ketones (Negative) Urine Blood (Negative) Urine Nitrite (Negative) Urine Bilirubin (Negative) Urine Urobilinogen (Negative) Ur Leukocyte Esterase (Negative) Urine WBC (Auto) (0-5) /hpf Urine RBC (Auto) (0-4) /hpf U Hyaline Cast (Auto) (0-5) /lpf U Epithel Cells (Auto) (0-5) /lpf Urine Bacteria (Auto) (Negative) SARS-CoV-2, RNA, NAAT (NEGATIVE) 09/10/22 Range/Units 19:15 WBC (4.8-10.8) K/ul RBC (4.20-5.40) M/uL Hgb (12.0-16.0) g/dl Hct (37.0-47.0) % MCV (80.0-100.0) fL MCH (25.0-34.0) pg MCHC (32.0-36.0) g/dL RDW Std Deviation (36.4-46.3) fL RDW Coeff of Tiffanie (11.5-14.5) % Plt Count (130-400) K/uL MPV (9.4-12.4) fL Immature Gran % (Auto) % Neut % (Auto) % Lymph % (Auto) % Oliver % (Auto) % Eos % (Auto) % Baso % (Auto) % Neut # (Auto) (1.40-6.50) K/uL Lymph # (Auto) (1.2-3.4) K/uL Oliver # (Auto) (0.11-0.59) K/uL Eos # (Auto) (0-0.50) K/uL Baso # (Auto) (0-0.2) K/uL Immature Gran # (Auto) (0.01-0.20) K/uL PT (9.0-12.0) Seconds INR (0.9-1.1) APTT (21.0-31.0) Seconds PTT Ratio D-Dimer (0-500) ug/L FEU Sodium (136-145) mmol/L Potassium (3.5-5.1) mmol/L Chloride (98-107) mmol/L Carbon Dioxide (21-32) mmol/L Anion Gap (3-11) BUN (6-23) mg/dl Creatinine (0.6-1.2) mg/dl Est Cr Clr Drug Dosing Est GFR ( Amer) ml/min Est GFR (Non-Af Amer) ml/min BUN/Creatinine Ratio (10-20) Glucose (70-99(Fasting)) mg/dl POC Glucose (70-99) mg/dl Calcium (8.6-10.3) mg/dl Magnesium (1.7-2.4) mg/dl Total Bilirubin (0.2-1.0) mg/dl AST (13-39) U/L ALT (7-52) U/L Alkaline Phosphatase (34-104) U/L Troponin I High Sens (0-14) pg/ml Total Protein (6.0-8.3) gm/dl Albumin (3.4-5.0) gm/dl Globulin (2.5-4.0) gm/dl Albumin/Globulin Ratio (0.9-2) TSH (0.300-4.500) uIu/ml Urine Color Urine Appearance (Clear) Urine pH (4.5-7.5) Ur Specific Falcon (1.000-1.030) Urine Protein (Negative) Urine Glucose (UA) (Negative) Urine Ketones (Negative) Urine Blood (Negative) Urine Nitrite (Negative) Urine Bilirubin (Negative) Urine Urobilinogen (Negative) Ur Leukocyte Esterase (Negative) Urine WBC (Auto) (0-5) /hpf Urine RBC (Auto) (0-4) /hpf U Hyaline Cast (Auto) (0-5) /lpf U Epithel Cells (Auto) (0-5) /lpf Urine Bacteria (Auto) (Negative) SARS-CoV-2, RNA, NAAT NEGATIVE (NEGATIVE) Administered Medications Discontinued Medications Sodium Chloride (Nss 1000ml) 1,000 mls @ 999 mls/hr IV .[id number] Stop: 09/10/22 18:30 Last Infusion: 09/10/22 19:13 Dose: 0 mls/hr Documented By: Admin: 09/10/22 17:33 Dose: 999 mls/hr Documented By: [facility] Imaging Data Attestation: I personally reviewed and interpreted this imaging study as follows: My Impression: 1 view chest x-ray was obtained in the emergency department. My interpretation is no free air or definite infiltrate, final report below. Radiologist's Impression: Chest X-Ray 09/10/22 17:24 SINGLE VIEW CHEST CLINICAL HISTORY: Generalized weakness. FINDINGS: An AP, portable, upright chest radiograph is compared to chest x-ray and chest CT dated 07/23/2019. Surgical clips project over the central lower neck. The cardiomediastinal silhouette is top normal for projection. Chronic interstitial thickening is similar to previous. There is bibasilar scarring/atelectasis. The lungs and pleural spaces are otherwise clear. No pneumothorax is seen. The skeletal structures are osteopenic. The bony thorax is grossly intact. Degenerative change and scoliosis is noted in the spine. IMPRESSION: No active disease in the chest. ACT 112: Negative or not required by law. Electronically signed by: Donell Garg M.D. 09/10/2022 5:44 PM Discharge Plan Visit Data Chief Complaint: Syncope (Near Syncope) Stated Complaint: LIGHTHEADED,NEAR SYNCOPE ED Provider: Popeye Hutchison Discharge Problem: Near syncope, Abnormal EKG, LARA (dyspnea on exertion) Patient Disposition: Being Evaluated by Hospitalist Forms Stand Alone Forms: My [facility] Prescriptions Prescriptions: No Action aspirin [Aspir-81] 81 mg Tablet,Delayed Release (Dr/Ec) 81 mg PO DAILY levothyroxine 75 mcg Tablet 75 mcg PO DAILY@0630 calcium carbonate 600 mg calcium (1,500 mg) Tablet 600 mg PO DAILY loratadine 10 mg Tablet 10 mg PO DAILY PRN (Reason: allergies) potassium chloride [Klor-Con M10] 10 mEq tablet,ER particles/crystals 10 meq PO MOWEFR cholecalciferol (vitamin D3) 25 mcg (1,000 unit) Tablet 25 mcg PO DAILY ascorbic acid (vitamin C) 500 mg Capsule 1,000 mg PO DAILY multivitamin Tablet 1 tab PO DAILY Referrals Referrals: Iban Whaley, [Primary Care Provider] -
[2022-09-10] MEDS ORDERED: SODIUM CHLORIDE 0.9% 1000ML 1,000 ML IV SCH (17:30)
--- NOTE | 2022-09-10 17:45 | XRay Report ---
SINGLE VIEW CHEST CLINICAL HISTORY: Generalized weakness. FINDINGS: An AP, portable, upright chest radiograph is compared to chest x-ray and chest CT dated 07/22. Surgical clips project over the central lower neck. The cardiomediastinal silhouette is top no rmal for projection. Chronic interstitial thickening is similar to previous. There is bibasilar scarr ing/atelectasis. The lungs and pleural spaces are otherwise clear. No pneumothorax is seen. The skele jovi structures are osteopenic. The bony thorax is grossly intact. Degenerative change and scoliosis i s noted in the spine. IMPRESSION: No active disease in the chest. ACT 112: Negative or not required by law. Electronically signed by: Donell Garg M.D. 09/10/2022 5:44 PM
[2022-09-10 17:56] LABS: Basophils # (auto) 0.03 K/uL (0-0.2); Basophils % (auto) 0.3 %; Eosinophils # (auto) 0.15 K/uL (0-0.50); Eosinophils % (auto) 1.7 %; Hematocrit (blood only) 38.1 % (37.0-47.0); Hemoglobin 13.4 g/dl (12.0-16.0); Immature Granulocytes # (auto) 0.03 K/uL (0.01-0.20); Immature Granulocytes % (auto) 0.3 %; Lymphocytes # (auto) 1.94 K/uL (1.2-3.4); Lymphocytes % (auto) 21.6 %; Mean Corpuscular Hemoglobin 30.1 pg (25.0-34.0); Mean Corpuscular Hgb Conc 35.2 g/dL (32.0-36.0); Mean Corpuscular Volume 85.6 fL (80.0-100.0); Mean Platelet Volume 9.8 fL (9.4-12.4); Monocytes # (auto) 0.61 K/uL (0.11-0.59); Monocytes % (auto) 6.8 %; Neutrophils # (auto) 6.22 K/uL (1.40-6.50); Neutrophils % (auto) 69.3 %; Platelet Count 219 K/uL (130-400); RDW Coefficient of Variation 12.4 % (11.5-14.5); RDW Standard Deviation 38.7 fL (36.4-46.3); Red Blood Count 4.45 M/uL (4.20-5.40); White Blood Count 8.98 K/ul (4.8-10.8)
[2022-09-10 17:56] LABS: Appearance Urine Clear (Clear); Bacteria Urine Automated Negative (Negative); Bilirubin Urine Negative (Negative); Blood Urine Trace (Negative); Cast Urine Automated 0 /lpf (0-5); Color Urine Yellow; Epithelial Cell Urine Auto 0-5 /lpf (0-5); Glucose Urine UA Negative (Negative); Ketones Urine Negative (Negative); Leukocyte Esterase Urine 1+ (Negative); Nitrite Urine Negative (Negative); Protein Urine Negative (Negative); RBC Urine Automated 0-4 /hpf (0-4); Specific Gravity Urine 1.007 (1.000-1.030); Urobilinogen Urine Negative (Negative)
[2022-09-10 18:13] LABS: Alanine Aminotransferase 18 U/L (7-52); Albumin Globulin Ratio 1.6 (0.9-2); Albumin Level 4.6 gm/dl (3.4-5.0); Alkaline Phosphatase 60 U/L (34-104); Anion Gap 7 (3-11); Aspartate Aminotransferase 21 U/L (13-39); BUN Creatinine Ratio 19.6 (10-20); Bilirubin,Total 0.5 mg/dl (0.2-1.0); Blood Urea Nitrogen 11 mg/dl (6-23); Calcium 9.5 mg/dl (8.6-10.3); Carbon Dioxide 27 mmol/L (21-32); Chloride 97 mmol/L (98-107); Est GFR (African American) 112.6 ml/min; Est GFR (Non-African American) 97.2 ml/min; Globulin 2.9 gm/dl (2.5-4.0); Glucose 99 mg/dl (70-99(Fasting)); Magnesium 1.8 mg/dl (1.7-2.4); Potassium 3.8 mmol/L (3.5-5.1); Sodium 131 mmol/L (136-145); Total Protein 7.5 gm/dl (6.0-8.3)
[2022-09-10 18:19] LABS: Troponin I High Sensitivity 2.9 pg/ml (0-14)
[2022-09-10 18:34] LABS: D Dimer 200 ug/L FEU (0-500); Partial Thromboplastin Ratio 0.9; Partial Thromboplastin Time 26.5 Seconds (21.0-31.0); Prothrombin Time 10.8 Seconds (9.0-12.0)
--- NOTE | 2022-09-10 19:07 | History & Physical Report ---
Date of Service September 10, 2022 Assessment & Plan (1) Near syncope: (2) Fatigue: (3) Hyponatremia: (4) Paroxysmal atrial fibrillation: (5) Hypothyroidism: Plan This is a 66-year-old female who has significant past medical history of paroxysmal atrial fibrillation previously treated with sotalol and history of pulmonary vein isolation procedure at [facility], hx of asymptomatic SVT, mild aortic valve regurg, mild mitral valve regurg, probable small PFO, mild pulmonary hypertension documented on echocardiogram, intermittent hyponatremia, prediabetes with last A1c of 5.9 on 06/30/2022, postsurgical hypothyroidism, senile osteoporosis previously tx with prolia, vertebral compression fx, L ear deafness, hx of diverticulosis, torticollis presents to ED secondary to feeling like she was going to pass out for the past 3 weeks. Near syncope Fatigue ECG changes V3-5 admit to tele for further cardiac monitoring cycle troponins obtain echocardiogram obtain carotid doppler consult cardiology due to subtle ecg changes and pt established 2/2 arrhythmias sx concerning since it occurs at rest repeat ecg PAF, hx of pulmonary vein isolation procedure, previous sotalol therapy off OAC, not on any rate controlled agents at moment Hypothyroidism, post surgical continue levothyroxine Hyponatremia, acute pt with hx of hyponatremia in past received 1L IVF in ED repeat bmp in a.m. DVT ppx: SQ Lovenox Dispo: admit to tele, if work up negative likely d/c tomorrow FULL CODE PCP: Tylor Whaley Pt was seen and examined in collaboration with Dr. Godinez, please see addendum A total of 75 was spent coordinating, documenting, and providing care for this patient excluding time spent in the performance of separately billed services. This included personally viewing all current laboratories and imaging studies, medication reconciliation, outpatient chart review, and discussion with specialists. History of Present Illness Chief Complaint: Near syncope x 3 weeks. Primary Care Provider: Iban Whaley, This is a 66-year-old female who has significant past medical history of paroxysmal atrial fibrillation previously treated with sotalol and history of pulmonary vein isolation procedure at [facility], hx of asymptomatic SVT, mild aortic valve regurg, mild mitral valve regurg, probable small PFO, mild pulmonary hypertension documented on echocardiogram, intermittent hyponatremia, prediabetes with last A1c of 5.9 on 06/30/2022, postsurgical hypothyroidism, senile osteoporosis previously tx with prolia, vertebral compression fx, L ear deafness, hx of diverticulosis, torticollis presents to ED secondary to feeling like she was going to pass out for the past 3 weeks. Over the past 1 week she has had 3 episodes of near syncope. One occurred when walking and visiting her son in [place] and another incident happened while driving today. Previously symptoms improved with some orange juice. This afternoon when in car and she had to sinker puller sx resolved on own. With these episodes she denies chest pain, palpitations, flushed, sweaty, pain, or nausea. She did feel short of breath with the episodes. These sx are occurring just at rest. The one occurred when she was sitting eat breakfast. No changes in medication. She denies change in vision/hearing, weakness, focal weakness, bowel or bladder incontinence, intermittent confusion. She generally has been feeling lightheaded. She had a, "bad cold," in July. Ever since this she hasn't been as energetic. She is very active at baseline riding her bike 1-2x a week at 15 miles. She is active in gardening. She did struggle going up 4 flights of steps when visiting son in [place]. She has never had anything like this in the past. She denies f/c/s, chest pain, cough, hemoptysis, n/v/d, abd pain. Allergies Allergy/AdvReac Type Severity Reaction Status Date / Time latex Allergy Unknown RASH Verified 09/10/22 19:21 erythromycin base AdvReac Unknown UPSET Verified 09/10/22 19:21 STOMACH Home Medications Medication Instructions Recorded Confirmed Type ascorbic acid (vitamin C) 500 mg 1,000 mg PO DAILY 09/10/22 09/10/22 History capsule aspirin 81 mg tablet,delayed 81 mg PO DAILY 09/10/22 09/10/22 History release calcium carbonate 600 mg calcium 600 mg PO DAILY 09/10/22 09/10/22 History (1,500 mg) tablet cholecalciferol (vitamin D3) 25 25 mcg PO DAILY 09/10/22 09/10/22 History mcg (1,000 unit) tablet levothyroxine 75 mcg tablet 75 mcg PO DAILY@0630 09/10/22 09/10/22 History loratadine 10 mg tablet 10 mg PO DAILY PRN allergies 09/10/22 09/10/22 History multivitamin 1 tab PO DAILY 09/10/22 09/10/22 History potassium chloride 10 mEq 10 meq PO MOWEFR 09/10/22 09/10/22 History tablet,extended release(part/cryst) (Elzbieta Macias) Past Med/Surg History Medical History (Updated 09/10/22 @ 19:41 by Nubia Carson PA-C) History of chicken pox History of colonic polyps History of osteoarthritis History of osteoporosis Hx of Clostridium difficile infection Hypomagnesemia Hypothyroidism Surgical History S/P dilation and curettage S/P eye surgery laser surgery of right eye- lens replacement 05/1991 S/P sinus surgery 07/2015 S/P thyroidectomy 07/2008 S/P tonsillectomy 1961 S/P wisdom tooth extraction Family History Family/Other Osteoarthritis Diabetes Heart disease Hypertension Dyslipidemia Osteoporosis Thyroid disorder Colorectal cancer Social History Smoking Status: Never smoker Second Hand Exposure: No; Do You Dip or Chew Tobacco: No; Hx Alcohol Use: Yes Alcohol type: wine Alcohol Intake Frequency Comment: 1 drink 3-5 times a week Hx Substance Use: No Preferred Language: Greek Communication Ability: Effective Recycling Technician Required: No Beliefs That Will Affect Care: Sabianism Sabianism Beliefs: MOSQUE Current Living Situation: Spouse Feels Safe at Home: Yes Physical Activity Frequency: 3-4 Times per Week Physical Activity Frequency Comment: 30 minutes Assistive Devices: None Review of Systems Review of Systems: All systems reviewed & are unremarkable except as noted in HPI & below Physical Exam Physical Exam: Please refer to Dr. Godinez addendum for physical exam findings Results & Data Results & Data Vital Signs (Past 12 Hours) Vital Signs Temp Pulse Pulse Resp BP Pulse Ox O2 Del Method 09/10/22 18:20 77 14 98 09/10/22 18:10 77 12 98 09/10/22 18:00 77 17 98 09/10/22 17:50 78 12 98 09/10/22 17:40 80 17 98 09/10/22 17:30 83 13 98 09/10/22 17:21 86 21 100 09/10/22 17:21 151/94 H 09/10/22 17:39 Room Air 09/10/22 17:39 79 14 97 Room Air 09/10/22 17:39 79 14 151/94 H 97 Room Air 09/10/22 17:22 84 09/10/22 17:05 36.5 C 88 20 144/75 H 98 Room Air Diagnostic Findings Chest X-Ray 09/10/22 17:24 SINGLE VIEW CHEST CLINICAL HISTORY: Generalized weakness. FINDINGS: An AP, portable, upright chest radiograph is compared to chest x-ray and chest CT dated 07/23/2019. Surgical clips project over the central lower neck. The cardiomediastinal silhouette is top normal for projection. Chronic interstitial thickening is similar to previous. There is bibasilar scarring/atelectasis. The lungs and pleural spaces are otherwise clear. No pneumothorax is seen. The skeletal structures are osteopenic. The bony thorax is grossly intact. Degenerative change and scoliosis is noted in the spine. IMPRESSION: No active disease in the chest. ACT 112: Negative or not required by law. Electronically signed by: Donell Garg M.D. 09/10/2022 5:44 PM Medications Administered Medication List Discontinued Medications Sodium Chloride (Nss 1000ml) 1,000 mls @ 999 mls/hr IV .Q1H1M ИВАН Stop: 09/10/22 18:30 Last Admin: 09/10/22 17:33 Dose: 999 mls/hr Documented By: ACC ECG Rate (beats per minute): 86 Rhythm: normal sinus Additional Comments: St depression V3-V5, near compared to EKG july 2019 COVID-19 Results Results COVID-19 Adm Lab Results: RBC 4.45 M/uL (4.20-5.40) 09/10/22 WBC 8.98 K/ul (4.8-10.8) 09/10/22 Hgb 13.4 g/dl (12.0-16.0) 09/10/22 Hct 38.1 % (37.0-47.0) 09/10/22 Plt Count 219 K/uL (130-400) 09/10/22 Neutrophils (%) (Auto) 69.3 % 09/10/22 Lymphocytes (%) (Auto) 21.6 % 09/10/22 Monocytes # (Auto) 0.61 K/uL (0.11-0.59) H 09/10/22 Eosinophils # (Auto) 0.15 K/uL (0-0.50) 09/10/22 Immature Granulocyte % (Auto) 0.3 % 09/10/22 Neutrophils # (Auto) 6.22 K/uL (1.40-6.50) 09/10/22 Lymphocytes # (Auto) 1.94 K/uL (1.2-3.4) 09/10/22 Monocytes # (Auto) 0.61 K/uL (0.11-0.59) H 09/10/22 Eosinophils # (Auto) 0.15 K/uL (0-0.50) 09/10/22 Basophils # (Auto) 0.03 K/uL (0-0.2) 09/10/22 Immature Granulocyte # (Auto) 0.03 K/uL (0.01-0.20) 3 Na 131 mmol/L (136-145) L 09/10/22 K 3.8 mmol/L (3.5-5.1) 09/10/22 Cl 97 mmol/L (98-107) L 09/10/22 CO2 27 mmol/L (21-32) 09/10/22 Anion Gap 7 (3-11) 09/10/22 BUN 11 mg/dl (6-23) 09/10/22 Creatinine 0.56 mg/dl (0.6-1.2) L 09/10/22 BUN/Creatinine Ratio 19.6 (10-20) 09/10/22 Glucose Level 99 mg/dl (70-99(Fasting)) 09/10/22 Ca 9.5 mg/dl (8.6-10.3) 09/10/22 Total Bilirubin 0.5 mg/dl (0.2-1.0) 09/10/22 AST/SGOT 21 U/L (13-39) 09/10/22 ALT/SGPT 18 U/L (7-52) 09/10/22 Alkaline Phosphatase 60 U/L (34-104) 09/10/22 Total Protein 7.5 gm/dl (6.0-8.3) 09/10/22 Albumin 4.6 gm/dl (3.4-5.0) 09/10/22 Globulin 2.9 gm/dl (2.5-4.0) 09/10/22 Albumin/Globulin Ratio 1.6 (0.9-2) 09/10/22 D-Dimer 200 ug/L FEU (0-500) 09/10/22 PTT 26.5 Seconds (21.0-31.0) 09/10/22 INR 1.0 (0.9-1.1) 09/10/22 SARS-CoV-2, RNA, NAAT NEGATIVE (NEGATIVE) 09/10/22 Chest X-Ray 09/10/22 Code Status & VTE Plan Code Status FULL CODE VTE Prophylaxis Plan VTE Prophylaxis will be ordered: Yes Supervising Physician Co-Signing Physician Notes Ms. Aguiar is a 66-year-old female with pmhx (per chart, confirmed with patient and ) of pAfib previously treated with sotalol and history of pulmonary vein isolation procedure at [facility], hx of asymptomatic SVT, mild aortic valve regurg, mild mitral valve regurg, probable small PFO, mild pulmonary hypertension documented on echocardiogram, intermittent hyponatremia, prediabetes with last A1c of 5.9 on 06/30/2022, postsurgical hypothyroidism, senile osteoporosis previously tx with prolia, vertebral compression fx, L ear deafness, hx of diverticulosis, and idiopathic torticollis. She presented with multiple episodes of presyncope. Workup is notable for nonspecific EKG changes and hyponatremia. She has had 3 near syncopal episodes in the past week. The first occurred immediately after eating breakfast and resolved with drinking OJ. The second episode occurred while she was walking in [place]. The third, and most, severe occurred today while she was driving. All episodes lasted seconds to minutes and 2 of 3 resolved spontaneously. She endorses associated shortness of breath, but she is also having sob independent of the episodes as well. She had a bad cold about a month before this developed. She feels her breathing and energy level have not been back to baseline since. She also reports possible intermittent vague chest discomfort that is difficult for her to describe. She denies associated diaphoresis, flushing, nausea, CP/pressure, palpitations, ODEN, confusion, expressive or receptive aphasia, change in vision, focal weakness, numbness or tingling, and incontinence. She had a harder time than usual with going up stairs at her son's apartment recently. For the most part she has been able to engage in her usual activities such as gardening and biking. She has never experienced anything like this before. She denies any changes to medications. Remaining 10 pt ROS reviewed and negative. She is very active at baseline riding her bike 1-2x a week at 15 miles. She is active in gardening. General: NAD, well nourished, non-toxic appearing Head: NC AT Eyes: anicteric sclera, no conjunctival injection Nose: nares patent, nose normal Mouth: MMM Neck: supple, trachea midline CV: RRR S1 S2 Pulm: CTA b/l, normal effort Abd/GI: + BS, soft, NT, ND, no guarding : no mitchell Ext: no pretibial edema MSK: normal bulk and tone Neuro: head/neck tremor (baseline), alert, oriented, moving all 4 extremities symmetrically Psych: anxious mood and affect Skin: visible skin is warm, dry, and without rash. Pt not fully undressed for exam. # presyncope: cardiogenic vs TIA hx of SVT is worrisome nonspecific EKG changes initial trop, D-dimer, and Magnesium wnl. Covid negative. Chest xray neg for acute pathology. Will monitor on telemetry, f/u serial trop, lipid panel, echo, and carotid US check orthostatic vs qshift cardiology consulted, appreciate input, will follow recs currently HDS # hyponatremia: mild, Na 131, received NS in the ED. f/u am labs, replete further if needed # p Afib: currently in NSR. Not on antiarrhythmics or anticoagulation Monitor on tele. cardiology consulted as above. # prediabetes: recent A1c 07/29 # elevated BP without dx of HTN: BP mildly elevated at times, likely stress m ediated # Hypothyroidism (post surgical): TSH wnl, continue levothyroxine Rest per attested note above
[2022-09-10] MEDS ORDERED: ALUMINUM/MAGNESIUM SUSP 30 ML UDC PO PRN (22:06)
[2022-09-10] MEDS ORDERED: ONDANSETRON INJ 2 MG/ML 2 ML VIAL IV PRN (22:06)
[2022-09-10] MEDS ORDERED: ACETAMINOPHEN 325 MG TAB PO PRN (22:06)
[2022-09-10] MEDS ORDERED: POLYETHYLENE (MIRALAX) 17 GM PACK PO PRN (22:06)
[2022-09-10] MEDS ORDERED: MAGNESIUM HYDROXIDE SUSP 30 ML UDC PO PRN (22:06)
[2022-09-10] MEDS ORDERED: LORATADINE 10 MG TAB PO PRN (22:06)
[2022-09-10] MEDS ORDERED: Patient's HEIGHT &/or WEIGHT Needed SCH (22:30)
[2022-09-10] MEDS: ENOXAPARIN INJ 40 MG/0.4 ML SYR SQ SCH (23:34)
[2022-09-11 06:00] LABS: Basophils # (auto) 0.02 K/uL (0-0.2); Basophils % (auto) 0.4 %; Eosinophils # (auto) 0.21 K/uL (0-0.50); Hematocrit (blood only) 34.8 % (37.0-47.0); Hemoglobin 11.9 g/dl (12.0-16.0); Immature Granulocytes # (auto) 0.01 K/uL (0.01-0.20); Immature Granulocytes % (auto) 0.2 %; Lymphocytes # (auto) 2.41 K/uL (1.2-3.4); Lymphocytes % (auto) 45.9 %; Mean Corpuscular Hgb Conc 34.2 g/dL (32.0-36.0); Mean Corpuscular Volume 87.7 fL (80.0-100.0); Mean Platelet Volume 9.5 fL (9.4-12.4); Monocytes # (auto) 0.43 K/uL (0.11-0.59); Monocytes % (auto) 8.2 %; Neutrophils # (auto) 2.17 K/uL (1.40-6.50); Neutrophils % (auto) 41.3 %; Platelet Count 190 K/uL (130-400); RDW Coefficient of Variation 12.4 % (11.5-14.5); Red Blood Count 3.97 M/uL (4.20-5.40); White Blood Count 5.25 K/ul (4.8-10.8)
[2022-09-11] MEDS: LEVOTHYROXINE SODIUM 75 MCG TABLET PO SCH (06:01)
[2022-09-11 06:16] LABS: Albumin Globulin Ratio 1.5 (0.9-2); Albumin Level 3.7 gm/dl (3.4-5.0); Bilirubin,Total 0.8 mg/dl (0.2-1.0); Calcium 8.5 mg/dl (8.6-10.3); Chol HDL Ratio 3.2 (0-5); Creatinine Clr Calc Pharmacy 87.3 ml/min; Est GFR (African American) 113.3 ml/min; Est GFR (Non-African American) 97.7 ml/min; Globulin 2.5 gm/dl (2.5-4.0); Total Protein 6.2 gm/dl (6.0-8.3)
[2022-09-11 07:36] LABS: Estimated Average Glucose 120 mg/dl; Hemoglobin A1C 5.8 % (4.5-5.6)
[2022-09-11] MEDS: ASCORBIC ACID 500 MG TAB PO SCH (09:28)
[2022-09-11] MEDS: ASPIRIN 81 MG ECTAB PO SCH (09:28)
[2022-09-11] MEDS: MULTIVITAMIN TAB PO SCH (09:28)
[2022-09-11] MEDS: CALCIUM CARBONATE 1250MG TAB PO SCH (09:28)
[2022-09-11] MEDS: CHOLECALCIFEROL 1,000 UNITS 25 MCG TAB PO SCH (09:28)
--- NOTE | 2022-09-11 10:14 | Ultrasound Report ---
US carotid doppler BI CLINICAL HISTORY: 66 years-old Female with lightheaded. Acute dizziness with lightheadedness COMPARISON: None TECHNIQUE: Multiple real time sonographic images of the carotid bifurcations were obtained assessing walsh scale, color Doppler and spectral wave form appearance FINDINGS: RIGHT CAROTID: The peak systolic velocity measured within the right ICA is 78 cm/sec. The end diast olic velocity measured 41 cm/sec. The ICA to CCA ratio measured 1.3 which correlates with a stenosis of 0-50%. Mild atherosclerosis. LEFT CAROTID: The peak systolic velocity measured within the left ICA is 58 cm/sec. The end diastol ic velocity measured 30 cm/sec. The ICA to CCA ratio measured 0.8 which correlates with a stenosis of 0-50%. Mild atherosclerosis. There is normal antegrade vertebral flow bilaterally. IMPRESSION: 1. No hemodynamically significant stenosis. 2. Normal antegrade vertebral flow bilaterally. ACT 112: Negative or not required by law. The above report was generated using voice recognition software. It may contain grammatical, syntax o r spelling errors. Electronically signed by: Aneudy Cortez M.D. 09/11/2022 10:13 AM
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
[2022-09-11 12:24] LABS: Lyme Ab IgG w/WB Rflx Negative (Negative); Lyme Ab IgM w/WB Rflx Negative (Negative)
[2022-09-11] MEDS ORDERED: METOPROLOL TARTRATE 25 MG TAB PO STA (13:17)
--- NOTE | 2022-09-11 13:36 | Electrocardiogram Report ---
Test Reason : Blood Pressure : / mmHG Vent. Rate : 086 BPM Atrial Rate : 086 BPM P-R Int : 144 ms QRS Dur : 092 ms QT Int : 370 ms P-R-T Axes : 070 016 055 degrees QTc Int : 442 ms Normal sinus rhythm Incomplete right bundle branch block Nonspecific ST abnormality Abnormal ECG When compared with ECG of 26-JUL-2019 11:11, Vent. rate has increased BY 30 BPM Non-specific change in ST segment in Anterior leads Confirmed by Popeye Alvarez ([id number]) on 09/11/2022 1:35:53 PM Referred By: REFERRED SELF Confirmed By:Popeye Alvarez
--- NOTE | 2022-09-11 13:53 | CT Scan Report ---
CT SCAN OF THE BRAIN WITHOUT IV CONTRAST CLINICAL HISTORY: Dizziness. COMPARISON STUDY: MRI of the brain dated 01/08/2015. TECHNIQUE: Unenhanced axial CT scan of the brain is performed from the vertex to the skull base. A d ose lowering technique was utilized adhering to the principles of ALARA. The skull base was scanned t wice due to motion artifact. FINDINGS: Brain parenchyma: There is minimal microangiopathic change. There is no hemorrhage, mass effect, or e vidence of acute territorial ischemia by CT criteria. Lynch-white matter differentiation is preserved. No extra-axial fluid collection is seen. Ventricles, sulci, cisterns: There is atherosclerotic calcification of the cavernous carotid arteries . Intracranial vasculature: The visualized intracranial vasculature at the skull base is normal in appe arance. Calvarium: Unremarkable. Sinuses and mastoids: The visualized paranasal sinuses are clear. The mastoid air cells are well pneu matized. Orbits: The bony orbits are grossly intact. IMPRESSION: There is no hemorrhage, mass effect, or evidence of acute territorial ischemia by CT sunita gleason. ACT 112: Negative or not required by law. Electronically signed by: Donell Garg M.D. 09/11/2022 1:52 PM
--- NOTE | 2022-09-11 13:53 | Electrocardiogram Report ---
Test Reason : Blood Pressure : / mmHG Vent. Rate : 071 BPM Atrial Rate : 071 BPM P-R Int : 174 ms QRS Dur : 098 ms QT Int : 436 ms P-R-T Axes : 068 012 065 degrees QTc Int : 473 ms Normal sinus rhythm Incomplete right bundle branch block Borderline ECG When compared with ECG of 10-SEP-2022 17:18, (unconfirmed) No significant change was found Confirmed by Popeye Alvarez ([id number]) on 09/11/2022 1:52:33 PM Referred By: REFERRED SELF Confirmed By:Popeye Alvarez
--- NOTE | 2022-09-11 14:21 | CT Scan Report ---
CT chest diagnostic wo con CLINICAL HISTORY: Covid Nov. Cough. dypnea. Hx pulm nodule TECHNIQUE: Multidetector row helical CT of the chest was performed. Coronal and sagittal reformations were obtained. Automated dose lowering techniques and/or adjustment according to patient size were u tilized for this exam. CT DOSE: 1325.33 mGy.cm Comparison: Comparison is made to chest 07/23/2019 FINDINGS: Lungs and pleura: Biapical scarring is seen. Atelectasis is seen. Pulmonary nodules are seen includin g a 3 mm nodule in the left upper lobe (series 8 image 56) and 4 mm nodule in the right lower lobe (i mage 141). Heart and pericardium: Mitral annular calcifications are seen. Vessels: Unremarkable. Mediastinum and chiki: Subcentimeter lymph nodes are seen. Chest wall and lower neck: Patient is status post thyroidectomy. Abdomen: Patient is status post cholecystectomy. Bones: Multilevel compression deformities are seen. IMPRESSION: Multiple pulmonary nodules are stable as above. No additional abnormalities are seen. ACT 112: Negative or not required by law. Electronically signed by: Volodymyr Armstrong M.D. 09/11/2022 2:20 PM
--- NOTE | 2022-09-11 15:48 | Hospitalist Progress Note ---
Date of Service September 11, 2022 Assessment & Plan (1) Near syncope: (2) Fatigue: (3) Hyponatremia: (4) Paroxysmal atrial fibrillation: (5) Hypothyroidism: Plan This is a 66-year-old female who has significant past medical history of paroxysmal atrial fibrillation previously treated with sotalol and history of pulmonary vein isolation procedure at [facility], hx of asymptomatic SVT, mild aortic valve regurg, mild mitral valve regurg, probable small PFO, mild pulmonary hypertension documented on echocardiogram, intermittent hyponatremia, prediabetes with last A1c of 5.9 on 06/30/2022, postsurgical hypothyroidism, senile osteoporosis previously tx with prolia, vertebral compression fx, L ear deafness, hx of diverticulosis, torticollis presents to ED secondary to feeling like she was going to pass out for the past 3 weeks. Near syncope Fatigue ECG changes V3-5 Admitted to telemetry unit Serial troponins remain unremarkable and EKG did not show any change Echocardiogram showed-EF of 65 to 70%, mild concentric LVH, aortic valve is trileaflet, mild aortic regurgitation, mild MR, mild to moderate TR, Doppler findings do not suggest pulmonary hypertension and noted to have a small left to right interatrial shunt. No significant change compared with echo of 07/24/2019 obtain carotid doppler-no significant stenosis CT of the head remained unremarkable CT of the chest showed multiple pulmonary nodules unchanged from prior Appreciate cardiology input and recommendation Clinically stable We will continue to monitor and will need outpatient event monitor on discharge PAF, hx of pulmonary vein isolation procedure, previous sotalol therapy off OAC, not on any rate controlled agents at moment No significant arrhythmia since admission Will need outpatient event monitor Hypothyroidism, post surgical continue levothyroxine Hyponatremia, acute pt with hx of hyponatremia in past received 1L IVF in ED repeat bmp in a.m.-sodium level remains stable at 135 DVT ppx: SQ Lovenox Dispo: admit to tele, if work up negative likely d/c tomorrow FULL CODE PCP: Tylor Whaley Admission and Anticipated Discharge Date Admission Date: September 11, 2022 Subjective 09/11/2022 The patient was seen and examined in telemetry unit She has been complaining of lightheadedness for some time associated with near syncope event yesterday Remains anxious but otherwise does not have any significant symptoms Review of Systems Review of Systems: All systems reviewed and are unremarkable except as noted below Neurologic: Lightheadedness without any other neurological symptoms Physical Exam Physical Exam: Sitting at the edge of the bed without any acute distress Constitutional: + ill appearing and average body habitus; no acute distress Eyes: PERRL, conjunctivae normal, anicteric sclerae ENMT: external ear and nose normal, oropharynx normal Neck: trachea midline, no thyromegaly Respiratory: no respiratory distress Auscultation: + diminished lung sounds Cardiovascular: Rate/Rhythm: regular rate and regular rhythm; not tachycardic Heart Sounds: normal S1, normal S2 and + murmur Extremities: no edema Gastrointestinal (Abdomen): Inspection/Auscultation: normal bowel sounds; abdomen not distended Percussion/Palpation: abdomen soft; abdomen nontender Musculoskeletal: No acute arthritis involving any of the joint Neurologic: normal touch/pain/proprioception and moves all extremities; no focal motor deficits Alert, awake and oriented x3. Psychiatric: A+Ox3, euthymic affect Lymphatic: no cervical or axillary lymphadenopathy Results & Data Results & Data Vital Signs (Past 12 Hours) Vital Signs Temp Pulse Resp BP Pulse Ox O2 Del Method 09/11/22 07:46 36.6 C 73 18 122/81 93 Room Air 09/11/22 04:11 36.7 C 76 16 112/73 95 Room Air Laboratory Results Short CBC 09/10/22 09/11/22 Range/Units 17:30 05:42 WBC 8.98 5.25 (4.8-10.8) K/ul Hgb 13.4 11.9 L (12.0-16.0) g/dl Hct 38.1 34.8 L (37.0-47.0) % Plt Count 219 190 (130-400) K/uL [facility] 09/10/22 09/11/22 17:30 05:42 Sodium 131 L 135 L Potassium 3.8 4.0 Chloride 97 L 105 Carbon Dioxide 27 24 BUN 11 11 Creatinine 0.56 L 0.55 L Glucose 99 92 Calcium 9.5 8.5 L Liver Function 09/10/22 09/11/22 Range/Units 17:30 05:42 Total Bilirubin 0.5 0.8 (0.2-1.0) mg/dl AST 21 15 (13-39) U/L ALT 18 13 (7-52) U/L Alkaline Phosphatase 60 41 (34-104) U/L Albumin 4.6 3.7 (3.4-5.0) gm/dl Urine 09/10/22 Range/Units 17:27 Urine Color Yellow Urine Appearance Clear (Clear) Urine pH 6.0 (4.5-7.5) Ur Specific [place] 1.007 (1.000-1.030) Urine Protein Negative (Negative) Urine Glucose (UA) Negative (Negative) Medications Administered Current Inpatient Medications Acetaminophen (Acetaminophen 325 Mg Tab) 650 mg PO Q4H PRN PRN Reason: Pain or Fever Stop: 10/10/22 22:05 Al Hydrox/Mg Hydrox/Simethicone (Aluminum/Magnesium Susp 30 Ml Udc) 15 ml PO Q4H PRN PRN Reason: Dyspepsia Stop: 10/10/22 22:05 Ascorbic Acid (Ascorbic Acid 500 Mg Tab) 1,000 mg PO DAILY [facility] Stop: 10/11/22 08:59 Last Admin: 09/11/22 09:28 Dose: 1,000 mg Aspirin (Aspirin 81 Mg Ectab) 81 mg PO DAILY ИВАН Stop: 10/11/22 08:59 Last Admin: 09/11/22 09:28 Dose: 81 mg Calcium Carbonate (Calcium Carbonate 1250mg Tab) 1,250 mg PO DAILY ИВАН Stop: 10/11/22 08:59 Last Admin: 09/11/22 09:28 Dose: 1,250 mg Enoxaparin Sodium (Enoxaparin Inj 40 Mg/0.4 Ml Syr) 40 mg SQ Q24H ИВАН Stop: 10/10/22 21:59 Last Admin: 09/10/22 23:34 Dose: 40 mg Levothyroxine Sodium (Levothyroxine Sodium 75 Mcg Tablet) 75 mcg PO DAILY@0630 ИВАН Stop: 10/11/22 06:29 Last Admin: 09/11/22 06:01 Dose: 75 mcg Loratadine (Loratadine 10 Mg Tab) 10 mg PO DAILY PRN PRN Reason: allergies Stop: 10/10/22 22:05 Magnesium Hydroxide (Magnesium Hydroxide Susp 30 Ml Udc) 30 ml PO Q12H PRN PRN Reason: Constipation Stop: 10/10/22 22:05 Metoprolol Tartrate (Metoprolol Tartrate 25 Mg Tab) 25 mg PO BID [facility] Stop: 10/11/22 20:59 Multivitamins (Multivitamin Tab) 1 tab PO DAILY ИВАН Stop: 10/11/22 08:59 Last Admin: 09/11/22 09:28 Dose: 1 tab Ondansetron HCl (Ondansetron Inj 2 Mg/Ml 2 Ml Vial) 4 mg IV Q6H PRN PRN Reason: Nausea Stop: 10/10/22 22:05 Polyethylene Glycol (Polyethylene (Miralax) 17 Gm Pack) 17 gm PO DAILY PRN PRN Reason: Constipation Stop: 10/10/22 22:05 Potassium Chloride (Potassium Chloride 10 Meq Tabcr) 10 meq PO MoWeFr@0900 [facility] Stop: 10/12/22 08:59 Vitamin D (Cholecalciferol 1,000 Units 25 Mcg Tab) 1,000 units PO DAILY [facility] Stop: 10/11/22 08:59 Last Admin: 09/11/22 09:28 Dose: 1,000 units
[2022-09-11] MEDS: METOPROLOL TARTRATE 25 MG TAB PO SCH (20:21)
[2022-09-11] MEDS: ENOXAPARIN INJ 40 MG/0.4 ML SYR SQ SCH (20:22)
[2022-09-12 06:02] LABS: Basophils # (auto) 0.03 K/uL (0-0.2); Basophils % (auto) 0.6 %; Eosinophils # (auto) 0.22 K/uL (0-0.50); Eosinophils % (auto) 4.6 %; Hematocrit (blood only) 36.7 % (37.0-47.0); Hemoglobin 12.4 g/dl (12.0-16.0); Immature Granulocytes # (auto) 0.01 K/uL (0.01-0.20); Immature Granulocytes % (auto) 0.2 %; Lymphocytes # (auto) 2.34 K/uL (1.2-3.4); Lymphocytes % (auto) 49.1 %; Mean Corpuscular Hemoglobin 30.1 pg (25.0-34.0); Mean Corpuscular Hgb Conc 33.8 g/dL (32.0-36.0); Mean Corpuscular Volume 89.1 fL (80.0-100.0); Mean Platelet Volume 9.5 fL (9.4-12.4); Monocytes % (auto) 8.4 %; Neutrophils # (auto) 1.77 K/uL (1.40-6.50); Neutrophils % (auto) 37.1 %; Platelet Count 190 K/uL (130-400); RDW Coefficient of Variation 12.5 % (11.5-14.5); RDW Standard Deviation 40.9 fL (36.4-46.3); Red Blood Count 4.12 M/uL (4.20-5.40); White Blood Count 4.77 K/ul (4.8-10.8)
[2022-09-12] MEDS: LEVOTHYROXINE SODIUM 75 MCG TABLET PO SCH (06:13)
[2022-09-12 06:18] LABS: BUN Creatinine Ratio 18.3 (10-20); Calcium 8.6 mg/dl (8.6-10.3); Creatinine Clr Calc Pharmacy 67.9 ml/min; Est GFR (African American) 102.9 ml/min; Est GFR (Non-African American) 88.8 ml/min; Magnesium 2.1 mg/dl (1.7-2.4); Potassium 4.6 mmol/L (3.5-5.1)
[2022-09-12] MEDS: MULTIVITAMIN TAB PO SCH (07:54)
[2022-09-12] MEDS: CALCIUM CARBONATE 1250MG TAB PO SCH (07:54)
[2022-09-12] MEDS: CHOLECALCIFEROL 1,000 UNITS 25 MCG TAB PO SCH (07:54)
[2022-09-12] MEDS: ASCORBIC ACID 500 MG TAB PO SCH (07:54)
[2022-09-12] MEDS: ASPIRIN 81 MG ECTAB PO SCH (07:55)
[2022-09-12] MEDS: METOPROLOL TARTRATE 25 MG TAB PO SCH (07:55)
[2022-09-12] MEDS ORDERED: POTASSIUM CHLORIDE 10 MEQ TABCR PO SCH (09:00)
--- NOTE | 2022-09-12 10:22 | Cardiology Progress Note ---
Date of Service September 12, 2022 Assessment & Plan (1) Near syncope: (2) Abnormal EKG: (3) LARA (dyspnea on exertion): (4) Fatigue: (5) Acute hyponatremia: (6) Paroxysmal atrial fibrillation: Plan Presentation with recurrent near syncopal episodes. Continuous telemetry monitoring revealed symptoms to be occurring in association with short salvos of paroxysmal supraventricular tachycardia. Low-dose beta-hortencia therapy, metoprolol tartrate, initiated with overall improvement. Continue metoprolol tartrate as prescribed. Outpatient 14-day ZIO monitor ordered, to be applied this afternoon at [facility] if patient is discharged today. Dyspnea on exertion. EKG with nonspecific changes. Resting echocardiography with normal wall motion, normal to hyperdynamic LV function. High sensitivity troponin I negative x 3. Beta-hortencia therapy prescribed as above. Outpatient exercise stress echocardiography ordered. Symptomatic paroxysmal atrial fibrillation previously treated with sotalol, status post February 29, 2020 pulmonary vein isolation procedure with cryoa blation by Dr. Dela Cruz at [facility] in [place], [place]. Anticoagulation (Eliquis) discontinued in May 2020. Sotalol discontinued on June 26, 2020. Mild valve disease. Echo this admission without progression. Follow routinely. PFO. Continue aspirin. Pulmonary hypertension. Doppler findings do not suggest pulmonary hypertension this admission. Recurrent hyponatremia. As per Hospitalist. Admission and Anticipated Discharge Date Admission Date: September 11, 2022 Supervising Physician Co-Signing Physician Notes 66-year-old female admitted with near syncope. Symptomatic short salvos of PSVT recorded yesterday. Prescribed metoprolol tartrate. No recurrent SVT overnight. Patient feeling well today. Has questions regarding driving and activity restrictions. PE: VSS. Gen: NAD, AAO x3. Heart: Regular rhythm, normal S1-S2. No murmur appreciated. Lungs: Clear bilateral, no rales, rhonchi, wheeze. Extremities: No edema. A/P: Agree with above PA-C history, physical exam, assessment and plan. Symptoms correlate with short salvos of PSVT on telemetry. Currently asymptomatic with addition of beta-hortencia therapy. Tolerating metoprolol tartrate 25 mg twice daily. Recommend outpatient 14-day ZIO monitor. All questions answered to their satisfaction. Outpatient cardiology follow-up in 2 to 4 weeks. Subjective Patient seen and examined. Chart, medications, and telemetry reviewed. Patient with brief symptomatic salvos of paroxysmal supraventricular tachycardia on September 11, 2022 at 10:32 AM and 12:14PM that reproduced symptoms leading to presentation there were a very brief duration when compared to outpatient events. Metoprolol tartrate added yesterday afternoon with significant improvement noted by the patient today. Overall, she feels much better. Notes feeling possibly the start of something between 7 and 8 this morning though no significant symptoms and no arrhythmias observed on personal review of the bus monitor. No chest pain. No shortness of breath. No fluid retention. No lightheadedness or dizziness. No fevers or chills. Review of Systems Review of Systems: Complete review of systems otherwise as stated above, negative, or noncontributory. Physical Exam Physical Exam: General: alert, no distress, well nourished, well developed, comfortable and cooperative Skin: No rash Eyes: PER. Conjunctiva pink, sclera clear. HENT: Normocephalic. Atraumatic. Neck: No carotid bruits. No JVD. No HJR. Heart: RRR at 70 bpm. Grade I-II/ systolic murmur. Lungs: Clear. Abdomen: +BS. Soft. Nontender. No masses. No organomegaly. Extremities: No clubbing, cyanosis, or edema. Pulses: radial=2/4, posterior tibial=2/4. Limited neurological examination: No focal deficit. Results & Data Vital Signs (Past 12 Hours) Vital Signs Temp Pulse Pulse Resp BP BP Pulse Ox 09/12/22 07:29 36.5 C 64 19 114/76 97 09/12/22 04:07 36.5 C 60 16 104/70 94 09/12/22 00:10 76 09/11/22 23:28 36.5 C 70 20 110/71 97 O2 Del Method 09/12/22 07:29 Room Air 09/12/22 04:07 Room Air 09/12/22 00:10 09/11/22 23:28 Room Air Laboratory Results CBC 09/12/22 Range/Units 05:47 WBC 4.77 L (4.8-10.8) K/ul RBC 4.12 L (4.20-5.40) M/uL Hgb 12.4 (12.0-16.0) g/dl Hct 36.7 L (37.0-47.0) % Plt Count 190 (130-400) K/uL Neut # (Auto) 1.77 (1.40-6.50) K/uL Lymph # (Auto) 2.34 (1.2-3.4) K/uL [place] # (Auto) 0.40 (0.11-0.59) K/uL Eos # (Auto) 0.22 (0-0.50) K/uL Baso # (Auto) 0.03 (0-0.2) K/uL Comprehensive Metabolic Panel 09/12/22 Range/Units 05:47 Sodium 137 (136-145) mmol/L Potassium 4.6 (3.5-5.1) mmol/L Chloride 106 (98-107) mmol/L Carbon Dioxide 27 (21-32) mmol/L BUN 13 (6-23) mg/dl Creatinine 0.71 (0.6-1.2) mg/dl Glucose 94 (70-99(Fasting)) mg/dl Calcium 8.6 (8.6-10.3) mg/dl Intake and Output 09/11/22 09/12/22 09/12/22 22:59 06:59 14:59 Output Total 75 / 1200 375 / 1200 700 / 700 Balance -75 / -1200 -375 / -1200 -700 / -700 Output: Urine 75 / 1200 375 / 1200 700 / 700 Other: Weight 62.9 kg Weight Measurement Method Built in [facility] Diagnostic Findings Continuous bus monitor reveals no further episodes of PSVT since the episode on 09/11/2022 at 12:14 PM. Current rhythm is sinus in the 60s. No significant bradycardia or pauses.
--- NOTE | 2022-09-12 11:40 | Hospitalist Progress Note ---
Date of Service September 12, 2022 Assessment & Plan (1) Near syncope: (2) Fatigue: (3) Hyponatremia: (4) Paroxysmal atrial fibrillation: (5) Hypothyroidism: Plan This is a 66-year-old female who has significant past medical history of paroxysmal atrial fibrillation previously treated with sotalol and history of pulmonary vein isolation procedure at [facility], hx of asymptomatic SVT, mild aortic valve regurg, mild mitral valve regurg, probable small PFO, mild pulmonary hypertension documented on echocardiogram, intermittent hyponatremia, prediabetes with last A1c of 5.9 on 06/30/2022, postsurgical hypothyroidism, senile osteoporosis previously tx with prolia, vertebral compression fx, L ear deafness, hx of diverticulosis, torticollis presents to ED secondary to feeling like she was going to pass out for the past 3 weeks. Near syncope Fatigue ECG changes V3-5 Admitted to telemetry unit Serial troponins remain unremarkable and EKG did not show any change Echocardiogram showed-EF of 65 to 70%, mild concentric LVH, aortic valve is trileaflet, mild aortic regurgitation, mild MR, mild to moderate TR, Doppler findings do not suggest pulmonary hypertension and noted to have a small left to right interatrial shunt. No significant change compared with echo of 07/24/2019 obtain carotid doppler-no significant stenosis CT of the head remained unremarkable CT of the chest showed multiple pulmonary nodules unchanged from prior Appreciate cardiology input and recommendation Clinically stable We will continue to monitor and will need outpatient event monitor on discharge No more episodes of near syncope in the hospital and she has been feeling a lot better since admission She wants to go home this afternoon PAF, hx of pulmonary vein isolation procedure, previous sotalol therapy off OAC, not on any rate controlled agents at moment No significant arrhythmia since admission Will need outpatient event monitor Brief 2 episodes of atrial tachycardia noted Will have event monitor placed before she goes home this afternoon Beta-hortencia has been adjusted by the camp boss Hypothyroidism, post surgical continue levothyroxine Hyponatremia, acute pt with hx of hyponatremia in past received 1L IVF in ED repeat bmp in a.m.-sodium level remains stable at 135 DVT ppx: SQ Lovenox Dispo: admit to tele, if work up negative likely d/c tomorrow FULL CODE PCP: Tylor Whaley She has an appointment with her PCP Admission and Anticipated Discharge Date Admission Date: September 11, 2022 Subjective 09/11/2022 The patient was seen and examined in telemetry unit She has been complaining of lightheadedness for some time associated with near syncope event yesterday Remains anxious but otherwise does not have any significant symptoms 09/12/2022 The patient was seen and examined in telemetry unit She has had 2 brief runs of atrial tachycardia which is not supposed to cause any symptoms but she did have symptoms as well likely associated with it She has been feeling much better today and denies any anxiety She wants to go home this afternoon Review of Systems Review of Systems: All systems reviewed and are unremarkable except as noted below Physical Exam Physical Exam: Sitting at the edge of the bed without any acute distress Constitutional: average body habitus; no acute distress and not ill appearing Eyes: PERRL, conjunctivae normal, anicteric sclerae ENMT: external ear and nose normal, oropharynx normal Neck: trachea midline, no thyromegaly Respiratory: no respiratory distress Auscultation: + diminished lung sounds (Minimal crackles at the bases) Cardiovascular: Rate/Rhythm: regular rate and regular rhythm; not tachycardic Heart Sounds: normal S1, normal S2 and + murmur Extremities: no edema Gastrointestinal (Abdomen): Inspection/Auscultation: normal bowel sounds; abdomen not distended Percussion/Palpation: abdomen soft; abdomen nontender Musculoskeletal: no cyanosis or clubbing, extremities motor strength 5/5 Neurologic: normal touch/pain/proprioception and moves all extremities; no focal motor deficits Psychiatric: A+Ox3, euthymic affect Lymphatic: no cervical or axillary lymphadenopathy Results & Data Results & Data Vital Signs (Past 12 Hours) Vital Signs Temp Pulse Pulse Resp BP BP Pulse Ox 09/12/22 11:02 36.4 C L 56 L 19 118/80 97 09/12/22 07:29 36.5 C 64 19 114/76 97 09/12/22 04:07 36.5 C 60 16 104/70 94 09/12/22 00:10 76 O2 Del Method 09/12/22 11:02 Room Air 09/12/22 07:29 Room Air 09/12/22 04:07 Room Air 09/12/22 00:10 Laboratory Results Short CBC 09/12/22 Range/Units 05:47 WBC 4.77 L (4.8-10.8) K/ul Hgb 12.4 (12.0-16.0) g/dl Hct 36.7 L (37.0-47.0) % Plt Count 190 (130-400) K/uL BMP 09/12/22 05:47 Sodium 137 Potassium 4.6 Chloride 106 Carbon Dioxide 27 BUN 13 Creatinine 0.71 Glucose 94 Calcium 8.6 Medications Administered Current Inpatient Medications Acetaminophen (Acetaminophen 325 Mg Tab) 650 mg PO Q4H PRN PRN Reason: Pain or Fever Stop: 10/10/22 22:05 Al Hydrox/Mg Hydrox/Simethicone (Aluminum/Magnesium Susp 30 Ml Udc) 15 ml PO Q4H PRN PRN Reason: Dyspepsia Stop: 10/10/22 22:05 Ascorbic Acid (Ascorbic Acid 500 Mg Tab) 1,000 mg PO DAILY ИВАН Stop: 10/11/22 08:59 Last Admin: 09/12/22 07:54 Dose: 1,000 mg Aspirin (Aspirin 81 Mg Ectab) 81 mg PO DAILY ИВАН Stop: 10/11/22 08:59 Last Admin: 09/12/22 07:55 Dose: 81 mg Calcium Carbonate (Calcium Carbonate 1250mg Tab) 1,250 mg PO DAILY ИВАН Stop: 10/11/22 08:59 Last Admin: 09/12/22 07:54 Dose: 1,250 mg Enoxaparin Sodium (Enoxaparin Inj 40 Mg/0.4 Ml Syr) 40 mg SQ Q24H ИВАН Stop: 10/10/22 21:59 Last Admin: 09/11/22 20:22 Dose: 40 mg Levothyroxine Sodium (Levothyroxine Sodium 75 Mcg Tablet) 75 mcg PO DAILY@0630 [facility] Stop: 10/11/22 06:29 Last Admin: 09/12/22 06:13 Dose: 75 mcg Loratadine (Loratadine 10 Mg Tab) 10 mg PO DAILY PRN PRN Reason: allergies Stop: 10/10/22 22:05 Magnesium Hydroxide (Magnesium Hydroxide Susp 30 Ml Udc) 30 ml PO Q12H PRN PRN Reason: Constipation Stop: 10/10/22 22:05 Metoprolol Tartrate (Metoprolol Tartrate 25 Mg Tab) 25 mg PO BID ИВАН Stop: 10/11/22 20:59 Last Admin: 09/12/22 07:55 Dose: 25 mg Multivitamins (Multivitamin Tab) 1 tab PO DAILY ИВАН Stop: 10/11/22 08:59 Last Admin: 09/12/22 07:54 Dose: 1 tab Ondansetron HCl (Ondansetron Inj 2 Mg/Ml 2 Ml Vial) 4 mg IV Q6H PRN PRN Reason: Nausea Stop: 10/10/22 22:05 Polyethylene Glycol (Polyethylene (Miralax) 17 Gm Pack) 17 gm PO DAILY PRN PRN Reason: Constipation Stop: 10/10/22 22:05 Potassium Chloride (Potassium Chloride 10 Meq Tabcr) 10 meq PO MoWeFr@0900 [facility] Stop: 10/12/22 08:59 Last Admin: 09/12/22 07:54 Dose: 10 meq Vitamin D (Cholecalciferol 1,000 Units 25 Mcg Tab) 1,000 units PO DAILY [facility] Stop: 10/11/22 08:59 Last Admin: 09/12/22 07:54 Dose: 1,000 units
--- NOTE | 2022-09-12 16:48 | Discharge Summary ---
Date of Service September 12, 2022 Admission HPI Per Admitting Provider This is a 66-year-old female who has significant past medical history of paroxysmal atrial fibrillation previously treated with sotalol and history of pulmonary vein isolation procedure at [facility], hx of asymptomatic SVT, mild aortic valve regurg, mild mitral valve regurg, probable small PFO, mild pulmonary hypertension documented on echocardiogram, intermittent hyponatremia, prediabetes with last A1c of 5.9 on 06/30/2022, postsurgical hypothyroidism, senile osteoporosis previously tx with prolia, vertebral compression fx, L ear deafness, hx of diverticulosis, torticollis presents to ED secondary to feeling like she was going to pass out for the past 3 weeks. Over the past 1 week she has had 3 episodes of near syncope. One occurred when walking and visiting her son in [place] and another incident happened while driving today. Previously symptoms improved with some orange juice. This afternoon when in car and she had to rod puller and coiler sx resolved on own. With these episodes she denies chest pain, palpitations, flushed, sweaty, pain, or nausea. She did feel short of breath with the episodes. These sx are occurring just at rest. The one occurred when she was sitting eat breakfast. No changes in medica tion. She denies change in vision/hearing, weakness, focal weakness, bowel or bladder incontinence, intermittent confusion. She generally has been feeling lightheaded. She had a, "bad cold," in July. Ever since this she hasn't been as energetic. She is very active at baseline riding her bike 1-2x a week at 15 miles. She is active in gardening. She did struggle going up 4 flights of steps when visiting son in [place]. She has never had anything like this in the past. She denies f/c/s, chest pain, cough, hemoptysis, n/v/d, abd pain. Admission Exam Per Admitting Provider General:NAD, well nourished, non-toxic appearing Head:NC AT Eyes: anicteric sclera, no conjunctival injection Nose:nares patent, nose normal Mouth:MMM Neck:supple, trachea midline CV:RRR S1 S2 Pulm:CTA b/l, normal effort Abd/GI:+ BS, soft, NT, ND, no guarding :no mitchell Ext:no pretibial edema MSK:normal bulk and tone Neuro:head/neck tremor (baseline), alert, oriented, moving all 4 extremities symmetrically Psych:anxious mood and affect Skin:visible skin is warm, dry, and without rash. Pt not fully undressed for exam. Principal Diagnosis Near syncope, no significant arrhythmia noted, paroxysmal atrial fibrillation, hyponatremia Discharge Exam Sitting at the edge of the bed without any acute distress Constitutional average body habitus; no acute distress and not ill appearing Eyes PERRL, conjunctivae normal, anicteric sclerae ENMT external ear and nose normal, oropharynx normal Neck trachea midline, no thyromegaly Respiratory no respiratory distress Auscultation: + diminished lung sounds (Minimal crackles at the bases) Cardiovascular Rate/Rhythm: regular rate and regular rhythm; not tachycardic Heart Sounds: normal S1, normal S2 and + murmur Extremities: no edema Gastrointestinal (Abdomen) Inspection/Auscultation: normal bowel sounds; abdomen not distended Percussion/Palpation: abdomen soft; abdomen nontender Musculoskeletal no cyanosis or clubbing, extremities motor strength 5/5 Neurologic normal touch/pain/proprioception and moves all extremities; no focal motor def icits Psychiatric A+Ox3, euthymic affect Lymphatic no cervical or axillary lymphadenopathy Discharge Data Allergies Allergy/AdvReac Type Severity Reaction Status Date / Time latex Allergy Unknown RASH Verified 09/10/22 19:21 erythromycin base AdvReac Unknown UPSET Verified 09/10/22 19:21 STOMACH Consultations 09/10/22 19:00 ED Decision to Admit Stat 09/10/22 19:17 Consult Cardiology Routine Ordered Studies 09/11/22 08:30 US carotid doppler BI Routine 09/11/22 11:06 CT chest without contrast [CT chest diagnostic wo con] Routine CT head/brain wo con Routine Hospital Course (1) Near syncope: (2) Fatigue: (3) Hyponatremia: (4) Paroxysmal atrial fibrillation: (5) Hypothyroidism: Plan This is a 66-year-old female who has significant past medical history of paroxysmal atrial fibrillation previously treated with sotalol and history of pulmonary vein isolation procedure at [facility], hx of asymptomatic SVT, mild aortic valve regurg, mild mitral valve regurg, probable small PFO, mild pulmonary hypertension documented on echocardiogram, intermittent hyponatremia, prediabetes with last A1c of 5.9 on 06/30/2022, postsurgical hypothyroidism, senile osteoporosis previously tx with prolia, vertebral compression fx, L ear deafness, hx of diverticulosis, torticollis presents to ED secondary to feeling like she was going to pass out for the past 3 weeks. Near syncope Fatigue ECG changes V3-5 Admitted to telemetry unit Serial troponins remain unremarkable and EKG did not show any change Echocardiogram showed-EF of 65 to 70%, mild concentric LVH, aortic valve is trileaflet, mild aortic regurgitation, mild MR, mild to moderate TR, Doppler findings do not suggest pulmonary hypertension and noted to have a small left to right interatrial shunt. No significant change compared with echo of 07/24/2019 obtain carotid doppler-no significant stenosis CT of the head remained unremarkable CT of the chest showed multiple pulmonary nodules unchanged from prior Appreciate cardiology input and recommendation Clinically stable We will continue to monitor and will need outpatient event monitor on discharge No more episodes of near syncope in the hospital and she has been feeling a lot better since admission She wants to go home this afternoon PAF, hx of pulmonary vein isolation procedure, previous sotalol therapy off OAC, not on any rate controlled agents at moment No significant arrhythmia since admission Will need outpatient event monitor Brief 2 episodes of atrial tachycardia noted Will have event monitor placed before she goes home this afternoon Beta-hortencia has been adjusted by the net developer Hypothyroidism, post surgical continue levothyroxine Hyponatremia, acute pt with hx of hyponatremia in past received 1L IVF in ED repeat bmp in a.m.-sodium level remains stable at 135 DVT ppx: SQ Lovenox Dispo: admit to tele, if work up negative likely d/c tomorrow FULL CODE PCP: Tylor Whaley She has an appointment with her PCP Total Time Total Time Spent Total Time Spent (In Minutes): 45 minutes Discharge Plan Discharge Items Patient Disposition: Home - Self-Care Reason For Visit: NEAR SYNCOPE, ECG CHANGE Discharge Diagnosis: Near syncope, no significant arrhythmia noted, paroxysmal atrial fibrillation, hyponatremia Condition on Discharge: Good Activity: Resume your previous activity Non-emergency contact: Primary Care Provider Call non-emergency contact if: you have any medication questions and your symptoms worsen Follow-up/Referrals: bIan Whaley, [Primary Care Provider] - (Date & Time 09/17/2022 12:20 PM Provider Mechelle Latham PA-C Department [facility] ) Diet: Heart Healthy Addtl Attending Provider Instructions: Please take precautions to avoid fall Take your medications as advised You will have a 14-day Zio patch placement from [facility] this afternoon if he is not done yet in the hospital Please have follow-up appointments with your healthcare providers Pending Studies at Discharge: No Stand-Alone Forms: My [facility], Smoking Cessation Medications and DC Order Prescriptions: New metoprolol tartrate 25 mg Tablet 25 mg PO BID 30 Days Qty: 60 0RF Continued aspirin 81 mg Tablet,Delayed Release (Dr/Ec) 81 mg PO DAILY levothyroxine 75 mcg Tablet 75 mcg PO DAILY@0630 calcium carbonate 600 mg calcium (1,500 mg) Tablet 600 mg PO DAILY loratadine 10 mg Tablet 10 mg PO DAILY PRN (Reason: allergies) potassium chloride [Klor-Con M10] 10 mEq tablet,ER particles/crystals 10 meq PO MOWEFR cholecalciferol (vitamin D3) 25 mcg (1,000 unit) Tablet 25 mcg PO DAILY ascorbic acid (vitamin C) 500 mg Capsule 1,000 mg PO DAILY multivitamin Tablet 1 tab PO DAILY Discharge Orders: Discharge Order (Routine); Ordered 09/12/22 Ordered By: Edy Mesa Admission Data Admit Date/Time: 09/11/22 11:26 Attending Provider: Edy Mesa Admit Provider: Vivienne Godinez Primary Care Provider: Iban Whaley Other Providers: Urban Fields ; Moshe Lucio ; Vivienne Godinez Other Interventions: Discharge Summary Assessment (RN) Last Done: 09/12/22 13:44
== END 2022-09-12 16:30 | disposition home or self-care (01) | DRG 312 ==
LOC: ED 16:56 → 2S 16:56 → SUATTDRO 19:02 → 2S 21:20

== ENCOUNTER 2023-05-06 06:43 | Inpatient (IN) ==
--- OUTSIDE RECORDS SUMMARY | 2023-05-06 07:03 | External Medical Summary | Summary of Care ---
Author Name Unknown Organization [facility] Address [address] [place] [address] Phone [phone] Care Team Providers Care Conveyor Worker Name Role Phone Iban Whaley DO Primary Care Provider Reason for Visit * Reason Comments Acute Encounter Details Date Type Department Care Team (Late st Contact Info) Description 04/28/2023 8:40 AM EST Office Visit Family [facility] [address] [facility] [place] [address] Sultana Stapleton MD [address] [facility] [place] [address] Acute gastroenteritis*; History of Clostridium difficile infection; Paroxysmal atrial fibrillation (HCC); Mitral valve disorder Allergies Active Allergy Reactions Criticality Noted Date Comments Erythromycin Nausea/vomiting 02/03/2000 Other reaction(s): GI intolerance Latex Rash 07/21/2008 mild documented as of this encounter (statuses as of 04/28/2023) Medications Medication Sig Dispensed Refills Start Date End Date Status VITAMIN C 500 MG PO TABS 2 daily 0 Active Calcium Carbonate 600 MG Oral Tablet Take by mouth . 1 daily 0 Active Multiple Vitamins-Minerals (MULTI FOR HER) Tablet Take 1 Tab by mouth daily. Calcium 200 mg, Vitamin D 800 0 Active Cholecalciferol (VITAMIN D) 1000 units Tablet Take 1 Tablet by mouth in the morning. 0 Active Aspirin 81 MG Oral Tablet Delayed Release Take 1 Tablet by mouth in the morning. 0 Active Benefiber Drink Mix Oral Packet Take 1 Packet by mouth in the morning. 0 Active Probiotic-10 Oral Tablet Chewable Take by mouth . 0 Acti ve valACYclovir HCl 1 GM Oral Tablet (Valtrex)Indication s:Recurrent cold sores Take by mouth 2 Tablets in the morning AND 2 Tablets before bedtime. Repeat if necessary. 12 Tablet 11 01/15/20 22 Active tiZANidine HCl 2 MG Oral Tablet (Zanaflex)Indicatio ns:Lumbosacral spondylosis without myelopathy,Lumbar facet joint pain,Compression fracture of body of thoracic vertebra (HCC),Thoracic spondylosis without myelopathy Take 1 Tablet by mouth every 6 hours as needed for Muscle spasms. 30 Tablet 0 08/12/19 23 Active Naproxen 375 MG Oral Tablet (Naprosyn)Indicatio ns:Lumbosacral spondylosis without myelopathy,Lumbar facet joint pain Take 1 Tablet by mouth 2 times a day as needed (back pain). With food 60 Tablet 5 08/12/19 23 Active Metoprolol Succinate ER 25 MG Oral Tablet Extended Release 24 Hour (toPROL XL)Indications:PSVT (paroxysmal supraventricular tachycardia) Take 0.5 Tablets by mouth 2 times a day. 90 Tablet 3 10/04/19 23 Active Potassium Chloride Livia ER 10 MEQ Oral Tablet Extended ReleaseIndications: Hyperkalemia Take 1 Tablet by mouth once a day on Thursday, Thursday, and Thursday only. 90 Tablet 3 11/29/19 23 Active Fluzone High-Dose Quadrivalent 0.7 ML Suspension Prefilled Syringe (Influenza Vac High-Dose Quad (65 years and older)) Inject 0.7 ml intramuscularly as directed 0.7 mL 0 01/21/20 23 Active Benzonatate 100 MG Oral Capsule (Tessalon Perlnate) Take 1 Capsule by mouth 3 times a day as needed for Cough. Do not cut, crush, or chew. 50 Capsule 1 02/04/20 23 Active Levothyroxine Sodium 75 MCG Oral Tablet (Levoxyl)Indication s:Non-toxic multinodular goiter Take 1 Tablet by mouth daily first thing in the morning. (at least 30 min prior to breakfast or other meds) 90 Tablet 3 02/28/20 23 Active Triamcinolone Acetonide 0.1 % External Cream (Aristocort) Apply topically to affected area 2 times a day. To affected area. 45 g 5 02/28/20 23 Active Nirmatrelvir&Ritona vir 300/100 20 x 150 MG & 10 x 100MG Oral Tablet Therapy Pack (Paxlovid) Take 2 pink tablets of Nirmatrelvir and 1 white tablet of Ritonavir two times a day by mouth. 30 Tablet 0 03/18/20 23 024 Discontinued Hospital, Clinic, or Other Facility Administered Medication Ordered Dose Route Frequency Start Date End Date Status Denosumab (Prolia) subcut inj 60 mgIndications:Other osteoporosis without current pathological fracture 60 mg SC [id number] 04/14/2023 04/08/2024 Active documented as of this encounter (statuses as of 04/28/2023) Active Problems Problem Noted Date Diagnosed Date Postural dizziness with presyncope 11/02/2022 Overview: Added automatically from request for surgery [id number] Prediabetes 07/01/2021 Overview: Per Prediabetes protocol Senile osteoporosis 09/05/2020 Lung nodule 03/09/2020 Paroxysmal atrial fibrillation 02/27/2020 Overview: Added automatically from request for surgery [id number] Atrial fibrillation 01/19/2019 Compression fracture of body of thoracic vertebr a 09/01/2018 Spondylosis of lumbar region without myelopathy or radiculopathy 04/21/2016 Lumbosacral spondylosis without myelopathy 02/05 Thoracic spondylosis without myelopathy 02/06/20 16 Lumbar facet joint pain 02/06/2016 Other osteoporosis without current pathological fracture 05/31/2009 Overview: ICD-10 update of inactive term History of colonic polyps 12/15/2008 Overview: 03/28/15: Normal exam, repeat in 5 years. 12/19/09: 7 mm hyperplastic polyp ascending colon, repeat 5 years 9/25/09: adenoma ascending colon, repeat one year Postsurgical hypothyroidism 10/04/2008 ADVANCE DIRECTIVE INFORMATION 09/21/2007 Overview: No, Advance Directive brochure given to patient. Other specified forms of hearing loss 07/20/2001 Overview: profound left sensorincural hearing loss, no hearing loss right ADJ DISORDER W/DEPRES MOOD Mitral valve disorder Torticollis Cataract GENERAL OSTEOARTHROSIS documented as of this encounter (statuses as of 04/28/2023) Resolved Problems Problem Noted Date Diagnosed Date Resolved Date Upper respiratory tract infection 02/06/2022 07/29/2022 Sore throat (viral) 02/06/2022 07/30/19 23 Hyponatremia 02/29/2020 02/29/2020 Hypomagnesemia 02/29/2020 02/29/2020 Encounter for deep vein thro mbosis (DVT) prophylaxis 02/29/2020 02/29/2020 Colonic diverticular abscess 02/29/2020 02/29/2020 Acute diverticulitis of intestine 02/29/2020 02/29/2020 Hypokalemia 02/29/2020 02/29/2020 Compression fx, thoracic spine 04/21/2016 08/31/2018 Non-toxic multinodular goiter 05/27/2008 02/29/2020 PERSONAL HISTORY OF EXPOSURE OT POTENTIALLY HAZARDOUS BODY FLUIDS 01/19/2019 Deaf nonspeaking, not elsewhere classifiable 05/24/2008 Overview: error Diverticulosis of colon 12/23 documented as of this encounter (statuses as of 04/28/2023) Immunizations Name Administration Dates Next Due COVID-19 mRNA, LNP-s, No Pre serve, 2-Dose Series (vufind) 12/28/2020,05/30/2020,05/01/2020 COVID-19, LNP-s, No Preserve , Alirio-sucrose, Ages 12+ (vufind) 06/27/2021 COVID-19, MRNA-LNP, 23-24, P F, 30 MCG/0.3 mL, 12 YRS AND ABOVE, IM ([facility] 12/29/2022 Covid-19, Mrna, Lnp-s, Pf, B ivalent, 30 Mcg, IM, 12 yrs and above (Pfizer) 08/04/2022,12/03/2021 Pneumococcal Conjugate Vacci ne, 20-valent ([id number]) 01/28/2022 Pneumococcal Polysaccharide PPV23 (Pneumovax) 01/16/2021 RSV Vac., Bivalent, Perfusio n F, Pf,0.5 Ml (Abrysvo) 02/03/2023 Seasonal Influenza Virus Vac cine, Unspecified Formulation 01/07/2021,12/14/2019,12/30/2018,12/21,01/21/2017,02/21/2016,01/06/20 14,01/20/2013,01/01/2012,01/28/2011,1 04/01/2009,12/28/2008,03/01/2008,01/27,02/26/2005,02/01/2003, 2,02/23/2001,02/26/2000 Seasonal Influenza, PF, 6 M & above, IM , (FluLaval or Fluzone) 12/14/2019,12/30/2018,01/06/2018,1103/2016 Seasonal Influenza, Quadriva lent Hd (Fluzone Hd) 01/20/2023,01/14/2022,01/07/2021 Seasonal Influenza, Quadriva lent, No Preserve, IM 02/21/2016 Seasonal Influenza, Split, I IV3, With Preserve, Inj 11/30/2014,01/05/2014,01/20/2013,12/21,01/28/2011,01/30/2010,12/29/19 09,03/01/2008,01/27/2006 01/29/2012 TD - Tetanus/Diptheria (ADULT) 03/27/2005 TD, Preservative Free 06/11/1994 TDAP (age 10 and older)(Boostrix) 05/23/2021 TDAP (age 11 and older)(Adacel) 11/15/2010 Varicella Zoster Vaccine (Adult) 08/15/2016 Zoster Vaccine Recombinant (Shingrix) 09/30/2019 ,03/18/2019,08/15/2016 documented as of this encounter Social History Tobacco Use Types Packs/Day Years Used Date Smoking Tobacco: Never Smokeless Tobacco: Never Alcohol Use Standard Drinks/Week Comments Yes 0 (1 standard drink = 0.6 oz pure alcohol) glass of wine a few times a week per patient PHQ-2 Answer Date Recorded PHQ Adult Total Score 0 07/10/2021 Hunger Vital Sign Answer Date Recorded Worried About Running Out of Food in the Last Ye ar Never true 05/23/2019 Ran Out of Food in the Last Year Never true 05/23/2019 Sex and Gender Information Value Date Recorded Sex Assigned at Female 05/23/2019 3:37 PM EST Gender Identity Female 05/23/2019 3:37 PM EST Sexual Orientation Choose not to disclose 2019 3:37 PM EST Job Start Date Occupation Industry Not on file Not on file Not on file documented as of this encounter Last Filed Vital Signs Vital Sign Reading Time Taken Comments Blood Pressure 120/80 04/28/2023 8:37 AM EST Pulse 86 04/28/2023 8:37 AM EST Temperature 36.9 C (98.4 F) 04/28/2023 8:37 AM ES T Respiratory Rate 16 04/28/2023 8:37 AM EST Oxygen Saturation 99% 04/28/2023 8:37 AM EST Inhaled Oxygen Concentration - - Weight 60.3 kg (133 lb) 04/28/2023 8:37 AM EST Height - - Body Mass Index 24.33 12/26/2022 9:46 AM EDT documented in this encounter Functional Status Functional Status Response Date of Assess ment Are you deaf or do you have serious difficulty hearing? Yes-Deaf Left ear 02/29/2020 Are you blind or do you have serious difficulty seeing, even when wearing glasses? No 02/29/2020 Do you have serious difficul ty walking or climbing stairs? (5 years old or older) No 02/29/2020 Do you have difficulty dress ing or bathing? (5 years old or older) No 02/29/2020 Because of a physical, menta l, or emotional condition, do you have difficulty doing errands alone such as visiting a doctor s office or shopping? (15 years old or older) No 02/29/20 20 Cognitive Status Response Date of Assessm ent Because of a physical, menta l, or emotional condition, do you have serious difficulty concentrating, remembering, or making decisions? (5 years old or older) No 02/29/2020 documented as of this encounter Progress Notes * Sultana Stapleton MD - 04/28/2023 8:46 AM EST Subjective Chief Complaint Patient presents with Acute HPI: Kimmy Delgado is a 67 year old female. The following issues were addressed today: Patient presents today with GI symptoms. Starting Thursday night, she developed watery diarrhea and vomiting. [place] nauseated all day on Thursday so did not not have much to eat or drink. States she hada "low grade fever" on Thursday, temperature was 99.8F. On Thursday morning her stool was bright green and has been green since. Now more formed. Nausea has improved and she has been able to drink liquids and eat scrambled eggs, banana, chicken, mashed potatoes, and applesauce. No more episodes of vomiting. She has a history of C. diff and submitted sample for testing yesterday, which was negative.Keeps grandson a few days a week after preschool and they recently got an email saying there is stom ach virus going through his school although grandson has not been sick. Patient mentions history ofheart disease. Review of Systems: See HPI Objective BP 120/80 | Pulse 86 | Temp 36.9 C (98.4 F) (Tympanic) | Resp 16 | Wt 60.3 kg (133 lb) | LMP 03/06/2006 | SpO2 99% | BMI 24.33 kg/m | BSA 1.62 m Wt Readings from Last 3 Encounters: 04/28/23 60.3 kg (133 lb) 04/14/23 60.3 kg (133 lb) 02/27/23 61.1 kg (134 lb 9.6 oz) BP Readings from Last 3 Encounters: 04/28/23 120/80 02/27/23 116/70 02/03/23 120/78 General: Well-appearing, no acute distress Throat/Mouth: Oral mucosa pink and moist Cardiovascular: Regular rate and rhythm, no murmur Respiratory: Good respiratory effort, breath sounds equal and clear to auscultation bilaterally Abdomen: Soft, non-distended, non-tender, hyperactive bowel sounds, no rebound or guarding Neurological: Alert and oriented Psychiatric: Appropriate mood and affect Assessment & Plan 1. Acute gastroenteritis Suspect viral gastroenteritis. Recommended supportive care, adequate hydration and diet as tolerated. Patient inquiring about additional stool studies, will defer unless diarrhea returns and persists. Questioning whether this could be diverticulitis but unlikely in the absence of abdominal pain. 2. History of Clostridium difficile infection Reviewed test results from yesterday, C. diff negative. 3. Paroxysmal atrial fibrillation (HCC) 4. Mitral valve disorder Stable. Patient is in sinus rhythm today. Continue current medication(s). Follow Up: Return if symptoms worsen or fail to improve. This note was electronically signed by Sultana Stapleton MD documented in this encounter Nursing Notes * Nicki Krause LPN - 04/28/2023 8:34 AM EST Patient presents in office today with C/O Thursday night had sever vomiting and diarrhea Thursday hadlow grade fever Thursday only eating bland diet no fever today. Has not slept well the last few days is passing a lot of gas and BM's are green. Is not loose at this point. Has history of Cdiff and history of heart issues Did bring in stool sample yesterday and dropped off at lab. Is concerned of it being Cdiff again. Grandson is not currently sick but stomach bug going through his preschool currently documented in this encounter Plan of Treatment Upcoming Encounters Date Type Department Care Team (Late st Contact Info) Description 04/29/2023 9:00 AM EST Office Visit Cardiology [facility] [address] [facility] [place] [address] Britney Dela Cruz IV, MD [address] [place] [address] 07/08/2023 1:00 PM EDT Office Visit Cardiology [facility] [place] [address] [place], [facility] [address] [facility] [place] [address] 10/12/2023 9:30 AM EDT Imaging Radiology, [address] [place] [address] 10/13/2023 9:20 AM EDT Office Visit Family Practice [facility] [place] [address] [place] [address] Iban Whaley, DO [address] [place] [address] 10/15/2023 9:30 AM EDT Nurse Only Rheumatology [address] [place] [address] Pf, Nurse Rheum [address] [place] [address] [place] [address] 04/19/2024 9:40 AM EST Office Visit Rheumatology [address] [place] [address] Umberto Hurst MD [address] [place] [address] [place] [address] Scheduled Procedures Name Priority Associated Diagnoses Date/Ti me COLONOSCOPY FLEXIBLE PROXIMAL DIAGNOSTIC Recall History of colon polyps Health Maintenance Due Date Last Done Comments Depression Screening 07/10/2022 07/10/2021, 10/05/2014 (Discussed) *BISPHONATE OR OTHER ACCEPTABLE MEDICATION NEEDED FOR OSTEOPOROSIS (REFER TO SMARTSET #1146) 04/11/2023 Mammogram 07/03/2023 07/02/2022, 06/21, 06/26/2021, Additional history exists DXA Scan 09/03/2023 09/02/2021, 08/21, 08/30/2019, Additional history exists HbA1c 02/26/2024 02/25/2023, 06/21, 12/24/2021, Additional history exists TSH 02/26/2024 02/25/2023, 06/2021, 06/24/2021, Additional history exists Lipid Panel 2024 11/21/2019, 09/21, 08/10/2013, Additional history exists COLONOSCOPY-EVERY 5 YRS AGES 18-100 04/01/2027 04/01/2022, 04/01/2022, 01/24/2020, Additional history exists DTaP,Tdap,and Td Vaccines (3 - Td or Tdap) 05/24/2031 05/23/2021, 11/15/2010, 03/27/2005, Additional history exists Hepatitis B Completed 07/09/1995, 01/21, 12/21/1994 Pap Smear Discontinued 09/19/2019, 07/22, 08/08/2013, Additional history exists Zoster Vaccines Completed 09/30/2019, 02/21, 08/15/2016, Additional history exists Pneumococcal Vaccine: 65+ Years Completed 01/28/2022, 01/16/2021 VITAMIN D LEVEL ONCE IN A LIFETIME-USE SMARTSET# [id number] Completed 04/03/2022, 06/24/2021, 07/23/2020, Additional history exists COVID-19 Vaccine Completed 12/29/2022, , 12/03/2021, Additional history exists Influenza Vaccine (FLU shot) Completed 01/20/2023, 01/14/2022, 01/07/2021, Additional history exists GARDASIL-HPV IMMUNIZATION SERIES Aged Out No longer eligible based on patient's age to complete this topic MENINGOCOCCAL (MENACTRA/MENVEO) Aged Out No longer eligible based on patient's age to complete this topic documented as of this encounter Medical Devices Implanted Type Area Nurse First Aid Device Identifier Shelf Expiration Date Model / Serial / Lot Sys Monit Linq Ii Insert Monit - [id number] Implanted:Qty: 1 on 11/27/2022 by Britney Dela Cruz IV, MD at [facility] [employer] [id number] 02/13/2024 LNQ 22SYS / [id number] / [id number] documented as of this encounter Visit Diagnoses Diagnosis Acute gastroenteritis- Primary Other and unspecified noninfectious gastroenteritis and colitis History of Clostridium difficile infection Personal history of other infectious and parasitic disease Paroxysmal atrial fibrillation (HCC) Atrial fibrillation Mitral valve disorder Mitral valve disorders documented in this encounter Additional Health Concerns Infection Onset Date Last Indicated Resolved Time C. difficile 07/26/2021 07/26/2021 documented as of this encounter Advance Directives Latest Code Status on File Code Status Date Activated Date Inactivated Comments Full Code 02/29/2020 12:50 PM 03/01/2020 4:02 PM Thi s order reflects the patients wishes and were consensually agreed upon. Code Status History Code Status Date Activated Date Inactivated Comments Full Code 07/21/2008 3:19 PM 07/22/2008 2:37 PM Care Teams Conveyor Worker Relationship Specialty Start Date End Date Iban Whaley DO [address] [place] [address] PCP - General Family Medicine 11/22/15 documented as of this encounter
--- OUTSIDE RECORDS SUMMARY | 2023-05-06 07:03 | External Medical Summary | Summary of Care ---
Author Name Unknown Organization [facility] Address [address] [place] [address] Phone [phone] Care Team Providers Care Bleach Maker Name Role Phone Iban Whaley DO Primary Care Provider Encounter Details Date Type Department Care Team (Late st Contact Info) Description 05/04/2023 Orders Only Outcomes Research Department [address] [place] [address] Joy Tesfaye CHRA [employer] Research Other*[id number] Allergies Active Allergy Reactions Criticality Noted Date Comments Erythromycin Nausea/vomiting 02/03/2000 Other reaction(s): GI intolerance Latex Rash 07/21/2008 mild documented as of this encounter (statuses as of 05/04/2023) Medications Medication Sig Dispensed Refills Start Date [...] ve valACYclovir HCl 1 GM Oral Tablet (Valtrex)Indications:R ecurrent cold sores Take by mouth 2 Tablets in the morning AND 2 Tablets before bedtime. Repeat if necessary. 12 Tablet 11 01/14/2022 Active Naproxen 375 MG Oral Tablet (Naprosyn)Indications: Lumbosacral spondylosis without myelopathy,Lumbar facet joint pain Take 1 Tablet by mouth 2 times a day as needed (back pain). With food 60 Tablet 5 08/11/2022 Active Additional Information Patient not taking.Reported on 04/29/2023 Metoprolol Succinate ER 25 MG Oral Tablet Extended Release 24 Hour (toPROL XL)Indications:PSVT (paroxysmal supraventricular tachycardia) Take 0.5 Tablets by mouth 2 times a day. 90 Tablet 3 10/03/2022 Active Potassium Chloride Livia ER 10 MEQ Oral Tablet Extended ReleaseIndications:Hyp erkalemia Take 1 Tablet by mouth once a day on Thursday, Thursday, and Thursday only. 90 Tablet 3 11/28/2022 Active Benzonatate 100 MG Oral Capsule (Tessalon Perles) Take 1 Capsule by mouth 3 times a day as needed for Cough. Do not cut, crush, or chew. 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 (at least 30 min prior to breakfast or other meds) 90 Tablet 3 02/27/2023 Active Triamcinolone Acetonide 0.1 % External Cream (Aristocort) Apply topically to affected area 2 times a day. To affected area. 45 g 5 02/27/2023 Active Hospital, Clinic, or Other Facility Administered Medication Ordered Dose Route Frequency Start Date End Date Status Denosumab (Prolia) subcut inj 60 mgIndications:Other osteoporosis without current pathological fracture 60 mg SC [id number] 04/14/2023 04/08/2024 Active documented as of this encounter (statuses as of 05/04/2023) Active Problems Problem Noted Date Diagnosed Date Postural dizziness with presyncope 11/02/2022 Overview: Added automatically from request for surgery [id number] Prediabetes 07/01/2021 Overview: Per Prediabetes protocol Senile osteoporosis 09/05/2020 Lung nodule 03/09/2020 Paroxysmal atrial fibrillation 02/27/2020 Overview: Added automatically from request for surgery [id number] Atrial fibrillation 01/19/2019 Compression fracture of body [...] hyperplastic polyp ascending colon, repeat 5 years 12/15/08: adenoma ascending colon, repeat one year Postsurgical hypothyroidism 10/04/2008 ADVANCE DIRECTIVE INFORMATION 09/21/2007 Overview: No, Advance Directive brochure given to patient. Other specified forms of hearing loss 07/20/2001 Overview: profound left sensorincural hearing loss, no hearing loss right ADJ DISORDER W/DEPRES MOOD Mitral valve disorder Torticollis Cataract GENERAL OSTEOARTHROSIS documented as of this encounter (statuses as of 05/04/2023) Resolved Problems Problem Noted Date Diagnosed Date [...] as of this encounter (statuses as of 05/04/2023) Immunizations Name Administration Dates Next Due COVID-19 mRNA, LNP-s, No Pre serve, 2-Dose Series (Oxagen) 12/28/2020,05/30/2020,05/01/2020 COVID-19, LNP-s, No Preserve , Alirio-sucrose, Ages 12+ (Pfizer) 06/27/2021 COVID-19, MRNA-LNP, 23-24, P F, 30 MCG/0.3 mL, 12 YRS AND ABOVE, IM (Yuanfen~Flow™-[facility]) 12/29/2022 Covid-19, Mrna, Lnp-s, Pf, B ivalent, 30 Mcg, IM, 12 yrs and above (Oxagen) 08/04/2022,12/03/2021 Pneumococcal Conjugate Vacci ne, 20-valent ([id number]) 01/28/2022 Pneumococcal Polysaccharide PPV23 (Pneumovax) 01/16/2021 RSV Vac., Bivalent, Perfusio n F, Pf,0.5 Ml (Abrysvo) 02/03/2023 Seasonal Influenza Virus Vac cine, Unspecified Formulation 01/07/2021,12/14/2019,12/30/2018,12/21,01/21/2017,02/21/2016,01/06/20 14,01/20/2013,01/01/2012,01/28/2011,1 04/01/2009,12/28/2008,03/01/2008,01/27,02/26/2005,02/01/2003, 2,02/23/2001,02/26/2000 Seasonal Influenza, PF, 6 M & above, IM , (FluLaval or Fluzone) 12/14/2019,12/30/2018,01/06/2018,11/0 03/2016 Seasonal Influenza, Quadriva lent Hd (Fluzone Hd) 01/20/2023,01/14/2022,01/07/2021 Seasonal Influenza, Quadriva lent, No Preserve, IM 02/21/2016 Seasonal Influenza, Split, I IV3, With Preserve, Inj 11/30/2014,01/05/2014,01/20/2013,12/21,01/28/2011,01/30/2010,12/29/19,03/01/2008,01/27/2006 01/29/2012 TD - Tetanus/Diptheria (ADULT) 03/27/2005 TD, [...] on file documented as of this encounter Functional Status Functional Status Response [...] No 02/29/2020 documented as of this encounter Plan of Treatment Upcoming Encounters Date Type Department Care Team (Late st Contact Info) Description 07/08/2023 1:00 PM EDT Office Visit Cardiology, [facility] [address] [place] [address] [address] [place] PA-C [address] [place] [address] 10/12/2023 9:30 AM EDT Imaging Radiology, [place] [address] [place] [address] 10/13/2023 9:20 AM EDT Office Visit Family Practice [facility] [address] [facility] [place] [address] Iban Whaley, DO [address] [facility] [place] [address] 10/15/2023 9:30 AM EDT Nurse Only Rheumatology [place] [address] [place] [address] Pf, [facility] [address] [place] [address] 04/19/2024 9:40 AM EST Office Visit Rheumatology [facility] [place] [place] [address] Ubmerto Hurst [facility] [place] [address] Scheduled Orders Name Type Priority Associated Diagnoses Orde r Schedule MYCODE SUBSEQUENT ADULT Lab Routine MyCode Research Other*[id number] Every 6 Months for 2 Occurrences starting 05/04/2023 until 05/23/2024 Scheduled Procedures Name Priority Associated Diagnoses Date/Ti [...] Pneumococcal Vaccine: 65+ Years Completed 01/28/2022, 01/16/2021 COVID-19 Vaccine Completed 12/29/2022, , 12/03/2021, Additional history exists Influenza Vaccine (FLU shot) Completed 01/20/2023, 01/14/2022, 01/07/2021, Additional history exists VITAMIN D LEVEL ONCE IN A LIFETIME-USE SMARTSET# [id number] Completed 04/28/2023, 04/03/2022, 06/24/2021, Additional history exists GARDASIL-HPV IMMUNIZATION SERIES Aged Out No longer eligible based on patient's age to complete this topic MENINGOCOCCAL (MENACTRA/MENVEO) Aged Out No longer eligible based on patient's age to complete this topic documented as of this encounter Medical Devices Implanted Type Area Blacktop Spreader Device Identifier Shelf Expiration Date Model / Serial / Lot Sys Monit Linq Ii Insert Monit - [id number] Implanted:Qty: 1 on 11/27/2022 by Britney Dela Cruz IV, MD at [facility] [place] [employer] [id number] 02/13/2024 LNQ 22SYS / [id number] / [id number] documented as of this encounter Visit Diagnoses Diagnosis MyCode Research Other*[id number] documented in this encounter Additional Health Concerns [...] 3:19 PM 07/22/2008 2:37 PM Care Teams Bleach Maker Relationship Specialty Start Date End Date Iban Whaley DO [facility] [place] [address] PCP - General Family Medicine 11/22/15 documented as of this encounter
--- OUTSIDE RECORDS SUMMARY | 2023-05-06 07:03 | External Medical Summary | Summary of Care ---
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 Role Phone DelmisAlexus peters Rosalinda BLAKE Primary Care Provider Reason for Visit * Reason Comments Follow Up Encounter Details Date Type Department Care Team (Late st Contact Info) Description 04/29/2023 9:00 AM EST Office Visit Cardiology, [facility] [address] [place] [address] Britney Dela Cruz IV, MD [address] [place] [address] Paroxysmal atrial fibrillation (HCC)*; Near syncope; Palpitations Allergies Active Allergy Reactions Criticality Noted Date Comments Erythromycin Nausea/vomiting 02/03/2000 Other reaction(s): GI intolerance Latex Rash 07/21/2008 mild documented as of this encounter (statuses as of 04/29/2023) Medications Medication Sig Dispensed Refills Start Date [...] necessary. 12 Tablet 11 01/15/20 22 Active Naproxen 375 MG Oral Tablet (Naprosyn)Indicatio ns:Lumbosacral spondylosis without myelopathy,Lumbar facet joint pain Take 1 Tablet by mouth 2 times a day as needed (back pain). With food 60 Tablet 5 08/12/19 23 Active Additional Information Patient not taking.Reported on [...] only. 90 Tablet 3 11/29/19 23 Active Benzonatate 100 MG Oral Capsule [...] area. 45 g 5 02/28/20 23 Active tiZANidine HCl 2 MG Oral Tablet (Zanaflex)Indicatio ns:Lumbosacral spondylosis without myelopathy,Lumbar facet joint pain,Compression fracture of body of thoracic vertebra (HCC),Thoracic spondylosis without myelopathy Take 1 Tablet by mouth every 6 hours as needed for Muscle spasms. 30 Tablet 0 08/12/19 23 024 Discontinued Fluzone High-Dose Quadrivalent 0.7 ML Suspension Prefilled Syringe (Influenza Vac High-Dose Quad (65 years and older)) Inject 0.7 ml intramuscularly as directed 0.7 mL 0 01/21/20 23 024 Discontinued Hospital, Clinic, or Other Facility Administered Medication Ordered Dose Route Frequency Start Date End Date Status Denosumab (Prolia) subcut inj 60 mgIndications:Other osteoporosis without current pathological fracture 60 mg SC [id number] 04/14/2023 04/08/2024 Active documented as of this encounter (statuses as of 04/29/2023) Active Problems Problem Noted Date Diagnosed Date Postural dizziness with presyncope 11/02/2022 Overview: Added automatically from request for surgery [id number] Prediabetes 07/01/2021 Overview: Per Prediabetes protocol Senile osteoporosis 09/05/2020 Lung nodule 03/09/2020 Paroxysmal atrial fibrillation 02/27/2020 Overview: Added automatically from request for surgery [id number] Atrial fibrillation 01/19/2019 Compression fracture of body [...] as of this encounter (statuses as of 04/29/2023) Resolved Problems Problem Noted Date Diagnosed Date [...] as of this encounter (statuses as of 04/29/2023) Immunizations Name Administration Dates Next Due COVID-19 mRNA, LNP-s, No Pre serve, 2-Dose Series ([facility]) 12/28/2020,05/30/2020,05/01/2020 COVID-19, LNP-s, No Preserve , Alirio-sucrose, Ages 12+ (Visual Unity) 06/27/2021 COVID-19, MRNA-LNP, 23-24, P F, 30 MCG/0.3 mL, 12 YRS AND ABOVE, IM ([facility]) 12/29/2022 Covid-19, Mrna, Lnp-s, Pf, B ivalent, 30 Mcg, IM, 12 yrs and above ([facility]) 08/04/2022,12/03/2021 Pneumococcal Conjugate Vacci ne, 20-valent ([id number]) 01/28/2022 Pneumococcal Polysaccharide PPV23 (Pneumovax) 01/16/2021 RSV Vac., Bivalent, Perfusio n F, Pf,0.5 Ml (Abrysvo) 02/03/2023 Seasonal Influenza Virus Vac cine, Unspecified Formulation 01/07/2021,12/14/2019,12/30/2018,12/21,01/21/2017,02/21/2016,01/06/20 14,01/20/2013,01/01/2012,01/28/2011,1 04/01/2009,12/28/2008,03/01/2008,01/27,02/26/2005,02/01/2003, 2,02/23/2001,02/26/2000 Seasonal Influenza, PF, 6 M & above, IM , (FluLaval or Fluzone) 12/14/2019,12/30/2018,01/06/2018,03/2016 Seasonal Influenza, Quadriva lent Hd (Fluzone Hd) [...] Sign Reading Time Taken Comments Blood Pressure 102/62 04/29/2023 9:07 AM EST Pulse 72 04/29/2023 9:07 AM EST Temperature - - Respiratory Rate 14 04/29/2023 9:07 AM EST Oxygen Saturation - - Inhaled Oxygen Concentration - - Weight 60.3 kg (133 lb) 04/29/2023 9:07 AM EST Height - - Body Mass [...] as of this encounter Progress Notes * Britney Dela Cruz IV, MD - 04/29/2023 9:13 AM EST CARDIOLOGY OUTPATIENT CLINIC NOTE PCP: [place] [address] [phone] History of Present Illness:Ms. Delgado has a history of paroxysmal atrial fibrillation and has been referred to discuss catheter ablation. Her first episode occurred on 01/12/2019. She was sitting at home when she suddenly noted the onset of palpitations. She presented to the emergency at [facility] and she was found to be in atrial fibrillation. She was treated with a combination of diltiazem, metoprolol and an amiodarone infusion and spontaneously converted to normal sinus rhythm. She was started on Eliquis. She continued on metoprolol and oral amiodarone. With a single episode of atrial fibrillation, the amiodarone was discontinued on 03/29/2019. With a CHADS VASc score of 1 and an avid cyclist, Eliquis class was also discontinued. She did well until 07/23/2019 when she again presented to the [facility] emergency department with complaints of palpitations after bicycling, working outdoors, and drinking a glassof wine. Symptomatic atrial fibrillation with a rapid ventricular response was observed. She was treated with intravenous diltiazem in the emergency department and spontaneously converted back to normal sinus rhythm. She was seen by Dr. Osorio who discontinued metoprolol in began sotalol. Eliquis was resumed. She presented on 10/31/2019 with complaints of palpitations associated with a nightmare. Her noted an irregular pulse which persisted for several hours. Her pulse rate ranged from 40-133 BPM.Her symptoms resolved without any intervention. On 11/26/2019 she again noted an irregular rhythm while sleeping which resolved without intervention. PULMONARY VEIN ISOLATION 02/29/2020 IMPRESSION: 1. Paroxysmal atrial fibrillation. 2. Successful isolation of all 4 pulmonary veins with cryoablation. FOLLOW-UP - 04/25/2020 - She has done well since the ablation without recurrence of the atrial fibrillation. She has not had any sustained events nor any "little episodes." She had groin pain followingthe procedure. An ultrasound was necessary to exclude a pseudoaneurysm. The scan was negative and the groin pain resolved. FOLLOW-UP - 10/24/2020 - She continues to do well without any obvious recurrences of the atrial fibrillation. She has been very active riding her bike. Denies any palpitations, syncope, presyncope. Stopped sotalol and apixaban in May 2020. FOLLOW-UP - 11/02/2022 - Mr. Delgado returns for evaluation of 3 presyncopal events. On 09/04/2022 she was at breakfast, talking when she suddenly became lightheaded and dizzy. The episode lasted several seconds. She was not confused before or after. She had 2 more events the same week. On 09/06 while walking in [place] called she had a brief episode and on 09/10 she was driving when she became lightheaded. She was able to pull the car to the side of the road. There was no associated palpitations, shortness of breath, chest pain, diaphoresis, or nausea. She was hospitalized overnight. Evaluation included an echocardiogram which showed preserved left ventricular function with no significant valvular heart disease. Carotid Doppler studies revealed no significant stenosis. A CT scan of the head was unremarkable. A CT scan of the chest was likewise unremarkable. She was evaluated by Cardiology and a event recorder was prescribed. Since the episodes in August, she is done well with no further occurrences. She also denies any obvious recurrences of atrial fibrillation. She was referred for re-evaluation. LOOP RECORDER IMPLANT 10/2022 FOLLOW-UP - 04/29/2023 - No further syncope or presyncope.. No palpitations or recurrent atrial fibrillation. Recovering from COVID and recent GI flu. Past Medical History: Diagnosis Date Acute diverticulitis of intestine 02/29/2020 Adjustment disorder with depressed mood ADVANCE DIRECTIVE INFORMATION Benign neoplasm of colon 12/19/2009 polyp x 1 -hyperplastic tissue& diverticulosis--repeat in 5 yrs Cataract Colonic diverticular abscess 02/29/2020 Diverticulosis of colon Encounter for deep vein thrombosis (DVT) prophylaxis 02/29/2020 Generalized osteoarthritis Hypokalemia 02/29/2020 chronic potassium supplementation Hypomagnesemia 02/29/2020 Hyponatremia 02/29/2020 adding some sodium to diet INFORMATION pulmonic stenosis Intestinal disaccharidase deficiency Lactose intolerance Mitral valve disorder Non-toxic multinodular goiter 05/27/2008 Other specified forms of hearing loss 07/20/2001 profound left sensorincural hearing loss, no hearing loss right Personal history of colonic polyps 12/15/2008 adenoma ascending colon, repeat one year Personal history of exposure to potentially hazardous body fluids hepatitis Torticollis 1994 Past Surgical History: Procedure Laterality Date , INDUCED BY D&C COLONOSCOPY W/ LESION REMOVAL, SNARE 12/15/08 done polyps x 3, serrated adenoma mid ascending colon, diverticulosis poor prep repeat 1 year COLONOSCOPY W/ LESION REMOVAL, SNARE 12/19/2009 polyp x 1 -hyperplastic tissue& diverticulosis--repeat in 5 yrs COLONOSCOPY, DIAGNOSTIC (RECTUM) 05/25/2003 colonoscopy showed diverticuli, repeat in 5 years COLONOSCOPY, DIAGNOSTIC (RECTUM) 03/28/2015 diverticulosis, repeat 5 yrs COLONOSCOPY, DIAGNOSTIC (RECTUM) 03/28/2015 COLONOSCOPY FLEXIBLE PROXIMAL DIAGNOSTIC performed by Samuel Boss MD at ENDOSCOPY [facility] COLONOSCOPY, DIAGNOSTIC (RECTUM) 01/24/2020 inflammatory tissue on bx, repeat 5 yrs / COLONOSCOPY FLEXIBLE PROXIMAL DIAGNOSTIC performed by Samuel Boss MD at ENDOSCOPY [facility] COLONOSCOPY, DIAGNOSTIC (RECTUM) 04/01/2022 severe diverticulosis in entire exam / no specimens collected / 5 year recall / COLONOSCOPY FLEXIBLE PROXIMAL DIAGNOSTIC performed by Arcelia Dunn DO at ENDOSCOPY [facility] ELECTROPHYSIOLOGY EVAL, ATRIAL FIB, PULMONARY VEIN ISOL N/A 02/29/2020 PVI CRYOABLATION performed by Britney Dela Cruz IV, MD at [facility] INSERTION SUBQ CARDIAC RHYTHM MONITOR, INCLUDING PROGRAMMING Left 11/27/2022 LOOP RECORDER IMPLANTATION performed by Britney Dela Cruz IV, MD at [facility] MAMMOGRAM - 1 BREAST 04/25/2005 normal US of right breast , no palpable mass MAMMOGRAM - BILATERAL 04/11/2003 negative finding, yearly mammograms appropriate, birad code 1 MAMMOGRAM - BILATERAL 06/16/2006 birad code 1 MAMMOGRAM OUTSIDE PROCEDURE 06/21/2009 normal per patient MAMMOGRAM SCREENING-BILATERAL 04/14/2005 birad code 0 / spot compressions needed MAMMOGRAM SCREENING-BILATERAL 06/19/2008 birad 2, [facility], repeat one year NASAL ENDOSCOPY, DX W/SINUSOSCOPY 08/09/2015 obstructing polypectomy, Dr. Pickard, outpatient procedure OTHER laser eye surgery to reduce pocket behind lens, after initial lens replacement REMOVAL OF THYROID GLAND 07/21/2008 THYROIDECTOMY COMPLETE performed by SMITHA ORDOÑEZ at OR [facility] REMOVAL OF TONSILS, UNDER AGE 12 1961 Tonsils Removal,<12 Y/O REMOVE CATARACT, INSERT LENS PROSTH 03/23/1991 Cataract Removal w/ IOL VAGINAL DELIVERY ONLY times 3 Current Outpatient Medications Medication Sig Dispense Refill VITAMIN C 500 MG PO TABS 2 daily Calcium Carbonate 600 MG Oral Tablet Take by mouth . 1 daily Multiple Vitamins-Minerals (MULTI FOR HER) Tablet Take 1 Tab by mouth daily. Calcium 200 mg, Vitamin D 800 Cholecalciferol (VITAMIN D) 1000 units Tablet Take 1 Tablet by mouth in the morning. Aspirin 81 MG Oral Tablet Delayed Release Take 1 Tablet by mouth in the morning. Benefiber Drink Mix Oral Packet Take 1 Packet by mouth in the morning. Probiotic-10 Oral Tablet Chewable Take by mouth . valACYclovir HCl 1 GM Oral Tablet (Valtrex) Take by mouth 2 Tablets in the morning AND 2 Tablets before bedtime. Repeat if necessary. 12 Tablet 11 Metoprolol Succinate ER 25 MG Oral Tablet Extended Release 24 Hour (toPROL XL) Take 0.5 Tablets by mouth 2 times a day. 90 Tablet 3 Potassium Chloride Livia ER 10 MEQ Oral Tablet Extended Release Take 1 Tablet by mouth once a day onThursday, Thursday, and Thursday only. 90 Tablet 3 Benzonatate 100 MG Oral Capsule (Tessalon Perles) Take 1 Capsule by mouth 3 times a day as needed for Cough. Do not cut, crush, or chew. 50 Capsule 1 Levothyroxine Sodium 75 MCG Oral Tablet (Levoxyl) Take 1 Tablet by mouth daily first thing in the morning. (at least 30 min prior to breakfast or other meds) 90 Tablet 3 Triamcinolone Acetonide 0.1 % External Cream (Aristocort) Apply topically to affected area 2 times a day. To affected area. 45 g 5 Naproxen 375 MG Oral Tablet (Naprosyn) Take 1 Tablet by mouth 2 times a day as needed (back pain). With food (Patient not taking: Reported on 04/29/2023) 60 Tablet 5 Current Facility-Administered Medications Medication Dose Route Frequency Provider Last Rate Last Admin Denosumab (Prolia) subcut inj 60 mg 60 mg Subcutaneous Q6 Months Dayne Cassidy PA-C 60 mg at 04/14/23 0929 OBJECTIVE: BP 102/62 | Pulse 72 | Resp 14 | Wt 60.3 kg (133 lb) | LMP 03/06/2006 | BMI 24.33 kg/m | BSA 1.62m BP 102/62 | Pulse 72 | Resp 14 | Wt 60.3 kg (133 lb) | LMP 03/06/2006 | BMI 24.33 kg/m | BSA 1.62m Body mass index is 24.33 kg/m. Physical Exam: General: no acute distress Lungs: clear to auscultation and percussion Cardiac Exam: regular rate & rhythm no murmurs gallops or rubs - normal S1, normal S2 Pulses: The following pulses are normal: carotids, femorals and abdominal aorta Abdomen: abdomen soft, non-tender, no abnormal masses and no hepatosplenomegaly Extremities: no edema and no cyanosis Neuro: grossly normal exam Electrocardiogram (reviewed [facility]) - 07/04/2022-normal sinus rhythm with incomplete right bundle branch block Adult Transthoracic Echocardiography Report (12/07/2019) The left ventricular cavity size is normal. The LV wall thickness is normal. The left ventricular wall motion is normal. Qualitative LV ejection Fraction = 65%. The left ventricular diastolic function is mildly abnormal (grade I). Mild aortic valve regurgitation is present. There is focal thickening of the posterior mitral valve leaflet(s). There is moderate mitral annular calcification. Mild mitral regurgitation is present. Mild tricuspid regurgitation is present. The left atrium is normal sized (< 35 ml/m^2). The right atrial size is normal. The estimated pulmonary artery systolic pressure is 25-30mm Hg. Adult Transthoracic Echocardiography Report (12/25/2021) The qualitative LV ejection fraction is 65-69% (normal). Mild aortic valve regurgitation is present. Mild mitral regurgitation is present. Mild tricuspid regurgitation is present. The estimated pulmonary artery systolic pressure is 41mm Hg. Exercise Echocardiography Report (10/06/2022) STRESS STUDY: The stress echo is negative for inducible ischemia. A high peak workload was achieved, 9 minutes 21 seconds on a Jerry protocol, 10.4 METs. The resting heart rate of 65 beats per minute roxanne to a maximal heart rate of 117 beats per minute.This value represents 75% of the maximal age predicted heart rate. The heart rate response to exercise was likely attenuated dueto underlying metoprolol therapy. RESTING STUDY: The LV wall thickness is mildly increased (concentric). The qualitative LV ejection fraction is 55-59% (normal). The right atrium is mildly enlarged. The left ventricular diastolic function is moderately abnormal (grade II). Mild aortic valve regurgitation is present. There is severe mitral annular calcification. Mild mitral regurgitation is present. Mild tricuspid regurgitation is present. There is no evidence of pulmonary hypertension. ZIOPATCH ( 08/22/2020 to 09/04/2020) - the predominant rhythm is normal sinus rhythm with an average heart rate of 81 BPM - no atrial fibrillation - nonsustained atrial tachycardia with a maximum duration of 15 second (21 events) ZIO PATCH (09/15/2022, 13 days 18 hours) - the predominant rhythm is sinus rhythm an average heart rate of 70 BPM. - nonsustained atrial tachycardia - 36 episodes with a maximum duration of 15 beats - no atrial fibrillation - no bradycardia - most symptomatic events correlated with sinus rhythm IMPRESSION: 1. Presyncopal events - 3 episodes, August 2022 2. Paroxysmal atrial fibrillation - s/p cryoablation on 02/29/2020 3. CHADS VASc =1 (gender) 4. Loop recorder implantation ([employer])-October 2022 COMMENT:Ms. Delgado has done well. She has not had any recurrent syncope or presyncope nor any recurrent atrial fibrillation. She is currently on metoprolol, low dose. Her loop recorder has not revealed any arrhythmias. Reassurance was offered. Will continue to monitor closely with a loop recorder. PLAN: 1. Continue to monitor rhythm with implantable loop recorder 2. Return to clinic in 1 year per her request. Britney Dela Cruz IV, MD Cardiology/Electrophysiology Associate documented in this encounter Nursing Notes * Merari Trimble LPN - 04/29/2023 9:06 AM EST Examination Room: 10 Name: Kimmy Delgado Date of : 1955 Reason for Visit: Follow up Problems/Concerns: Recent illness with covid and stomach virus Interim Hosp(s): denies Chest Pain/SOB: denies MyChart Discussed: ALREADY ACTIVE Patient was instructed to not get up on the exam table until directed and assisted by their provider; patient is to remain seated in the chair/ wheelchair/ exam table for fall prevention and safety reasons. Patient is aware staff will assist stepping down off exam table with personnel. documented in this encounter Plan of Treatment Upcoming Encounters Date Type Department Care Team (Late st Contact Info) Description 07/08/2023 1:00 PM EDT Office Visit Cardiology, [facility] [address] [place] [address] [place] PA-C [address] [place] [address] 10/12/2023 9:30 AM EDT Imaging Radiology, [address] [place] [address] 10/13/2023 9:20 AM EDT Office Visit Family Practice [facility] [address] [facility] [place] [address] Alexus Whaley, DO [address] [facility] [place] [address] 10/15/2023 9:30 AM EDT Nurse Only Rheumatology [address] [place] [address] Pf, Nurse Rheum [address] [place] [address] [place] [address] 04/19/2024 9:40 AM EST Office Visit Rheumatology [address] [place] [address] Umberto Hurst MD [address] [place] [address] [place] [address] Scheduled Procedures Name Priority Associated Diagnoses Date/Ti [...] D LEVEL ONCE IN A LIFETIME-USE SMARTSET# [id number] Completed 04/28/2023, 04/03/2022, 06/24/2021, Additional history exists GARDASIL-HPV IMMUNIZATION SERIES Aged Out No longer eligible based on patient's age to complete this topic MENINGOCOCCAL (MENACTRA/MENVEO) Aged Out No longer eligible based on patient's age to complete this topic documented as of this encounter Medical Devices Implanted Type Area Multi Site Leasing Consultant Device Identifier Shelf Expiration Date Model / Serial / Lot Sys Monit Linq Ii Insert Monit - [id number] Implanted:Qty: 1 on 11/27/2022 by Britney Dela Cruz IV, MD at 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
--- OUTSIDE RECORDS SUMMARY | 2023-05-06 07:04 | External Medical Summary | Summary of Care ---
Author Name Unknown Organization [facility] Address [address] [place] [address] Phone [phone] Care Team Providers Care Engine Buildup Mechanic Name Role Phone JuddIban Rosalinda BLAKE Primary Care Provider [phone] Reason for Visit * Reason Onset Date Comments Order Request 04/27/2023 Encounter Details Date Type Department Care Team (Late st Contact Info) Description 04/27/2023 Telephone General Internal Medicine [facility] [address] [place] [address] Pb Rogel MD [address] [place] [address] Order Request Allergies Active Allergy Reactions Criticality Noted Date Comments Erythromycin Nausea/vomiting 02/03/2000 Other reaction(s): GI intolerance Latex Rash 07/21/2008 mild documented as of this encounter (statuses as of 04/27/2023) Medications Medication Sig Dispensed Refills Start Date [...] ve valACYclovir HCl 1 GM Oral Tablet (Valtrex)Indications: Recurrent cold sores Take by mouth 2 Tablets in the morning AND 2 Tablets before bedtime. Repeat if necessary. 12 Tablet 11 2 Active tiZANidine HCl 2 MG Oral Tablet (Zanaflex)Indications :Lumbosacral spondylosis without myelopathy,Lumbar facet joint pain,Compression fracture of body of thoracic vertebra (HCC),Thoracic spondylosis without myelopathy Take 1 Tablet by mouth every 6 hours as needed for Muscle spasms. 30 Tablet 0 3 Active Naproxen 375 MG Oral Tablet (Naprosyn)Indications :Lumbosacral spondylosis without myelopathy,Lumbar facet joint pain Take 1 Tablet by mouth 2 times a day as needed (back pain). With food 60 Tablet 5 3 Active Metoprolol Succinate ER 25 MG Oral Tablet Extended Release 24 Hour (toPROL XL)Indications:PSVT (paroxysmal supraventricular tachycardia) Take 0.5 Tablets by mouth 2 times a day. 90 Tablet 3 3 Active Potassium Chloride Livia ER 10 MEQ Oral Tablet Extended ReleaseIndications:Hy perkalemia Take 1 Tablet by mouth once a day on Thursday, Thursday, and Thursday only. 90 Tablet 3 3 Active Fluzone High-Dose Quadrivalent 0.7 ML Suspension Prefilled Syringe (Influenza Vac High-Dose Quad (65 years and older)) Inject 0.7 ml intramuscularly as directed 0.7 mL 0 3 Active Benzonatate 100 MG Oral Capsule (Tessalon Perles) Take 1 Capsule by mouth 3 times a day as needed for Cough. Do not cut, crush, or chew. 50 Capsule 1 3 Active Levothyroxine Sodium 75 MCG Oral Tablet (Levoxyl)Indications: Non-toxic multinodular goiter Take 1 Tablet by mouth daily first thing in the morning. (at least 30 min prior to breakfast or other meds) 90 Tablet 3 3 Active Triamcinolone Acetonide 0.1 % External Cream (Aristocort) Apply topically to affected area 2 times a day. To affected area. 45 g 5 3 Active Nirmatrelvir&Ritonavi r 300/100 20 x 150 MG & 10 x 100MG Oral Tablet Therapy Pack (Paxlovid) Take 2 pink tablets of Nirmatrelvir and 1 white tablet of Ritonavir two times a day by mouth. 30 Tablet 0 3 Active Hospital, Clinic, or Other Facility Administered Medication Ordered Dose Route Frequency Start Date End Date Status Denosumab (Prolia) subcut inj 60 mgIndications:Other osteoporosis without current pathological fracture 60 mg SC [id number] 04/14/2023 04/08/2024 Active documented as of this encounter (statuses as of 04/27/2023) Active Problems Problem Noted Date Diagnosed Date Postural dizziness with presyncope 11/02/2022 Overview: Added automatically from request for surgery [id number] Prediabetes 07/01/2021 Overview: Per Prediabetes protocol Senile osteoporosis 09/05/2020 Lung nodule 03/09/2020 Paroxysmal atrial fibrillation 02/27/2020 Overview: Added automatically from request for surgery [id number] Atrial fibrillation 01/19/2019 Compression fracture of body [...] as of this encounter (statuses as of 04/27/2023) Resolved Problems Problem Noted Date Diagnosed Date [...] as of this encounter (statuses as of 04/27/2023) Immunizations Name Administration Dates Next Due COVID-19 mRNA, LNP-s, No Pre serve, 2-Dose Series (BuildingOps) 12/28/2020,05/30/2020,05/01/2020 COVID-19, LNP-s, No Preserve , Alirio-sucrose, Ages 12+ (Pfizer) 06/27/2021 COVID-19, MRNA-LNP, 23-24, P F, 30 MCG/0.3 mL, 12 YRS AND ABOVE, IM (ReCoTech-Comirnat) 12/29/2022 Covid-19, Mrna, Lnp-s, Pf, B ivalent, 30 Mcg, IM, 12 yrs and above (BuildingOps) 08/04/2022,12/03/2021 Hepatitis B, 20+ yrs 07/09/1995,02/06/1995,12/21 Influenza, Whole Virus 02/26/2000 Pneumococcal Conjugate Vacci ne, 20-valent ([id number]) 01/28/2022 Pneumococcal Polysaccharide PPV23 (Pneumovax) 01/16/2021 RSV [...] Split, I IV3, With Preserve, Inj 11/30/2014,01/05/2014,01/20/2013,12/21,01/28/2011,01/30/2010,12/29/19 09,03/01/2008,01/27/2006,02/26/2005,1 04/03/2002,02/09/2002,02/23/2001 01/29/2012 TD - Tetanus/Diptheria (ADULT) 03/27/2005,1994 TD, Preservative Free 03/27/2005,06/11/1994 TDAP (age 10 and older)(Boostrix) 05/23/2021 TDAP [...] No 02/29/2020 documented as of this encounter Miscellaneous Notes * Addendum Note - Pb Rogel MD - 04/27/2023 5:11 PM ESTAddended by: PB ROGEL on: 04/27/2023 05:11 PM Modules accepted: Orders * Telephone Encounter - Pb Rogel MD - 04/27/2023 5:06 PM EST My schedule this afternoon was not right. I have not seen patient, h/o cdiff in 2021 If stool collected in proper container c diff order placed., cc results Sav who is seeing pttomorrow. Keep appt tomorrow for eval. * Telephone Encounter - Luigi Johnson LPN - 04/27/2023 4:39 PM EST Pt left before appointment time due to wait. She submitted a stool sample to the lab. Pt stated shehas hx of diverticulitis and Cdiff and her stool is green. Please advise documented in this encounter Plan of Treatment Upcoming Encounters Date Type Department Care Team (Late st Contact Info) Description 04/28/2023 8:40 AM EST Office Visit Family Practice [facility] 200 [facility] [place] [address] Sultana Stapleton MD 200 [facility] [place] [address] 04/29/2023 9:00 AM EST Office Visit Cardiology, [facility] [address] Britney Dela Cruz IV, MD [address] [place] [address] 07/08/2023 1:00 PM EDT Office Visit Cardiology, [facility] 132 [facility] [place] [address] [address] PA-C 132 [facility] [place] [address] 10/12/2023 9:30 AM EDT Imaging Radiology, [place] [address] [facility] [place] [address] 10/13/2023 9:20 AM EDT Office Visit Family Practice [facility] 200 [facility] [place] [address] Iban Whaley, DO 200 [facility] [place] [address] 10/15/2023 9:30 AM EDT Nurse Only Rheumatology [address] [place] [address] Pf, Nurse Rheum [address] [place] [address] [place] [address] 04/19/2024 9:40 AM EST Office Visit Rheumatology [address] [place] [address] Umberto Hurst MD [address] [place] [address] [place] [address] Scheduled Orders Name Type Priority Associated Diagnoses Orde r Schedule CLOSTRIDIUM DIFFICILE, PCR Lab Routine Diarrhea, unspecified type History of Clostridium difficile infection Expected: 04/27/2023 (Approximate), Expires: 04/26/2024 Scheduled Procedures Name Priority Associated Diagnoses Date/Ti [...] D LEVEL ONCE IN A LIFETIME-USE SMARTSET# 76701 Completed 04/03/2022, 06/24/2021, 07/23/2020, Additional history exists [...] this encounter Medical Devices Implanted Type Area Crusher Screen Repairer Device Identifier Shelf Expiration Date Model / Serial / Lot Sys Monit Linq Ii Insert Monit - [id number] Implanted:Qty: 1 on 11/27/2022 by Britney Dela Cruz IV, MD at [facility] [employer] [id number] 02/13/2024 LNQ 22SYS / [id number] / [id number] documented as of this encounter Visit Diagnoses Diagnosis Diarrhea, unspecified type- Primary History of Clostridium difficile infection Personal history of other infectious and parasitic disease documented in this encounter Additional Health Concerns [...] 3:19 PM 07/22/2008 2:37 PM Care Teams Engine Buildup Mechanic Relationship Specialty Start Date End Date Iban Whaley DO [address] [place] [address] PCP - General Family Medicine 11/22/15 documented as of this encounter
--- OUTSIDE RECORDS SUMMARY | 2023-05-06 07:04 | External Medical Summary | Summary of Care ---
Author Name Unknown Organization [facility] Address [address] [place] [address] Phone [phone] Care Team Providers Care Quality Control Lab Tech Name Role Phone DelmisIban peters Rosalinda BLAKE Primary Care Provider [phone] Encounter Details Date Type Department Care Team (Late st Contact Info) Description 04/08/2023 Result Scan Unspecified Department Taj Yang DO [address] [place] [address] <No scans attached> Allergies Active Allergy Reactions Criticality Noted Date Comments Erythromycin Nausea/vomiting 02/03/2000 Other reaction(s): GI intolerance Latex Rash 07/21/2008 mild documented as of this encounter (statuses as of 04/08/2023) Medications Medication Sig Dispensed Refills Start Date [...] by mouth in the morning. 0 Active Denosumab 60 MG/ML Subcutaneous Solution Prefilled Syringe Inject 60 mg under the skin. 1 inj every 6 mo. 0 Active Aspirin 81 MG Oral Tablet [...] by mouth. 30 Tablet 0 3 Active documented as of this encounter (statuses as of 04/08/2023) Active Problems Problem Noted Date Diagnosed Date Postural dizziness with presyncope 11/02/2022 Overview: Added automatically from request for surgery [id number] Prediabetes 07/01/2021 Overview: Per Prediabetes protocol Senile osteoporosis 09/05/2020 Lung nodule 03/09/2020 Paroxysmal atrial fibrillation 02/27/2020 Overview: Added automatically from request for surgery [id number] Atrial fibrillation 01/19/2019 Compression fracture of body [...] as of this encounter (statuses as of 04/08/2023) Resolved Problems Problem Noted Date Diagnosed Date [...] as of this encounter (statuses as of 04/08/2023) Immunizations Name Administration Dates Next Due COVID-19 mRNA, LNP-s, No Pre serve, 2-Dose Series (Chalk[employer]) 12/28/2020,05/30/2020,05/01/2020 COVID-19, LNP-s, No Preserve , Alirio-sucrose, Ages 12+ (Chalkboard) 06/27/2021 COVID-19, MRNA-LNP, 23-24, P F, 30 MCG/0.3 mL, 12 YRS AND ABOVE, IM (SpotFodo-Comirnat) 12/29/2022 Covid-19, Mrna, Lnp-s, Pf, B ivalent, 30 Mcg, IM, 12 yrs and above (Chalkboard) 08/04/2022,12/03/2021 Pneumococcal Conjugate Vacci ne, 20-valent ([id number]) 01/28/2022 Pneumococcal Polysaccharide PPV23 (Pneumovax) 01/16/2021 RSV [...] Care Team (Late st Contact Info) Description 04/14/2023 9:00 AM EST Office Visit Rheumatology [place] [address] [facility] [place] [address] Umberto Hurst MD 25[address] [facility] [place], [place] [address] 04/29/2023 9:00 AM EST Office Visit Cardiology, [facility] 132 [facility] [place] [address] Britney Dela Cruz IV, MD [address] [place], [place] [id number] 07/08/2023 1:00 PM EDT Office Visit Cardiology, [facility] [address] [place] [address] [address], PA-C [address] [place] [address] 10/13/2023 9:20 AM EDT Office Visit Family Practice [facility] [place] 200 [facility] [place] [address] Iban Whaley, 200 [facility] [place] [address] Scheduled Procedures Name Priority Associated Diagnoses Date/Ti me COLONOSCOPY FLEXIBLE PROXIMAL DIAGNOSTIC Recall History of colon polyps Health Maintenance Due Date Last Done Comments Depression Screening 07/10/2022 07/10/2021, 10/05/2014 (Discussed) Mammogram 07/03/2023 07/02/2022, 06/21, 06/26/2021, Additional history [...] D LEVEL ONCE IN A LIFETIME-USE SMARTSET# [id number] Completed 04/03/2022, 06/24/2021, 07/23/2020, Additional history exists [...] this encounter Medical Devices Implanted Type Area Pit Shovel Operator Device Identifier Shelf Expiration Date Model / Serial / Lot Sys Monit Linq Ii Insert Monit - [id number] Implanted:Qty: 1 on 11/27/2022 by Britney Dela Cruz IV, MD at [facility] [employer] [id number] 02/13/2024 LNQ 22SYS / [id number] / [id number] documented as of this encounter Procedures Procedure Name Priority Date/Time Associated Diagnosis Comments CARDIOLOGY SCANNED RESULT 04/08/2023 documented in this encounter Results * CARDIOLOGY SCANNED RESULT (04/08/2023) 04/08/2023 Taj ENGLISH documented in this encounter Additional Health Concerns [...] 3:19 PM 07/22/2008 2:37 PM Care Teams Quality Control Lab Tech Relationship Specialty Start Date End Date Iban Whaley DO [address] [place] [address] PCP - General Family Medicine 11/22/15 documented as of this encounter
--- OUTSIDE RECORDS SUMMARY | 2023-05-06 07:04 | External Medical Summary | Summary of Care ---
Author Name Unknown Organization [facility] Address [address] [place] [address] Phone [phone] Care Team Providers Care Instrument Mechanic Name Role Phone Iban Whaley DO Primary Care Provider [phone] Reason for Visit * Reason Comments Outpatient Testing Encounter Details Date Type Department Care Team (Late st Contact Info) Description 04/28/2023 9:40 AM EST Laboratory Laboratory [facility] [place] [address] [place] [phone] [facility] [address] [place] [address] Senile osteoporosis Allergies Active Allergy Reactions Criticality Noted Date [...] affected area. 45 g 5 3 Active Hospital, Clinic, or Other Facility Administered Medication Ordered Dose Route Frequency Start Date End Date Status Denosumab (Prolia) subcut inj 60 mgIndications:Other osteoporosis without current pathological fracture 60 mg SC [id number] 04/14/2023 04/08/2024 Active documented as of this encounter (statuses as of 04/28/2023) Active Problems Problem Noted Date Diagnosed Date Postural dizziness with presyncope 11/02/2022 Overview: Added automatically from request for surgery [id number] Prediabetes 07/01/2021 Overview: Per Prediabetes protocol Senile osteoporosis 09/05/2020 Lung nodule 03/09/2020 Paroxysmal atrial fibrillation 02/27/2020 Overview: Added automatically from request for surgery [id number] Atrial fibrillation 01/19/2019 Compression fracture of body [...] mRNA, LNP-s, No Pre serve, 2-Dose Series (Best Five Reviewed) 12/28/2020,05/30/2020,05/01/2020 COVID-19, LNP-s, No Preserve , Alirio-sucrose, Ages 12+ (Pfizer) 06/27/2021 COVID-19, MRNA-LNP, 23-24, P F, 30 MCG/0.3 mL, 12 YRS AND ABOVE, IM (PFIZER-Comirnaty) 12/29/2022 Covid-19, Mrna, Lnp-s, Pf, B ivalent, 30 Mcg, IM, 12 yrs and above (Best Five Reviewed) 08/04/2022,12/03/2021 Pneumococcal Conjugate Vacci ne, 20-valent ([id number]) 01/28/2022 Pneumococcal Polysaccharide PPV23 (Pneumovax) 01/16/2021 RSV [...] 04/29/2023 9:00 AM EST Office Visit Cardiology, [facility] [address] [place] [address] Britney Dela Cruz IV, MD [address] [place] [address] 07/08/2023 1:00 PM EDT Office Visit Cardiology, [facility] [address] [place] [address] [address] Fields PA-C [address] [place] [address] 10/12/2023 9:30 AM EDT [address] Radiology, [address] [address] 10/13/2023 9:20 AM EDT Office Visit Family Practice [facility] 200 [facility] [place] [address] Iban Whaley, DO 200 [facility] [place] [address] 10/15/2023 9:30 AM EDT Nurse Only Rheumatology [address] [place] [address] Pf, Nurse Rheum [address] [place] [address] [place] [address] 04/19/2024 9:40 AM EST Office Visit Rheumatology [address] [place] [address] Umberto Hurst MD [address] [place] [address] [place] [address] Pending Results Name Type Priority Associated Diagnoses Date /Time BASIC METABOLIC PANEL Lab Routine Senile osteoporosis 04/28/2023 9:11 AM EST Scheduled Procedures Name Priority Associated Diagnoses Date/Ti [...] D LEVEL ONCE IN A LIFETIME-USE SMARTSET# [id number] Completed 04/03/2022, 06/24/2021, 07/23/2020, Additional history exists [...] this encounter Medical Devices Implanted Type Area Belt And Link Assembly Supervisor Device Identifier Shelf Expiration Date Model / Serial / Lot Sys Monit Linq Ii Insert Monit - [id number] Implanted:Qty: 1 on 11/27/2022 by Britney Dela Cruz IV, MD at [facility] [place] [employer] [id number] 02/13/2024 LNQ 22SYS / [id number] / [id number] documented as of this encounter Visit Diagnoses Diagnosis Senile osteoporosis documented in this encounter Additional Health Concerns [...] 3:19 PM 07/22/2008 2:37 PM Care Teams Instrument Mechanic Relationship Specialty Start Date End Date Iban Whaley DO [address] [place] [address] PCP - General Family Medicine 11/22/15 documented as of this encounter
--- OUTSIDE RECORDS SUMMARY | 2023-05-06 07:04 | External Medical Summary | Summary of Care ---
Author Name Unknown Organization [facility] Address [address] [place] [address] Phone [phone] Care Team Providers Care Interior Design Principal Name Role Phone JuddIban Rosalinda BLAKE Primary Care Provider Reason for Visit * Reason Onset Date Comments Order Request 04/27/2023 Encounter Details Date Type Department Care Team (Late st Contact Info) Description 04/27/2023 Telephone General Internal Medicine [facility] [address] [place] [address] Flores Rogel MD [address] [place] [address] Order Request Allergies Active Allergy Reactions Criticality [...] without current pathological fracture 60 mg SC [id number] 04/14/2023 04/08/2024 Active documented as of this encounter (statuses as of 04/27/2023) Active Problems Problem Noted Date Diagnosed Date Postural dizziness with presyncope 11/02/2022 Overview: Added automatically from request for surgery [id number] Prediabetes 07/01/2021 Overview: Per Prediabetes protocol Senile osteoporosis 09/05/2020 Lung nodule 03/09/2020 Paroxysmal atrial fibrillation 02/27/2020 Overview: Added automatically from request for surgery [id number] Atrial fibrillation 01/19/2019 Compression fracture of body [...] mRNA, LNP-s, No Pre serve, 2-Dose Series ([employer]) 12/28/2020,05/30/2020,05/01/2020 COVID-19, LNP-s, No Preserve , Alirio-sucrose, Ages 12+ (P-Commerce) 06/27/2021 COVID-19, MRNA-LNP, 23-24, P F, 30 MCG/0.3 mL, 12 YRS AND ABOVE, IM (PFIZER-Comirnaty) 12/29/2022 Covid-19, Mrna, Lnp-s, Pf, B ivalent, 30 Mcg, IM, 12 yrs and above (P-Commerce) 08/04/2022,12/03/2021 Pneumococcal Conjugate Vacci ne, 20-valent ([id number]) 01/28/2022 Pneumococcal Polysaccharide PPV23 (Pneumovax) 01/16/2021 RSV [...] as of this encounter Miscellaneous Notes * Telephone Encounter - Luigi Johnson LPN [...] 8:40 AM EST Office Visit Family Practice [facility] [place] [address] [place] [address] Sultana Stapleton MD [address] [place] [address] 04/29/2023 9:00 AM EST Office Visit Cardiology, [facility] [address] [place] [address] Britney Dela Cruz IV, MD [address] [place] [address] 07/08/2023 1:00 PM EDT Office Visit Cardiology, [facility] [address] [place] [address] Urban Fields PA-C [address] [place] [address] 10/12/2023 9:30 AM EDT Imaging Radiology, [address] [place] [address] 10/13/2023 9:20 AM EDT Office Visit Family Practice [facility] [address] [place] [address] Iban Whaley, [address] [place] [address] 10/15/2023 9:30 AM EDT Nurse Only Rheumatology [address] [place] [address] Pf, Nurse Rheum [facility] [place] [address] 04/19/2024 9:40 AM EST Office Visit Rheumatology [place] [address] [address] [place] [address] Umberto Hurst MD [address] [place] [address] [place], [place] [address] Scheduled Procedures Name Priority Associated Diagnoses Date/Ti [...] D LEVEL ONCE IN A LIFETIME-USE SMARTSET# [id number] Completed 04/03/2022, 06/24/2021, 07/23/2020, Additional history exists [...] this encounter Medical Devices Implanted Type Area Embossing Clerk Device Identifier Shelf Expiration Date Model / Serial / Lot Sys Monit Linq Ii Insert Monit - [id number] Implanted:Qty: 1 on 11/27/2022 by Britney Dela Cruz IV, MD at [facility] [employer] [id number] 02/13/2024 LNQ 22SYS / [id number] / [id number] documented as of this encounter Additional Health Concerns Infection Onset [...] 3:19 PM 07/22/2008 2:37 PM Care Teams Interior Design Principal Relationship Specialty Start Date End Date Iban Whaley DO [address] [place] [address] PCP - General Family Medicine 11/22/15 documented as of this encounter
--- OUTSIDE RECORDS SUMMARY | 2023-05-06 07:04 | External Medical Summary ---
Author Name Unknown Address Unknown Organization K01:[facility] [address] [place] [address] Laboratory Report Ordering Provider Test Date Status COLEEN LEE 04/28/2023 09:11:58 Final Deficient: <20 ng/mL
Ins ufficient: 20-29 ng/mL
Recommended/Optimum:30-50 ng/mL

Vitamin D intoxication is rare. If suspicious of Vitamin D toxicity, evaluation of serum Calcium and PTH is recommended. Observation Date Value Abnormality Reference (Units ) Status 25-OH Vitamin D total 04/28/2023 09:11:58 51 >19 (ng/mL) Final Performing Location [facility] [place] [address] [place] [address]
--- OUTSIDE RECORDS SUMMARY | 2023-05-06 07:04 | External Medical Summary | Summary of Care ---
Author Name Unknown Organization [facility] Address [address] [place] [address] Phone [phone] Care Team Providers Care Mill Control Operator Name Role Phone Iban Whaley DO Primary Care Provider Reason for Visit * Reason Onset Date Comments Advice 03/18/2023 Congestion Encounter Details Date Type Department Care Team (Late st Contact Info) Description 03/18/2023 Telephone Family Practice [facility] [place] [address] [place] [address] Iban Whaley DO [address] [place] [address] Advice (Congestion) Allergies Active Allergy Reactions Criticality Noted Date Comments Erythromycin Nausea/vomiting 02/03/2000 Other reaction(s): GI intolerance Latex Rash 07/21/2008 mild documented as of this encounter (statuses as of 03/19/2023) Medications Medication Sig Dispensed Refills Start Date [...] as of this encounter (statuses as of 03/19/2023) Active Problems Problem Noted Date Diagnosed Date Postural dizziness with presyncope 11/02/2022 Overview: Added automatically from request for surgery [id number] Prediabetes 07/01/2021 Overview: Per Prediabetes protocol Senile osteoporosis 09/05/2020 Lung nodule 03/09/2020 Paroxysmal atrial fibrillation 02/27/2020 Overview: Added automatically from request for surgery [id number] Atrial fibrillation 01/19/2019 Compression fracture of body [...] as of this encounter (statuses as of 03/19/2023) Resolved Problems Problem Noted Date Diagnosed Date [...] as of this encounter (statuses as of 03/19/2023) Immunizations Name Administration Dates Next Due COVID-19 mRNA, LNP-s, No Pre serve, 2-Dose Series (Biocroí) 12/28/2020,05/30/2020,05/01/2020 COVID-19, LNP-s, No Preserve , Alirio-sucrose, Ages 12+ (Pfizer) 06/27/2021 COVID-19, MRNA-LNP, 23-24, P F, 30 MCG/0.3 mL, 12 YRS AND ABOVE, IM (Giraffic-Comirnat) 12/29/2022 Covid-19, Mrna, Lnp-s, Pf, B ivalent, 30 Mcg, IM, 12 yrs and above (Biocroí) 08/04/2022,12/03/2021 Pneumococcal Conjugate Vacci ne, 20-valent ([id number]) 01/28/2022 Pneumococcal Polysaccharide PPV23 (Pneumovax) 01/16/2021 RSV [...] encounter Miscellaneous Notes * Telephone Encounter - Iban Whaley DO - 03/18/2023 4:40 PM EST Paxlovid sent, Please call as requested. * Telephone Encounter - Pb Giordano, MILTON - 03/18/2023 3:52 PM EST Reason for patient call/what is patient requesting? Advice, states last year she had covid and was treated with Plavix. She is currently experiencing head congestion with sinus issues. Have you had symptoms of COVID-19 such as fever, sore throat, shortness of breath? COVID19 Symptoms:no Date of first symptoms: 03/15/23 Date of last fever: states she feels feverish, temp was 98.8. Date of last symptoms: Currently experiencing head congestions with yellow/green mucus? Have you had close exposure to someone who tested positive for COVID-19? COVID19 Exposure: no Date of first exposure: Unk Date of last exposure: Unk Testing location requested: Positive COVID 19 test in the past 90 days? Clinic Test No Home test yes Did you have 2 vaccines yes Boosters Yes Dec 2022 Call Details are Required. Patient is requesting a phone call in addition to notifying her via [employer]. documented in this encounter Plan of Treatment Upcoming Encounters Date Type Department Care Team (Late st Contact Info) Description 04/14/2023 9:00 AM EST Office Visit Rheumatology [place] [id number] [place] [address] Umberto Hurst MD [facility]0 [employer] [place] [address] 04/29/2023 9:00 AM EST Office Visit [facility], [facility] [address] Britney Dela Cruz IV, MD [address] [place] [address] 07/08/2023 1:00 PM EDT Office Visit Cardiology, [facility] 132 [facility] [place] [address] Urban iFelds PA-C 132 [facility] [place] [address] 10/13/2023 9:20 AM EDT Office Visit Family Practice [facility] [place] 200 [facility] [place] [address] Iban Whaley, [address] [place] [address] Scheduled Procedures Name Priority Associated Diagnoses Date/Ti [...] D LEVEL ONCE IN A LIFETIME-USE SMARTSET# [id number] Completed 04/03/2022, 06/24/2021, 07/23/2020, Additional history exists [...] this encounter Medical Devices Implanted Type Area Supervisor Bindery Device Identifier Shelf Expiration Date Model / Serial / Lot Sys Monit Linq Ii Insert Monit - [id number] Implanted:Qty: 1 on 11/27/2022 by Britney Dela Cruz IV, MD at [facility] [employer] [id number] 02/13/2024 LNQ 22SYS / [id number] / [id number] documented as of this encounter Additional Health [...] 3:19 PM 07/22/2008 2:37 PM Care Teams Mill Control Operator Relationship Specialty Start Date End Date Iban Whaley DO [address] [place] [address] PCP - General Family Medicine 11/22/15 documented as of this encounter
--- OUTSIDE RECORDS SUMMARY | 2023-05-06 07:04 | External Medical Summary ---
Author Name Unknown Address Unknown Organization K01:[facility] - [address] [place] [address] Laboratory Report Ordering Provider Test Date Status EMERALD AMBRIZ 04/27/2023 17:14:02 Final Observation Date Value Abnormality Reference (Units) Status Source 04/27/2023 17:14:02 Semi-liquid Final Clostridioides difficile toxin and [id number] strain DNA panel - Stool by TASHIA with probe detection 04/27/2023 17:14:02 Negative. No C. difficile toxin B gene DNA detected by PCR (Amplified Probe). Negative Final Performing Location [facility] - [address] [place] [address]
--- OUTSIDE RECORDS SUMMARY | 2023-05-06 07:04 | External Medical Summary | Summary of Care ---
Author Name Unknown Organization [facility] Address [address] [place] [address] Phone [phone] Care Team Providers Care Neon Electrician Name Role Phone Iban Whaley DO Primary Care Provider Reason for Visit * Reason Onset Date Comments Advice 03/18/2023 Congestion Encounter Details Date Type Department Care Team (Late st Contact Info) Description 03/18/2023 Telephone Family Practice [facility] [place] [address] [place] [address] Iban Whaley DO [address] [place] [address] Advice (Congestion) Allergies Active Allergy Reactions Criticality [...] Overview: Added automatically from request for surgery [id number] Prediabetes 07/01/2021 Overview: Per Prediabetes protocol Senile osteoporosis 09/05/2020 Lung nodule 03/09/2020 Paroxysmal atrial fibrillation 02/27/2020 Overview: Added automatically from request for surgery [id number] Atrial fibrillation 01/19/2019 Compression fracture of body [...] mRNA, LNP-s, No Pre serve, 2-Dose Series (iCeutica) 12/28/2020,05/30/2020,05/01/2020 COVID-19, LNP-s, No Preserve , Alirio-sucrose, Ages 12+ (Pfizer) 06/27/2021 COVID-19, MRNA-LNP, 23-24, P F, 30 MCG/0.3 mL, 12 YRS AND ABOVE, IM (BeavEx-Comirnat) 12/29/2022 Covid-19, Mrna, Lnp-s, Pf, B ivalent, 30 Mcg, IM, 12 yrs and above (iCeutica) 08/04/2022,12/03/2021 Pneumococcal Conjugate Vacci ne, 20-valent ([id number]) 01/28/2022 Pneumococcal Polysaccharide PPV23 (Pneumovax) 01/16/2021 RSV [...] call in addition to notifying her via [email or web address]. documented in this encounter Plan of Treatment Upcoming Encounters Date Type Department Care Team (Late st Contact Info) Description 04/14/2023 9:00 AM EST Office Visit Rheumatology [place] [id number] [place] [address] Umberto Hurst MD [facility]0 [employer] [place] [address] 04/29/2023 9:00 AM EST Office Visit Cardiology, [facility] 132 [facility] [address] Britney Dela Cruz IV, MD [address] [place] [address] 07/08/2023 1:00 PM EDT Office Visit Cardiology, [facility] 132 [facility] [place] [address] Urban Fields PA-C 132 [facility] [place] [address] 10/13/2023 9:20 AM EDT Office Visit Family Practice [facility] [place] 200 [facility] [place] [address] Iban Whaley, [address] [place] [address] Scheduled Procedures Name Priority Associated Diagnoses Date/Ti [...] D LEVEL ONCE IN A LIFETIME-USE SMARTSET# [id number] Completed 04/03/2022, 06/24/2021, 07/23/2020, Additional history exists [...] this encounter Medical Devices Implanted Type Area Youth Development Specialist Device Identifier Shelf Expiration Date Model / Serial / Lot Sys Monit Linq Ii Insert Monit - [id number] Implanted:Qty: 1 on 11/27/2022 by Britney Dela Cruz IV, MD at [facility] [employer] [id number] 02/13/2024 LNQ 22SYS / [id number] / [id number] documented as of this encounter Additional Health [...] 3:19 PM 07/22/2008 2:37 PM Care Teams Neon Electrician Relationship Specialty Start Date End Date Iban Whaley DO [address] [place] [address] PCP - General Family Medicine 11/22/15 documented as of this encounter
--- OUTSIDE RECORDS SUMMARY | 2023-05-06 07:04 | External Medical Summary | Summary of Care ---
Author Name Unknown Organization [facility] Address [address] [place] [address] Phone [phone] Care Team Providers Care Advertising Operations Coordinator Name Role Phone Iban Whaley DO Primary Care Provider Encounter Details Date Type Department Care Team (Late st Contact Info) Description 04/15/2023 Orders Only PATIENT PORTAL DO NOT DELETE THIS DEPT USED BY [place] [address] Allergies Active Allergy Reactions Criticality Noted Date Comments Erythromycin Nausea/vomiting 02/03/2000 Other reaction(s): GI intolerance Latex Rash 07/21/2008 mild documented as of this encounter (statuses as of 04/15/2023) Medications Medication Sig Dispensed Refills Start Date [...] 3 Active Benzonatate 100 MG Oral Capsule (Tesdaly García) Take 1 Capsule by mouth 3 times [...] without current pathological fracture 60 mg SC [id number] 04/14/2023 04/08/2024 Active documented as of this encounter (statuses as of 04/15/2023) Active Problems Problem Noted Date Diagnosed Date Postural dizziness with presyncope 11/02/2022 Overview: Added automatically from request for surgery [id number] Prediabetes 07/01/2021 Overview: Per Prediabetes protocol Senile osteoporosis 09/05/2020 Lung nodule 03/09/2020 Paroxysmal atrial fibrillation 02/27/2020 Overview: Added automatically from request for surgery [id number] Atrial fibrillation 01/19/2019 Compression fracture of body [...] as of this encounter (statuses as of 04/15/2023) Resolved Problems Problem Noted Date Diagnosed Date [...] as of this encounter (statuses as of 04/15/2023) Immunizations Name Administration Dates Next Due COVID-19 mRNA, LNP-s, No Pre serve, 2-Dose Series (Countercepts) 12/28/2020,05/30/2020,05/01/2020 COVID-19, LNP-s, No Preserve , Alirio-sucrose, Ages 12+ (Pfizer) 06/27/2021 COVID-19, MRNA-LNP, 23-24, P F, 30 MCG/0.3 mL, 12 YRS AND ABOVE, IM (PFIZER-Comirnaty) 12/29/2022 Covid-19, Mrna, Lnp-s, Pf, B ivalent, 30 Mcg, IM, 12 yrs and above (Pfizer) 08/04/2022,12/03/2021 Pneumococcal Conjugate Vacci ne, 20-valent ([id number]) 01/28/2022 Pneumococcal Polysaccharide PPV23 (Pneumovax) 01/16/2021 RSV [...] 04/29/2023 9:00 AM EST Office Visit Card[facility], [facility] [address] Britney Dela Cruz IV, MD [address] [place] [address] 07/08/2023 1:00 PM EDT Office Visit Cardiology, [facility] [address] [place] [address] Urban Fields PA-C [address] [place] [address] 10/12/2023 9:30 AM EDT Imaging Radiology, [place] [address] [facility] [place] [address] 10/13/2023 9:20 AM EDT Office Visit Family Practice [facility] [place] [address] [place] [address] Iban Whaley, DO [address] [place] [address] 10/15/2023 9:30 AM EDT Nurse Only Rheumatology [address] [place] [address] Pf, Nurse Rheum [address] [place] [address] [place] [address] 04/19/2024 9:40 AM EST Office Visit Rheumatology [address] [place] [address] Umberto Hurst MD [address] [place] [address] [place] [address] Scheduled Procedures Name Priority Associated Diagnoses Date/Ti [...] D LEVEL ONCE IN A LIFETIME-USE SMARTSET# [id number] Completed 04/03/2022, 06/24/2021, 07/23/2020, Additional history exists [...] this encounter Medical Devices Implanted Type Area Loan Collector Device Identifier Shelf Expiration Date Model / Serial / Lot Sys Monit Linq Ii Insert Monit - [id number] Implanted:Qty: 1 on 11/27/2022 by Britney Dela Cruz IV, MD at [facility] [employer] [id number] 02/13/2024 LNQ 22SYS / [id number] / [id number] documented as of this encounter Additional Health [...] 3:19 PM 07/22/2008 2:37 PM Care Teams Advertising Operations Coordinator Relationship Specialty Start Date End Date Iban Whaley DO [address] [place] [address] [place] [address] PCP - General Family Medicine 11/22/15 documented as of this encounter
--- OUTSIDE RECORDS SUMMARY | 2023-05-06 07:04 | External Medical Summary | Summary of Care ---
Author Name Unknown Organization [facility] Address [address] [place] [address] Phone [phone] Care Team Providers Care Web Production Artist Name Role Phone DelmisIban peters Rosalinda BLAKE Primary Care Provider Reason for Visit * Reason Onset Date Comments Order Request 04/09/2023 prolia Encounter Details Date Type Department Care Team (Late st Contact Info) Description 04/09/2023 Telephone General Internal Medicine [facility] [place] [facility] [place] [address] Dayne Cassidy PA-C 84[address] [facility] [place] [address] Order Request (prolia) Allergies Active Allergy Reactions Criticality Noted Date Comments Erythromycin Nausea/vomiting 02/03/2000 Other reaction(s): GI intolerance Latex Rash 07/21/2008 mild documented as of this encounter (statuses as of 04/09/2023) Medications Medication Sig Dispensed Refills Start Date [...] or other meds) 90 Tablet 3 02/28/20 Active Triamcinolone Acetonide 0.1 % External Cream (Aristocort) Apply topically to affected area 2 times a day. To affected area. 45 g 5 02/28/20 Active Nirmatrelvir&Ritona vir 300/100 20 x 150 MG & 10 x 100MG Oral Tablet Therapy Pack (Paxlovid) Take 2 pink tablets of Nirmatrelvir and 1 white tablet of Ritonavir two times a day by mouth. 30 Tablet 0 03/18/20 Active Denosumab 60 MG/ML Subcutaneous Solution Prefilled Syringe Inject 60 mg under the skin. 1 inj every 6 mo. 0 024 Discontinued Hospital, Clinic, or Other Facility Administered Medication Ordered Dose Route Frequency Start Date End Date Status Denosumab (Prolia) subcut inj 60 mgIndications:Other osteoporosis without current pathological fracture 60 mg SC [id number] 04/14/2023 04/08/2024 Active documented as of this encounter (statuses as of 04/09/2023) Active Problems Problem Noted Date Diagnosed Date Postural dizziness with presyncope 11/02/2022 Overview: Added automatically from request for surgery [id number] Prediabetes 07/01/2021 Overview: Per Prediabetes protocol Senile osteoporosis 09/05/2020 Lung nodule 03/09/2020 Paroxysmal atrial fibrillation 02/27/2020 Overview: Added automatically from request for surgery [id number] Atrial fibrillation 01/19/2019 Compression fracture of body [...] as of this encounter (statuses as of 04/09/2023) Resolved Problems Problem Noted Date Diagnosed Date [...] as of this encounter (statuses as of 04/09/2023) Immunizations Name Administration Dates Next Due COVID-19 mRNA, LNP-s, No Pre serve, 2-Dose Series (PsyQic) 12/28/2020,05/30/2020,05/01/2020 COVID-19, LNP-s, No Preserve , Alirio-sucrose, Ages 12+ (Pfizer) 06/27/2021 COVID-19, MRNA-LNP, 23-24, P F, 30 MCG/0.3 mL, 12 YRS AND ABOVE, IM ([employer] [facility]) 12/29/2022 Covid-19, Mrna, Lnp-s, Pf, B ivalent, 30 Mcg, IM, 12 yrs and above (Pfizer) 08/04/2022,12/03/2021 Pneumococcal Conjugate Vacci ne, 20-valent ([id number]) 01/28/2022 Pneumococcal Polysaccharide PPV23 (Pneumovax) 01/16/2021 RSV [...] encounter Miscellaneous Notes * Telephone Encounter - Janis Borrego LPN - 04/09/2023 10:34 AM EST Chart reviewed and labs noted to be within normal limits. Patient has been seen within the last 12 months by a Rheumatology provider. Prolia authorization approved and updated in referral. Last injection has been > 6 months and 1 day. CAM orders pended for signature. Thank you! documented in this encounter Plan of Treatment Upcoming Encounters Date Type Department Care Team (Late st Contact Info) Description 04/14/2023 9:00 AM EST Office Visit Rheumatology [facility] [address] [facility] [place] [address] Umberto Hurst MD [address] [facility] [place] [address] 04/29/2023 9:00 AM EST Office Visit Cardiology, [facility] [address] [facility] [address] Britney Dela Cruz IV, MD [address] [place] [address] 07/08/2023 1:00 PM EDT Office Visit Cardiology, [facility] [address] [facility] [address] Urban Fields, PA-C [address] [facility] [place] [address] 10/13/2023 9:20 AM EDT Office Visit Family Practice [facility] 200 [facility] [place] [address] Iban Whaley DO 200 [facility] [place] [address] Scheduled Procedures Name Priority Associated Diagnoses Date/Ti me COLONOSCOPY FLEXIBLE PROXIMAL DIAGNOSTIC Recall History of colon polyps Health Maintenance Due Date Last Done Comments Depression Screening 07/10/2022 07/10/2021, 10/05/2014 (Discussed) Mammogram 07/03/2023 07/02/2022, 06/21, 06/26/2021, Additional history exists DXA Scan 09/03/2023 09/02/2021, 08/21, 08/30/2019, Additional history exists HbA1c 02/26/2024 02/25/2023, 06/21, 12/24/2021, Additional history exists TSH 02/26/2024 02/25/2023, 1006/2021, 06/24/2021, Additional history exists Lipid Panel 2024 [...] D LEVEL ONCE IN A LIFETIME-USE SMARTSET# [id number] Completed 04/03/2022, 06/24/2021, 07/23/2020, Additional history exists [...] this encounter Medical Devices Implanted Type Area Evaluation Assistant Device Identifier Shelf Expiration Date Model / Serial / Lot Sys Monit Linq Ii Insert Monit - [id number] Implanted:Qty: 1 on 11/27/2022 by Britney Dela Cruz IV, MD at [facility] [employer] [id number] 02/13/2024 LNQ 22SYS / [id number] / [id number] documented as of this encounter Visit Diagnoses Diagnosis Other osteoporosis without current pathological fracture- Primary documented in this encounter Additional Health Concerns [...] 3:19 PM 07/22/2008 2:37 PM Care Teams Web Production Artist Relationship Specialty Start Date End Date Iban Whaley DO [address] [place] [address] PCP - General Family Medicine 11/22/15 documented as of this encounter
--- OUTSIDE RECORDS SUMMARY | 2023-05-06 07:04 | External Medical Summary | Summary of Care ---
Author Name Unknown Organization [facility] Address [address] [place] [address] Phone [phone] Care Team Providers Care Stave Machine Tender Name Role Phone DelmsiIban peters Yamilka BLAKE Primary Care Provider [phone] Reason for Visit * Reason Onset Date Comments Rheum Follow Up Follow up - SUSANA Nick Medication Administration prolia Medication Administration 04/14/2023 Prolia * Precert (Within 10 days (routine)) - Authorized Specialty Diagnoses / Procedures Referred By Contac t Referred To Contact Rheumatology Diagnoses Age-related osteoporosis without current pathological fracture Procedures DENOSUMAB 1MG, [place] [address] [place] [address] Referral ID Status Reason Start Date Expiration Date V isits Requested Visits Authorized [id number] Authorized Precert 07/07/2019 03/22/2099 99 [phone] Encounter Details Date Type Department Care Team (Late st Contact Info) Description 04/14/2023 9:00 AM EST Office Visit Rheumatology [place] [id number] [place] [address] Umberto Hurst MD [address] [place] [address] Senile osteoporosis* Allergies Active Allergy Reactions Criticality Noted Date Comments Erythromycin Nausea/vomiting 02/03/2000 Other reaction(s): GI intolerance Latex Rash 07/21/2008 mild documented as of this encounter (statuses as of 04/14/2023) Medications Medication Sig Dispensed Refills Start Date [...] without current pathological fracture 60 mg SC [id number] 04/14/2023 04/08/2024 Active documented as of this encounter (statuses as of 04/14/2023) Active Problems Problem Noted Date Diagnosed Date Postural dizziness with presyncope 11/02/2022 Overview: Added automatically from request for surgery [id number] Prediabetes 07/01/2021 Overview: Per Prediabetes protocol Senile osteoporosis 09/05/2020 Lung nodule 03/09/2020 Paroxysmal atrial fibrillation 02/27/2020 Overview: Added automatically from request for surgery [id number] Atrial fibrillation 01/19/2019 Compression fracture of body [...] as of this encounter (statuses as of 04/14/2023) Resolved Problems Problem Noted Date Diagnosed Date Resolved Date Upper respiratory tract infection 02/06/2022 07/29/2022 Sore throat (viral) 02/06/2022 07/30/19 Hyponatremia 02/29/2020 02/29/2020 Hypomagnesemia 02/29/2020 02/29/2020 Encounter [...] as of this encounter (statuses as of 04/14/2023) Immunizations Name Administration Dates Next Due COVID-19 mRNA, LNP-s, No Pre serve, 2-Dose Series (Praedicat) 12/28/2020,05/30/2020,05/01/2020 COVID-19, LNP-s, No Preserve , Alirio-sucrose, Ages 12+ (Pfizer) 06/27/2021 COVID-19, MRNA-LNP, 23-24, P F, 30 MCG/0.3 mL, 12 YRS AND ABOVE, IM ([facility]) 12/29/2022 Covid-19, Mrna, Lnp-s, Pf, B ivalent, 30 Mcg, IM, 12 yrs and above (Pfizer) 08/04/2022,12/03/2021 Pneumococcal Conjugate Vacci ne, 20-valent ([id number]) 01/28/2022 Pneumococcal Polysaccharide PPV23 (Pneumovax) 01/16/2021 RSV Vac., Bivalent, Perfusio n F, Pf,0.5 Ml (Abrysvo) 02/03/2023 Seasonal Influenza Virus Vac cine, Unspecified Formulation 01/07/2021,12/14/2019,12/30/2018,12/21,01/21/2017,02/21/2016,01/06/20 14,01/20/2013,01/01/2012,01/28/2011,1 04/01/2009,12/28/2008,03/01/2008,01/27,02/26/2005,02/01/2003, 2,02/23/2001,02/26/2000 Seasonal Influenza, PF, 6 M & above, IM , (FluLaval or Fluzone) 12/14/2019,12/30/2018,01/06/2018,11/03/2016 Seasonal Influenza, Quadriva lent Hd (Fluzone Hd) [...] Date Smoking Tobacco: Never Smokeless Tobacco: Never Tobacco Cessation:Counseling Given: Not Answered Alcohol Use Standard Drinks/Week Comments Yes 0 [...] Sign Reading Time Taken Comments Blood Pressure - - Pulse - - Temperature 36.1 C (96.9 F) 04/14/2023 9:09 AM ES T Respiratory Rate - - Oxygen Saturation - - Inhaled Oxygen Concentration - - Weight 60.3 kg (133 lb) 04/14/2023 9:09 AM EST Height - - Body Mass [...] No 02/29/2020 documented as of this encounter Patient Instructions * Patient Instructions* Umberto Hurst MD - 04/14/2023 9:24 AM EST MEDICATION GUIDE Prolia (CA-kamlesh-a) (denosumab) Injection Read the Medication Guide that comes with Prolia before you start taking it and each time you get arefill. There may be new information. This Medication Guide does not take the place of talking withyour doctor about your medical condition or treatment. Talk to your doctor if you have any questions about Prolia. What is the most important information I should know about Prolia? Prolia can cause serious side effects includin. Low calcium levels in your blood (hypocalcemia). Prolia may lower the calcium levels in your blood. If you have low blood calcium before you start receiving Prolia, it may get worse during treatment. Your low blood calcium must be treated before you receive Prolia. Most people with low blood calcium levels do not have symptoms, but some people may have symptoms. Call your doctor right away if you have symptoms of low blood calcium such as: Spasms, twitches, or cramps in your muscles Numbness or tingling in your fingers, toes, or around your mouth Your doctor may prescribe calcium and vitamin D to help prevent low calcium levels in your blood while you take Prolia. Take calcium and vitamin D as your doctor tells you to. 2. Serious infections. Serious infections in your skin, lower stomach area (abdomen), bladder, or ear may happen if you take Prolia. Inflammation of the inner lining of the heart (endocarditis) due to an infection also mayhappen more often in people who take Prolia. You may need to go to the hospital for treatment if you develop an infection. Prolia is a medicine that may affect your immune system. People who have weakened immune system or take medicines that affect the immune system may have an increased risk for developing serious infections. Call your doctor right away if you have any of the following symptoms of infection: Fever or chills Skin that looks red or swollen and is hot or tender to touch Severe abdominal pain Frequent or urgent need to urinate or burning feeling when you urinate 3. Skin problems. Skin problems such as inflammation of your skin (dermatitis), rash, and eczema may happen if you take Prolia. Call your doctor if you have any of the following symptoms of skin problems that do not go away or get worse: Redness Itching Small bumps or patches (rash) Your skin is dry or feels like leather Blisters that ooze or become crusty Skin peeling 4. Severe jaw bone problems (osteonecrosis). Severe jaw bone problems may happen when you take Prolia. Your doctor should examine your mouth before you start Prolia. Your doctor may tell you to see your dentist before you start Prolia. It is important for you to practice good mouth care during treatment with Prolia. Call your doctor right away if you have any of these side effects. What is Prolia? Prolia is a prescription medicine used to treat osteoporosis (thinning and weakening of bone) in women after menopause (change of life) who Have an increased risk for fractures (broken bones). Cannot use another osteoporosis medicine or other osteoporosis medicines did not work well. Who should not receive Prolia? Do not take Prolia if you have been told by your doctor that your blood calcium level is too low. What should I tell my doctor before receiving Prolia? Before taking Prolia, tell your doctor if you: Have low blood calcium. Cannot take daily calcium and vitamin D. Had parathyroid or thyroid surgery (glands located in your neck). Have been told you have trouble absorbing minerals in your stomach or intestines (malabsorption syndrome). Have kidney problems or are on kidney dialysis. Plan to have dental surgery or teeth removed. Are or plan to become . Prolia may harm your unborn baby. Tell your doctor right away if you become while taking Prolia. Surveillance Program: Prolia is not intended for use in women. If you become while taking Prolia, talk to your doctor about enrolling with [employer]illance[employer] or call (x-557-00[facility]). The purpose of this program is to collect information about women who have become while taking Prolia. Are breast-feeding or plan to breast-feed. It is not known if Prolia passes into your breast milk. You and your doctor should decide if you will take Prolia or breast-feed. You should not do both. Tell your doctor about all the medicines you take, including prescription and nonprescription drugs, vitamins, and herbal supplements. Know the medicines you take. Keep a list of medicines with you to show to your doctor or pharmacistwhen you get a new medicine. How will I receive Prolia? Prolia is an injection that will be given to you by a healthcare professional. Prolia is injected under your skin (subcutaneous). You will receive Prolia 1 time every 6 months. You should take calcium and vitamin D as your doctor tells you to while you receive Prolia. If you miss a dose of Prolia, you should receive your injection as soon as you can. Take good care of your teeth and gums while you receive Prolia. [place] and floss your teeth regularly. Tell your dentist that you are receiving Prolia before you have dental work. What are the possible side effects of Prolia? Prolia may cause serious side effects. See What is the most important information I should know about Prolia? Long-term effects on bone: It is not known if the use of Prolia over a long period of time may cause slow healing of broken bones or unusual fractures. The most common side effects of Prolia are: Back pain Pain in your arms and legs High cholesterol Muscle pain Bladder infection These are not all the possible side effects of Prolia. For more information, ask your doctor or pharmacist. Call your doctor for medical advice about side effects. You may report side effects to FDA at 4-375-USG-8576. How should I handle Prolia if I need to pick it up from a pharmacy? Keep Prolia in a refrigerator at 36F to 46F (2C to 8C) in the original carton. Do not freeze Prolia. When you remove Prolia from the refrigerator, Prolia must be kept at room temperature [up to 77F (25C)] in the original carton and must be used within 14 days. Do not keep Prolia at temperatures above 77F (25C). Warm temperatures will affect how Prolia works. Do not shake Prolia. Keep Prolia in the original carton to protect from light. Keep Prolia and all medicines out of reach of children. General information about Prolia Do not give Prolia to other people even if they have the same symptoms that you have. It may harm them. This Medication Guide summarizes the most important information about Prolia. If you would like more information, talk with your doctor. You can ask your doctor or pharmacist for information about Prolia that is written for health professionals. For more information, go to www.[employer] or call [employer] at . What are the ingredients in Prolia? Active ingredient: denosumab Inactive ingredients: sorbitol, acetate, polysorbate 20 (prefilled syringe only), Water for Injection (ASSISTED), and sodium hydroxide What is osteoporosis? Osteoporosis is a disease in which the bones become thin and weak, increasing the chance of having a broken bone. Osteoporosis usually causes no symptoms until a fracture happens. The most common fractures are in the spine (backbone). They can shorten height, even without causing pain. Over time, the spine can become curved or deformed and the body bent over. Fractures from osteoporosis can also happen in almost any bone in the body, for example: the wrist, rib, or hip. Once you have had a fracture, the chance for more fractures greatly increases. The following risk factors increase your chance of getting fractures from osteoporosis: Past broken bones from osteoporosis Very low bone mineral density (BMD) Frequent falls Limited movement, such as using a wheelchair Medical conditions likely to cause bone loss, such as some kinds of arthritis Taking steroid medicines called glucocorticoids, such as prednisone Other medicines that may cause bone loss, for example: seizure medicines (such as phenytoin), bloodthinners (such as heparin), high doses of vitamin A What can I do to treat osteoporosis? There are many steps you can take to treat osteoporosis. Taking Prolia, along with calcium and vitamin D, may be one option for you. [employer] a subsidiary of [employer] [place], [place] [address] This Medication Guide has been approved by the [place] Food and Drug Administration. 1xxxxxx ? v1 Issued: 08/2009 documented in this encounter Progress Notes * Janis Borrego LPN - 04/14/2023 9:29 AM EST Kimmy Delgado presents today for administration of Prolia. She understands the benefits and risksof this treatment. An educational pamphlet was given to the patient. Prolia 60 mg was administered subcutaneously. The patient tolerated the procedure without problems. She will return in 6 months for the next injection and evaluation. Jains Borrego LPN Umberto Mcguire MD - 04/14/2023 9:16 AM EST [facility] ([facility] follow up Previous Visit Plan from 03/2022 reviewed. Reason for visit: Patient seen today for further follow-up/evaluation of osteoporosis. Here for 10th prolia injection. She did have a fal whitney Nov and had a small avulsion fracture to the right lateral malleolus. She wore an air cast and now in a brace. Pain and swelling is better. Bone Health Summary: Risks: Falls since last [facility] visit: yes Personal History of Fx since last [facility] Visit: yes see above Prevention: Exercise : 3 or more times weekly: Yes just started again Nutrition: eats calcium rich foods, Yes Gait: unsteady with walking, No, use of cane/walker, No, Calcium and Vitamin D supplements in adequate doses: Yes ROS: . Constitutional: normal . Ears, nose, throat, mouth: normal . Cardiovascular: normal . Respiratory: normal . Gastrointestinal: normal . Musculoskeletal: see above . Genitourinary: normal Medications: Current Outpatient Medications Medication Sig Dispense Refill [...] bedtime. Repeat if necessary. 12 Tablet 11 tiZANidine HCl 2 MG Oral Tablet (Zanaflex) Take 1 Tablet by mouth every 6 hours as needed for Muscle spasms. 30 Tablet 0 Naproxen 375 MG Oral Tablet (Naprosyn) Take 1 Tablet by mouth 2 times a day as needed (back pain). With food 60 Tablet 5 Metoprolol Succinate ER 25 MG Oral Tablet Extended Release 24 Hour (toPROL XL) Take 0.5 Tablets by mouth 2 times a day. 90 Tablet 3 Potassium Chloride Livia ER 10 MEQ Oral Tablet Extended Release Take 1 Tablet by mouth once a day onThursday, Thursday, and Thursday only. 90 Tablet 3 Fluzone High-Dose Quadrivalent 0.7 ML Suspension Prefilled Syringe (Influenza Vac High-Dose Quad (65 years and older)) Inject 0.7 ml intramuscularly as directed 0.7 mL 0 Benzonatate 100 MG Oral Capsule (Tessalon Perlnate) [...] day. To affected area. 45 g 5 Nirmatrelvir&Ritonavir 300/100 20 x 150 MG & 10 x 100MG Oral Tablet Therapy Pack (Paxlovid)Take 2 pink tablets of Nirmatrelvir and 1 white tablet of Ritonavir two times a day by mouth. 30 Tablet 0 Current Facility-Administered Medications Medication Dose Route Frequency Provider Last Rate Last Admin Denosumab (Prolia) subcut inj 60 mg 60 mg Subcutaneous Q6 Months Dayne Cassidy PA-C Social History: Social History Tobacco Use Smoking status: Never Smokeless tobacco: Never Vaping Use Vaping Use: Never used Substance Use Topics Alcohol use: Yes Comment: glass of wine a few times a week per patient Drug use: No Physical Exam: Temp 36.1 C (96.9 F) (Infrared ) | Wt 60.3 kg (133 lb) | LMP 03/06/2006 | BMI 24.33 kg/m | BSA 1.62 m General: alert, healthy, no distress, and well nourished Heart: regular rate & rhythm and no gallops Lungs: clear to auscultation , no rales, wheezes or rhonchi Abdomen: abdomen soft, non-tender, and normal bowel sounds Musculoskeletal Exam: Good muscle strength noted No significant thoracic kyphosis Assessment: M81.0 Senile osteoporosis (primary encounter diagnosis) 67 year old female with osteoporosis who here for her next Prolia injection. Will update labs and DEXA. Plan: The following items are ordered or are in progress: 1. Education: Osteoporosis education was provided by the [facility] team (topics included disease process, DXA, calcium/vitamin D, osteoporosis medications - including administration instructions and risks/benefits, weight bearing exercise, fall prevention/safety). The patient was provided with [facility] patient education instruction sheet(s): Prolia. 2. Prevention: . Fall Prevention/Safety Education recommended and discussed . Continue calcium rich foods (goal of 3 servings daily) 3. Osteoporosis Medications : Continue Prolia 60mg subcutaneous injection every 6 months 4. Bone Density Testing: due 2 year(s) from previous 5. Laboratory: 25-OH Vitamin D calcium creatinine 6. Followup: Return to clinic in 6 months with nurses for Prolia, 1 year with me for Prolia Umberto Hurst MD [facility] Team documented in this encounter Nursing Notes * Janis Borrego LPN - 04/14/2023 9:04 AM EST Chief Complaint Patient presents with Rheum Follow Up Follow up - [facility] Medication Administration prolia Pt reported a fall on Jan 21, twisted left ankle, fell on right knee. X-ray in Feb showed a small chip fx from inferior margin lateral malleolus. Pt wore and air cast for 2 weeks. Now wearing a brace. documented in this encounter Plan of Treatment Upcoming Encounters Date Type Department Care Team (Late st Contact Info) Description 04/29/2023 9:00 AM EST Office Visit Cardiology, [facility] [address] [facility] [place] [address] Britney Dela Cruz IV, MD [address] [place] [address] 07/08/2023 1:00 PM EDT Office Visit Cardiology, [facility] [address] [facility] [place] [address] [address] PA-C [facility] [place] [address] 10/12/2023 9:30 AM EDT Imaging Radiology, [address] [place] [address] 10/13/2023 9:20 AM EDT Office Visit Family Practice [facility] [address] [facility] [place] [address] Iban Whaley, DO [address] [facility] [place] [address] 10/15/2023 9:30 AM EDT Nurse Only Rheumatology [address] [place] [address] Pf, Nurse Rheum [address] [place] [address] [place] [address] 04/19/2024 9:40 AM EST Office Visit Rheumatology [address] [place] [address] Umberto Hurst MD [address] [place] [address] Scheduled Orders Name Type Priority Associated Diagnoses Orde r Schedule DEXA SCAN/BONE MINERAL AXIAL Medical Imaging Routine Senile osteoporosis Ordered: 04/14/2023 BASIC METABOLIC PANEL Lab Routine Senile osteoporosis Expected: 04/14/2023 (Approximate), Expires: 07/15/2023 25-HYDROXY VITAMIN D Lab Routine Senile osteoporosis Ordered: 04/14/2023 Scheduled Procedures Name Priority Associated Diagnoses Date/Ti [...] D LEVEL ONCE IN A LIFETIME-USE SMARTSET# [id number] Completed 04/03/2022, 06/24/2021, 07/23/2020, Additional history exists [...] this encounter Medical Devices Implanted Type Area Viner Operator Device Identifier Shelf Expiration Date Model / Serial / Lot Sys Monit Linq Ii Insert Monit - [id number] Implanted:Qty: 1 on 11/27/2022 by Britney Dela Cruz IV, MD at [facility] [employer] [id number] 02/13/2024 LNQ 22SYS / [id number] / [id number] documented as of this encounter Visit Diagnoses Diagnosis Senile osteoporosis- Primary documented in this encounter Administered Medications Active Administered Medications - up to 3 most recent administrations Medication Order MAR Action Action Date Dose Rate Site Denosumab (Prolia) subcut inj 60 mg 60 mg, Subcutaneous, [id number], First dose on Thu04/14/23 at 0800, Last dose on Thu10/11/23 at 0800, For 2 doses Given 04/14/2023 9:29 AM EST 60 mg Arm Left Upper documented in this encounter Additional Health Concerns [...] 3:19 PM 07/22/2008 2:37 PM Care Teams Stave Machine Tender Relationship Specialty Start Date End Date Iban Whaley DO [facility] [place] [address] PCP - General Family Medicine 11/22/15 documented as of this encounter"
--- OUTSIDE RECORDS SUMMARY | 2023-05-06 07:05 | External Medical Summary | Summary of Care ---
Author Name Unknown Organization [facility] Address [address] [place] [address] Phone [phone] Care Team Providers Care Forklift Truck Operator Name Role Phone Zay Whaleye Rosalinda BLAKE Primary Care Provider Reason for Visit * Reason Comments Injury Encounter Details Date Type Department Care Team (Late st Contact Info) Description 02/03/2023 10:20 AM EST Office Visit Family Practice [facility] [address] [facility] [place] [address] Patrick Mar III, MD [address] [facility] [place] [address] Acute cough*; Sprain of right ankle, unspecified ligament, initial encounter; Acute pain of left knee Allergies Active Allergy Reactions Criticality Noted Date Comments Erythromycin Nausea/vomiting 02/03/2000 Other reaction(s): GI intolerance Latex Rash 07/21/2008 mild documented as of this encounter (statuses as of 02/06/2023) Medications Medication Sig Dispensed Refills Start Date [...] ve valACYclovir HCl 1 GM Oral Tablet (Valtrex)Indications :Recurrent cold sores Take by mouth 2 Tablets in the morning AND 2 Tablets before bedtime. Repeat if necessary. 12 Tablet 11 2 Active Levothyroxine Sodium 75 MCG Oral Tablet (Levoxyl)Indications :Non-toxic multinodular goiter Take by mouth 1 Tablet in the morning. (at least 30 min prior to breakfast or other meds). 90 Tablet 3 2 Active Triamcinolone Acetonide 0.1 % External Cream (Aristocort) Apply topically to affected area 2 times a day . To affected area. 15 g 5 2 Active tiZANidine HCl 2 MG Oral Tablet (Zanaflex)Indication s:Lumbosacral spondylosis without myelopathy,Lumbar facet joint pain,Compression fracture of body of thoracic vertebra (HCC),Thoracic spondylosis without myelopathy Take 1 Tablet by mouth every 6 hours as needed for Muscle spasms. 30 Tablet 0 3 Active Naproxen 375 MG Oral Tablet (Naprosyn)Indication s:Lumbosacral spondylosis without myelopathy,Lumbar facet joint pain Take [...] Livia ER 10 MEQ Oral Tablet Extended ReleaseIndications:H yperkalemia Take 1 Tablet by mouth once a day on Thursday, Thursday, and Thursday only. 90 Tablet 3 3 Active Fluzone High-Dose Quadrivalent 0.7 ML Suspension Prefilled Syringe (Influenza Vac High-Dose Quad (65 years and older)) Inject 0.7 ml intramuscularly as directed 0.7 mL 0 3 Active Abrysvo 120 MCG/0.5ML Intramuscular Solution Reconstituted (RSV Pre-Fusion F A&B Vac Rcmb) inject as directed 1 Each 0 3 Active Benzonatate 100 MG Oral Capsule (Tessalon Perlnate) Take 1 Capsule by mouth 3 times a day as needed for Cough. Do not cut, crush, or chew. 50 Capsule 1 3 Active Klor-Con M10 10 MEQ Oral Tablet Extended Release (potassium chloride ER)Indications:Hyper kalemia TAKE 1 TABLET EVERY OTHER DAY 45 Tablet 3 3 023 Discontin ued(Patie nt preferenc e/discont inuation) documented as of this encounter (statuses as of 02/06/2023) Active Problems Problem Noted Date Diagnosed Date Postural dizziness with presyncope 11/02/2022 Overview: Added automatically from request for surgery [id number] Prediabetes 07/01/2021 Overview: Per Prediabetes protocol Senile osteoporosis 09/05/2020 Lung nodule 03/09/2020 Paroxysmal atrial fibrillation 02/27/2020 Overview: Added automatically from request for surgery [id number] Atrial fibrillation 01/19/2019 Compression fracture of body [...] as of this encounter (statuses as of 02/06/2023) Resolved Problems Problem Noted Date Diagnosed Date [...] as of this encounter (statuses as of 02/06/2023) Immunizations Name Administration Dates Next Due COVID-19 mRNA, LNP-s, No Pre serve, 2-Dose Series ([employer] Analysis) 12/28/2020,05/30/2020,05/01/2020 COVID-19, LNP-s, No Preserve , Alirio-sucrose, Ages 12+ (Pfizer) 06/27/2021 COVID-19, MRNA-LNP, 23-24, P F, 30 MCG/0.3 mL, 12 YRS AND ABOVE, IM (PFIZER-Comirnaty) 12/29/2022 Covid-19, Mrna, Lnp-s, Pf, B ivalent, 30 Mcg, IM, 12 yrs and above ([employer] Analysis) 08/04/2022,12/03/2021 Pneumococcal Conjugate Vacci ne, 20-valent ([id number]) 01/28/2022 Pneumococcal Polysaccharide PPV23 (Pneumovax) 01/16/2021 RSV Vac., Bivalent, Perfusio n F, Pf,0.5 Ml (Abrysvo) 02/03/2023 SEASONAL INFLUENZA, PF, 6 M & Above, IM , (FLULAVAL or FLUZONE) 12/14/2019,12/30/2018,01/06/2018,03/2016 Seasonal Influenza Virus Vac cine, Unspecified Formulation 01/07/2021,12/14/2019,12/30/2018,12/21,01/21/2017,02/21/2016,01/06/20 14,01/20/2013,01/01/2012,01/28/2011,1 04/01/2009,12/28/2008,03/01/2008,01/27,02/26/2005,02/01/2003, 2,02/23/2001,02/26/2000 Seasonal Influenza, Quadriva lent Hd (Fluzone Hd) [...] Sign Reading Time Taken Comments Blood Pressure 120/78 02/03/2023 10:23 AM EST Pulse - - Temperature 37.1 C (98.8 F) 02/03/2023 10:[address] Respiratory Rate 16 02/03/2023 10:23 AM EST Oxygen Saturation - - Inhaled Oxygen Concentration - - Weight 62.6 kg (138 lb) 02/03/2023 10:23 AM EST Height - - Body Mass Index 25.24 12/26/2022 9:46 AM EDT documented in this [...] as of this encounter Progress Notes * Patrick Mar III, MD - 02/03/2023 10:44 AM EST Subjective: Kimmy Delgado is a 67 year old female. Chief Complaint Patient presents with Injury HPI: Cough for 2 2-1/2 weeks has taken Tessalon for the past 8 days limited benefit does have some chest pain with coughing no definite shortness of breath no runny nose earache or sore throat was walking 13 days ago stepped off the side of the road fell struck left knee injured right ankle was unable to get up because of the knee pain initially neighbor helped her and got her back in the house ice for 48 hours rested has been wearing a ankles sleeve support knee area still swollen PMH: Patient Active Problem List Diagnosis Code ADJ DISORDER W/DEPRES MOOD F43.21 Mitral valve disorder I05.9 Torticollis M43.6 Cataract H26.9 GENERAL OSTEOARTHROSIS M15.9 ADVANCE DIRECTIVE INFORMATION Other specified forms of hearing loss H91.8X9 Postsurgical hypothyroidism E89.0 History of colonic polyps Z86.010 Other osteoporosis without current pathological fracture M81.8 Spondylosis of lumbar region without myelopathy or radiculopathy M47.816 Compression fracture of body of thoracic vertebra (HCC) S22.000A Atrial fibrillation (HCC) I48.91 Paroxysmal atrial fibrillation (HCC) I48.0 Lumbosacral spondylosis without myelopathy M47.817 Thoracic spondylosis without myelopathy M47.814 Lumbar facet joint pain M54.59 Lung nodule R91.1 Senile osteoporosis M81.0 Prediabetes R73.03 Postural dizziness with presyncope R42, R55 Current Outpatient Medications Medication Sig Dispense Refill VITAMIN C 500 MG PO TABS 2 daily Calcium Carbonate 600 MG Oral Tablet Take by mouth . 1 daily Multiple Vitamins-Minerals (MULTI FOR HER) Tablet Take 1 Tab by mouth daily. Calcium 200 mg, Vitamin D 800 Cholecalciferol (VITAMIN D) 1000 units Tablet Take 1 Tablet by mouth in the morning. Denosumab 60 MG/ML Subcutaneous Solution Prefilled Syringe Inject 60 mg under the skin. 1 inj every6 mo. Aspirin 81 MG Oral Tablet Delayed Release Take 1 Tablet by mouth in the morning. Benefiber Drink Mix Oral Packet Take 1 Packet by mouth in the morning. Probiotic-10 Oral Tablet Chewable Take by mouth . valACYclovir HCl 1 GM Oral Tablet (Valtrex) Take by mouth 2 Tablets in the morning AND 2 Tablets before bedtime. Repeat if necessary. 12 Tablet 11 Levothyroxine Sodium 75 MCG Oral Tablet (Levoxyl) Take by mouth 1 Tablet in the morning. (at least 30 min prior to breakfast or other meds). 90 Tablet 3 Triamcinolone Acetonide 0.1 % External Cream (Aristocort) Apply topically to affected area 2 times a day . To affected area. 15 g 5 tiZANidine HCl 2 MG Oral Tablet (Zanaflex) [...] ml intramuscularly as directed 0.7 mL 0 Abrysvo 120 MCG/0.5ML Intramuscular Solution Reconstituted (RSV Pre-Fusion F A&B Vac Rcmb) inject as directed 1 Each 0 No current facility-administered medications for this visit. Review of patient's allergies indicates: Allergen Reactions Erythromycin Nausea/vomiting Other reaction(s): GI intolerance Latex Rash mild Past Medical History: Diagnosis Date Acute diverticulitis [...] performed by Samuel Boss MD at [facility] COLONOSCOPY, DIAGNOSTIC (RECTUM) 01/24/2020 inflammatory tissue on bx, repeat 5 yrs / COLONOSCOPY FLEXIBLE PROXIMAL DIAGNOSTIC performed by Samuel Boss MD at [facility] COLONOSCOPY, DIAGNOSTIC (RECTUM) 04/01/2022 severe diverticulosis in entire exam / no specimens collected / 5 year recall / COLONOSCOPY FLEXIBLE PROXIMAL DIAGNOSTIC performed by Arcelia Dunn DO at [facility] ELECTROPHYSIOLOGY EVAL, ATRIAL FIB, PULMONARY VEIN ISOL N/A 02/29/2020 PVI CRYOABLATION performed by Britney Dela Cruz IV, [place] [facility] [place] SUBQ CARDIAC RHYTHM MONITOR, INCLUDING PROGRAMMING Left 11/27/2022 LOOP RECORDER IMPLANTATION performed by Britney Dela Cruz IV, MD at [facility]AMMO[place] - 1 BREAST 04/25/2005 normal US of right breast , no palpable mass MAMMOGRAM - BILATERAL 04/11/2003 negative finding, yearly mammograms appropriate, birad code 1 MAMMOGRAM - BILATERAL 06/16/2006 birad code 1 MAMMOGRAM OUTSIDE PROCEDURE 06/21/2009 normal per patient MAMMOGRAM SCREENING-BILATERAL 04/14/2005 birad code 0 / spot compressions needed MAMMOGRAM SCREENING-BILATERAL 06/19/2008 birad 2, [facility], repeat one year NASAL ENDOSCOPY, DX W/SINUSOSCOPY 08/09/2015 obstructing polypectomy, Dr. Pickard, outpatient procedure OTHER laser eye surgery to reduce pocket behind lens, after initial lens replacement REMOVAL OF THYROID GLAND 07/21/2008 THYROIDECTOMY COMPLETE performed by SMITHA ORDOÑEZ at [facility] REMOVAL OF TONSILS, UNDER AGE 12 1961 Tonsils Removal,<12 Y/O REMOVE CATARACT, INSERT LENS PROSTH 03/23/1991 Cataract Removal w/ IOL VAGINAL DELIVERY ONLY times 3 Objective: The patient is a 67 year old female BP 120/78 | Temp 37.1 C (98.8 F) | Resp 16 | Wt 62.6 kg (138 lb) | LMP 03/06/2006 | BMI 25.24 kg/m | BSA 1.65 m Alert and oriented Lungs: Clear to auscultation Lateral malleolar swelling tenderness on the right resisted inversion eversion flexion extension with limited discomfort drawer sign negative Abraded area under left patella some swelling tenderness negative Maria E's Brenden's possible small effusion slight decreased range of motion flexion on the left compared to the right ASSESSMENT: R05.1 Acute cough (primary encounter diagnosis) S93.401A Sprain of right ankle, unspecified ligament, initial encounter M25.562 Acute pain of left knee PLAN: Tessalon try tsp of honey keep in touch in regards to cough x-ray left knee continue ankle support ice after activity call if not resolving or worsening Follow up as needed. Patrick Mar III, MD * Elza Henning RN - 02/03/2023 10:23 AM EST Pt fell while walking, Foot went off edge of curb. Happened January 21. Cough x 2 and 1/2 weeks. documented in this encounter Miscellaneous Notes * Result Encounter Note - Patrick Mar III, MD - 02/05/2023 8:20 AM EST Call please x-ray negative how doing documented in this encounter Plan of Treatment Upcoming Encounters Date Type Department Care Team (Late st Contact Info) Description 02/27/2023 9:20 AM EST [facility] [address] [place] [address] Iban Whaley, DO [address] [place] [address] 04/14/2023 9:00 AM EST Office Visit Rheumatology [facility] [address] [facility] [place], [place] [address] Umberto Hurst MD [address] [place], [place] [address] 04/29/2023 9:00 AM EST Office Visit Cardiology, [facility] [address] [facility] [place] [address] Britney Dela Cruz IV, MD [address] [place] [address] 07/08/2023 1:00 PM EDT Office Visit Cardiology, [facility] [address] [facility] [place] [address] [address] [place] [address] Scheduled Procedures Name Priority Associated Diagnoses Date/Ti me COLONOSCOPY FLEXIBLE PROXIMAL DIAGNOSTIC Recall History of colon polyps Health Maintenance Due Date Last Done Comments Depression Screening 07/10/2022 07/10/2021, 10/05/2014 (Discussed) TSH 12/24/2022 12/24/2021, 06/2021, 06/26/2020, Additional history exists HbA1c 07/01/2023 06/30/2022, 06/2021, 06/24/2021 Mammogram 07/03/2023 07/02/2022, 06/21, 06/26/2021, Additional history exists DXA Scan 09/03/2023 09/02/2021, 08/21, 08/30/2019, Additional history exists Lipid Panel 2024 11/21/2019, [...] D LEVEL ONCE IN A LIFETIME-USE SMARTSET# [id number] Completed 04/03/2022, 06/24/2021, 07/23/2020, Additional history exists [...] this encounter Medical Devices Implanted Type Area Accountant Bookkeeper Device Identifier Shelf Expiration Date Model / Serial / Lot Sys Monit Linq Ii Insert Monit - [id number] Implanted:Qty: 1 on 11/27/2022 by Britney Dela Cruz IV, [place] at [facility] [employer] [id number] 02/13/2024 LNQ 22SYS / [id number] / [id number] documented as of this encounter Procedures Procedure Name Priority Date/Time Associated Diagnosis Comments XR KNEE 4 OR MORE VIEWS Routine 02/03/2023 11:15 AM EST Acute pain of left knee documented in this encounter Results * XR KNEE 4 OR MORE VIEWS (02/03/2023 11:15 AM EST) Anatomical Region Laterality Modality Knee, Lower Extremity Computed R adiography 02/04/2023 8:03 PM EST Impressions 02/04/2023 8:00 PM EST IMPRESSION No acute osseous abnormality. Narrative 02/04/2023 8:00 PM EST EXAM LT XR KNEE 4 OR MORE VIEWS - 02/03/2023 11:15 am HISTORY fall injury COMPARISON Radiographs 06/28/2010. TECHNIQUE Four views FINDINGS No fracture. Normal alignment. Joint spaces are preserved. Soft tissues are unremarkable. Procedure Note Aneudy Keita MD - 02/04/2023 EXAM LT XR KNEE 4 OR MORE VIEWS - 02/03/2023 11:15 am HISTORY fall injury COMPARISON Radiographs 06/28/2010. TECHNIQUE Four views FINDINGS No fracture. Normal alignment. Joint spaces are preserved. Soft tissuesare unremarkable. IMPRESSION IMPRESSION No acute osseous abnormality. Patrick Mar III, MD RADIOLOGY ([facility]) documented in this encounter Visit Diagnoses Diagnosis Acute cough- Primary Sprain of right ankle, unspecified ligament, initial encounter Acute pain of left knee documented in this encounter Additional Health Concerns [...] 3:19 PM 07/22/2008 2:37 PM Care Teams Forklift Truck Operator Relationship Specialty Start Date End Date Iban Whaley DO [address] [place] [address] PCP - General Family Medicine 11/22/15 documented as of this encounter"
--- OUTSIDE RECORDS SUMMARY | 2023-05-06 07:05 | External Medical Summary | Summary of Care ---
Author Name Unknown Organization [facility] Address [address] [place] [address] Phone [phone] Care Team Providers Care Electric Stop Installer Name Role Phone Iban Whaley DO Primary Care Provider [phone] Reason for Visit * Reason Comments Re-Check Encounter Details Date Type Department Care Team (Late st Contact Info) Description 02/27/2023 9:20 AM EST [facility] [address] [place] [address] Iban Whaley DO 200 [facility] [place] [address] Paroxysmal atrial fibrillation (HCC)*; Injury of right ankle, subsequent encounter; Non-toxic multinodular goiter; Postsurgical hypothyroidism; Senile osteoporosis; Prediabetes Allergies Active Allergy Reactions Criticality Noted Date Comments Erythromycin Nausea/vomiting 02/03/2000 Other reaction(s): GI intolerance Latex Rash 07/21/2008 mild documented as of this encounter (statuses as of 02/27/2023) Medications Medication Sig Dispensed Refills Start Date [...] 23 Active Benzonatate 100 MG Oral Capsule (Tesdaly García) Take 1 Capsule by mouth 3 times a day as needed for Cough. Do not cut, crush, or chew. 50 Capsule 1 02/04/20 Active Levothyroxine Sodium 75 MCG Oral Tablet (Levoxyl)Indication s:Non-toxic multinodular goiter Take 1 Tablet by mouth daily first thing in the morning. (at least 30 min prior to breakfast or other meds) 90 Tablet 3 02/28/20 Active Triamcinolone Acetonide 0.1 % External Cream (Aristocort) Apply topically to affected area 2 times a day. To affected area. 45 g 5 02/28/20 23 Active Levothyroxine Sodium 75 MCG Oral Tablet (Levoxyl)Indication s:Non-toxic multinodular goiter Take by mouth 1 Tablet in the morning. (at least 30 min prior to breakfast or other meds). 90 Tablet 3 01/15/20 22 2022 Discontinued(R efill) Triamcinolone Acetonide 0.1 % External Cream (Aristocort) Apply topically to affected area 2 times a day . To affected area. 15 g 5 01/15/20 22 2022 Discontinued(R efill) Abrysvo 120 MCG/0.5ML Intramuscular Solution Reconstituted (RSV Pre-Fusion F A&B Vac Rcmb) inject as directed 1 Each 0 01/21/20 23 2022 Discontinued Levothyroxine Sodium 75 MCG Oral Tablet (Levoxyl)Indication s:Non-toxic multinodular goiter Take 1 Tablet by mouth daily first thing in the morning. (at least 30 min prior to breakfast or other meds) 90 Tablet 3 02/28/20 23 2022 Discontinued(R efill) documented as of this encounter (statuses as of 02/27/2023) Active Problems Problem Noted Date Diagnosed Date Postural dizziness with presyncope 11/02/2022 Overview: Added automatically from request for surgery [id number] Prediabetes 07/01/2021 Overview: Per Prediabetes protocol Senile osteoporosis 09/05/2020 Lung nodule 03/09/2020 Paroxysmal atrial fibrillation 02/27/2020 Overview: Added automatically from request for surgery [id number] Atrial fibrillation 01/19/2019 Compression fracture of body [...] as of this encounter (statuses as of 02/27/2023) Resolved Problems Problem Noted Date Diagnosed Date [...] as of this encounter (statuses as of 02/27/2023) Immunizations Name Administration Dates Next Due COVID-19 mRNA, LNP-s, No Pre serve, 2-Dose Series (BONESUPPORT) 12/28/2020,05/30/2020,05/01/2020 COVID-19, LNP-s, No Preserve , Alirio-sucrose, Ages 12+ (BONESUPPORT) 06/27/2021 COVID-19, MRNA-LNP, 23-24, P F, 30 MCG/0.3 mL, 12 YRS AND ABOVE, IM ([facility]) 12/29/2022 Covid-19, Mrna, Lnp-s, Pf, B ivalent, 30 Mcg, IM, 12 yrs and above (BONESUPPORT) 08/04/2022,12/03/2021 Pneumococcal Conjugate Vacci ne, 20-valent ([id number]) 01/28/2022 Pneumococcal Polysaccharide PPV23 (Pneumovax) 01/16/2021 RSV [...] Sign Reading Time Taken Comments Blood Pressure 116/70 02/27/2023 9:20 AM EST Pulse 76 02/27/2023 9:20 AM EST Temperature 36.6 C (97.8 F) 02/27/2023 9:20 AM ES T Respiratory Rate 16 02/27/2023 9:20 AM EST Oxygen Saturation 99% 02/27/2023 9:20 AM EST Inhaled Oxygen Concentration - - Weight 61.1 kg (134 lb 9.6 oz) 02/27/2023 9:20 A M EST Height - - Body Mass Index 24.62 12/26/2022 9:46 AM EDT documented in this [...] as of this encounter Progress Notes * Iban Whaley, DO - 02/27/2023 9:35 AM EST Subjective: Kimmy Delgado is a 67 year old female. Chief Complaint Patient presents with Re-Check HPI: Pt here in follow-up. She was walking in her neighborhood she walked over the edge and came down hard on her L knee. IT hurt bad initially and able to get home with help. She used RICE. She has a compression knee sock. X-ray done for her knee. It did improve after a few days. She is back to walking and biking now. She still has some swelling and pain in her R ankle. A1C down from 5.9 to 5.7. Tries to avoid too much cookies. Cough in early January she developed a cough that hang on for awhile Works to cough stop up. Hangsin her throat. We discussed using a nasal spray for it. TSH looked good. Needs more Triamcinolone.Spots discussed. We discussed itching and picking. Loop recorder discussed. Seen by Dr. Cano and Dr. Dela Cruz. No passing out since August. Never fully passed out but felt close. BP good today. PMHx, meds, and allergies reviewed Patient Active Problem List Diagnosis Code ADJ [...] mL 0 Benzonatate 100 MG Oral Capsule (Dashawn García) Take 1 Capsule by mouth 3 times a day as needed for Cough. Do not cut, crush, or chew. 50 Capsule 1 No current facility-administered medications for this visit. Review of patient's allergies indicates: Allergen Reactions Erythromycin Nausea/vomiting Other reaction(s): GI intolerance Latex Rash mild OBJECTIVE: BP 116/70 | Pulse 76 | Temp 36.6 C (97.8 F) (Tympanic) | Resp 16 | Wt 61.1 kg (134 lb 9.6 oz) |LMP 03/06/2006 | SpO2 99% | BMI 24.62 kg/m | BSA 1.63 m Estimated body mass index is 24.62 kg/m as calculated from the following: Height as of 12/26/22: 1.575 m (5' 2"). Weight as of this encounter: 61.1 kg (134 lb 9.6 oz). BP Readings from Last 3 Encounters: 02/27/23 116/70 02/03/23 120/78 01/14/23 110/68 Wt Readings from Last 3 Encounters: 02/27/23 61.1 kg (134 lb 9.6 oz) 02/03/23 62.6 kg (138 lb) 01/14/23 62 kg (136 lb 11.2 oz) ROS: Negative except for above PHYSICAL EXAM: General: alert, healthy, and no distress Head: Normocephalic, No masses, lesions, tenderness or abnormalities Heart: regular rate & rhythm, no murmur, and no gallops Lungs: chest symmetric with normal AP diameter, no chest deformities noted, no chest wall tenderness, lungs clear to auscultation Extremities: less than 2 second capillary refill, swelling around her R achilles. ASSESSMENT/Plan Paroxysmal atrial fibrillation (HCC) (Primary) Injury of right ankle, subsequent encounter - XR ANKLE 3 OR MORE VIEWS Non-toxic multinodular goiter - Levothyroxine Sodium 75 MCG Oral Tablet (Levoxyl); Take 1 Tablet by mouth daily first thing in the morning. (at least 30 min prior to breakfast or other meds) Postsurgical hypothyroidism Senile osteoporosis Prediabetes Other orders - Triamcinolone Acetonide 0.1 % External Cream (Aristocort); Apply topically to affected area 2 times a day. To affected area. I spent a total of 35 minutes on the date of service in preparation, delivery, and documentation ofthe care provided to this patient, excluding any time spent on the performance of any procedure or separately billable services. Doing well overall. Check x-ray considering duration, try to cut back on maproxen dose. The above was discussed and understanding was expressed. Iban Whaley DO documented in this encounter Nursing Notes * Nicki Krause LPN - 02/27/2023 9:18 AM EST Kimmy Delgado presents for 6 month recheck. Medications & HM reviewed. Fell on 01/21 and hurt left knee and ankle. Had an xray of the knee. Ankle is still swollen. The more it swells the more painful it is. Can bear weight and walk on it. documented in this encounter Plan of Treatment Upcoming Encounters Date Type Department Care Team (Late st Contact Info) Description 04/14/2023 9:00 AM EST Office Visit Rheumatology [place] [id number] [facility] [place] [address] Umberto Hurst MD [facility] [address] [facility] [place] [address] 04/29/2023 9:00 AM EST Office Visit Cardiology, [facility] 132 [facility] [place] [address] Britney Dela Cruz IV, MD [address] [place] [address] 07/08/2023 1:00 PM EDT Office Visit Cardiology [facility] [address] [place] [address] Urban Fields PA-C [address] [place] [address] 10/13/2023 9:20 AM EDT Office Visit Family Practice [facility] 200 [facility] [place] [address] Iban Whaley, 200 [facility] [place] [address] Pending Results Name Type Priority Associated Diagnoses Date /Time XR ANKLE 3 OR MORE VIEWS Medical Imaging Routine Injury of right ankle, subsequent encounter 02/27/2023 10:09 AM EST Scheduled Procedures Name Priority Associated [...] D LEVEL ONCE IN A LIFETIME-USE SMARTSET# [id number] Completed 04/03/2022, 06/24/2021, 07/23/2020, Additional history exists [...] this encounter Medical Devices Implanted Type Area Back Tufter Device Identifier Shelf Expiration Date Model / Serial / Lot Sys Monit Linq Ii Insert Monit - [id number] Implanted:Qty: 1 on 11/27/2022 by Britney Dela Cruz IV, MD at [facility] [place] [employer] [id number] 02/13/2024 LNQ 22SYS / [id number] / [id number] documented as of this encounter Visit Diagnoses Diagnosis Paroxysmal atrial fibrillation (HCC)- Primary Atrial fibrillation Injury of right ankle, subsequent encounter Non-toxic multinodular goiter Nontoxic multinodular goiter Postsurgical hypothyroidism Senile osteoporosis Prediabetes Other abnormal glucose documented in this encounter Additional Health Concerns [...] 3:19 PM 07/22/2008 2:37 PM Care Teams Electric Stop Installer Relationship Specialty Start Date End Date Iban Whaley DO [address] [place] [address] PCP - General Family Medicine 11/22/15 documented as of this encounter
--- OUTSIDE RECORDS SUMMARY | 2023-05-06 07:05 | External Medical Summary | Summary of Care ---
Author Name Unknown Organization [facility] Address [address] [place] [address] Phone [phone] Care Team Providers Care Aluminizer Name Role Phone Iban Whaley DO Primary Care Provider Reason for Visit * Reason Comments Outpatient Testing Encounter Details Date Type Department Care Team (Late st Contact Info) Description 02/25/2023 1:10 PM EST Laboratory Laboratory, [facility] [address] [place] [id number] [facility] [address] [place], [place] [id number] Postsurgical hypothyroidism; Prediabetes Allergies Active Allergy Reactions Criticality Noted Date Comments Erythromycin Nausea/vomiting 02/03/2000 Other reaction(s): GI intolerance Latex Rash 07/21/2008 mild documented as of this encounter (statuses as of 02/25/2023) Medications Medication Sig Dispensed Refills Start Date [...] Oral Tablet (Levoxyl)Indications: Non-toxic multinodular goiter Take by mouth 1 Tablet [...] or chew. 50 Capsule 1 3 Active documented as of this encounter (statuses as of 02/25/2023) Active Problems Problem Noted Date Diagnosed Date Postural dizziness with presyncope 11/02/2022 Overview: Added automatically from request for surgery [id number] Prediabetes 07/01/2021 Overview: Per Prediabetes protocol Senile osteoporosis 09/05/2020 Lung nodule 03/09/2020 Paroxysmal atrial fibrillation 02/27/2020 Overview: Added automatically from request for surgery [id number] Atrial fibrillation 01/19/2019 Compression fracture of body [...] as of this encounter (statuses as of 02/25/2023) Resolved Problems Problem Noted Date Diagnosed Date [...] as of this encounter (statuses as of 02/25/2023) Immunizations Name Administration Dates Next Due COVID-19 mRNA, LNP-s, No Pre serve, 2-Dose Series ([place]) 12/28/2020,05/30/2020,05/01/2020 COVID-19, LNP-s, No Preserve , Alirio-sucrose, Ages 12+ (Pfizer) 06/27/2021 COVID-19, MRNA-LNP, 23-24, P F, 30 MCG/0.3 mL, 12 YRS AND ABOVE, IM (PFIZER-Comirnaty) 12/29/2022 Covid-19, Mrna, Lnp-s, Pf, B ivalent, 30 Mcg, IM, 12 yrs and above (Pfizer) 08/04/2022,12/03/2021 Pneumococcal Conjugate Vacci ne, 20-valent ([id number]) 01/28/2022 Pneumococcal Polysaccharide PPV23 (Pneumovax) 01/16/2021 RSV [...] 02/27/2023 9:20 AM EST Office Visit Family Practice [facility] [address] [facility] [place] [address] Iban Whaley, DO 200 [facility] [place] [address] 04/14/2023 9:00 AM EST Office Visit Rheumatology [facility] [address] [place] [address] Umberto Hurst MD [address] [place] [address] 04/29/2023 9:00 AM EST Office Visit Cardiology, [facility] 132 [facility] [place] [address] Britney Dela Cruz IV, MD [address] [facility] [place], [place] [address] 07/08/2023 1:00 PM EDT Office Visit Cardiology, [facility] [address] [place] [address] Urban Fields PA-C [address] [place] [address] Pending Results Name Type Priority Associated Diagnoses Date /Time TSH WITH FREE T4 IF INDICATED Lab Routine Postsurgical hypothyroidism 02/25/2023 1:12 PM EST HEMOGLOBIN A1C Lab Routine Prediabetes 02/25/2023 1:12 PM EST Scheduled Procedures Name Priority Associated Diagnoses [...] D LEVEL ONCE IN A LIFETIME-USE SMARTSET# [id number] Completed 04/03/2022, 06/24/2021, 07/23/2020, Additional history exists [...] this encounter Medical Devices Implanted Type Area Divisional Storekeeper Device Identifier Shelf Expiration Date Model / Serial / Lot Sys Monit Linq Ii Insert Monit - [id number] Implanted:Qty: 1 on 11/27/2022 by Britney Dela Cruz IV, MD at [facility] [place] [employer] [id number] 02/13/2024 LNQ 22SYS / [id number] / [id number] documented as of this encounter Visit Diagnoses Diagnosis Postsurgical hypothyroidism Prediabetes Other abnormal glucose documented in this [...] 3:19 PM 07/22/2008 2:37 PM Care Teams Aluminizer Relationship Specialty Start Date End Date Iban Whaley DO [address] [place] [address] PCP - General Family Medicine 11/22/15 documented as of this encounter
--- OUTSIDE RECORDS SUMMARY | 2023-05-06 07:05 | External Medical Summary | Summary of Care ---
Author Name Unknown Organization [facility] Address [address] [place] [address] Phone [phone] Care Team Providers Care Occupational Hygienist Name Role Phone Iban Whaley DO Primary Care Provider [phone] Reason for Visit * Reason Onset Date Comments Advice 03/18/2023 Congestion Encounter Details Date Type Department Care Team (Late st Contact Info) Description 03/18/2023 Telephone Family Practice [facility] [place] [address] [place] [address] Iban Whaley DO [address] [place] [address] Advice (Congestion) Allergies Active Allergy Reactions Criticality [...] Overview: Added automatically from request for surgery [id number] Prediabetes 07/01/2021 Overview: Per Prediabetes protocol Senile osteoporosis 09/05/2020 Lung nodule 03/09/2020 Paroxysmal atrial fibrillation 02/27/2020 Overview: Added automatically from request for surgery [id number] Atrial fibrillation 01/19/2019 Compression fracture of body [...] mRNA, LNP-s, No Pre serve, 2-Dose Series (GetOutfitted) 12/28/2020,05/30/2020,05/01/2020 COVID-19, LNP-s, No Preserve , Alirio-sucrose, Ages 12+ (Pfizer) 06/27/2021 COVID-19, MRNA-LNP, 23-24, P F, 30 MCG/0.3 mL, 12 YRS AND ABOVE, IM ([employer]-Comirnat) 12/29/2022 Covid-19, Mrna, Lnp-s, Pf, B ivalent, 30 Mcg, IM, 12 yrs and above (GetOutfitted) 08/04/2022,12/03/2021 Pneumococcal Conjugate Vacci ne, 20-valent ([id number]) 01/28/2022 Pneumococcal Polysaccharide PPV23 (Pneumovax) 01/16/2021 RSV [...] call in addition to notifying her via Breezy Gardenshart. documented in this encounter Plan of Treatment Upcoming Encounters Date Type Department Care Team (Late st Contact Info) Description 04/14/2023 9:00 AM EST Office Visit Rheumatology [place] [address] [place] [address] Umberto Hurst MD [facility] [employer] [place] [address] 04/29/2023 9:00 AM EST Office Visit Cardiology, [facility] [place] [address] Britney Dela Cruz IV, MD [address] [place] [address] 07/08/2023 1:00 PM EDT Office Visit Cardiology, [facility] 132 [facility] [place] [address] Urban Fields PA-C 132 [facility] [place] [address] 10/13/2023 9:20 AM EDT Office Visit Family Practice [facility] [place] 200 [facility] [place] [address] Iban Whaley, [address] [place] [address] Scheduled Procedures Name Priority Associated Diagnoses Date/Ti [...] D LEVEL ONCE IN A LIFETIME-USE SMARTSET# [id number] Completed 04/03/2022, 06/24/2021, 07/23/2020, Additional history exists [...] this encounter Medical Devices Implanted Type Area Manufacturing Job Titles Device Identifier Shelf Expiration Date Model / Serial / Lot Sys Monit Linq Ii Insert Monit - [id number] Implanted:Qty: 1 on 11/27/2022 by Britney Dela Cruz IV, MD at [facility] [employer] [id number] 02/13/2024 LNQ 22SYS / [id number] / [id number] documented as of this encounter Additional Health [...] 3:19 PM 07/22/2008 2:37 PM Care Teams Occupational Hygienist Relationship Specialty Start Date End Date Iban Whaley DO [address] [place] [address] PCP - General Family Medicine 11/22/15 documented as of this encounter
--- OUTSIDE RECORDS SUMMARY | 2023-05-06 07:05 | External Medical Summary | Summary of Care ---
Author Name Unknown Organization [facility] Address [address] [place] [address] Phone [phone] Care Team Providers Care Sustainability Executive Director Name Role Phone Judd Iban Rosalinda BLAKE Primary Care Provider Reason for Visit * Reason Onset Date Comments Test Results 02/13/2023 Encounter Details Date Type Department Care Team (Late st Contact Info) Description 02/13/2023 Telephone Family Practice [facility] [place] 200 [facility] [place] [address] Patrick Mar III, MD 200 [facility] [place] [address] Test Results Allergies Active Allergy Reactions Criticality Noted Date Comments Erythromycin Nausea/vomiting 02/03/2000 Other reaction(s): GI intolerance Latex Rash 07/21/2008 mild documented as of this encounter (statuses as of 03/05/2023) Medications Medication Sig Dispensed Refills Start Date [...] 1 Each 0 01/21/20 23 2022 Discontinued documented as of this encounter (statuses as of 03/05/2023) Active Problems Problem Noted Date Diagnosed Date Postural dizziness with presyncope 11/02/2022 Overview: Added automatically from request for surgery [id number] Prediabetes 07/01/2021 Overview: Per Prediabetes protocol Senile osteoporosis 09/05/2020 Lung nodule 03/09/2020 Paroxysmal atrial fibrillation 02/27/2020 Overview: Added automatically from request for surgery [id number] Atrial fibrillation 01/19/2019 Compression fracture of body [...] as of this encounter (statuses as of 03/05/2023) Resolved Problems Problem Noted Date Diagnosed Date [...] as of this encounter (statuses as of 03/05/2023) Immunizations Name Administration Dates Next Due COVID-19 mRNA, LNP-s, No Pre serve, 2-Dose Series ([employer]) 12/28/2020,05/30/2020,05/01/2020 COVID-19, LNP-s, No Preserve , Alirio-sucrose, Ages 12+ (Pfizer) 06/27/2021 COVID-19, MRNA-LNP, 23-24, P F, 30 MCG/0.3 mL, 12 YRS AND ABOVE, IM ([employer]-Comirnaty) 12/29/2022 Covid-19, Mrna, Lnp-s, Pf, B ivalent, 30 Mcg, IM, 12 yrs and above ([employer]) 08/04/2022,12/03/2021 Pneumococcal Conjugate Vacci ne, 20-valent ([id number]) 01/28/2022 Pneumococcal Polysaccharide PPV23 (Pneumovax) 01/16/2021 RSV [...] encounter Miscellaneous Notes * Telephone Encounter - Soledad German LPN - 02/13/2023 1:39 PM EST Patient is aware and verbalizes understanding. Patient states that every day her knee has got better She is actually out for her first walk today She feels she is doing great * Telephone Encounter - Soledad German LPN - 02/13/2023 1:38 PM EST ----- Message from Patrick Mar III, MD sent at 02/05/2023 8:20 AM EST ----- LT XR KNEE 4 OR MORE VIEWS - 02/03/2023 11:15 am Call please x-ray negative how doing documented in this encounter Plan of Treatment Upcoming Encounters Date Type Department Care Team (Late st Contact Info) Description 04/14/2023 9:00 AM EST Office Visit Rheumatology [place] [phone] [facility] [address] Umberto Hurst MD [facility]0 [facility] [place] [address] 04/29/2023 9:00 AM EST Office Visit [facility], [facility] [place] [address] Britney Dela Cruz IV, MD [address] [place] [address] 07/08/2023 1:00 PM EDT Office Visit Cardiology, [facility] [address] [facility] [place] [address] Urban Fields PA-C [address] [facility] [address] 10/13/2023 9:20 AM EDT Office Visit Family Practice [facility] [address] [place], [place] [address] Iban Whaley, [address] [place], [place] [address] Scheduled Procedures Name Priority Associated Diagnoses Date/Ti [...] D LEVEL ONCE IN A LIFETIME-USE SMARTSET# [id number] Completed 04/03/2022, 06/24/2021, 07/23/2020, Additional history exists [...] this encounter Medical Devices Implanted Type Area Manager Unix Device Identifier Shelf Expiration Date Model / Serial / Lot Sys Monit Linq Ii Insert Monit - [id number] Implanted:Qty: 1 on 11/27/2022 by Britney Dela Cruz IV, MD at [facility] [employer] [id number] 02/13/2024 LNQ 22SYS / [id number] / [id number] documented as of this encounter Additional Health [...] 3:19 PM 07/22/2008 2:37 PM Care Teams Sustainability Executive Director Relationship Specialty Start Date End Date Iban Whaley DO [address] [place] [address] PCP - General Family Medicine 11/22/15 documented as of this encounter
--- OUTSIDE RECORDS SUMMARY | 2023-05-06 07:05 | External Medical Summary | Summary of Care ---
Author Name Unknown Organization [facility] Address [address] [place] [address] Phone [phone] Care Team Providers Care Machine Set Up Operator Paper Goods Name Role Phone Iban Whaley DO Primary Care Provider Reason for Visit * Reason Onset Date Comments Films 03/05/2023 Encounter Details Date Type Department Care Team (Late st Contact Info) Description 03/05/2023 Telephone Radiology Film File [address], [place] [id number] Iban Whaley DO [address] [place] [address] Films Allergies Active Allergy Reactions Criticality Noted Date [...] affected area. 45 g 5 3 Active documented as of this encounter (statuses as of 03/05/2023) Active Problems Problem Noted Date Diagnosed Date Postural dizziness with presyncope 11/02/2022 Overview: Added automatically from request for surgery [id number] Prediabetes 07/01/2021 Overview: Per Prediabetes protocol Senile osteoporosis 09/05/2020 Lung nodule 03/09/2020 Paroxysmal atrial fibrillation 02/27/2020 Overview: Added automatically from request for surgery [id number] Atrial fibrillation 01/19/2019 Compression fracture of body [...] mRNA, LNP-s, No Pre serve, 2-Dose Series ([employer]) 12/28/2020,05/30/2020,05/01/2020 COVID-19, LNP-s, No Preserve , Alirio-sucrose, Ages 12+ (Pfizer) 06/27/2021 COVID-19, MRNA-LNP, 23-24, P F, 30 MCG/0.3 mL, 12 YRS AND ABOVE, IM ([employer]) 12/29/2022 Covid-19, Mrna, Lnp-s, Pf, B ivalent, 30 Mcg, IM, 12 yrs and above ([employer]) 08/04/2022,12/03/2021 Pneumococcal Conjugate Vacci ne, 20-valent ([id number]) 01/28/2022 Pneumococcal Polysaccharide PPV23 (Pneumovax) 01/16/2021 RSV [...] encounter Miscellaneous Notes * Telephone Encounter - Janet Dan OSA - 03/05/2023 10:53 AM EST [facility] requesting 02-27-23 xray images be pushed to their system. [place] Authorization to Release on file. Images pushed to [facility] external connection through PACs Report(s) faxed to [phone] . Successful fax confirmation received. documented in this encounter Plan of Treatment Upcoming Encounters Date Type Department Care Team (Late st Contact Info) Description 04/14/2023 9:00 AM EST Office Visit Rheumatology [facility] [address] [place] [address] Umberto Hurst MD [address] [place] [address] 04/29/2023 9:00 AM EST Office Visit Cardiology, [facility] [address] [facility] [place] [address] Britney Dela Cruz IV, MD [address] [facility] [place], [place] [address] 07/08/2023 1:00 PM EDT Office Visit Cardiology, [facility] [address] [place] [address] [place], PA-C [address] [place] [address] 10/13/2023 9:20 AM EDT Office Visit Family Practice [facility] [address] [facility] [place] [address] Iban Whaley DO [address] [facility] [place] [address] Scheduled Procedures Name Priority Associated Diagnoses Date/Ti [...] D LEVEL ONCE IN A LIFETIME-USE SMARTSET# [id number] Completed 04/03/2022, 06/24/2021, 07/23/2020, Additional history exists [...] this encounter Medical Devices Implanted Type Area Quartz Cutter Device Identifier Shelf Expiration Date Model / Serial / Lot Sys Monit Linq Ii Insert Monit - [id number] Implanted:Qty: 1 on 11/27/2022 by Britney Dela Cruz IV, MD at [facility] [employer] [id number] 02/13/2024 LNQ 22SYS / [id number] / [id number] documented as of this encounter Additional Health [...] 3:19 PM 07/22/2008 2:37 PM Care Teams Machine Set Up Operator Paper Goods Relationship Specialty Start Date End Date Iban Whaley DO [address] [place] [address] PCP - General Family Medicine 11/22/15 documented as of this encounter
--- OUTSIDE RECORDS SUMMARY | 2023-05-06 07:05 | External Medical Summary ---
Author Name Unknown Address Unknown Organization [id number]:[facility]ORATORY [facility] [place] - [address] [facility] [address] Laboratory Report Ordering Provider Test Date Status MISTI VAUGHAN 02/25/2023 13:12:31 Final Observation Date Value Abnormality Reference (Units ) Status TSH 02/25/2023 13:12:31 0.81 0.27-4.20 (uIU/mL) Final Performing Location [facility]ORY [facility] [place] - [address] [facility] [address]
--- OUTSIDE RECORDS SUMMARY | 2023-05-06 07:05 | External Medical Summary ---
Author Name Unknown Address Unknown Organization [id number]:[facility] [place] - [address] [facility] [address] Laboratory Report Ordering Provider Test Date Status MISTI VAUGHAN 02/25/2023 13:12:31 Final Observation Date Value Abnormality Reference (Units ) Status HbA1C 02/25/2023 13:12:31 5.7 Above high normal 4. 0-5.6 (%) Final The use of HbA1c to monitor glycemic status is based on normal hemoglobin and HbA composition. This test should not be used in patients with abnormal hemoglobin that affects the half life of the red blood cell or the in vivo glycation rates. Glucose, estimated average 02/25/2023 13:12:31 117 <126 (mg/dL) Final Performing Location [facility] [place] [facility] [address] [facility] [address]
--- OUTSIDE RECORDS SUMMARY | 2023-05-06 07:05 | External Medical Summary | Summary of Care ---
Author Name Unknown Organization [facility] Address [address] [place] [address] Phone [phone] Care Team Providers Care Management Information Systems Director Name Role Phone Iban Whaley DO Primary Care Provider Reason for Visit * Reason Onset Date Comments Advice 03/18/2023 Congestion Encounter Details Date Type Department Care Team (Late st Contact Info) Description 03/18/2023 Telephone Family Practice [facility] [place] [address] [place] [address] Iban Whaley DO [address] [place] [address] Advice (Congestion) Allergies Active Allergy Reactions Criticality Noted Date Comments Erythromycin Nausea/vomiting 02/03/2000 Other reaction(s): GI intolerance Latex Rash 07/21/2008 mild documented as of this encounter (statuses as of 03/18/2023) Medications Medication Sig Dispensed Refills Start Date [...] as of this encounter (statuses as of 03/18/2023) Active Problems Problem Noted Date Diagnosed Date Postural dizziness with presyncope 11/02/2022 Overview: Added automatically from request for surgery [id number] Prediabetes 07/01/2021 Overview: Per Prediabetes protocol Senile osteoporosis 09/05/2020 Lung nodule 03/09/2020 Paroxysmal atrial fibrillation 02/27/2020 Overview: Added automatically from request for surgery [id number] Atrial fibrillation 01/19/2019 Compression fracture of body [...] as of this encounter (statuses as of 03/18/2023) Resolved Problems Problem Noted Date Diagnosed Date [...] as of this encounter (statuses as of 03/18/2023) Immunizations Name Administration Dates Next Due COVID-19 mRNA, LNP-s, No Pre serve, 2-Dose Series ([employer]) 12/28/2020,05/30/2020,05/01/2020 COVID-19, LNP-s, No Preserve , Alirio-sucrose, Ages 12+ (Pfizer) 06/27/2021 COVID-19, MRNA-LNP, 23-24, P F, 30 MCG/0.3 mL, 12 YRS AND ABOVE, IM ([employer]) 12/29/2022 Covid-19, Mrna, Lnp-s, Pf, B ivalent, 30 Mcg, IM, 12 yrs and above ([employer]) 08/04/2022,12/03/2021 Pneumococcal Conjugate Vacci ne, 20-valent ([id number]) 01/28/2022 Pneumococcal Polysaccharide PPV23 (Pneumovax) 01/16/2021 RSV [...] call in addition to notifying her via [employer]. documented in this encounter Plan of Treatment Upcoming Encounters Date Type Department Care Team (Late st Contact Info) Description 04/14/2023 9:00 AM EST Office Visit Rheumatology [place] [id number] [place] [address] Umberto Hurst MD [facility] [employer] [place] [address] 04/29/2023 9:00 AM EST Office Visit [facility], [facility] [address] Britney Dela Cruz IV, MD [address] [place] [address] 07/08/2023 1:00 PM EDT Office Visit Cardiology, [facility] 132 [facility] [place] [address] Urban Fields PA-C [address] [facility] [place] [address] 10/13/2023 9:20 AM EDT Office Visit Family Practice [facility] [place] [address] [facility] [place] [address] Iban Whaley, [address] [place] [address] Scheduled Procedures Name Priority Associated Diagnoses Date/Ti [...] D LEVEL ONCE IN A LIFETIME-USE SMARTSET# [id number] Completed 04/03/2022, 06/24/2021, 07/23/2020, Additional history exists [...] this encounter Medical Devices Implanted Type Area Level Vial Curvature Gauger Device Identifier Shelf Expiration Date Model / Serial / Lot Sys Monit Linq Ii Insert Monit - [id number] Implanted:Qty: 1 on 11/27/2022 by Britney Dela Cruz IV, [place] at [facility] [place] [employer] [id number] 02/13/2024 LNQ 22SYS / [id number] / [id number] documented as of this encounter Additional Health [...] 3:19 PM 07/22/2008 2:37 PM Care Teams Management Information Systems Director Relationship Specialty Start Date End Date Iban Whaley DO [address] [place] [address] PCP - General Family Medicine 11/22/15 documented as of this encounter
--- NOTE | 2023-05-06 07:25 | Emergency Department Note ---
History of Present Illness General Chief complaint: Abdominal Pain Stated complaint: SEVERE ABDOMINAL PAIN,NAUSEA,DRY HEAVES Time Seen by Provider: 05/06/23 07:02 History of Present Illness Maximum Pain Intensity: 10 67-year-old female who presents to the emergency department accompanied by for evaluation of severe abdominal pain. Patient is writhing in pain and unable to provide history, offers HPI. states patient woke up this morning around 3 AM with severe abdominal pain. Patient does point to her lower region when asked where her pain is located. She notes radiation into her back. She reports associated nausea, no vomiting. Denies fever/chills, chest pain, shortness of breath, diarrhea/constipation, urinary symptoms. reports a history of diverticulitis, denies abdominal surgeries. She has not taken anything for her symptoms. Home Medications Medication Instructions Recorded Confirmed Type ascorbic acid (vitamin C) 500 mg 1,000 mg PO DAILY 09/10/22 02/03/23 History capsule aspirin 81 mg tablet,delayed 81 mg PO DAILY 09/10/22 02/03/23 History release calcium carbonate 600 mg calcium 600 mg PO DAILY 09/10/22 02/03/23 History (1,500 mg) tablet cholecalciferol (vitamin D3) 25 25 mcg PO DAILY 09/10/22 02/03/23 History mcg (1,000 unit) tablet levothyroxine 75 mcg tablet 75 mcg PO DAILY@0630 09/10/22 02/03/23 History loratadine 10 mg tablet 10 mg PO DAILY PRN allergies 09/10/22 02/03/23 History multivitamin 1 tab PO DAILY 09/10/22 02/03/23 History potassium chloride 10 mEq 10 meq PO MOWEFR 09/10/22 02/03/23 History tablet,extended release(part/cryst) (Klor-Con M) metoprolol succinate 25 mg 12.5 mg PO DAILY 10/29/22 02/03/23 History tablet,extended release 24 hr oxyquinoline 0.025 %-sodium lauryl See Rx Instructions vaginal 10/29/22 10/29/22 Rx sulfate 0.01 % vaginal gel .COMPLEX #113.4 grams (Trimo-Galdamez Jelly) Allergies Allergy/AdvReac Type Severity Reaction Status Date / Time latex Allergy Unknown RASH Verified 02/03/23 09:26 erythromycin base AdvReac Unknown UPSET Verified 02/03/23 09:26 STOMACH Past Med/Surg History Medical History Hx of Clostridium difficile infection Hypothyroidism Hypomagnesemia History of osteoporosis History of osteoarthritis History of chicken pox History of colonic polyps Surgical History S/P wisdom tooth extraction S/P tonsillectomy 1961 S/P sinus surgery 07/2015 S/P thyroidectomy 07/2008 S/P eye surgery laser surgery of right eye- lens replacement 05/1991 S/P dilation and curettage Family History Family/Other Osteoarthritis Diabetes Heart disease Hypertension Dyslipidemia Osteoporosis Thyroid disorder Colorectal cancer Social History Smoking Status: Never smoker Second Hand Exposure: No; Do You Dip or Chew Tobacco: No; Hx Alcohol Use: Yes Alcohol type: wine Alcohol Intake Frequency Comment: 1 drink 3-5 times a week Hx Substance Use: No Preferred Language: Slovenian Communication Ability: Effective Director Mortgage Required: No Beliefs That Will Affect Care: None Current Living Situation: Spouse Feels Safe at Home: Yes Physical Activity Frequency: 3-4 Times per Week Physical Activity Frequency Comment: 30 minutes Assistive Devices: None Physical Exam Vital Signs Vital Signs - 24 hr 05/06/23 06:44 05/06/23 06:48 05/06/23 07:15 Temperature 36.5 C Temperature Source Temporal Artery Scan Pulse Rate 59 L 55 L 76 Pulse Rate [Apical] Pulse Rhythm Regular Pulse Rhythm [Apical] Pulse Strength Normal Respiratory Rate 22 18 Respiratory Effort / Characteristics Non-Labored Spontaneous Respiratory Depth Normal Respiratory Pattern Regular Blood Pressure 108/65 Blood Pressure [Right Arm] Blood Pressure Mean 79 Blood Pressure Mean [Right Arm] Blood Pressure Position Sitting Blood Pressure Position [Right Arm] Pulse Oximetry 100 100 Oxygen Delivery Method Room Air Room Air Sepsis Recent Fever Within 48 Hours No Sepsis New/Unexplained Change in Mental Status N/A Sepsis Action Taken by Nursing No Action Required 05/06/23 07:47 05/06/23 07:49 05/06/23 11:05 Temperature 36.8 C Temperature Source Oral Pulse Rate 59 L Pulse Rate [Apical] 58 L 89 Pulse Rhythm Pulse Rhythm [Apical] Regular Pulse Strength Respiratory Rate 20 20 20 Respiratory Effort / Characteristics Non-Labored Spontaneous Non-Labored Spontaneous Normal for Patient Respiratory Depth Normal Normal Respiratory Pattern Regular Regular Blood Pressure Blood Pressure [Right Arm] 121/61 67/50 L Blood Pressure Mean Blood Pressure Mean [Right Arm] 81 55 Blood Pressure Position Blood Pressure Position [Right Arm] Lying Semi-fowlers Pulse Oximetry 100 99 96 Oxygen Delivery Method Room Air Room Air Room Air Sepsis Recent Fever Within 48 Hours Sepsis New/Unexplained Change in Mental Status Sepsis Action Taken by Nursing 05/06/23 11:05 05/06/23 11:06 05/06/23 11:07 Temperature Temperature Source Pulse Rate Pulse Rate [Apical] Pulse Rhythm Pulse Rhythm [Apical] Pulse Strength Respiratory Rate Respiratory Effort / Characteristics Respiratory Depth Respiratory Pattern Blood Pressure Blood Pressure [Right Arm] 74/57 L 85/64 L 93/57 L Blood Pressure Mean Blood Pressure Mean [Right Arm] 62 71 69 Blood Pressure Position Blood Pressure Position [Right Arm] Lying Lying Lying Pulse Oximetry Oxygen Delivery Method Sepsis Recent Fever Within 48 Hours Sepsis New/Unexplained Change in Mental Status Sepsis Action Taken by Nursing 05/06/23 11:10 05/06/23 11:15 05/06/23 11:20 Temperature Temperature Source Pulse Rate Pulse Rate [Apical] Pulse Rhythm Pulse Rhythm [Apical] Pulse Strength Respiratory Rate Respiratory Effort / Characteristics Respiratory Depth Respiratory Pattern Blood Pressure Blood Pressure [Right Arm] 93/62 L 95/59 L 94/51 L Blood Pressure Mean Blood Pressure Mean [Right Arm] 72 71 65 Blood Pressure Position Blood Pressure Position [Right Arm] Lying Lying Pulse Oximetry Oxygen Delivery Method Sepsis Recent Fever Within 48 Hours Sepsis New/Unexplained Change in Mental Status Sepsis Action Taken by Nursing 05/06/23 11:25 05/06/23 11:30 05/06/23 11:35 Temperature Temperature Source Pulse Rate Pulse Rate [Apical] Pulse Rhythm Pulse Rhythm [Apical] Pulse Strength Respiratory Rate Respiratory Effort / Characteristics Respiratory Depth Respiratory Pattern Blood Pressure Blood Pressure [Right Arm] 101/70 99/70 L 105/71 Blood Pressure Mean Blood Pressure Mean [Right Arm] 80 79 82 Blood Pressure Position Blood Pressure Position [Right Arm] Lying Lying Lying Pulse Oximetry Oxygen Delivery Method Sepsis Recent Fever Within 48 Hours Sepsis New/Unexplained Change in Mental Status Sepsis Action Taken by Nursing 05/06/23 11:40 05/06/23 11:45 05/06/23 11:50 Temperature Temperature Source Pulse Rate Pulse Rate [Apical] Pulse Rhythm Pulse Rhythm [Apical] Pulse Strength Respiratory Rate Respiratory Effort / Characteristics Respiratory Depth Respiratory Pattern Blood Pressure Blood Pressure [Right Arm] 104/70 103/69 103/68 Blood Pressure Mean Blood Pressure Mean [Right Arm] 81 80 79 Blood Pressure Position Blood Pressure Position [Right Arm] Lying Lying Lying Pulse Oximetry Oxygen Delivery Method Sepsis Recent Fever Within 48 Hours Sepsis New/Unexplained Change in Mental Status Sepsis Action Taken by Nursing Constitutional: alert and oriented x3. writhing in pain. nontoxic HEENT: normocephalic, atraumatic. normal conjunctiva.PERRLA. EOM's grossly intact. Respiratory: lungs are clear to auscultation without wheezes, rhonchi, or rales bilaterally. equal chest rise. normal respiratory effort, no accessory muscle use. Cardiovascular: normal heart sounds without murmur. regular rate and rhythm. GI: abdomen is distended with diffuse tenderness throughout, worse epigastric and LLQ. No palpable masses. Rebound tenderness, no guarding. No CVA tenderness MSK: moves all 4 extremities spontaneously Peripheral vascular: extremities warm and well perfused Psych:appropriate mood and affect. Course Administered Medications Lactated Ringer's (Lr) 1,000 mls @ 15 mls/hr IV .Q24H ИВАН Stop: 06/05/23 10:44 Last Infusion: 05/06/23 11:54 Dose: Infused Documented By: Admin: 05/06/23 11:04 Dose: 999 mls/hr Documented By: VIKASH Cefoxitin Sodium 2,000 mg/ (Dextrose) 50 mls @ 120 mls/hr IV PREOP@1100 ИВАН Stop: 05/06/23 18:00 Last Admin: 05/06/23 11:58 Dose: 120 mls/hr Documented By: [id number] Discontinued Medications Hydromorphone HCl (Hydromorphone Inj 1 Mg/Ml Syringe) 1 mg IV NOW STA Stop: 05/06/23 09:24 Last Admin: 05/06/23 09:35 Dose: 1 mg Documented By: MARCELLO Sodium Chloride (Nss) 1,000 mls @ 999 mls/hr IV .Q1H1M STA Stop: 05/06/23 08:17 Last Infusion: 05/06/23 10:22 Dose: Infused Documented By: Admin: 05/06/23 07:32 Dose: 999 mls/hr Documented By: MARCELLO Acetaminophen (Ofirmev) 1,000 mg in 100 mls @ 400 mls/hr IV NOW STA Stop: 05/06/23 08:19 Last Infusion: 05/06/23 10:15 Dose: Infused Documented By: Admin: 05/06/23 09:35 Dose: 400 mls/hr Documented By: MARCELLO Lactated Ringer's (Lr) 1,000 mls @ 999 mls/hr IV .Q1H1M ONE Stop: 05/06/23 12:31 Last Admin: 05/06/23 11:44 Dose: Not Given Documented By: VIKASH Ioversol (Optiray 320 500ml) 94 ml IV ONCE ONE Stop: 05/06/23 08:54 Last Admin: 05/06/23 08:53 Dose: 94 ml Documented By: CROW Morphine Sulfate (Morphine Sulfate 4 Mg/Ml 1 Ml Carp\Vial) 4 mg IV NOW STA Stop: 05/06/23 07:18 Last Admin: 05/06/23 07:32 Dose: 4 mg Documented By: MARCELLO Ondansetron HCl (Ondansetron Inj 2 Mg/Ml 2 Ml Vial) 4 mg IV NOW STA Stop: 05/06/23 07:18 Last Admin: 05/06/23 07:32 Dose: 4 mg Documented By: MARCELLO Medical Decision Making Differential Diagnosis Appendicitis, ovarian cyst, ovarian torsion, ectopic , TOA, PID, infections, diverticulitis, UTI, obstruction, mesenteric ischemia, aortic pathology, inflammatory bowel disease, renal colic, PUD, pancreatitis, biliary pathology, hernia, volvulus, constipation, as well as other pathologies. Laboratory Data Attestation: I reviewed the patient's lab results. 05/06/23 07:14 05/06/23 07:14 Lab Results 05/06/23 05/06/23 Range/Units 07:14 10:02 WBC 11.75 H (4.8-10.8) K/ul RBC 4.96 (4.20-5.40) M/uL Hgb 14.3 (12.0-16.0) g/dl Hct 42.3 (37.0-47.0) % MCV 85.3 (80.0-100.0) fL MCH 28.8 (25.0-34.0) pg MCHC 33.8 (32.0-36.0) g/dL RDW Std Deviation 39.7 (36.4-46.3) fL RDW Coeff of Tiffanie 12.8 (11.5-14.5) % Plt Count 257 (130-400) K/uL MPV 10.0 (9.4-12.4) fL Immature Gran % (Auto) 0.3 % Neut % (Auto) 79.5 % Lymph % (Auto) 14.2 % [place] % (Auto) 5.1 % Eos % (Auto) 0.6 % Baso % (Auto) 0.3 % Neut # (Auto) 9.33 H (1.40-6.50) K/uL Lymph # (Auto) 1.67 (1.20-3.40) K/uL [place] # (Auto) 0.60 H (0.11-0.59) K/uL Eos # (Auto) 0.07 (0.00-0.50) K/uL Baso # (Auto) 0.04 (0.00-0.20) K/uL Immature Gran # (Auto) 0.04 (0.01-0.20) K/uL Sodium 134 L (136-145) mmol/L Potassium 4.1 (3.5-5.1) mmol/L Chloride 100 (98-107) mmol/L Carbon Dioxide 24 (21-32) mmol/L Anion Gap 10 (3-11) BUN 11 (6-23) mg/dl Creatinine 0.60 (0.6-1.2) mg/dl Est Cr Clr Drug Dosing Not Reportable Est GFR ( Amer) 109.3 ml/min Est GFR (Non-Af Amer) 94.3 ml/min BUN/Creatinine Ratio 18.3 (10-20) Glucose 145 H (70-99(Fasting)) mg/dl Lactate 0.9 (0.4-2.0) mmol/L Calcium 9.5 (8.6-10.3) mg/dl Total Bilirubin 0.6 (0.2-1.0) mg/dl AST 15 (13-39) U/L ALT 12 (7-52) U/L Alkaline Phosphatase 57 (34-104) U/L Troponin I High Sens < 2.3 (0-14) pg/ml Total Protein 7.3 (6.0-8.3) gm/dl Albumin 4.5 (3.4-5.0) gm/dl Globulin 2.8 (2.5-4.0) gm/dl Albumin/Globulin Ratio 1.6 (0.9-2) Lipase 15 (11-82) U/L SARS-CoV-2 (PCR) NEGATIVE (Negative) Influenza Type A (PCR) Negative (Neg) Influenza Type B (PCR) Negative (Neg) RSV (RT-PCR) Negative (Neg) Imaging Data Radiologist's Impression: Abdomen/Pelvis CT 05/06/23 07:18 CT SCAN OF THE ABDOMEN AND PELVIS WITH IV CONTRAST CLINICAL HISTORY: Generalized abdominal pain. COMPARISON STUDY: Abdominal CT dated 06/30/2021. Chest CT dated 09/11/2022. TECHNIQUE: Following the IV administration of 94 cc of Optiray 320, CT scan of the abdomen and pelvis is performed from the lung bases to the proximal femora. Images are reviewed in the axial, sagittal, and coronal planes. IV contrast was administered without complication. A dose lowering technique was utilized adhering to the principles of ALARA. CT DOSE: 670.34 mGy.cm FINDINGS: Lung bases: The heart is normal in size and without pericardial effusion. An electronic device is seen in the left chest wall. A 4 mm right lower lobe pulmonary nodule on image #24 is unchanged. The lung bases are otherwise clear noting bibasilar scarring/atelectasis. There is a [id number] hiatal hernia. Liver: The contrast-enhanced liver is normal in size, contour, and attenuation. There is no intrahepatic biliary ductal dilatation. The hepatic veins and portal veins are patent. Gallbladder: Unremarkable. Spleen: Normal in size and attenuation. Pancreas: Unremarkable. Adrenal glands: Unremarkable. Kidneys: The contrast enhanced kidneys are normal in size and without hydronephrosis. The kidneys enhance symmetrically. There is a 3 mm nonobstructing right renal calculus. Abdominal vasculature: The abdominal aorta is normal in course and caliber noting mild to moderate atherosclerotic calcification. Bowel: There are distended and fluid-filled loops of small bowel in the midabdomen which measure up to 2.6 cm in diameter. There is a complex transition point, with at least 2 discrete foci of focal narrowing seen on images #196 and #210. There are thick-walled small bowel loops with marked mesenteric venous engorgement and edema in the central pelvis. Interloop fluid is observed. There is no pneumatosis intestinalis or portal venous gas. The mesenteric vessels appear patent There is moderate colonic diverticulosis without CT evidence of acute diverticulitis. The appendix is well-visualized and normal. Peritoneum: There is a small volume of abdominopelvic ascites. No intraperitoneal free air is seen. There is a fat-containing umbilical hernia. Lymphadenopathy: None. Pelvic viscera: The bladder, uterus, and adnexa are normal as visualized. A vaginal pessary is in place. Skeletal structures: The skeletal structures are osteopenic. There is moderate lumbosacral spondylosis. There are compression deformities of T8, and all spinal levels between T10 and L5. No lytic or blastic lesions are seen. IMPRESSION: 1. There is evidence of a small bowel obstruction with a complex transition point as above. 2. There are loops of thick walled small bowel in the central pelvis with marked surrounding mesenteric edema, venous engorgement, and interloop fluid. These loops are likely at risk for ischemia. Surgical evaluation is advised. 3. There is no pneumatosis intestinalis or portal venous gas. 4. The mesenteric vessels appear patent. 5. Small volume abdominopelvic ascites. 6. Colonic diverticulosis without CT evidence of acute diverticulitis. 7. Right-sided nephrolithiasis. 8. Additional findings as above. ACT 112: Negative or not required by law. Electronically signed by: Donell Garg M.D. 05/06/2023 9:16 AM Chest X-Ray 05/06/23 07:18 SINGLE VIEW CHEST CLINICAL HISTORY: Epigastric abdominal pain FINDINGS: An AP, portable, upright chest radiograph is compared to study dated 09/10/2022 and correlated with chest CT dated 09/11/2022. Surgical clips project over the thoracic inlet. The cardiomediastinal silhouette is top normal for projection noting atherosclerotic calcification of the thoracic aorta. Chronic interstitial thickening similar to previous. There is bibasilar scarring/atelectasis. No airspace consolidation or large pleural effusion is identified. No pneumothorax is seen. The skeletal structures are osteopenic. Compression deformities are noted in the thoracic spine. Degenerative change and scoliosis is seen in the spine. IMPRESSION: No acute cardiopulmonary abnormality. ACT 112: Negative or not required by law. Electronically signed by: Donell Garg M.D. 05/06/2023 7:34 AM MDM Narrative 67-year-old female presents to the emergency department accompanied by for evaluation of acute generalized abdominal pain. Reviewed pertinent visits to past medical history performed. Vital signs in ED stable, afebrile. Patient was seen and evaluated as above. IV access was established and labs and imaging were obtained. CBC demonstrates leukocytosis of 11.7 thousand with left shift. No acute anemia. CMP without significant electrolyte abnormalities. Sodium 134. Renal function within normal limits. LFTs and lipase unremarkable. Lactate 0.9. CXR unremarkable. On exam, patient is writhing in pain and difficult to converse. Abdomen is distended with worse tenderness in the epigastric and left lower quadrant. Abdomen is soft but there is some rebound tenderness, no guarding. No CVA tenderness. Given presentation, CT abdomen/pelvis was performed. CT demonstrates evidence of a small bowel obstruction with complex transition. There are loops of thick-walled small bowel in the central pelvis with marked surrounding mesenteric edema, venous engorgement and interloop fluid at risk for ischemia. Mesenteric vessels patent. No air. She was medicated with IV morphine, Zofran and 1 L of fluids. Patient and were updated on exam findings and test results. Given CT findings, case was discussed with general surgery physician bakery assistant who came to evaluate patient at bedside personally. Please see her note for details. Patient will be going to the OR for urgent exploratory laparotomy. She has been n.p.o. since 6 PM last evening. General surgery did not recommend any empiric antibiotics. She was ordered an additional 1 mg IV Dilaudid for pain. She was taken to the OR in stable condition. Case was discussed with ED attending, Dr. Hoang, who agrees with workup and treatment plan Impression & Plan SBO (small bowel obstruction) Discharge Plan Visit Data Chief Complaint: Abdominal Pain Stated Complaint: SEVERE ABDOMINAL PAIN,NAUSEA,DRY HEAVES ED Provider: Estela Hoang ED Midlevel Provider: Roxane Muro Discharge Problem: SBO (small bowel obstruction) Patient Disposition: Being Evaluated by Surgeon Discharge Instructions Interventions: ED Discharge Assessment Last Done: 05/06/23 10:52 Forms Stand Alone Forms: [place] Prescriptions Prescriptions: No Action metoprolol succinate 25 mg tablet extended release 24 hr 12.5 mg PO DAILY Trimo-Galdamez Jelly 0.025-0.01 % gel See Rx Instructions vaginal .COMPLEX Qty: 113.4 3RF Rx Instructions: apply 1/2 applicator full 2-3 times weekly. aspirin 81 mg Tablet,Delayed Release (Dr/Ec) 81 mg PO DAILY levothyroxine 75 mcg Tablet 75 mcg PO DAILY@0630 calcium carbonate 600 mg calcium (1,500 mg) Tablet 600 mg PO DAILY loratadine 10 mg Tablet 10 mg PO DAILY PRN (Reason: allergies) potassium chloride [Klor-Con M10] 10 mEq tablet,ER particles/crystals 10 meq PO MOWEFR cholecalciferol (vitamin D3) 25 mcg (1,000 unit) Tablet 25 mcg PO DAILY ascorbic acid (vitamin C) 500 mg Capsule 1,000 mg PO DAILY multivitamin Tablet 1 tab PO DAILY Referrals Referrals: Iban Whaley DO [Primary Care Provider] -
[2023-05-06] MEDS: ONDANSETRON INJ 2 MG/ML 2 ML VIAL IV STA (07:32)
[2023-05-06] MEDS: MoRPHine SULFATE 4 MG/ML 1 ML CARP\\VIAL IV STA (07:32)
[2023-05-06] MEDS: SODIUM CHLORIDE 0.9% 1,000 ML IV STA (07:32)
--- NOTE | 2023-05-06 07:36 | XRay Report ---
SINGLE VIEW CHEST CLINICAL HISTORY: Epigastric abdominal pain FINDINGS: An AP, portable, upright chest radiograph is compared to study dated 09/10/2022 and correlat ed with chest CT dated 09/11/2022. Surgical clips project over the thoracic inlet. The cardiomediastin al silhouette is top normal for projection noting atherosclerotic calcification of the thoracic aorta . Chronic interstitial thickening similar to previous. There is bibasilar scarring/atelectasis. No ai rspace consolidation or large pleural effusion is identified. No pneumothorax is seen. The skeletal s tructures are osteopenic. Compression deformities are noted in the thoracic spine. Degenerative bonilla e and scoliosis is seen in the spine. IMPRESSION: No acute cardiopulmonary abnormality. ACT 112: Negative or not required by law. Electronically signed by: Donell Garg M.D. 05/06/2023 7:34 AM
[2023-05-06 08:06] LABS: Basophils # (auto) 0.04 K/uL (0.00-0.20); Basophils % (auto) 0.3 %; Eosinophils # (auto) 0.07 K/uL (0.00-0.50); Eosinophils % (auto) 0.6 %; Hematocrit (blood only) 42.3 % (37.0-47.0); Hemoglobin 14.3 g/dl (12.0-16.0); Immature Granulocytes # (auto) 0.04 K/uL (0.01-0.20); Immature Granulocytes % (auto) 0.3 %; Lymphocytes # (auto) 1.67 K/uL (1.20-3.40); Lymphocytes % (auto) 14.2 %; Mean Corpuscular Hemoglobin 28.8 pg (25.0-34.0); Mean Corpuscular Hgb Conc 33.8 g/dL (32.0-36.0); Mean Corpuscular Volume 85.3 fL (80.0-100.0); Monocytes % (auto) 5.1 %; Neutrophils # (auto) 9.33 K/uL (1.40-6.50); Neutrophils % (auto) 79.5 %; Platelet Count 257 K/uL (130-400); RDW Coefficient of Variation 12.8 % (11.5-14.5); RDW Standard Deviation 39.7 fL (36.4-46.3); Red Blood Count 4.96 M/uL (4.20-5.40); White Blood Count 11.75 K/ul (4.8-10.8)
[2023-05-06 08:12] LABS: Albumin Level 4.5 gm/dl (3.4-5.0); Anion Gap 10 (3-11); Bilirubin,Total 0.6 mg/dl (0.2-1.0); Calcium 9.5 mg/dl (8.6-10.3); Carbon Dioxide 24 mmol/L (21-32); Chloride 100 mmol/L (98-107); Potassium 4.1 mmol/L (3.5-5.1); Sodium 134 mmol/L (136-145)
[2023-05-06 08:18] LABS: Alanine Aminotransferase 12 U/L (7-52); Albumin Globulin Ratio 1.6 (0.9-2); Alkaline Phosphatase 57 U/L (34-104); Aspartate Aminotransferase 15 U/L (13-39); BUN Creatinine Ratio 18.3 (10-20); Blood Urea Nitrogen 11 mg/dl (6-23); Est GFR (African American) 109.3 ml/min; Est GFR (Non-African American) 94.3 ml/min; Globulin 2.8 gm/dl (2.5-4.0); Glucose 145 mg/dl (70-99(Fasting)); Influenza A virus by PCR Negative (Neg); Influenza B virus by PCR Negative (Neg); Lipase 15 U/L (11-82); RSV by PCR Negative (Neg); SARS CoV2 RNA(COVID-19) Ceph NEGATIVE (Negative); Total Protein 7.3 gm/dl (6.0-8.3)
[2023-05-06 08:23] LABS: Troponin I High Sensitivity < 2.3 pg/ml (0-14)
[2023-05-06] MEDS: OPTIRAY 320 500ml IV ONE (08:53)
--- NOTE | 2023-05-06 09:18 | CT Scan Report ---
CT SCAN OF THE ABDOMEN AND PELVIS WITH IV CONTRAST CLINICAL HISTORY: Generalized abdominal pain. COMPARISON STUDY: Abdominal CT dated 06/30/2021. Chest CT dated 09/11/2022. TECHNIQUE: Following the IV administration of 94 cc of Optiray 320, CT scan of the abdomen and pelvi s is performed from the lung bases to the proximal femora. Images are reviewed in the axial, sagittal , and coronal planes. IV contrast was administered without complication. A dose lowering technique wa s utilized adhering to the principles of ALARA. CT DOSE: 670.34 mGy.cm FINDINGS: Lung bases: The heart is normal in size and without pericardial effusion. An electronic device is see n in the left chest wall. A 4 mm right lower lobe pulmonary nodule on image #24 is unchanged. The amy g bases are otherwise clear noting bibasilar scarring/atelectasis. There is a [id number] hiata l hernia. Liver: The contrast-enhanced liver is normal in size, contour, and attenuation. There is no intrahepa tic biliary ductal dilatation. The hepatic veins and portal veins are patent. Gallbladder: Unremarkable. Spleen: Normal in size and attenuation. Pancreas: Unremarkable. Adrenal glands: Unremarkable. Kidneys: The contrast enhanced kidneys are normal in size and without hydronephrosis. The kidneys enh ance symmetrically. There is a 3 mm nonobstructing right renal calculus. Abdominal vasculature: The abdominal aorta is normal in course and caliber noting mild to moderate at herosclerotic calcification. Bowel: There are distended and fluid-filled loops of small bowel in the midabdomen which measure up t o 2.6 cm in diameter. There is a complex transition point, with at least 2 discrete foci of focal yordy rowing seen on images #196 and #210. There are thick-walled small bowel loops with marked mesenteric venous engorgement and edema in the central pelvis. Interloop fluid is observed. There is no pneumato sis intestinalis or portal venous gas. The mesenteric vessels appear patent There is moderate colonic diverticulosis without CT evidence of acute diverticulitis. The appendix is well-visualized and nor mal. Peritoneum: There is a small volume of abdominopelvic ascites. No intraperitoneal free air is seen. T here is a fat-containing umbilical hernia. Lymphadenopathy: None. Pelvic viscera: The bladder, uterus, and adnexa are normal as visualized. A vaginal pessary is in liana ce. Skeletal structures: The skeletal structures are osteopenic. There is moderate lumbosacral spondylosi s. There are compression deformities of T8, and all spinal levels between T10 and L5. No lytic or cong stic lesions are seen. IMPRESSION: 1. There is evidence of a small bowel obstruction with a complex transition point as above. 2. There are loops of thick walled small bowel in the central pelvis with marked surrounding mesenter ic edema, venous engorgement, and interloop fluid. These loops are likely at risk for ischemia. Surgi stefany evaluation is advised. 3. There is no pneumatosis intestinalis or portal venous gas. 4. The mesenteric vessels appear patent. 5. Small volume abdominopelvic ascites. 6. Colonic diverticulosis without CT evidence of acute diverticulitis. 7. Right-sided nephrolithiasis. 8. Additional findings as above. ACT 112: Negative or not required by law. Electronically signed by: Donell Garg M.D. 05/06/2023 9:16 AM
[2023-05-06] MEDS: HYDROmorphone INJ 1 MG/ML SYRINGE IV STA (09:35)
[2023-05-06] MEDS: ACETAMINOPHEN 1,000 MG/100 ML VIAL IV STA (09:35)
--- NOTE | 2023-05-06 10:03 | Anesthesiology Consultation ---
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 Surgery Operation Date: 05/06/23 10:30 Proposed Procedures p Exploratory Laparotomy, Surgery as Needed - Perry Ramires DO Height/Weight Height: 5 ft 2 in Weight: 0 g Allergies Allergy/AdvReac Type Severity Reaction Status Date / Time latex Allergy Unknown RASH Verified 02/03/23 09:26 erythromycin base AdvReac Unknown UPSET Verified 02/03/23 09:26 STOMACH Medications Home Medications Medication Instructions Recorded Confirmed Last Taken ascorbic acid (vitamin C) 500 mg 1,000 mg PO DAILY 09/10/22 02/03/23 Unknown capsule aspirin 81 mg tablet,delayed 81 mg PO DAILY 09/10/22 02/03/23 Unknown release calcium carbonate 600 mg calcium 600 mg PO DAILY 09/10/22 02/03/23 Unknown (1,500 mg) tablet cholecalciferol (vitamin D3) 25 25 mcg PO DAILY 09/10/22 02/03/23 Unknown mcg (1,000 unit) tablet levothyroxine 75 mcg tablet 75 mcg PO DAILY@0630 09/10/22 02/03/23 Unknown loratadine 10 mg tablet 10 mg PO DAILY PRN allergies 09/10/22 02/03/23 Unknown multivitamin 1 tab PO DAILY 09/10/22 02/03/23 Unknown potassium chloride 10 mEq 10 meq PO MOWEFR 09/10/22 02/03/23 Unknown tablet,extended release(part/cryst) (Klor-Con M) metoprolol succinate 25 mg 12.5 mg PO DAILY 10/29/22 02/03/23 Unknown tablet,extended release 24 hr oxyquinoline 0.025 %-sodium lauryl See Rx Instructions vaginal 10/29/22 10/29/22 Unknown sulfate 0.01 % vaginal gel .COMPLEX #113.4 grams (Trimo-Galdamez Jelly) Past Medical History Medical History Hx of Clostridium difficile infection Hypothyroidism Hypomagnesemia History of osteoporosis History of osteoarthritis History of chicken pox History of colonic polyps Past Family History Family History Family/Other Osteoarthritis Diabetes Heart disease Hypertension Dyslipidemia Osteoporosis Thyroid disorder Colorectal cancer Past Surgical History Surgical History (Reviewed 02/14/24 @ 10:01 by ELLIOTT Mansfield S/P wisdom tooth extraction S/P tonsillectomy 1961 S/P sinus surgery 07/2015 S/P thyroidectomy 07/2008 S/P eye surgery laser surgery of right eye- lens replacement 05/1991 S/P dilation and curettage Social History Smoking Status: Never smoker Do You Dip or Chew Tobacco: No Hx Alcohol Use: Yes Alcohol type: wine alcohol intake frequency: 0-2 drinks per day Hx Substance Use: No Physical Exam Vital Signs Last Vital Signs Temp 97.7 F 05/06/23 06:48 Pulse 58 L 05/06/23 07:49 Resp 20 05/06/23 07:49 BP 121/61 05/06/23 07:49 Pulse Ox 99 05/06/23 07:49 O2 Del Method Room Air 05/06/23 07:49 Testing Laboratory Results 05/06/23 07:14 05/06/23 07:14 Electrocardiogram Date: 09/11/22 Normal sinus rhythm, rate 71 bpm Incomplete right bundle branch block Borderline ECG When compared with ECG of 10-SEP-2022 17:18, (unconfirmed) No significant change was found Confirmed by Popeye Alvarez ([id number]) on 09/11/2022 1:52:33 PM Chest X-Ray Date: 05/06/23 Findings: + NAD Echocardiogram Date: 09/11/22 EF 65-70% Mild concentric LVH AV is trileaflet Mild aortic regurgitation Mild mitral regurgitation Mild to mod tricuspid regurgitation Doppler findings do not suggest pulmonary HTN Color Doppler interrogation of the interatrial septum demonstrates a small left to right interatrial shunt
[2023-05-06] MEDS ORDERED: HYDROmorphone INJ 0.5 MG/0.5 ML SYR IV PRN (10:26)
--- NOTE | 2023-05-06 10:26 | History & Physical Report ---
Date of Service May 06, 2023 Assessment & Plan (1) SBO (small bowel obstruction): Plan: On exam patient is no acute distress, however appears uncomfortable, VSS, WBC are elevated at 11, Abdomen is TTP more in right and left lower quadrants, mild distention. Patient rating pain a 2/[address] scan reading : IMPRESSION: 1. There is evidence of a small bowel obstruction with a complex transition point as above. 2. There are loops of thick walled small bowel in the central pelvis with marked surrounding mesenteric edema, venous engorgement, and interloop fluid. These loops are likely at risk for ischemia. Surgical evaluation is advised. 3. There is no pneumatosis intestinalis or portal venous gas. 4. The mesenteric vessels appear patent. 5. Small volume abdominopelvic ascites. 6. Colonic diverticulosis without CT evidence of acute diverticulitis. 7. Right-sided nephrolithiasis. 8. Additional findings as above. Keep NPO IV Fluids for hydration IV antiemetic PRN IV analgesic PRN Given the CT read and patients presentation she will be taken to the OR for an urgent exploratory laparotomy with Dr. Ramires. Risks of surgery reviewed with the patient including bleeding, infection, injury to other organs, bowel resection, ileostomy , colostomy, anesthesia complications. 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 She rates her pain a 10/10 at home and when she came in, sharp stabbing. Currently she rates pain a 2/10, she has had associated nausea and dry heaves no vomiting. Denies fever, chills, cp, sob. Had a normal bm yesterday and currently is passing small amount of flatus. Has been NPO since last night with a sip of water this AM around 0300. Denies blood thinners other than a daily 81mg ASA. She follows with [facility] cardiology group, and stated she had an appointment last Thursday. Allergies Allergy/AdvReac Type Severity Reaction Status Date / Time latex Allergy Unknown RASH Verified 02/03/23 09:26 erythromycin base AdvReac Unknown UPSET Verified 02/03/23 09:26 STOMACH Home Medications Medication Instructions Recorded Confirmed Type ascorbic acid (vitamin C) 500 mg 1,000 mg PO DAILY 09/10/22 02/03/23 History capsule aspirin 81 mg tablet,delayed 81 mg PO DAILY 09/10/22 02/03/23 History release calcium carbonate 600 mg calcium 600 mg PO DAILY 09/10/22 02/03/23 History (1,500 mg) tablet cholecalciferol (vitamin D3) 25 25 mcg PO DAILY 09/10/22 02/03/23 History mcg (1,000 unit) tablet levothyroxine 75 mcg tablet 75 mcg PO DAILY@0630 09/10/22 02/03/23 History loratadine 10 mg tablet 10 mg PO DAILY PRN allergies 09/10/22 02/03/23 History multivitamin 1 tab PO DAILY 09/10/22 02/03/23 History potassium chloride 10 mEq 10 meq PO MOWEFR 09/10/22 02/03/23 History tablet,extended release(part/cryst) (Klor-Con M) metoprolol succinate 25 mg 12.5 mg PO DAILY 10/29/22 02/03/23 History tablet,extended release 24 hr oxyquinoline 0.025 %-sodium lauryl See Rx Instructions vaginal 10/29/22 10/29/22 Rx sulfate 0.01 % vaginal gel .COMPLEX #113.4 grams (Trimo-Galdamez Jelly) Past Med/Surg History Medical History Hx of Clostridium difficile infection Hypothyroidism Hypomagnesemia History of osteoporosis History of osteoarthritis History of chicken pox History of colonic polyps Surgical History S/P wisdom tooth extraction S/P tonsillectomy 1961 S/P sinus surgery 07/2015 S/P thyroidectomy 07/2008 S/P eye surgery laser surgery of right eye- lens replacement 05/1991 S/P dilation and curettage Family History Family/Other Osteoarthritis Diabetes Heart disease Hypertension Dyslipidemia Osteoporosis Thyroid disorder Colorectal cancer Social History Smoking Status: Never smoker Second Hand Exposure: No; Do You Dip or Chew Tobacco: No; Hx Alcohol Use: Yes Alcohol type: wine Alcohol Intake Frequency Comment: 1 drink 3-5 times a week Hx Substance Use: No Preferred Language: Kazakh Communication Ability: Effective Controls Designer Required: No Beliefs That Will Affect Care: None Current Living Situation: Spouse Feels Safe at Home: Yes Physical Activity Frequency: 3-4 Times per Week Physical Activity Frequency Comment: 30 minutes Assistive Devices: None Review of Systems Constitutional: no fever and no chills Ear, Nose, Mouth, Throat: + hearing loss ( Left ear) Respiratory: no cough and no dyspnea Cardiovascular: no chest pain and no palpitations Gastrointestinal: + abdominal pain and + nausea; no vomiti ng Genitourinary: + problem reported bladder prolapse has pessary follows with Dr. Hill Musculoskeletal: no muscle weakness Integumentary: no rash Neurologic: no confusion Physical Exam Physical Exam: alert oriented Constitutional: cooperative; no acute distress and + uncomfortable ENMT: external ear and nose normal, oropharynx normal Respiratory: normal respiratory effort, lungs clear to auscultation Cardiovascular: RRR, no murmur, no edema Gastrointestinal (Abdomen): Inspection/Auscultation: + abdomen distended Percussion/Palpation: + abdomen tender and + guarding Musculoskeletal: no cyanosis or clubbing, extremities motor strength 5/5 Neurologic: awake; not confused Psychiatric: A+Ox3, euthymic affect Results & Data Results & Data Vital Signs (Past 12 Hours) Vital Signs Temp Pulse Pulse Resp BP BP Pulse Ox 05/06/23 07:49 58 L 20 121/61 99 05/06/23 07:47 59 L 20 100 05/06/23 07:15 76 05/06/23 06:48 97.7 F 55 L 18 108/65 100 05/06/23 06:44 59 L 22 100 O2 Del Method 05/06/23 07:49 Room Air 05/06/23 07:47 Room Air 05/06/23 07:15 05/06/23 06:48 Room Air 05/06/23 06:44 Room Air Diagnostic Findings [facility], [place] [phone] CT Scan Report Patient: JAG SALAZAR Admit Date: 05/06/23 MR#: [id number] Address1: [address] [place] [address] Acct ID:[id number] Address2: Date: 1955 [facility] Zip: [place] [id number] Age: 67 Location: ED Sex: F Room/Bed: Att Phy: Diagnosis: SEVERE ABDOMINAL PAIN,NAUSEA,DRY HEAVES Serena Phy: Iban Whaley DO Service Date: 05/06/23 Fam Phy: Interpreting Phy: Donell Garg MDAdmit Phy: Ordering Phy: Roxane Muro PA-C cc: ~ CT SCAN OF THE ABDOMEN AND PELVIS WITH IV CONTRAST CLINICAL HISTORY: Generalized abdominal pain. COMPARISON STUDY: Abdominal CT dated 06/30/2021. Chest CT dated 09/11/2022. TECHNIQUE: Following the IV administration of 94 cc of Optiray 320, CT scan of the abdomen and pelvis is performed from the lung bases to the proximal femora. Images are reviewed in the axial, sagittal, and coronal planes. IV contrast was administered without complication. A dose lowering technique was utilized adhering to the principles of ALARA. CT DOSE: 670.34 mGy.cm FINDINGS: Lung bases: The heart is normal in size and without pericardial effusion. An electronic device is seen in the left chest wall. A 4 mm right lower lobe pulmonary nodule on image #24 is unchanged. The lung bases are otherwise clear noting bibasilar scarring/atelectasis. There is a [id number] hiatal hernia. Liver: The contrast-enhanced liver is normal in size, contour, and attenuation. There is no intrahepatic biliary ductal dilatation. The hepatic veins and portal veins are patent. Gallbladder: Unremarkable. Spleen: Normal in size and attenuation. Pancreas: Unremarkable. Adrenal glands: Unremarkable. Kidneys: The contrast enhanced kidneys are normal in size and without hydronephrosis. The kidneys enhance symmetrically. There is a 3 mm nonobstructing right renal calculus. Abdominal vasculature: The abdominal aorta is normal in course and caliber noting mild to moderate atherosclerotic calcification. Bowel: There are distended and fluid-filled loops of small bowel in the midabdomen which measure up to 2.6 cm in diameter. There is a complex transition point, with at least 2 discrete foci of focal narrowing seen on images #196 and #210. There are thick-walled small bowel loops with marked mesenteric venous engorgement and edema in the central pelvis. Interloop fluid is observed. There is no pneumatosis intestinalis or portal venous gas. The mesenteric vessels appear patent There is moderate colonic diverticulosis without CT evidence of acute diverticulitis. The appendix is well-visualized and normal. Peritoneum: There is a small volume of abdominopelvic ascites. No intraperitoneal free air is seen. There is a fat-containing umbilical hernia. Lymphadenopathy: None. Pelvic viscera: The bladder, uterus, and adnexa are normal as visualized. A vaginal pessary is in place. Skeletal structures: The skeletal structures are osteopenic. There is moderate lumbosacral spondylosis. There are compression deformities of T8, and all spinal levels between T10 and L5. No lytic or blastic lesions are seen. IMPRESSION: 1. There is evidence of a small bowel obstruction with a complex transition point as above. 2. There are loops of thick walled small bowel in the central pelvis with marked surrounding mesenteric edema, venous engorgement, and interloop fluid. These loops are likely at risk for ischemia. Surgical evaluation is advised. 3. There is no pneumatosis intestinalis or portal venous gas. 4. The mesenteric vessels appear patent. 5. Small volume abdominopelvic ascites. 6. Colonic diverticulosis without CT evidence of acute diverticulitis. 7. Right-sided nephrolithiasis. 8. Additional findings as above. ACT 112: Negative or not required by law. Electronically signed by: Donell Garg M.D. 05/06/2023 9:16 AM Dictated: 05/06/23 0857 Transcribed: 05/06/23 0857 CBC Results Results Complete Blood Count Results: RBC 4.96 M/uL (4.20-5.40) 05/06/23 WBC 11.75 K/ul (4.8-10.8) H 05/06/23 Hgb 14.3 g/dl (12.0-16.0) 05/06/23 Hct 42.3 % (37.0-47.0) 05/06/23 Plt Count 257 K/uL (130-400) 05/06/23 Chemistry Results CMP Results: Na 134 mmol/L (136-145) L 05/06/23 K 4.1 mmol/L (3.5-5.1) 05/06/23 Cl 100 mmol/L (98-107) 05/06/23 CO2 24 mmol/L (21-32) 05/06/23 Anion Gap 10 (3-11) 05/06/23 BUN 11 mg/dl (6-23) 05/06/23 Creatinine 0.60 mg/dl (0.6-1.2) 05/06/23 Estimated GFR ( Amer) 109.3 ml/min 05/06/23 Estimated GFR (Non-Af Amer) 94.3 ml/min 05/06/23 BUN/Creatinine Ratio 18.3 (10-20) 05/06/23 Glu 145 mg/dl (70-99(Fasting)) H 05/06/23 Ca 9.5 mg/dl (8.6-10.3) 05/06/23 Phosphorus Level 2.0 mg/dl (2.5-4.9) L 07/03/21 Total Bilirubin 0.6 mg/dl (0.2-1.0) 05/06/23 AST 15 U/L (13-39) 05/06/23 ALT 12 U/L (7-52) 05/06/23 Alkaline Phosphatase 57 U/L (34-104) 05/06/23 TP 7.3 gm/dl (6.0-8.3) 05/06/23 Albumin 4.5 gm/dl (3.4-5.0) 05/06/23 Globulin 2.8 gm/dl (2.5-4.0) 05/06/23 Albumin/Globulin Ratio 1.6 (0.9-2) 05/06/23 Supervising Physician Co-Signing Physician Notes I personally saw and evaluated the patient with Gema WILSON and agree with the assessment and plan. 67 yo female with a closed loop SBO and concern for mesenteric ischemia Her CT images and results were personally viewed and interpreted by myself She has a closed loop obstruction with thickened small bowel and a fair amount of ascites Will admit the patient, get medicine consult for co-management Plan on exploratory laparotomy, possible bowel resection, possible ostomy Consent was obtained, risks discussed including bleeding, infection, anastomotic leak, need for re-operation, injury to surrounding structures PG Care Time/CCT Total # of Minutes Spent Total Time Spent with Patient: Total time spent is greater than 50% in coordination of care (as documented) at patient's floor/unit and/or counseling patient: Coding Level of Care Code 61257 INT INP/OBS CARE 75MIN Diagnoses SBO (small bowel obstruction) K56.609
[2023-05-06] MEDS: LACTATED RINGER'S 1,000 ML IV SCH ×3 (11:04→15:43)
[2023-05-06] MEDS ORDERED: ATROPINE SULFATE 0.1 MG/ML 10ML SYR IV PRN (11:27)
[2023-05-06] MEDS ORDERED: ePHEDrine sulfate 50 MG/ML AMP IV PRN (11:27)
[2023-05-06] MEDS ORDERED: ONDANSETRON INJ 2 MG/ML 2 ML VIAL IV PRN ×2 (11:27→15:29)
[2023-05-06] MEDS: LACTATED RINGER'S 1,000 ML IV ONE (11:44)
[2023-05-06] MEDS ORDERED: fentaNYL citrate PF 100 MCG/2 ML VIAL ONE (11:48)
[2023-05-06] MEDS ORDERED: MIDAZOLAM HCL 1 MG/ML 2ML VIAL ONE (11:48)
[2023-05-06] MEDS ORDERED: ePHEDrine sulfate 50 MG/5 ML SYR ONE (11:50)
[2023-05-06] MEDS: cefOXitin 2,000 MG in DEXTROSE 5 % MINI-B 50 ML IV SCH ×2 (11:58→18:22)
[2023-05-06] MEDS ORDERED: SUCCINYLCHOLINE 100MG/5ML SYR IV ONE (12:31)
[2023-05-06] MEDS ORDERED: PROPOFOL IV EMULSION 10 MG/ML 20 ML VIAL IV ONE (12:44)
[2023-05-06] MEDS ORDERED: HYDROmorphone INJ 2 MG/ML SYR/VIAL ONE (12:46)
[2023-05-06] MEDS ORDERED: SUGAMMADEX SODIUM 200 MG/2 ML VIAL IV ONE (13:15)
--- NOTE | 2023-05-06 13:54 | Post Operative Brief Note ---
PG Immediate Post Op with CF Date of Surgery May 06, 2023 Pre & Post Diagnosis Operation Date: 05/06/23 10:30 Pre-Op Diagnosis: Small bowel obstruction, concern for small bowel ischemia Post-Op Diagnosis: Small bowel obstruction, adhesions causing closed loop small bowel obstruction, small bowel infarction I identified the patient and participated in the time-out.: Yes Procedure Operation Date: 05/06/23 10:30 Actual Procedures p Exploratory Laparotomy, Lysis of Adhesions, Small Bowel Resection (65cm)(Not Applicable) - Perry Ramires DO Surgeon Perry Ramires DO Commercial Print Salesman Gema WILSON Estimated Blood Loss 25 Findings See Below Small bowel obstruction, omentum adhered to retroperitoneum in multiple areas causing closed loop small bowel obstruction Specimens Specimen Description: A. Small bowel Drains Arteaga Catheter (Arteaga catheter inserted by Laura Spence prior to start of proedure without difficulty. Urine return clear, yellow.) Anesthesia Type General Complications none Disposition Disposition: Recovery Room
--- NOTE | 2023-05-06 14:09 | Operative Report ---
PG Post Operative Report Pre & Post Diagnosis Operation Date: 05/06/23 10:30 Pre-Op Diagnosis: Small bowel obstruction Post-Op Diagnosis: Small bowel obstruction, adhesions causing closed loop small bowel obstruction, small bowel infarction I identified the patient and participated in the time-out.: Yes Procedure Operation Date: 05/06/23 10:30 Actual Procedures p Exploratory Laparotomy, Lysis of Adhesions, Small Bowel Resection (65cm)(Not Applicable) - Perry Ramires DO Surgeon Perry Ramires DO Flat Surfacer Jewel Gema WILSON Estimated Blood Loss 25 Findings See Below Small bowel obstruction, omentum adhered to retroperitoneum in multiple areas causing closed loop small bowel obstruction Specimens Small bowel to pathology Drains None Anesthesia Type General Complications none Disposition Disposition: Recovery Room Indications 67 yo female with closed loop small bowel obstruction and concern for mesenteric ischemia Description of Procedure The patient was brought to the OR and placed in the supine position with both arms abducted. At this time she underwent general endotracheal anesthesia without any problems. She was given appropriate pre-operative antibiotics. Her abdomen was prepped and draped in the usual sterile fashion. Timeout was called. The procedure was verified as Exploratory laparotomy, possible bowel resection, possible ostomy Surgical, anesthesia and nursing teams agreed and the procedure was begun. A standard midline incision was made using a #10 blade scalpel. This was carried down to the fascia using electrocautery. The midline fascia was then incised with electrocautery. The peritoneum was then entered bluntly. The incision was then opened up through its entirety. We immediately encountered some murky abdominal ascites that was suctioned. We then started to eviscerate the small bowel and at 4 separate areas the omentum had adhered itself to the retroperitoneum and there were two areas causing a closed loop obstruction. These were lysed using electrocautery. At this point the small bowel was eviscerated and ran retrograde from the cecum to the Ligament of Treitz. There was an area likely in the proximal ileum where the small bowel was infarcted. We ran the rest of the small bowel and no further adhesions were noted. We proceeded with a small bowel resection finding proximal and distal healthy small bowel and transecting them using a BILL 60mm blue load stapler. We then took the mesentery using the Ligasure device. The specimen was passed off and measured approximately 65cm. We then proceeded with a side to side, functional end to end enteroenterostomy. We made enterotomies at the staple line of each portion of bowel and confirmed we were intraluminal. Using a BILL 80mm blue load device we created the common channel by bringing together the antimesenteric sides together. The common enterotomy was then closed using another BILL 80 mm blue load. A single crotch stitch of 3-0 silk was used to decrease tension on the anastomosis. The anastomosis was under no tension and showed no signs of ischemia. The mesentery was then closed using a running 3-0 Vicryl. At this point the wound was then irrigated until clear. Hemostasis was achieved using electrocautery. Hemostasis was complete. The fascia was then closed in a running fashion using 2 #1 looped PDS suture starting superiorly and inferiorly and meeting in the middle. Skin was closed with abelino. Sterile dressing was applied. All needle and sponge counts were correct x 2. At this point the patient was awakened from anesthesia, and transported to PACU in stable condition. The nurse practitioner was present and scrubbed for the entirety of the case. She was critical in positioning the patient, prepping and draping, retraction and exposure, closure of the incision and placement of the dressings. I attest to the content of the Intraoperative Record and any orders documented therein. Any exceptions are noted below.
[2023-05-06] MEDS: fentaNYL citrate PF 100 MCG/2 ML VIAL IV PRN (14:25)
[2023-05-06] MEDS: HYDROmorphone INJ 2 MG/ML SYR/VIAL IV PRN (14:45)
[2023-05-06] MEDS ORDERED: LORATADINE 10 MG TAB PO PRN (15:29)
[2023-05-06] MEDS ORDERED: MoRPHine SULFATE 2 MG/ML CARP IV PRN (15:29)
[2023-05-06] MEDS ORDERED: MoRPHine SULFATE 4 MG/ML 1 ML CARP\\VIAL IV PRN (15:29)
--- NOTE | 2023-05-06 15:44 | Anesthesiology Progress Note ---
Date of Service May 06, 2023 Anesthesia Post Procedure Vital Signs Vital Signs: Temp Pulse Pulse Pulse Resp BP BP 05/06/23 15:25 36.6 C 88 16 107/73 05/06/23 15:10 37.1 C 89 13 103/68 05/06/23 15:00 37.1 C 85 10 L 114/70 05/06/23 14:45 87 11 L 125/75 05/06/23 14:35 83 13 113/84 05/06/23 14:25 85 14 110/77 05/06/23 14:15 83 15 119/88 05/06/23 14:05 85 22 135/86 05/06/23 13:57 36.2 C L 85 16 151/90 H 05/06/23 11:50 103/68 05/06/23 11:45 103/69 05/06/23 11:40 104/70 05/06/23 11:35 105/71 05/06/23 11:30 99/70 L 05/06/23 11:25 101/70 05/06/23 11:20 94/51 L 05/06/23 11:15 95/59 L 05/06/23 11:10 93/62 L 05/06/23 11:07 93/57 L 05/06/23 11:06 85/64 L 05/06/23 11:05 74/57 L 05/06/23 11:05 36.8 C 89 20 67/50 L 05/06/23 07:49 58 L 20 121/61 05/06/23 07:47 59 L 20 05/06/23 07:15 76 05/06/23 06:48 36.5 C 55 L 18 108/65 05/06/23 06:44 59 L 22 Pulse Ox O2 Del Method O2 Flow Rate 05/06/23 15:25 98 Nasal Cannula 2 05/06/23 15:10 97 Nasal Cannula 2 05/06/23 15:00 95 Nasal Cannula 2 05/06/23 14:45 98 Oxymask 2 05/06/23 14:35 100 Oxymask 3 05/06/23 14:25 100 Oxymask 5 05/06/23 14:15 100 Oxymask 5 05/06/23 14:05 100 Oxymask 7 05/06/23 13:57 100 Oxymask 7 05/06/23 11:50 05/06/23 11:45 05/06/23 11:40 05/06/23 11:35 05/06/23 11:30 05/06/23 11:25 05/06/23 11:20 05/06/23 11:15 05/06/23 11:10 05/06/23 11:07 05/06/23 11:06 05/06/23 11:05 05/06/23 11:05 96 Room Air 05/06/23 07:49 99 Room Air 05/06/23 07:47 100 Room Air 05/06/23 07:15 05/06/23 06:48 100 Room Air 05/06/23 06:44 100 Room Air Pain Intensity Lower Abdomen: Pain Intensity: 4 Transfer of Care Handoff Completed per policy Notes Mental Status: alert / awake / arousable and participated in evaluation Patient Amnestic to Procedure: Yes Nausea / Vomiting: adequately controlled Pain: adequately controlled Airway Patency, RR, SpO2: stable & adequate BP & HR: stable & adequate Hydration State: stable & adequate Anesthetic Complications: no major complications apparent
[2023-05-06] MEDS: Patient's HEIGHT &/or WEIGHT Needed STA (15:45)
[2023-05-06] MEDS: ACETAMINOPHEN 1,000 MG/100 ML VIAL IV SCH (15:57)
--- NOTE | 2023-05-06 16:28 | XRay Report ---
XR chest 1V portable HISTORY: NGT placement post-op COMPARISON: Abdomen and pelvis CT 05/06/2023. Chest 05/06/2023. FINDINGS: The heart is mildly enlarged. There is mild central pulmonary vascular congestion without o vert edema. Suspect a trace left pleural effusion. Patchy left basilar densities are noted. The right lung is clear. Compression deformities within the thoracic spine are likely chronic. Nasogastric tub e is likely within the esophagus and terminates below the diaphragm. However, the tip is seen within the right lower quadrant and does not appear to loop through the expected location of the duodenum. T his has abnormal course within the abdomen which could be due to the recent postoperative change. The re is skin abelino within the lower abdominal wall. No dilated loops of bowel to suggest an obstructi on. IMPRESSION: 1. Nasogastric tube terminates within the right lower quadrant. This has an abnormal course within th e abdomen as described above which could be due to the recent postoperative change. Therefore, clinic al correlation recommended. 2. Skin abelino within the lower abdominal wall consistent with recent postoperative change. No evide nce for a bowel obstruction. ACT 112: Negative or not required by law. Electronically signed by: Fernando Cobos M.D. 05/06/2023 4:26 PM
[2023-05-06] MEDS: KETOROLAC TROMETHAMINE 15 MG/ML VIAL IV ONE ×2 (16:43→23:19)
[2023-05-06] MEDS: SODIUM CHLORIDE 0.9% 500 ML IV ONE (16:50)
--- NOTE | 2023-05-06 17:23 | Internal Medicine Consult Note ---
Date of Consultation May 06, 2023 Assessment & Plan (1) SBO (small bowel obstruction): Small bowel obstruction S/P Exploratory Laparotomy, Lysis of Adhesions, Small Bowel Resection by on 05/06/23 Blood pressure relatively low postoperatively Pain control, wound care as per primary team Monitor CBC for postop anemia Advance diet as per surgery On Cefoxitin empirically Continue IV fluids Microscopic hematuria Denies dysuria, hematuria, abd pain Urine culture pending On Cefoxitin empirically as above Atrial fibrillation S/P ablation SVT Continue metoprolol with holding parameter Goiter s/p thyroidectomy postsurgical hypothyroidism Continue levothyroxine Other chronic conditions: Mitral valve disorder osteoporosis--on Prolia DVT Px: SCDs Re:surgery Code Status Full Code History of Present Illness Reason for Consultation: Medical Management Requesting Physician: Carmella Zavala PA-C Attending Physician: Perry Ramires, History of Present Illness Patient is a 67-year-old female with history of atrial fibrillation S/P ablation, SVT, goiter s/p thyroidectomy, postsurgical hypothyroidism, mitral valve disorder, osteoporosis, prediabetes and other medical problems was consulted for postop medical management. Patient is doing well postoperatively. Abdominal pain at surgical site is controlled with pain medications. Admits to have nausea earlier but no vomiting. Denies any chest pain, shortness of breath, dizziness, headache, change in vision, dysuria, hematuria. Blood pressure relatively low postoperatively. Allergies Allergy/AdvReac Type Severity Reaction Status Date / Time latex Allergy Unknown RASH Verified 02/03/23 09:26 erythromycin base AdvReac Unknown UPSET Verified 02/03/23 09:26 STOMACH Home Medications Medication Instructions Recorded Confirmed Type ascorbic acid (vitamin C) 500 mg 1,000 mg PO DAILY 09/10/22 05/06/23 History capsule aspirin 81 mg tablet,delayed 81 mg PO DAILY 09/10/22 05/06/23 History release calcium carbonate 600 mg calcium 600 mg PO DAILY 09/10/22 05/06/23 History (1,500 mg) tablet cholecalciferol (vitamin D3) 25 25 mcg PO DAILY 09/10/22 05/06/23 History mcg (1,000 unit) tablet levothyroxine 75 mcg tablet 75 mcg PO DAILY@0630 09/10/22 05/06/23 History loratadine 10 mg tablet 10 mg PO DAILY PRN allergies 09/10/22 05/06/23 History multivitamin 1 tab PO DAILY 09/10/22 05/06/23 History potassium chloride 10 mEq 10 meq PO MOWEFR 09/10/22 05/06/23 History tablet,extended release(part/cryst) (Klor-Con M) metoprolol succinate 25 mg 12.5 mg PO BID 10/29/22 05/06/23 History tablet,extended release 24 hr oxyquinoline 0.025 %-sodium lauryl See Rx Instructions vaginal 10/29/22 05/06/23 Rx sulfate 0.01 % vaginal gel .COMPLEX #113.4 grams (Trimo-Galdamez Jelly) Prolia See Rx Instructions .Route .COMPLEX 05/06/23 05/06/23 History Patient History Medical History Hx of Clostridium difficile infection Hypothyroidism Hypomagnesemia History of osteoporosis History of osteoarthritis History of chicken pox History of colonic polyps Surgical History S/P small bowel resection (05/06/23) Exploratory Laparotomy, Lysis of Adhesions, Small Bowel Resection (65cm)(Not Applicable) - Perry Ramires, S/P wisdom tooth extraction S/P tonsillectomy 1961 S/P sinus surgery 07/2015 S/P thyroidectomy 07/2008 S/P eye surgery laser surgery of right eye- lens replacement 05/1991 S/P dilation and curettage Family History Family/Other Osteoarthritis Diabetes Heart disease Hypertension Dyslipidemia Osteoporosis Thyroid disorder Colorectal cancer Social History Smoking Status: Never smoker Second Hand Exposure: No; Do You Dip or Chew Tobacco: No; Hx Alcohol Use: Yes Alcohol type: wine Alcohol Intake Frequency Comment: 1 drink 3-5 times a week Hx Substance Use: No Preferred Language: Macedonian Communication Ability: Effective Recruitment Coordinator Required: No Beliefs That Will Affect Care: Buddhism Buddhism Beliefs: EVANGELICAL Current Living Situation: Spouse Feels Safe at Home: Yes Physical Activity Frequency: 3-4 Times per Week Physical Activity Frequency Comment: 30 minutes Assistive Devices: None Review of Systems Review of Systems: All systems reviewed & are unremarkable except as noted in Subjective Physical Exam Physical Exam: Physical Exam: Vitals signs as noted above General Appearance:Moderately built and nourished, no apparent distress Head: normocephalic, Atraumatic, +NG tube Eyes: normal inspection, EOMI Neck: supple, Trachea midline Respiratory/Chest: Normal breath sounds, CTA, No accessory muscle use Cardiovascular: S1, S2, + murmur Abdomen/GI:Soft, + surgical site in dressing, mild tender, Bowel sounds present Extremities/Musculoskeletal:normal inspection, no edema Neurologic/Psych:AAOX3, grossly no focal neurological deficits Skin: normal color, warm Results & Data Vital Signs (Past 12 Hours) Vital Signs Temp Pulse Pulse Pulse Resp BP BP 05/06/23 17:21 77 16 93/60 L 05/06/23 16:29 36.4 C L 77 12 93/62 L 05/06/23 15:56 36.4 C L 83 12 89/61 L 05/06/23 15:25 36.6 C 88 16 107/73 05/06/23 15:10 37.1 C 89 13 103/68 05/06/23 15:00 37.1 C 85 10 L 114/70 05/06/23 14:45 87 11 L 125/75 05/06/23 14:35 83 13 113/84 05/06/23 14:25 85 14 110/77 05/06/23 14:15 83 15 119/88 05/06/23 14:05 85 22 135/86 05/06/23 13:57 36.2 C L 85 16 151/90 H 05/06/23 11:50 103/68 05/06/23 11:45 103/69 05/06/23 11:40 104/70 05/06/23 11:35 105/71 05/06/23 11:30 99/70 L 05/06/23 11:25 101/70 05/06/23 11:20 94/51 L 05/06/23 11:15 95/59 L 05/06/23 11:10 93/62 L 05/06/23 11:07 93/57 L 05/06/23 11:06 85/64 L 05/06/23 11:05 74/57 L 05/06/23 11:05 36.8 C 89 20 67/50 L 05/06/23 07:49 58 L 20 121/61 05/06/23 07:47 59 L 20 05/06/23 07:15 76 05/06/23 06:48 36.5 C 55 L 18 108/65 05/06/23 06:44 59 L 22 Pulse Ox O2 Del Method O2 Flow Rate 05/06/23 17:21 94 Room Air 05/06/23 16:29 97 Room Air 1 05/06/23 15:56 98 Nasal Cannula 1 05/06/23 15:25 98 Nasal Cannula 2 05/06/23 15:10 97 Nasal Cannula 2 05/06/23 15:00 95 Nasal Cannula 2 05/06/23 14:45 98 Oxymask 2 05/06/23 14:35 100 Oxymask 3 05/06/23 14:25 100 Oxymask 5 05/06/23 14:15 100 Oxymask 5 05/06/23 14:05 100 Oxymask 7 05/06/23 13:57 100 Oxymask 7 05/06/23 11:50 05/06/23 11:45 05/06/23 11:40 05/06/23 11:35 05/06/23 11:30 05/06/23 11:25 05/06/23 11:20 05/06/23 11:15 05/06/23 11:10 05/06/23 11:07 05/06/23 11:06 05/06/23 11:05 05/06/23 11:05 96 Room Air 05/06/23 07:49 99 Room Air 05/06/23 07:47 100 Room Air 05/06/23 07:15 05/06/23 06:48 100 Room Air 05/06/23 06:44 100 Room Air Laboratory Results Short CBC 05/06/23 Range/Units 07:14 WBC 11.75 H (4.8-10.8) K/ul Hgb 14.3 (12.0-16.0) g/dl Hct 42.3 (37.0-47.0) % Plt Count 257 (130-400) K/uL BMP 05/06/23 07:14 Sodium 134 L Potassium 4.1 Chloride 100 Carbon Dioxide 24 BUN 11 Creatinine 0.60 Glucose 145 H Calcium 9.5 Liver Function 05/06/23 Range/Units 07:14 Total Bilirubin 0.6 (0.2-1.0) mg/dl AST 15 (13-39) U/L ALT 12 (7-52) U/L Alkaline Phosphatase 57 (34-104) U/L Albumin 4.5 (3.4-5.0) gm/dl Urine 05/06/23 Range/Units 18:25 Urine Color Yellow Urine Appearance Clear (Clear) Urine pH 5.5 (4.5-7.5) Ur Specific [place] 1.041 H (1.000-1.030) Urine Protein Negative (Negative) Urine Glucose (UA) Negative (Negative) Diagnostic Findings --CXR:No acute cardiopulmonary abnormality.
[2023-05-06 19:06] LABS: Appearance Urine Clear (Clear); Bacteria Urine Automated Negative (Negative); Bilirubin Urine Negative (Negative); Blood Urine 2+ (Negative); Color Urine Yellow; Epithelial Cell Urine Auto 20-30 /lpf (0-5); Glucose Urine UA Negative (Negative); Ketones Urine Trace (Negative); Leukocyte Esterase Urine Negative (Negative); Nitrite Urine Negative (Negative); Protein Urine Negative (Negative); Specific Gravity Urine 1.041 (1.000-1.030); Urobilinogen Urine Negative (Negative); pH Urine 5.5 (4.5-7.5)
[2023-05-06] MEDS: SODIUM CHLORIDE 0.9% 1,000 ML IV SCH (19:27)
[2023-05-06] MEDS: METOPROLOL SUCC 25MG EXT REL TAB PO SCH (22:16)
[2023-05-07] MEDS: LEVOTHYROXINE SODIUM 75 MCG TABLET PO SCH (05:39)
[2023-05-07] MEDS ORDERED: cefOXitin SOD 2,000 MG VIAL IV SCH (06:00)
[2023-05-07] MEDS: HYDROmorphone INJ 0.5 MG/0.5 ML SYR IV STA (06:10)
[2023-05-07 07:29] LABS: Basophils # (auto) 0.02 K/uL (0.00-0.20); Basophils % (auto) 0.2 %; Hematocrit (blood only) 33.7 % (37.0-47.0); Immature Granulocytes # (auto) 0.06 K/uL (0.01-0.20); Immature Granulocytes % (auto) 0.5 %; Lymphocytes # (auto) 1.61 K/uL (1.20-3.40); Lymphocytes % (auto) 13.4 %; Mean Corpuscular Hemoglobin 28.9 pg (25.0-34.0); Mean Corpuscular Hgb Conc 32.6 g/dL (32.0-36.0); Mean Corpuscular Volume 88.5 fL (80.0-100.0); Mean Platelet Volume 9.5 fL (9.4-12.4); Monocytes # (auto) 0.74 K/uL (0.11-0.59); Monocytes % (auto) 6.2 %; Neutrophils # (auto) 9.57 K/uL (1.40-6.50); Neutrophils % (auto) 79.7 %; Platelet Count 217 K/uL (130-400); RDW Coefficient of Variation 13.2 % (11.5-14.5); RDW Standard Deviation 42.8 fL (36.4-46.3); Red Blood Count 3.81 M/uL (4.20-5.40)
--- NOTE | 2023-05-07 07:35 | Hospitalist Progress Note ---
Date of Service May 07, 2023 Assessment & Plan (1) SBO (small bowel obstruction): Plan: Small bowel obstruction S/P Exploratory Laparotomy, Lysis of Adhesions, Small Bowel Resection by on 05/06/23 Blood pressure relatively low postoperatively Pain control, wound care as per primary team Monitor CBC for postop anemia Advance diet as per surgery On Cefoxitin empirically Continue IV fluids Acute blood loss anemia, post-op, and likely partial also dilutional -current Hgb 11 (pre-op 14) - cont. to monitor H&H Microscopic hematuria Denies dysuria, hematuria, abd pain Urine culture pending On Cefoxitin empirically as above Atrial fibrillation S/P ablation SVT Continue metoprolol with holding parameter Goiter s/p thyroidectomy postsurgical hypothyroidism Continue levothyroxine Other chronic conditions: Mitral valve disorder osteoporosis--on Prolia DVT Px: SCDs Re:surgery Code Status Full Code Admission and Anticipated Discharge Date Admission Date: May 06, 2023 Subjective Pt seen in follow up of med consult, pt with SBO s/p ex lap Sitting up in chair in NAD No fever, chills, chest pain, shortness of breath or palpitations. She is having abdominal pain, postsurgical. She is not passing any flatus yet. Having some sore throat from NG tube. NG tube was removed earlier. Review of Systems Review of Systems: All systems reviewed & are unremarkable except as noted in Subjective Physical Exam Physical Exam: General Appearance:Moderately built and nourished, no apparent distress Head: normocephalic, Atraumatic Eyes: normal inspection, EOMI Neck: supple Respiratory/Chest: Normal breath sounds, CTA, No accessory muscle use Cardiovascular: S1, S2, + murmur Abdomen/GI: Soft, + surgical site covered w/ clean dry dressings, tender to palp. Extremities/Musculoskeletal: normal inspection, no edema Neurologic/Psych:AAOX3, grossly no focal neurological deficits Skin: normal color, warm Results & Data Results & Data Vital Signs (Past 12 Hours) Vital Signs Temp Pulse Resp BP Pulse Ox O2 Del Method 05/07/23 03:02 36.7 C 78 18 95/67 L 97 Room Air 05/06/23 23:19 36.7 C 81 16 92/60 L 98 Room Air Laboratory Results 05/07/23 05/06/23 05/06/23 Range/Units 06:27 18:25 10:02 WBC 12.00 H (4.8-10.8) K/ul RBC 3.81 L (4.20-5.40) M/uL Hgb 11.0 L D (12.0-16.0) g/dl Hct 33.7 L (37.0-47.0) % MCV 88.5 (80.0-100.0) fL MCH 28.9 (25.0-34.0) pg MCHC 32.6 (32.0-36.0) g/dL RDW Std Deviation 42.8 (36.4-46.3) fL RDW Coeff of [place] 13.2 (11.5-14.5) % Plt Count 217 (130-400) K/uL MPV 9.5 (9.4-12.4) fL Immature Gran % (Auto) 0.5 % Neut % (Auto) 79.7 % Lymph % (Auto) 13.4 % [place] % (Auto) 6.2 % Eos % (Auto) 0.0 % Baso % (Auto) 0.2 % Neut # (Auto) 9.57 H (1.40-6.50) K/uL Lymph # (Auto) 1.61 (1.20-3.40) K/uL [place] # (Auto) 0.74 H (0.11-0.59) K/uL Eos # (Auto) 0.00 (0.00-0.50) K/uL Baso # (Auto) 0.02 (0.00-0.20) K/uL Immature Gran # (Auto) 0.06 (0.01-0.20) K/uL Sodium Pending (136-145) mmol/L Potassium Pending (3.5-5.1) mmol/L Chloride Pending (98-107) mmol/L Carbon Dioxide Pending (21-32) mmol/L Anion Gap Pending (3-11) BUN Pending (6-23) mg/dl Creatinine Pending (0.6-1.2) mg/dl Est Cr Clr Drug Dosing Pending Est GFR ( Amer) Pending ml/min Est GFR (Non-Af Amer) Pending ml/min BUN/Creatinine Ratio Pending (10-20) Glucose Pending (70-99(Fasting)) mg/dl Lactate 0.9 (0.4-2.0) mmol/L Calcium Pending (8.6-10.3) mg/dl Phosphorus Pending Magnesium Pending Total Bilirubin (0.2-1.0) mg/dl AST (13-39) U/L ALT (7-52) U/L Alkaline Phosphatase (34-104) U/L Troponin I High Sens (0-14) pg/ml Total Protein (6.0-8.3) gm/dl Albumin (3.4-5.0) gm/dl Globulin (2.5-4.0) gm/dl Albumin/Globulin Ratio (0.9-2) Lipase (11-82) U/L Urine Color Yellow Urine Appearance Clear (Clear) Urine pH 5.5 (4.5-7.5) Ur Specific [place] 1.041 H (1.000-1.030) Urine Protein Negative (Negative) Urine Glucose (UA) Negative (Negative) Urine Ketones Trace H (Negative) Urine Blood 2+ H (Negative) Urine Nitrite Negative (Negative) Urine Bilirubin Negative (Negative) Urine Urobilinogen Negative (Negative) Ur Leukocyte Esterase Negative (Negative) Urine WBC (Auto) 1-5 (0-5) /hpf Urine RBC (Auto) 10-30 H (0-4) /hpf U Hyaline Cast (Auto) 1-5 (0-5) /lpf U Epithel Cells (Auto) 20-30 H (0-5) /lpf Urine Bacteria (Auto) Negative (Negative) SARS-CoV-2 (PCR) (Negative) Influenza Type A (PCR) (Neg) Influenza Type B (PCR) (Neg) RSV (RT-PCR) (Neg) 05/06/23 Range/Units 07:14 WBC 11.75 H (4.8-10.8) K/ul RBC 4.96 (4.20-5.40) M/uL Hgb 14.3 (12.0-16.0) g/dl Hct 42.3 (37.0-47.0) % MCV 85.3 (80.0-100.0) fL MCH 28.8 (25.0-34.0) pg MCHC 33.8 (32.0-36.0) g/dL RDW Std Deviation 39.7 (36.4-46.3) fL RDW Coeff of [place] 12.8 (11.5-14.5) % Plt Count 257 (130-400) K/uL MPV 10.0 (9.4-12.4) fL Immature Gran % (Auto) 0.3 % Neut % (Auto) 79.5 % Lymph % (Auto) 14.2 % [place] % (Auto) 5.1 % Eos % (Auto) 0.6 % Baso % (Auto) 0.3 % Neut # (Auto) 9.33 H (1.40-6.50) K/uL Lymph # (Auto) 1.67 (1.20-3.40) K/uL [place] # (Auto) 0.60 H (0.11-0.59) K/uL Eos # (Auto) 0.07 (0.00-0.50) K/uL Baso # (Auto) 0.04 (0.00-0.20) K/uL Immature Gran # (Auto) 0.04 (0.01-0.20) K/uL Sodium 134 L (136-145) mmol/L Potassium 4.1 (3.5-5.1) mmol/L Chloride 100 (98-107) mmol/L Carbon Dioxide 24 (21-32) mmol/L Anion Gap 10 (3-11) BUN 11 (6-23) mg/dl Creatinine 0.60 (0.6-1.2) mg/dl Est Cr Clr Drug Dosing Not Reportable Est GFR ( Amer) 109.3 ml/min Est GFR (Non-Af Amer) 94.3 ml/min BUN/Creatinine Ratio 18.3 (10-20) Glucose 145 H (70-99(Fasting)) mg/dl Lactate (0.4-2.0) mmol/L Calcium 9.5 (8.6-10.3) mg/dl Phosphorus Magnesium Total Bilirubin 0.6 (0.2-1.0) mg/dl AST 15 (13-39) U/L ALT 12 (7-52) U/L Alkaline Phosphatase 57 (34-104) U/L Troponin I High Sens < 2.3 (0-14) pg/ml Total Protein 7.3 (6.0-8.3) gm/dl Albumin 4.5 (3.4-5.0) gm/dl Globulin 2.8 (2.5-4.0) gm/dl Albumin/Globulin Ratio 1.6 (0.9-2) Lipase 15 (11-82) U/L Urine Color Urine Appearance (Clear) Urine pH (4.5-7.5) Ur Specific [place] (1.000-1.030) Urine Protein (Negative) Urine Glucose (UA) (Negative) Urine Ketones (Negative) Urine Blood (Negative) Urine Nitrite (Negative) Urine Bilirubin (Negative) Urine Urobilinogen (Negative) Ur Leukocyte Esterase (Negative) Urine WBC (Auto) (0-5) /hpf Urine RBC (Auto) (0-4) /hpf U Hyaline Cast (Auto) (0-5) /lpf U Epithel Cells (Auto) (0-5) /lpf Urine Bacteria (Auto) (Negative) SARS-CoV-2 (PCR) NEGATIVE (Negative) Influenza Type A (PCR) Negative (Neg) Influenza Type B (PCR) Negative (Neg) RSV (RT-PCR) Negative (Neg) Medications Administered Current Inpatient Medications Aspirin (Aspirin 81 Mg Ectab) 81 mg PO DAILY [facility] Stop: 06/06/23 08:59 Acetaminophen (Ofirmev) 1,000 mg in 100 mls @ 400 mls/hr IV Q8H [facility] Stop: 05/09/23 15:59 Last Infusion: 05/07/23 00:22 Dose: Infused Cefoxitin Sodium 2,000 mg/ (Dextrose) 50 mls @ 100 mls/hr IV Q6H [facility]; Protocol Stop: 05/07/23 17:59 Last Infusion: 05/07/23 06:27 Dose: Infused Sodium Chloride (Nss) 1,000 mls @ 125 mls/hr IV .Q8H [facility] Stop: 06/05/23 19:14 Last Admin: 05/07/23 04:25 Dose: 125 mls/hr Levothyroxine Sodium (Levothyroxine Sodium 75 Mcg Tablet) 75 mcg PO DAILY@0630 [facility] Stop: 06/06/23 06:29 Last Admin: 05/07/23 05:39 Dose: Not Given Loratadine (Loratadine 10 Mg Tab) 10 mg PO DAILY PRN PRN Reason: allergies Stop: 06/05/23 15:28 Metoprolol Succinate (Metoprolol Succ 25mg Ext Rel Tab) 12.5 mg PO BID [facility] Stop: 06/05/23 20:59 Last Admin: 05/06/23 22:16 Dose: Not Given Morphine Sulfate (Morphine Sulfate 4 Mg/Ml 1 Ml Carp\Vial) 4 mg IV Q3H PRN PRN Reason: Pain (6,7,8,9,10) Stop: 05/20/23 15:28 Morphine Sulfate (Morphine Sulfate 2 Mg/Ml Carp) 2 mg IV Q3H PRN PRN Reason: Pain (1,2,3,4,5) & Pre PT Stop: 05/20/23 15:28 Ondansetron HCl (Ondansetron Inj 2 Mg/Ml 2 Ml Vial) 4 mg IV Q6H PRN PRN Reason: Nausea And Vomiting Stop: 06/05/23 10:25 Phenol (Chloraseptic (Phenol) 1.4% Soln 180 Ml Btl) 1 sprays MT Q6H PRN PRN Reason: Sore Throat Stop: 06/06/23 05:53
[2023-05-07 07:52] LABS: BUN Creatinine Ratio 16.2 (10-20); Calcium 7.1 mg/dl (8.6-10.3); Creatinine Clr Calc Pharmacy 69.7 ml/min; Est GFR (African American) 104.9 ml/min; Est GFR (Non-African American) 90.5 ml/min; Magnesium 1.6 mg/dl (1.7-2.4); Phosphorus 2.9 mg/dl (2.5-4.9); Potassium 4.7 mmol/L (3.5-5.1)
[2023-05-07] MEDS: ASPIRIN 81 MG ECTAB PO SCH (08:20)
[2023-05-07] MEDS: CHLORASEPTIC (PHENOL) 1.4% SOLN 180 ML BTL MT PRN (08:39)
[2023-05-07] MEDS ORDERED: METOPROLOL SUCC 25MG EXT REL TAB PO SCH (09:00)
--- NOTE | 2023-05-07 11:18 | Surgery Progress Note ---
Date of Service May 07, 2023 Assessment & Plan (1) S/P small bowel resection: Plan: She is doing well POD#1 Remove mitchell and NGT today Start sips and chips only, can have PO meds Encourage ambulation/IS Start Lovenox for DVT prophylaxis Await more return of bowel function Admission and Anticipated Discharge Date Admission Date: May 06, 2023 Subjective Pt seen and examined. Pain controlled. She has a sore throat from NGT. Afebrile. No flatus or BM. Review of Systems Constitutional: no fever and no chills Physical Exam Constitutional: WD/WN, vitals as above Gastrointestinal (Abdomen): soft, appropriately TTP, dressing c/d/i Results & Data Vital Signs (Past 12 Hours) Vital Signs Temp Pulse Resp BP Pulse Ox O2 Del Method 05/07/23 07:45 Room Air 05/07/23 07:36 36.8 C 77 16 98/65 L 99 Room Air 05/07/23 03:02 36.7 C 78 18 95/67 L 97 Room Air 05/06/23 23:19 36.7 C 81 16 92/60 L 98 Room Air PG Care Time/CCT Total # of Minutes Spent Total Time Spent with Patient: Total time spent is greater than 50% in coordination of care (as documented) at patient's floor/unit and/or counseling patient: Coding Level of Care Code 02974 Post Operative Follow-Up Diagnoses S/P small bowel resection Z90.49
[2023-05-07] MEDS: oxyCODONE HCL IR 5 MG TAB (IMMEDIATE RELEASE) PO PRN (11:58)
[2023-05-07] MEDS ORDERED: METOPROLOL SUCC 50MG EXT REL TAB PO STA (13:06)
[2023-05-07] MEDS: METOPROLOL SUCC 25MG EXT REL TAB PO STA (13:25)
[2023-05-07] MEDS: MAGNESIUM OXIDE 400 MG TAB PO SCH (17:56)
--- NOTE | 2023-05-07 21:03 | Electrocardiogram Report ---
Test Reason : Blood Pressure : / mmHG Vent. Rate : 058 BPM Atrial Rate : 058 BPM P-R Int : 176 ms QRS Dur : 074 ms QT Int : 456 ms P-R-T Axes : 069 026 039 degrees QTc Int : 447 ms Sinus bradycardia Nonspecific ST abnormality Incomplete right bundle branch block Abnormal ECG When compared with ECG of 11-SEP-2022 05:51, No significant change Confirmed by Anthony Antonio ([id number]) on 05/07/2023 9:02:57 PM Referred By: REFERRED SELF Confirmed By:Anthony Antonio
--- NOTE | 2023-05-08 07:58 | Hospitalist Progress Note ---
Date of Service May 08, 2023 Assessment & Plan (1) SBO (small bowel obstruction): Plan: Small bowel obstruction S/P Exploratory Laparotomy, Lysis of Adhesions, Small Bowel Resection by on 05/06/23 Blood pressure relatively low postoperatively Pain control, wound care as per primary team Monitor CBC for postop anemia Advance diet as per surgery -> currently on clear liquid and tolerating On Cefoxitin empirically Continue IV fluids Acute blood loss anemia, post-op, and likely partial also dilutional -current Hgb 11 (pre-op 14) - cont. to monitor H&H Microscopic hematuria Denies dysuria, hematuria, abd pain Urine culture negat. On Cefoxitin empirically as above Atrial fibrillation S/P ablation SVT Continue metoprolol with holding parameter Goiter s/p thyroidectomy postsurgical hypothyroidism Continue levothyroxine Other chronic conditions: Mitral valve disorder osteoporosis--on Prolia DVT Px: SCDs Re:surgery Code Status Full Code Admission and Anticipated Discharge Date Admission Date: May 06, 2023 Subjective Pt seen in follow up of med consult, pt with SBO s/p ex lap Sitting up in bed in NAD, also seen standing up and walking a little bit No fever, chills, chest pain, shortness of breath or palpitations. Passing flatus. She is having abdominal pain, postsurgical. Diet advanced to clear and so far pt is tolerating. Review of Systems Review of Systems: All systems reviewed & are unremarkable except as noted in Subjective Physical Exam Physical Exam: General Appearance: Moderately built and nourished, no apparent distress Head: normocephalic, Atraumatic Eyes: normal inspection, EOMI Neck: supple Respiratory/Chest: Normal breath sounds, CTA, No accessory muscle use Cardiovascular: S1, S2, + murmur Abdomen/GI: Soft, + surgical site covered w/ clean dry dressings, tender to palp. Extremities/Musculoskeletal: normal inspection, no edema Neurologic/Psych:AAOX3, grossly no focal neurological deficits Skin: normal color, warm Results & Data Results & Data Vital Signs (Past 12 Hours) Vital Signs Temp Pulse Resp BP Pulse Ox Pulse Ox O2 Del Method 05/08/23 07:20 Room Air 05/07/23 20:45 Room Air 05/07/23 20:45 96 05/07/23 20:01 36.7 C 74 16 110/71 96 Room Air O2 Del Method 05/08/23 07:20 05/07/23 20:45 05/07/23 20:45 Room Air 05/07/23 20:01 Laboratory Results 05/08/23 Range/Units 08:05 WBC 9.02 (4.8-10.8) K/ul RBC 3.71 L (4.20-5.40) M/uL Hgb 10.6 L (12.0-16.0) g/dl Hct 32.7 L (37.0-47.0) % MCV 88.1 (80.0-100.0) fL MCH 28.6 (25.0-34.0) pg MCHC 32.4 (32.0-36.0) g/dL RDW Std Deviation 42.5 (36.4-46.3) fL RDW Coeff of [place] 13.2 (11.5-14.5) % Plt Count 193 (130-400) K/uL MPV 9.4 (9.4-12.4) fL Immature Gran % (Auto) 0.3 % Neut % (Auto) 77.1 % Lymph % (Auto) 15.3 % [place] % (Auto) 6.2 % Eos % (Auto) 0.8 % Baso % (Auto) 0.3 % Neut # (Auto) 6.95 H (1.40-6.50) K/uL Lymph # (Auto) 1.38 (1.20-3.40) K/uL [place] # (Auto) 0.56 (0.11-0.59) K/uL Eos # (Auto) 0.07 (0.00-0.50) K/uL Baso # (Auto) 0.03 (0.00-0.20) K/uL Immature Gran # (Auto) 0.03 (0.01-0.20) K/uL Sodium 135 L (136-145) mmol/L Potassium 3.4 L D (3.5-5.1) mmol/L Chloride 103 (98-107) mmol/L Carbon Dioxide 25 (21-32) mmol/L Anion Gap 7 (3-11) BUN 6 (6-23) mg/dl Creatinine 0.39 L (0.6-1.2) mg/dl Est Cr Clr Drug Dosing 121.5 ml/min Est GFR ( Amer) 126.0 ml/min Est GFR (Non-Af Amer) 108.7 ml/min BUN/Creatinine Ratio 15.4 (10-20) Glucose 81 (70-99(Fasting)) mg/dl Calcium 6.8 L (8.6-10.3) mg/dl Phosphorus 1.6 L D (2.5-4.9) mg/dl Magnesium 1.9 (1.7-2.4) mg/dl Medications Administered Current Inpatient Medications Aspirin (Aspirin 81 Mg Ectab) 81 mg PO DAILY [facility] Stop: 06/06/23 08:59 Last Admin: 05/07/23 08:20 Dose: Not Given Enoxaparin Sodium (Enoxaparin Inj 40 Mg/0.4 Ml Syr) 40 mg SQ QAM [facility] Stop: 06/07/23 08:59 Acetaminophen (Ofirmev) 1,000 mg in 100 mls @ 400 mls/hr IV Q8H [facility] Stop: 05/09/23 15:59 Last Infusion: 05/08/23 01:11 Dose: Infused Sodium Chloride (Nss) 1,000 mls @ 125 mls/hr IV .Q8H [facility] Stop: 06/05/23 19:14 Last Admin: 05/08/23 04:01 Dose: 125 mls/hr Levothyroxine Sodium (Levothyroxine Sodium 75 Mcg Tablet) 75 mcg PO DAILY@0630 [facility] Stop: 06/06/23 06:29 Last Admin: 05/08/23 05:44 Dose: 75 mcg Loratadine (Loratadine 10 Mg Tab) 10 mg PO DAILY PRN PRN Reason: allergies Stop: 06/05/23 15:28 Magnesium Oxide (Magnesium Oxide 400 Mg Tab) 400 mg PO BID [facility] Stop: 06/06/23 16:44 Last Admin: 05/07/23 17:56 Dose: 400 mg Metoprolol Succinate (Metoprolol Succ 25mg Ext Rel Tab) 12.5 mg PO BID [facility] Stop: 06/05/23 20:59 Last Admin: 05/07/23 20:45 Dose: 12.5 mg Morphine Sulfate (Morphine Sulfate 4 Mg/Ml 1 Ml Carp\Vial) 4 mg IV Q3H PRN PRN Reason: Pain (6,7,8,9,10) Stop: 05/20/23 15:28 Morphine Sulfate (Morphine Sulfate 2 Mg/Ml Carp) 2 mg IV Q3H PRN PRN Reason: Pain (1,2,3,4,5) & Pre PT Stop: 05/20/23 15:28 Ondansetron HCl (Ondansetron Inj 2 Mg/Ml 2 Ml Vial) 4 mg IV Q6H PRN PRN Reason: Nausea And Vomiting Stop: 06/05/23 10:25 Oxycodone HCl (Oxycodone Hcl Ir 5 Mg Tab (Immediate Release)) 5 mg PO Q4H PRN PRN Reason: Moderate Pain (Scale 4, 5, 6) Stop: 05/21/23 11:01 Oxycodone HCl (Oxycodone Hcl Ir 5 Mg Tab (Immediate Release)) 10 mg PO Q4H PRN PRN Reason: Severe Pain (Scale 7, 8, 9,10) Stop: 05/21/23 11:01 Last Admin: 05/08/23 05:47 Dose: 10 mg Phenol (Chloraseptic (Phenol) 1.4% Soln 180 Ml Btl) 1 sprays MT Q6H PRN PRN Reason: Sore Throat Stop: 06/06/23 05:53 Last Admin: 05/07/23 15:57 Dose: 1 sprays
--- NOTE | 2023-05-08 08:01 | Surgery Progress Note ---
Date of Service May 08, 2023 Assessment & Plan (1) SBO (small bowel obstruction): Plan: POD#2 ex lap, small bowel resection Labs this AM are pending. Vitals are stable Abdomen soft, mildly distended, expected post op discomfort to palpation, incisions c/d/i She is passing flatus. May consider clears later today while awaiting further return of bowel function Encourage OOB and pulm toilet [facility] covering the wknd as above. doing ok. awaiting return of bowel fx. stay on clears for now. Admission and Anticipated Discharge Date Admission Date: May 06, 2023 Subjective Patient resting in bed. Reports pain a 4-5/10, tolerable with pain medication. Denies nausea. + flatus, no BM yet. Physical Exam Physical Exam: awake/alert, no distress Respiratory: normal respiratory effort Gastrointestinal (Abdomen): Inspection/Auscultation: + abdomen distended and + abdominal surgical incision (c/d/i with midline abelino) Percussion/Palpation: + abdomen tender (generalized discomfort to palpation) and abdomen soft Results & Data Vital Signs (Past 12 Hours) Vital Signs Temp Pulse Resp BP Pulse Ox Pulse Ox O2 Del Method 05/08/23 07:20 Room Air 05/07/23 20:45 Room Air 05/07/23 20:45 96 05/07/23 20:01 98.1 F 74 16 110/71 96 Room Air O2 Del Method 05/08/23 07:20 05/07/23 20:45 05/07/23 20:45 Room Air 05/07/23 20:01 PG Care Time/CCT Total # of Minutes Spent Total Time Spent with Patient: Total time spent is greater than 50% in coordination of care (as documented) at patient's floor/unit and/or counseling patient: Coding Level of Care Code 78980 Post Operative Follow-Up Diagnoses SBO (small bowel obstruction) K56.609
[2023-05-08] MEDS: ENOXAPARIN INJ 40 MG/0.4 ML SYR SQ SCH (08:13)
[2023-05-08 08:41] LABS: Basophils # (auto) 0.03 K/uL (0.00-0.20); Basophils % (auto) 0.3 %; Eosinophils # (auto) 0.07 K/uL (0.00-0.50); Eosinophils % (auto) 0.8 %; Hematocrit (blood only) 32.7 % (37.0-47.0); Hemoglobin 10.6 g/dl (12.0-16.0); Immature Granulocytes # (auto) 0.03 K/uL (0.01-0.20); Immature Granulocytes % (auto) 0.3 %; Lymphocytes # (auto) 1.38 K/uL (1.20-3.40); Lymphocytes % (auto) 15.3 %; Mean Corpuscular Hemoglobin 28.6 pg (25.0-34.0); Mean Corpuscular Hgb Conc 32.4 g/dL (32.0-36.0); Mean Corpuscular Volume 88.1 fL (80.0-100.0); Mean Platelet Volume 9.4 fL (9.4-12.4); Monocytes # (auto) 0.56 K/uL (0.11-0.59); Monocytes % (auto) 6.2 %; Neutrophils # (auto) 6.95 K/uL (1.40-6.50); Neutrophils % (auto) 77.1 %; Platelet Count 193 K/uL (130-400); RDW Coefficient of Variation 13.2 % (11.5-14.5); RDW Standard Deviation 42.5 fL (36.4-46.3); Red Blood Count 3.71 M/uL (4.20-5.40); White Blood Count 9.02 K/ul (4.8-10.8)
[2023-05-08 09:12] LABS: BUN Creatinine Ratio 15.4 (10-20); Calcium 6.8 mg/dl (8.6-10.3); Creatinine Clr Calc Pharmacy 121.5 ml/min; Est GFR (Non-African American) 108.7 ml/min; Magnesium 1.9 mg/dl (1.7-2.4); Phosphorus 1.6 mg/dl (2.5-4.9); Potassium 3.4 mmol/L (3.5-5.1)
[2023-05-08] MEDS: COUGH DROP (SUGAR FREE) LOZ 24 LOZ/1 BOX BUCCAL PRN (12:19)
[2023-05-08] MEDS: POTASSIUM CHLORIDE 20 MEQ/15 ML UDC PO STA (13:30)
[2023-05-08] MEDS: POT PHOSPHATE MONOBASIC W/ SOD TAB PO SCH (13:34)
[2023-05-08] MEDS ORDERED: Nursing to Pharmacy Communication SCH (16:30)
[2023-05-08] MEDS: ACETAMINOPHEN 500 MG TAB PO SCH (16:47)
[2023-05-08] MEDS: ONDANSETRON INJ 2 MG/ML 2 ML VIAL IV PRN (20:45)
[2023-05-09 06:24] LABS: Basophils # (auto) 0.02 K/uL (0.00-0.20); Basophils % (auto) 0.3 %; Eosinophils # (auto) 0.14 K/uL (0.00-0.50); Eosinophils % (auto) 2.4 %; Hematocrit (blood only) 31.7 % (37.0-47.0); Hemoglobin 10.7 g/dl (12.0-16.0); Immature Granulocytes # (auto) 0.02 K/uL (0.01-0.20); Immature Granulocytes % (auto) 0.3 %; Lymphocytes # (auto) 2.07 K/uL (1.20-3.40); Lymphocytes % (auto) 35.3 %; Mean Corpuscular Hemoglobin 28.8 pg (25.0-34.0); Mean Corpuscular Hgb Conc 33.8 g/dL (32.0-36.0); Mean Corpuscular Volume 85.2 fL (80.0-100.0); Mean Platelet Volume 9.5 fL (9.4-12.4); Monocytes # (auto) 0.47 K/uL (0.11-0.59); Neutrophils # (auto) 3.14 K/uL (1.40-6.50); Neutrophils % (auto) 53.7 %; Platelet Count 222 K/uL (130-400); RDW Coefficient of Variation 13.2 % (11.5-14.5); RDW Standard Deviation 41.1 fL (36.4-46.3); Red Blood Count 3.72 M/uL (4.20-5.40); White Blood Count 5.86 K/ul (4.8-10.8)
[2023-05-09 06:41] LABS: BUN Creatinine Ratio 11.6 (10-20); Calcium 6.9 mg/dl (8.6-10.3); Creatinine Clr Calc Pharmacy 110.2 ml/min; Est GFR (Non-African American) 105.2 ml/min; Phosphorus 1.8 mg/dl (2.5-4.9); Potassium 3.2 mmol/L (3.5-5.1)
[2023-05-09] MEDS ORDERED: POTASSIUM PHOS 3 MMOL/1 ML INFUSION IV STA (08:20)
--- NOTE | 2023-05-09 08:21 | Hospitalist Progress Note ---
Date of Service May 09, 2023 Assessment & Plan (1) SBO (small bowel obstruction): Plan: Small bowel obstruction S/P Exploratory Laparotomy, Lysis of Adhesions, Small Bowel Resection by on 05/06/23 Blood pressure relatively low postoperatively Pain control, wound care as per primary team Monitor CBC for postop anemia Advance diet as per surgery -> currently on clear liquid and tolerating was on Cefoxitin empirically IV fluids now stopped reports hx of c. diff, will start prophylactic vanco po daily Acute blood loss anemia, post-op, and likely partial also dilutional -current Hgb ~ 11 (pre-op 14) - cont. to monitor H&H Microscopic hematuria Denies dysuria, hematuria, abd pain Urine culture negat. was on Cefoxitin empirically as above Atrial fibrillation S/P ablation SVT Continue metoprolol with holding parameter Goiter s/p thyroidectomy postsurgical hypothyroidism Continue levothyroxine Other chronic conditions: Mitral valve disorder osteoporosis--on Prolia DVT Px: SCDs Re:surgery Code Status Full Code Admission and Anticipated Discharge Date Admission Date: May 06, 2023 Subjective Pt seen in follow up of med consult, pt with SBO s/p ex lap Sitting up in chair in NAD No fever, chills, chest pain, shortness of breath or palpitations. Passing flatus. No BM yet. She is having abdominal pain, postsurgical. On clear liquid diet and so far pt is tolerating. Review of Systems Review of Systems: All systems reviewed & are unremarkable except as noted in Subjective Physical Exam Physical Exam: General Appearance: Moderately built and nourished, no apparent distress Head: normocephalic, Atraumatic Eyes: normal inspection, EOMI Neck: supple Respiratory/Chest: Normal breath sounds, CTA, No accessory muscle use Cardiovascular: S1, S2, + murmur Abdomen/GI: Soft, + surgical site covered w/ clean dry dressings, tender to palp., + bowel sounds Extremities/Musculoskeletal: normal inspection, no edema Neurologic/Psych:AAOX3, grossly no focal neurological deficits Skin: normal color, warm Results & Data Results & Data Vital Signs (Past 12 Hours) Vital Signs Temp Pulse Resp BP Pulse Ox Pulse Ox O2 Del Method 05/09/23 07:35 Room Air 05/09/23 07:35 36.6 C 66 16 127/85 97 Room Air 05/09/23 07:33 36.6 C 64 17 146/79 H 97 Room Air 05/08/23 20:24 Room Air 05/08/23 20:24 97 O2 Del Method 05/09/23 07:35 05/09/23 07:35 05/09/23 07:33 05/08/23 20:24 05/08/23 20:24 Room Air Laboratory Results 05/09/23 05/08/23 Range/Units 05:57 08:05 WBC 5.86 9.02 (4.8-10.8) K/ul RBC 3.72 L 3.71 L (4.20-5.40) M/uL Hgb 10.7 L 10.6 L (12.0-16.0) g/dl Hct 31.7 L 32.7 L (37.0-47.0) % MCV 85.2 88.1 (80.0-100.0) fL MCH 28.8 28.6 (25.0-34.0) pg MCHC 33.8 32.4 (32.0-36.0) g/dL RDW Std Deviation 41.1 42.5 (36.4-46.3) fL RDW Coeff of Tiffanie 13.2 13.2 (11.5-14.5) % Plt Count 222 193 (130-400) K/uL MPV 9.5 9.4 (9.4-12.4) fL Immature Gran % (Auto) 0.3 0.3 % Neut % (Auto) 53.7 77.1 % Lymph % (Auto) 35.3 15.3 % [place] % (Auto) 8.0 6.2 % Eos % (Auto) 2.4 0.8 % Baso % (Auto) 0.3 0.3 % Neut # (Auto) 3.14 6.95 H (1.40-6.50) K/uL Lymph # (Auto) 2.07 1.38 (1.20-3.40) K/uL [place] # (Auto) 0.47 0.56 (0.11-0.59) K/uL Eos # (Auto) 0.14 0.07 (0.00-0.50) K/uL Baso # (Auto) 0.02 0.03 (0.00-0.20) K/uL Immature Gran # (Auto) 0.02 0.03 (0.01-0.20) K/uL Sodium 135 L 135 L (136-145) mmol/L Potassium 3.2 L 3.4 L D (3.5-5.1) mmol/L Chloride 103 103 (98-107) mmol/L Carbon Dioxide 25 25 (21-32) mmol/L Anion Gap 7 7 (3-11) BUN 5 L 6 (6-23) mg/dl Creatinine 0.43 L 0.39 L (0.6-1.2) mg/dl Est Cr Clr Drug Dosing 110.2 121.5 ml/min Est GFR ( Amer) 122.0 126.0 ml/min Est GFR (Non-Af Amer) 105.2 108.7 ml/min BUN/Creatinine Ratio 11.6 15.4 (10-20) Glucose 86 81 (70-99(Fasting)) mg/dl Calcium 6.9 L 6.8 L (8.6-10.3) mg/dl Phosphorus 1.8 L 1.6 L D (2.5-4.9) mg/dl Magnesium 2.0 1.9 (1.7-2.4) mg/dl Medications Administered Current Inpatient Medications Acetaminophen (Acetaminophen 500 Mg Tab) 1,000 mg PO Q8H [facility] Stop: 06/07/23 15:59 Last Admin: 05/08/23 23:49 Dose: 1,000 mg Aspirin (Aspirin 81 Mg Ectab) 81 mg PO DAILY [facility] Stop: 06/06/23 08:59 Last Admin: 05/08/23 08:15 Dose: 81 mg Enoxaparin Sodium (Enoxaparin Inj 40 Mg/0.4 Ml Syr) 40 mg SQ QAM [facility] Stop: 06/07/23 08:59 Last Admin: 05/08/23 08:13 Dose: 40 mg Levothyroxine Sodium (Levothyroxine Sodium 75 Mcg Tablet) 75 mcg PO DAILY@0630 [facility] Stop: 06/06/23 06:29 Last Admin: 05/09/23 05:15 Dose: 75 mcg Loratadine (Loratadine 10 Mg Tab) 10 mg PO DAILY PRN PRN Reason: allergies Stop: 06/05/23 15:28 Magnesium Oxide (Magnesium Oxide 400 Mg Tab) 400 mg PO BID [facility] Stop: 06/06/23 16:44 Last Admin: 02/16/24 20:24 Dose: 400 mg Menthol (Cough Drop (Sugar Free) Jose Antonio 24 Jose Antonio/1 Box) 1 jose antonio BUCCAL Q4 PRN PRN Reason: Sore Throat Stop: 06/07/23 12:00 Last Admin: 05/08/23 12:19 Dose: 1 jose antonio Metoprolol Succinate (Metoprolol Succ 25mg Ext Rel Tab) 12.5 mg PO BID [facility] Stop: 06/05/23 20:59 Last Admin: 05/08/23 20:24 Dose: 12.5 mg Morphine Sulfate (Morphine Sulfate 4 Mg/Ml 1 Ml Carp\Vial) 4 mg IV Q3H PRN PRN Reason: Pain (6,7,8,9,10) Stop: 05/20/23 15:28 Morphine Sulfate (Morphine Sulfate 2 Mg/Ml Carp) 2 mg IV Q3H PRN PRN Reason: Pain (1,2,3,4,5) & Pre PT Stop: 05/20/23 15:28 Ondansetron HCl (Ondansetron Inj 2 Mg/Ml 2 Ml Vial) 4 mg IV Q6H PRN PRN Reason: Nausea And Vomiting Stop: 06/05/23 10:25 Last Admin: 05/08/23 20:45 Dose: 4 mg Oxycodone HCl (Oxycodone Hcl Ir 5 Mg Tab (Immediate Release)) 5 mg PO Q4H PRN PRN Reason: Moderate Pain (Scale 4, 5, 6) Stop: 05/21/23 11:01 Oxycodone HCl (Oxycodone Hcl Ir 5 Mg Tab (Immediate Release)) 10 mg PO Q4H PRN PRN Reason: Severe Pain (Scale 7, 8, 9,10) Stop: 05/21/23 11:01 Last Admin: 05/09/23 07:20 Dose: 10 mg Phenol (Chloraseptic (Phenol) 1.4% Soln 180 Ml Btl) 1 sprays MT Q6H PRN PRN Reason: Sore Throat Stop: 06/06/23 05:53 Last Admin: 05/08/23 08:19 Dose: 1 sprays Potassium Chloride (Potassium Chloride 20 Meq/15 Ml Udc) 40 meq PO NOW STA Stop: 05/09/23 08:20 Potassium Phosphate (Pot Phosphate Monobasic W/ Sod Tab) 1 tab PO QID [facility] Stop: 06/07/23 12:59 Last Admin: 05/08/23 20:24 Dose: 1 tab
[2023-05-09] MEDS: POTASSIUM CHLORIDE 20 MEQ/15 ML UDC PO STA (09:20)
[2023-05-09] MEDS: POTASSIUM PHOSPHATE 9 MMOL in SODIUM CHLORIDE 0.9% 250 ML IV ONE (09:24)
[2023-05-09] MEDS: CHERRY SYRUP 5 ML UDP PO SCH (11:17)
[2023-05-09] MEDS: VANCOMYCIN HCL 125 MG/2.5ML SOLN PO SCH (11:18)
--- NOTE | 2023-05-09 16:26 | Surgery Progress Note ---
Date of Service May 09, 2023 Assessment & Plan (1) SBO (small bowel obstruction): Plan: POD#3 exp lap and lysis of adhesions. Doing well. Will advance diet to full liquids. Continue ambulation/ incentive spirometry. Admission and Anticipated Discharge Date Admission Date: May 06, 2023 Subjective Overall she is feeling well. She is sitting in a chair. She has been ambulating. She has tolerated 4 trays of clear liquids without any nausea. She continues to pass flatus. She has not yet had a bowel movement. Physical Exam Constitutional: WD/WN, vitals as above Respiratory: normal respiratory effort, lungs clear to auscultation Cardiovascular: RRR, no murmur, no edema Gastrointestinal (Abdomen): Inspection/Auscultation: abdomen normal to inspection, + abdomen distended (mild), normal bowel sounds and + abdominal surgical incision (clean) Percussion/Palpation: abdomen soft; abdomen nonte nder and no guarding Neurologic: awake; no focal motor deficits Psychiatric: A+Ox3, euthymic affect Results & Data Vital Signs (Past 12 Hours) Vital Signs Temp Pulse Resp BP Pulse Ox O2 Del Method 05/09/23 14:13 36.7 C 69 17 112/74 98 Room Air 05/09/23 07:35 Room Air 05/09/23 07:35 36.6 C 66 16 127/85 97 Room Air 05/09/23 07:33 36.6 C 64 17 146/79 H 97 Room Air Laboratory Results Abnormal lab results 05/09/23 Range/Units 05:57 RBC 3.72 L (4.20-5.40) M/uL Hgb 10.7 L (12.0-16.0) g/dl Hct 31.7 L (37.0-47.0) % Sodium 135 L (136-145) mmol/L Potassium 3.2 L (3.5-5.1) mmol/L BUN 5 L (6-23) mg/dl Creatinine 0.43 L (0.6-1.2) mg/dl Calcium 6.9 L (8.6-10.3) mg/dl Phosphorus 1.8 L (2.5-4.9) mg/dl
[2023-05-10 06:51] LABS: Basophils # (auto) 0.02 K/uL (0.00-0.20); Basophils % (auto) 0.4 %; Eosinophils # (auto) 0.22 K/uL (0.00-0.50); Eosinophils % (auto) 4.5 %; Hematocrit (blood only) 32.1 % (37.0-47.0); Hemoglobin 10.8 g/dl (12.0-16.0); Immature Granulocytes # (auto) 0.02 K/uL (0.01-0.20); Immature Granulocytes % (auto) 0.4 %; Lymphocytes # (auto) 1.96 K/uL (1.20-3.40); Lymphocytes % (auto) 39.8 %; Mean Corpuscular Hgb Conc 33.6 g/dL (32.0-36.0); Mean Corpuscular Volume 86.3 fL (80.0-100.0); Mean Platelet Volume 9.4 fL (9.4-12.4); Monocytes # (auto) 0.36 K/uL (0.11-0.59); Monocytes % (auto) 7.3 %; Neutrophils # (auto) 2.34 K/uL (1.40-6.50); Neutrophils % (auto) 47.6 %; Platelet Count 239 K/uL (130-400); RDW Coefficient of Variation 13.2 % (11.5-14.5); RDW Standard Deviation 41.4 fL (36.4-46.3); Red Blood Count 3.72 M/uL (4.20-5.40); White Blood Count 4.92 K/ul (4.8-10.8)
[2023-05-10 07:19] LABS: BUN Creatinine Ratio 14.3 (10-20); Calcium 7.2 mg/dl (8.6-10.3); Creatinine Clr Calc Pharmacy 112.8 ml/min; Est GFR (African American) 122.9 ml/min; Est GFR (Non-African American) 106.1 ml/min; Phosphorus 2.5 mg/dl (2.5-4.9); Potassium 4.2 mmol/L (3.5-5.1)
[2023-05-10] MEDS: oxyCODONE HCL IR 5 MG TAB (IMMEDIATE RELEASE) PO PRN (08:03)
--- NOTE | 2023-05-10 09:24 | Hospitalist Progress Note ---
Date of Service May 10, 2023 Assessment & Plan (1) SBO (small bowel obstruction): Plan: Small bowel obstruction S/P Exploratory Laparotomy, Lysis of Adhesions, Small Bowel Resection by on 05/06/23 Blood pressure relatively low postoperatively Pain control, wound care as per primary team Monitor CBC for postop anemia Advance diet as per surgery -> diet advanced to low fiber now and so far tolerating was on Cefoxitin empirically IV fluids now stopped reports hx of c. diff, started prophylactic vanco po daily Acute blood loss anemia, post-op, and likely partial also dilutional -current Hgb ~ 11 (pre-op 14) - cont. to monitor H&H Microscopic hematuria Denies dysuria, hematuria, abd pain Urine culture negat. was on Cefoxitin empirically as above Atrial fibrillation S/P ablation SVT Continue metoprolol with holding parameter Goiter s/p thyroidectomy postsurgical hypothyroidism Continue levothyroxine Other chronic conditions: Mitral valve disorder osteoporosis--on Prolia DVT Px: SCDs Re:surgery Code Status Full Code Admission and Anticipated Discharge Date Admission Date: May 06, 2023 Subjective Pt seen in follow up of med consult, pt with SBO s/p ex lap Sitting up in bed in NAD No fever, chills, chest pain, shortness of breath or palpitations. Passing flatus. No BM yet. She is having abdominal pain, postsurgical, but well controlled. Diet advanced. Review of Systems Review of Systems: All systems reviewed & are unremarkable except as noted in Subjective Physical Exam Physical Exam: General Appearance: Moderately built and nourished, no apparent distress Head: normocephalic, Atraumatic Eyes: normal inspection, EOMI Neck: supple Respiratory/Chest: Normal breath sounds, CTA, No accessory muscle use Cardiovascular: S1, S2, + murmur Abdomen/GI: Soft, + surgical site covered w/ clean dry dressings, tender to palp., + bowel sounds Extremities/Musculoskeletal: normal inspection, no edema Neurologic/Psych:AAOX3, grossly no focal neurological deficits Skin: normal color, warm Results & Data Results & Data Vital Signs (Past 12 Hours) Vital Signs Temp Pulse Resp BP Pulse Ox O2 Del Method 05/10/23 07:17 36.6 C 73 16 127/84 97 Room Air Laboratory Results 05/10/23 Range/Units 06:04 WBC 4.92 (4.8-10.8) K/ul RBC 3.72 L (4.20-5.40) M/uL Hgb 10.8 L (12.0-16.0) g/dl Hct 32.1 L (37.0-47.0) % MCV 86.3 (80.0-100.0) fL MCH 29.0 (25.0-34.0) pg MCHC 33.6 (32.0-36.0) g/dL RDW Std Deviation 41.4 (36.4-46.3) fL RDW Coeff of Tiffanie 13.2 (11.5-14.5) % Plt Count 239 (130-400) K/uL MPV 9.4 (9.4-12.4) fL Immature Gran % (Auto) 0.4 % Neut % (Auto) 47.6 % Lymph % (Auto) 39.8 % [place] % (Auto) 7.3 % Eos % (Auto) 4.5 % Baso % (Auto) 0.4 % Neut # (Auto) 2.34 (1.40-6.50) K/uL Lymph # (Auto) 1.96 (1.20-3.40) K/uL [place] # (Auto) 0.36 (0.11-0.59) K/uL Eos # (Auto) 0.22 (0.00-0.50) K/uL Baso # (Auto) 0.02 (0.00-0.20) K/uL Immature Gran # (Auto) 0.02 (0.01-0.20) K/uL Sodium 136 (136-145) mmol/L Potassium 4.2 D (3.5-5.1) mmol/L Chloride 105 (98-107) mmol/L Carbon Dioxide 26 (21-32) mmol/L Anion Gap 5 (3-11) BUN 6 (6-23) mg/dl Creatinine 0.42 L (0.6-1.2) mg/dl Est Cr Clr Drug Dosing 112.8 ml/min Est GFR ( Amer) 122.9 ml/min Est GFR (Non-Af Amer) 106.1 ml/min BUN/Creatinine Ratio 14.3 (10-20) Glucose 82 (70-99(Fasting)) mg/dl Calcium 7.2 L (8.6-10.3) mg/dl Phosphorus 2.5 (2.5-4.9) mg/dl Magnesium 2.0 (1.7-2.4) mg/dl Medications Administered Current Inpatient Medications Acetaminophen (Acetaminophen 500 Mg Tab) 1,000 mg PO Q8H [facility] Stop: 06/07/23 15:59 Last Admin: 05/10/23 08:06 Dose: 1,000 mg Aspirin (Aspirin 81 Mg Ectab) 81 mg PO DAILY [facility] Stop: 06/06/23 08:59 Last Admin: 05/10/23 08:05 Dose: 81 mg Bowser Syrup (Bowser Syrup 5 Ml Udp) 5 ml PO QAM [facility] Stop: 05/19/23 10:59 Last Admin: 05/10/23 08:10 Dose: 5 ml Enoxaparin Sodium (Enoxaparin Inj 40 Mg/0.4 Ml Syr) 40 mg SQ QAM [facility] Stop: 06/07/23 08:59 Last Admin: 05/10/23 09:02 Dose: 40 mg Levothyroxine Sodium (Levothyroxine Sodium 75 Mcg Tablet) 75 mcg PO DAILY@0630 [facility] Stop: 06/06/23 06:29 Last Admin: 05/10/23 06:13 Dose: 75 mcg Loratadine (Loratadine 10 Mg Tab) 10 mg PO DAILY PRN PRN Reason: allergies Stop: 06/05/23 15:28 Magnesium Oxide (Magnesium Oxide 400 Mg Tab) 400 mg PO BID [facility] Stop: 06/06/23 16:44 Last Admin: 05/10/23 08:06 Dose: 400 mg Menthol (Cough Drop (Sugar Free) Jose Antonio 24 Jose Antonio/1 Box) 1 jose antonio BUCCAL Q4 PRN PRN Reason: Sore Throat Stop: 06/07/23 12:00 Last Admin: 05/08/23 12:19 Dose: 1 jose antonio Metoprolol Succinate (Metoprolol Succ 25mg Ext Rel Tab) 12.5 mg PO BID [facility] Stop: 06/05/23 20:59 Last Admin: 05/10/23 08:06 Dose: 12.5 mg Morphine Sulfate (Morphine Sulfate 4 Mg/Ml 1 Ml Carp\Vial) 4 mg IV Q3H PRN PRN Reason: Pain (6,7,8,9,10) Stop: 05/20/23 15:28 Morphine Sulfate (Morphine Sulfate 2 Mg/Ml Carp) 2 mg IV Q3H PRN PRN Reason: Pain (1,2,3,4,5) & Pre PT Stop: 05/20/23 15:28 Ondansetron HCl (Ondansetron Inj 2 Mg/Ml 2 Ml Vial) 4 mg IV Q6H PRN PRN Reason: Nausea And Vomiting Stop: 06/05/23 10:25 Last Admin: 05/08/23 20:45 Dose: 4 mg Oxycodone HCl (Oxycodone Hcl Ir 5 Mg Tab (Immediate Release)) 5 mg PO Q4H PRN PRN Reason: Moderate Pain (Scale 4, 5, 6) Stop: 05/21/23 11:01 Last Admin: 05/10/23 08:03 Dose: 5 mg Oxycodone HCl (Oxycodone Hcl Ir 5 Mg Tab (Immediate Release)) 10 mg PO Q4H PRN PRN Reason: Severe Pain (Scale 7, 8, 9,10) Stop: 05/21/23 11:01 Last Admin: 05/10/23 02:23 Dose: 10 mg Phenol (Chloraseptic (Phenol) 1.4% Soln 180 Ml Btl) 1 sprays MT Q6H PRN PRN Reason: Sore Throat Stop: 06/06/23 05:53 Last Admin: 05/08/23 08:19 Dose: 1 sprays Potassium Phosphate (Pot Phosphate Monobasic W/ Sod Tab) 1 tab PO QID [facility] Stop: 06/07/23 12:59 Last Admin: 05/10/23 08:06 Dose: 1 tab Vancomycin HCl (Vancomycin Hcl 125 Mg/2.5ml Soln) 125 mg PO QAM [facility] Stop: 05/19/23 10:59 Last Admin: 05/10/23 08:10 Dose: 125 mg
[2023-05-10] MEDS ORDERED: IBUPROFEN 200 MG TAB PO PRN (09:25)
--- NOTE | 2023-05-10 09:28 | Surgery Progress Note ---
Date of Service May 10, 2023 Assessment & Plan (1) SBO (small bowel obstruction): Plan: POD#4 exp lap and lysis of adhesions. Doing well. On regular diet. Dulcolax was prescribed. Ibuprofen was added for pain control as needed. She is going to try to wean the narcotics and use Tylenol and ibuprofen more so if possible. We discussed requirements for discharge and potential discharge tomorrow if she continues to tolerate food. Continue ambulation/ incentive spirometry. Admission and Anticipated Discharge Date Admission Date: May 06, 2023 Subjective She is sitting in a chair at her bedside. She tolerated a low fiber diet for breakfast. She is continuing to pass gas but has not had a bowel movement yet. She has multiple questions about weaning pain medication and potential discharge. She denies any nausea or vomiting. Pain is currently controlled with the oxycodone. She is considering changing how she takes this to every 4 hours in an attempt to manage the pain better. Physical Exam Constitutional: WD/WN, vitals as above Respiratory: normal respiratory effort, lungs clear to auscultation Cardiovascular: RRR, no murmur, no edema Gastrointestinal (Abdomen): Inspection/Auscultation: abdomen normal to inspection, + abdomen distended (mild), normal bowel sounds and + abdominal surgical incision (clean) Percussion/Palpation: abdomen soft; abdomen nontender and no guarding Neurologic: awake; no focal motor deficits Psychiatric: A+Ox3, euthymic affect Results & Data Vital Signs (Past 12 Hours) Vital Signs Temp Pulse Resp BP Pulse Ox O2 Del Method 05/10/23 07:17 36.6 C 73 16 127/84 97 Room Air
[2023-05-10] MEDS: bisacodyL 5 MG TABEC PO PRN (12:15)
[2023-05-11 07:02] LABS: BUN Creatinine Ratio 15.2 (10-20); Calcium 7.9 mg/dl (8.6-10.3); Est GFR (African American) 119.3 ml/min; Est GFR (Non-African American) 102.9 ml/min; Magnesium 2.1 mg/dl (1.7-2.4); Phosphorus 3.1 mg/dl (2.5-4.9); Potassium 4.1 mmol/L (3.5-5.1)
--- NOTE | 2023-05-11 08:21 | Surgery Progress Note ---
Date of Service May 11, 2023 Assessment & Plan (1) SBO (small bowel obstruction): Plan: POD#5 ex-lap, small bowel resection Doing well. Vitals stable. Pain controlled Advanced to low fiber diet over the wknd without issues She continues to pass flatus, but without a BM Will await BM prior to discharge, hopefully later today vs tomorrow Appreciate hospitalists assistance with pt Upon dispo will need f/u in clinic with Dr. Ramires in 7-10 days time Admission and Anticipated Discharge Date Admission Date: May 06, 2023 Subjective Patient reports feeling well. Tolerating a low fiber diet, no nausea/vomiting. Pain controlled. Passing flatus, no BM yet. Physical Exam 2 Physical Exam: awake/alert, no distress. sitting up in chair eating bfast Results & Data Vital Signs (Past 12 Hours) Vital Signs Temp Pulse Resp BP Pulse Ox O2 Del Method 05/11/23 07:45 98.2 F 80 15 122/68 95 Room Air PG Care Time/CCT Total # of Minutes Spent Total Time Spent with Patient: Total time spent is greater than 50% in coordination of care (as documented) at patient's floor/unit and/or counseling patient: Coding Level of Care Code 53016 Post Operative Follow-Up Diagnoses SBO (small bowel obstruction) K56.609
--- NOTE | 2023-05-11 08:22 | Surgery Progress Note ---
Date of Service May 11, 2023 Assessment & Plan (1) SBO (small bowel obstruction): Plan: Doing well. Considering she had a partial small bowel resection I'm hesitant to send her home until she is actually has a bowel movement. I have encouraged her increase her fluid intake and ambulate. Will reevaluate her later today. Possible discharge later today or tomorrow after full return of bowel function. Admission and Anticipated Discharge Date Admission Date: May 06, 2023 Subjective Patient seen. She is doing great. She is tolerating regular diet. No bowel movement yet. Minimal discomfort and no nausea Physical Exam Physical Exam: Alert. No acute distress Abdomen is soft with expected incisional tenderness. Results & Data Vital Signs (Past 12 Hours) Vital Signs Temp Pulse Resp BP Pulse Ox O2 Del Method 05/11/23 07:45 36.8 C 80 15 122/68 95 Room Air PG Care Time/CCT Total # of Minutes Spent Total Time Spent with Patient: Total time spent is greater than 50% in coordination of care (as documented) at patient's floor/unit and/or counseling patient: Coding Level of Care Code 95454 Post Operative Follow-Up Diagnoses SBO (small bowel obstruction) K56.609
--- NOTE | 2023-05-11 08:29 | Hospitalist Progress Note ---
Date of Service May 11, 2023 Assessment & Plan (1) SBO (small bowel obstruction): Plan: Small bowel obstruction S/P Exploratory Laparotomy, Lysis of Adhesions, Small Bowel Resection by on 05/06/23 Blood pressure relatively low postoperatively Pain control, wound care as per primary team Monitor CBC for postop anemia Advance diet as per surgery -> diet advanced to low fiber now and so far tolerating was on Cefoxitin empirically IV fluids now stopped reports hx of c. diff, started prophylactic vanco po daily 05/10 passing flatus, no BM yet. plan to DC home once she has a BM Pt is ambulating in hallways Acute blood loss anemia, post-op, and likely partial also dilutional -current Hgb ~ 11 (pre-op 14) - cont. to monitor H&H Microscopic hematuria Denies dysuria, hematuria, abd pain Urine culture negat. was on Cefoxitin empirically as above Atrial fibrillation S/P ablation SVT Continue metoprolol with holding parameter Goiter s/p thyroidectomy postsurgical hypothyroidism Continue levothyroxine Other chronic conditions: Mitral valve disorder osteoporosis--on Prolia DVT Px: SCDs Re:surgery Code Status Full Code Admission and Anticipated Discharge Date Admission Date: May 06, 2023 Subjective Pt seen in follow up of med consult, pt with SBO s/p ex lap Standing up in bathroom in NAD No fever, chills, chest pain, shortness of breath or palpitations. Passing flatus. No BM yet. She is having mild abdominal pain, postsurgical, but well controlled. Diet advanced. no nausea, vomiting Seen by surgery today - if pt has BM later today ok w/ discharge. pt is eager to go home. Review of Systems Review of Systems: All systems reviewed & are unremarkable except as noted in Subjective Physical Exam Physical Exam: General Appearance: Moderately built and nourished, no apparent distress Head: normocephalic, Atraumatic Eyes: normal inspection, EOMI Neck: supple Respiratory/Chest: Normal breath sounds, CTA, No accessory muscle use Cardiovascular: S1, S2, + murmur Abdomen/GI: Soft, + surgical site covered w/ clean dry dressings, tender to palp., + bowel sounds Extremities/Musculoskeletal: normal inspection, no edema Neurologic/Psych:AAOX3, grossly no focal neurological deficits Skin: normal color, warm Results & Data Results & Data Vital Signs (Past 12 Hours) Vital Signs Temp Pulse Resp BP Pulse Ox O2 Del Method 05/11/23 07:45 36.8 C 80 15 122/68 95 Room Air Laboratory Results 05/11/23 Range/Units 05:37 Sodium 136 (136-145) mmol/L Potassium 4.1 (3.5-5.1) mmol/L Chloride 104 (98-107) mmol/L Carbon Dioxide 27 (21-32) mmol/L Anion Gap 5 (3-11) BUN 7 (6-23) mg/dl Creatinine 0.46 L (0.6-1.2) mg/dl Est Cr Clr Drug Dosing 103.0 ml/min Est GFR ( Amer) 119.3 ml/min Est GFR (Non-Af Amer) 102.9 ml/min BUN/Creatinine Ratio 15.2 (10-20) Glucose 89 (70-99(Fasting)) mg/dl Calcium 7.9 L (8.6-10.3) mg/dl Phosphorus 3.1 (2.5-4.9) mg/dl Magnesium 2.1 (1.7-2.4) mg/dl Medications Administered Current Inpatient Medications Acetaminophen (Acetaminophen 500 Mg Tab) 1,000 mg PO Q8H [facility] Stop: 06/07/23 15:59 Last Admin: 05/11/23 07:53 Dose: 1,000 mg Aspirin (Aspirin 81 Mg Ectab) 81 mg PO DAILY [facility] Stop: 06/06/23 08:59 Last Admin: 05/11/23 07:54 Dose: 81 mg Bowser Syrup (Bowser Syrup 5 Ml Udp) 5 ml PO QAM [facility] Stop: 05/19/23 10:59 Last Admin: 05/11/23 07:54 Dose: 5 ml Enoxaparin Sodium (Enoxaparin Inj 40 Mg/0.4 Ml Syr) 40 mg SQ QAM [facility] Stop: 06/07/23 08:59 Last Admin: 05/11/23 07:54 Dose: 40 mg Ibuprofen (Ibuprofen 200 Mg Tab) 400 mg PO Q4H PRN PRN Reason: Pain or Fever Stop: 06/09/23 09:24 Levothyroxine Sodium (Levothyroxine Sodium 75 Mcg Tablet) 75 mcg PO DAILY@0630 [facility] Stop: 06/06/23 06:29 Last Admin: 05/11/23 05:53 Dose: 75 mcg Loratadine (Loratadine 10 Mg Tab) 10 mg PO DAILY PRN PRN Reason: allergies Stop: 06/05/23 15:28 Magnesium Oxide (Magnesium Oxide 400 Mg Tab) 400 mg PO BID [facility] Stop: 06/06/23 16:44 Last Admin: 05/11/23 07:53 Dose: 400 mg Menthol (Cough Drop (Sugar Free) Jose Antonio 24 Jose Antonio/1 Box) 1 jose antonio BUCCAL Q4 PRN PRN Reason: Sore Throat Stop: 06/07/23 12:00 Last Admin: 05/08/23 12:19 Dose: 1 jose antonio Metoprolol Succinate (Metoprolol Succ 25mg Ext Rel Tab) 12.5 mg PO BID [facility] Stop: 06/05/23 20:59 Last Admin: 05/11/23 07:53 Dose: 12.5 mg Morphine Sulfate (Morphine Sulfate 4 Mg/Ml 1 Ml Carp\Vial) 4 mg IV Q3H PRN PRN Reason: Pain (6,7,8,9,10) Stop: 05/20/23 15:28 Morphine Sulfate (Morphine Sulfate 2 Mg/Ml Carp) 2 mg IV Q3H PRN PRN Reason: Pain (1,2,3,4,5) & Pre PT Stop: 05/20/23 15:28 Ondansetron HCl (Ondansetron Inj 2 Mg/Ml 2 Ml Vial) 4 mg IV Q6H PRN PRN Reason: Nausea And Vomiting Stop: 06/05/23 10:25 Last Admin: 05/08/23 20:45 Dose: 4 mg Oxycodone HCl (Oxycodone Hcl Ir 5 Mg Tab (Immediate Release)) 5 mg PO Q4H PRN PRN Reason: Moderate Pain (Scale 4, 5, 6) Stop: 05/21/23 11:01 Last Admin: 05/11/23 05:56 Dose: 5 mg Oxycodone HCl (Oxycodone Hcl Ir 5 Mg Tab (Immediate Release)) 10 mg PO Q4H PRN PRN Reason: Severe Pain (Scale 7, 8, 9,10) Stop: 05/21/23 11:01 Last Admin: 05/10/23 02:23 Dose: 10 mg Phenol (Chloraseptic (Phenol) 1.4% Soln 180 Ml Btl) 1 sprays MT Q6H PRN PRN Reason: Sore Throat Stop: 06/06/23 05:53 Last Admin: 05/08/23 08:19 Dose: 1 sprays Potassium Phosphate (Pot Phosphate Monobasic W/ Sod Tab) 1 tab PO QID [facility] Stop: 06/07/23 12:59 Last Admin: 05/11/23 07:54 Dose: 1 tab Vancomycin HCl (Vancomycin Hcl 125 Mg/2.5ml Soln) 125 mg PO QAM [facility] Stop: 05/19/23 10:59 Last Admin: 05/11/23 07:53 Dose: 125 mg
--- NOTE | 2023-05-11 15:15 | Discharge Summary ---
Date of Service May 11, 2023 Admission HPI Per Admitting Provider Patient is a 67 yo female with a PMH of A-fib, SVT, ablation, LARA, diverticulitis, hydroureteronephrosis, bladder prolapse, hypothyroidism, in left ear, osteoporosis, back fractures, s/p implanted radiographer cardiac catheterization, pessary that presented to the [facility] ER this am with c./o abdominal pain that started at 0300 today and has been progressively getting worse. She rates her pain a 10/10 at home and when she came in, sharp stabbing. Currently she rates pain a 2/10, she has had associated nausea and dry heaves no vomiting. Denies fever, chills, cp, sob. Had a normal bm yesterday and currently is passing small amount of flatus. Has been NPO since last night with a sip of water this AM around 0300. Denies blood thinners other than a daily 81mg ASA. She follows with [facility] cardiology [facility], and stated she had an appointment last Thursday. Principal Diagnosis small bowel obstruction s/p exploratory laparotomy and small bowel resection Discharge Exam awake/alert, no distress Respiratory normal respiratory effort Gastrointestinal (Abdomen) Inspection/Auscultation: + abdomen distended (mild) and + abdominal surgical incision (midline abelino) Percussion/Palpation: + abdomen tender (expected post surgical discomfort) and abdomen soft Discharge Data Allergies Allergy/AdvReac Type Severity Reaction Status Date / Time latex Allergy Unknown RASH Verified 02/03/23 09:26 erythromycin base AdvReac Unknown UPSET Verified 02/03/23 09:26 STOMACH Consultations 05/06/23 15:29 Consult Hospitalist Routine Procedures Performed Operation Date: 05/06/23 10:30 Actual Procedures p Exploratory Laparotomy, Lysis of Adhesions, Small Bowel Resection (65cm)(Not Applicable) - Perry Ramires DO Ordered Studies 05/06/23 07:18 CT abd pelvis IV con only Stat Hospital Course (1) SBO (small bowel obstruction): This is a 67yF with a PMH of afib, diverticulitis, hypothyroid who presented to the [facility] ED on 05/06/23 with complaints of abdominal pain. Workup in the ER with a CT a/p revealed findings concerning for small bowel obstruction with loops of thick walled small bowel in the central pelvis with marked surrounding mesenteric edema, venous engorgement, and interloop fluid. These loops are likely at risk for ischemia. There is concern for closed loop obstruction. WBC 11, lactate 0.9. On exam abdomen with distention and tenderness to palpation. After review of patient's CT scan, history and examination decision was made to proceed with surgical intervention and the patient was agreeable. She ultimately underwent an exploratory laparotomy, lysis of adhesions, with small bowel resection as intraop findings concerning for bowel infarction. The patient tolerated the procedure well, see op note for full details. The hospitalists were consulted during her stay for assistance with medical management. On POD#1 patient's mitchell catheter and NGT were removed. She was started on sips/chips. Lovenox started for DVT prophylaxis. She completed 24 hours of post op antibiotic. Activity and pulmonary toilet encouraged throughout her stay. Pain managed with prn pain meds. POD#2 diet advanced to clears. POD#3 patient passing more flatus. Diet advanced to full liquids without issues. POD#4 diet advanced to low fiber. Pain controlled with prn oral medications. She continues to pass gas. POD#5 the patient continued to tolerate a low fiber diet. She continued to pass flatus and was able to pass a large BM without issues. She was ambulating the halls well. No nausea/vomiting. She was deemed stable for discharge to home with instructions to follow up in clinic with Dr. Ramires in 10-14 days time. Total Time Total Time Spent Total Time Spent (In Minutes): 15 Discharge Plan Discharge Items Patient Disposition: Home - Self-Care Reason For Visit: S/P EX LAP Discharge Diagnosis: exploratory laparotomy small bowel resection Activity: Per Instructions section Lifting: No more than 10 pounds Bathing Comment: may shower; no soaking in tubs/pools x 2 weeks Exercise/Sports: Wait until after follow-up appointment Driving/Machine Use: no driving while on narcotics for pain; wait at least 3 days Non-emergency contact: Surgeon Call non-emergency contact if: you have any medication questions, you have a fever, your temperature is above 101.5, your wound has increased redness, your wound has increased drainage and your wound pain has increased Follow-up/Referrals: Perry Ramires DO [Physician] - 05/22/23 9:00 am () Newhouser,Iban D., DO [Primary Care Provider] - (Date & Time 05/15/2023 1:40 PM Provider Iban Whaley DO Department [facility] ) Diet: Low Fiber Addtl Attending Provider Instructions: you have abelino in place that will be removed at your post operative appointment, in about 14 days from your surgical date You may purchase Tylenol and/or Ibuprofen over the counter if needed for additional pain control over the next few days. Take per manufacturers instructions Pending Studies at Discharge: Yes Studies:: surgical pathology Stand-Alone Forms: My [facility], Smoking Cessation Medications and DC Order Prescriptions: New oxycodone 5 mg tablet 5 - 10 mg PO .[id number] PRN (Reason: pain, for initial therapy, max 6 tabs per day) Qty: 15 0RF Continued metoprolol succinate 25 mg tablet extended release 24 hr 12.5 mg PO BID Trimo-Galdamez Jelly 0.025-0.01 % gel See Rx Instructions vaginal .COMPLEX Qty: 113.4 3RF Rx Instructions: apply 1/2 applicator full 2-3 times weekly. aspirin 81 mg Tablet,Delayed Release (Dr/Ec) 81 mg PO DAILY levothyroxine 75 mcg Tablet 75 mcg PO DAILY@0630 calcium carbonate 600 mg calcium (1,500 mg) Tablet 600 mg PO DAILY loratadine 10 mg Tablet 10 mg PO DAILY PRN (Reason: allergies) potassium chloride [Klor-Con M10] 10 mEq tablet,ER particles/crystals 10 meq PO MOWEFR cholecalciferol (vitamin D3) 25 mcg (1,000 unit) Tablet 25 mcg PO DAILY ascorbic acid (vitamin C) 500 mg Capsule 1,000 mg PO DAILY multivitamin Tablet 1 tab PO DAILY Prolia See Rx Instructions .ROUTE .COMPLEX Rx Instructions: 60 mg subcutaneously q6 months Discharge Orders: Discharge Order (Routine); Ordered 05/11/23 Ordered By: Carmella Zavala Admission Data Admit Date/Time: 05/06/23 13:07 Attending Provider: Perry Ramires Admit Provider: Perry Ramires Primary Care Provider: Iban Whaley. Other Providers: Grace Moyer; Taylor Espitia I.; Renetta Macias; Edy Mesa; Mae Nair; Nona Quinn; Romi Gonzalez; Donaldo Calvo; Justen Callahan; Jet Butler; Flower Magdaleno; Al Mendoza; Haydee Del Castillo; Nubia Carson; Teodora Edwards; Alvarado Chavarria; Brandy Cali; Veda Rene; Ceci Matute I.; Messi Alvares; Nirav Ly; Margaret Gooden; Salvador Valdivia; Rk Ruiz; Nathan Giang; Vivienne Godinez; Amy Bruce Coding Level of Care Code 46206 IN/OBS DISCH 30 MIN/LESS Diagnoses SBO (small bowel obstruction) K56.609
== END 2023-05-11 16:17 | disposition home or self-care (01) | DRG 329 ==
LOC: ED 06:43 → 3E 10:52
DX: K55.029 Acute infarction of small intestine, extent unspecified; Z91.040 Latex allergy status; R31.29 Other microscopic hematuria; Z83.3 Family history of diabetes mellitus; E89.0 Postprocedural hypothyroidism; I48.91 Unspecified atrial fibrillation; M81.0 Age-related osteoporosis without current pathological fracture; Z79.82 Long term (current) use of aspirin; R18.8 Other ascites; D62 Acute posthemorrhagic anemia; K56.50 Intestinal adhesions [bands], unspecified as to partial versus complete obstruction